=== PATIENT | female | born 1955 | race Caucasian/White ===

== ENCOUNTER 2016-06-19 09:53 | Inpatient (IN) | payer MEDICAID ==
[~2016-06-19] VITALS: Ht 154.9 cm; Wt 90.7 kg
[~2016-06-19 09:53] MED LIST: AMBIEN10 MG ORAL; AMBIEN10 MG PO; AMBIEN5 MG ORAL; ATARAX25 MG PO; AZACTAM1 GM IVPB; BUSPAR10 MG ORAL; CIPRO500 MG PO; CLONIDINE 0.2M0.2 MG PO; COZAAR50 MG PO; CYCLOBENZAPRINE10 MG ORAL; DOCUSATE SODIU100 MG ORAL; KEFLEX500 MG ORAL; KLONOPIN0.5 MG PO; LEVAQUIN500 MG ORAL; MAGNESIUM200 MG PO; MORPHINE SULFAT30 M5 PO; MUPIROCIN22 GM TOPIC; NEXIUM40 MG PO; NORCO 10-325 T1 EACH ORAL; OMEPRAZOLE20 M2 ORAL; POTASSIUM CHLO10 ME3 ORAL; POTASSIUM CHLO20 ME2 ORAL; POTASSIUM99 M3 PO; PRILOSEC OTC20 MG ORAL; RANITIDINE HCL150 MG ORAL; TENORMIN50 MG PO; ZOFRAN ODT8 MG ORAL
[2016-06-19 11:20] VITALS: BP 125/75
[2016-06-19 12:05] LABS: APPEARANCE,URINE CLOUDY; KETONES,URINE 1+ (NEGATIVE); LEUKOCYTE ESTERASE ,URINE 3+ (NEGATIVE); PH,URINE 6 (4.5-8.0); PROTEIN,URINE 4+ (NEGATIVE)
[2016-06-19 12:19] LABS: NITRITE,URINE NEGATIVE (NEGATIVE); UROBILINOGEN,URINE NORMAL MG/DL (0.0-1.0)
[2016-06-19 12:21] LABS: WBC,URINE TNTC /HPF (0 - 2)
[2016-06-19 12:22] LABS: BACTERIA,URINE FEW /HPF; SQUAMOUS EPITHELIAL CELL,UR FEW /LPF (NONE/OCC)
[2016-06-19] MEDS ORDERED: Morphine Sulfate 4mg/ml Inj IVP ONE (12:30)
[2016-06-19] MEDS ORDERED: Aztreonam Inj 1 GM in NS 55 ML IVPB ONE (12:45)
--- NOTE | 2016-06-19 12:45 | Emergency Room Report ---
History of Present Illness General Chief Complaint: Pain Source: Patient, Family Member Present Illness HPI 61 YOF with recurrent right flank pain radiating to right groin. Denies fever/ chills, nausea/vomiting, diarrhea. Pain acutely worse today. Has had constant for last week, mild improvement with OTC pain meds. Has been here numerous times for similar. Admitted 03/03- for similar. Found to have complicated recurrent Proteus UTI and pyelo. Was tx with Azactam here and at home with improvement per son via VNS and PICC. Allergies: Coded Allergies: ASPIRIN (Verified Allergy, Severe, SHORTNESS OF BREATH, 01/02/12) CIPROFLOXACIN (Verified Allergy, Intermediate, FEET SWELLING, 01/02/12) CIPROFLOXACIN HCL (Verified Allergy, Intermediate, FEET SWELLING, 01/02/12 ) HYDROMORPHONE HCL (Verified Allergy, Intermediate, HALLUCINATION, 01/02/12 ) TETRACYCLINE (Verified Allergy, Intermediate, Rash, 01/02/12) DIPHENHYDRAMINE (Verified Allergy, Unknown, 06/19/16) KETOROLAC (Verified Allergy, Unknown, tachycardia, 12/05/15) LEVOFLOXACIN (Verified Allergy, Unknown, FEET SWELLING, 11/08/13) PENICILLINS (Unverified Allergy, Unknown, 10/06/15) METOCLOPRAMIDE (Verified Adverse Reaction, Severe, 03/10/13) tachycardia SULFAMETHOXAZOLE (Verified Adverse Reaction, Intermediate, 10/28/15) TRIMETHOPRIM (Verified Adverse Reaction, Intermediate, 10/28/15) Uncoded Allergies: PENICILLIN (Allergy, Unknown, 10/06/15) Patient History Past Medical History: see triage record, old chart reviewed Past Surgical History: other - Right stent placeemnt Pertinent Family History: none Social History: Denies: alcohol use, drug use, smoking Now: No Immunizations: UTD Reviewed Nursing Documentation: PMH: Agreed, PSxH: Agreed Nursing Documentation-PMH Hx Cardiac Problems: Yes - defibrillator, kidney stones, kidney surgery 2015 Hx Hypertension: Yes Hx Pacemaker: Yes - defibrillator Hx Cancer: Yes - cervical 2002 Hx Gastrointestinal Problems: Yes Hx Neurological Problems: No Hx Cerebrovascular Accident: No Hx Transient Ischemic Attacks: No Hx Dementia: No Hx Alzheimer's Disease: No Hx Parkinson's Disease: No Hx Meningitis: No Hx Encephalitis: No Hx Seizures: No Hx Epilepsy: No Hx Multiple Sclerosis: No Hx Cerebral Palsy: No Hx Amyotrophic Lat Sclerosis: No Hx Guillian-Manning Syndrome: No Hx Paralysis: No Hx Peripheral Neuropathy: No Hx Spinal Cord Injury: No Hx Head Trauma: No Hx Traumatic Brain Injury: No Hx Memory Loss: No Hx Concentration Difficulty: No Hx Speech Problem: No Hx Tremors: No Hx Vertigo: No Hx Dizziness: No Hx Syncope: No Hx Headaches: No Hx Aphasia: No Hx Dysphasia: No Hx Numbness: No Hx Weakness: No Hx Fatigue: No Hx Neurologic Surgery: No Hx Brain Shunt: No Review of Systems All Other Systems: negative except mentioned in HPI Physical Exam Vital Signs Date Time Temp Pulse Resp B/P Pulse Ox O2 Delivery O2 Flow Rate FiO2 06/19/16 10:17 98.8 93 20 126/77 98 Room Air Sp02 EP Interpretation: reviewed, normal General Appearance: normal inspection, well appearing, alert, GCS 15, non-toxic , mild distress Head: normocephalic, atraumatic Eyes: bilateral eye EOMI, bilateral eye PERRL ENT: normal ENT inspection, hearing grossly normal, normal voice Neck: normal inspection, full range of motion, supple, no bony tend Respiratory: normal inspection, lungs clear, normal breath sounds, no respiratory distress, no retraction, no wheezing Cardiovascular #1: regular rate, rhythm, no edema Gastrointestinal: normal inspection, normal bowel sounds, non tender, soft, no guarding, no hernia Genitourinary: CVA tenderness (R) Musculoskeletal: normal inspection, back normal, normal range of motion, Yo' s Sign negative Neurologic: normal inspection, alert, responsive, speech normal Psychiatric: normal inspection, judgement/insight normal, mood/affect normal Skin: normal inspection, normal color, no rash Lymphatic: normal inspection Medical Decision Making Diagnostic Impression: Primary Impression: Right flank pain, chronic Additional Impressions: UTI (urinary tract infection) Qualified Codes: N30.01 - Acute cystitis with hematuria ELIZABETH (acute kidney injury) ER Course Recurrent right flank pain. VSS. Afebrile. Not septic. Looks well aside from c/o pain UA grossly infected. Additional Urine Cx sent Labs: No leuks. H&H stable. Mild ELIZABETH Empiric Abx started based on previous success with Aztreonam Analgesia provided Patient feels better Endorsed to Dr Arnold at 2pm for med/surg admission Likely needs Urology, Renal consult Last Vital Signs Date Time Temp Pulse Resp B/P Pulse Ox O2 Delivery O2 Flow Rate FiO2 06/19/16 10:17 98.8 93 20 126/77 98 Room Air Status: improved Disposition: ADMITTED INPATIENT Condition: Serious WHITNEY GONZALEZ M.D. Jun 19, 2016 12:45
[2016-06-19 13:40] LABS: BASOPHILS % (AUTO) 0.8 % (0.0-2.0); EOSINOPHILS % (AUTO) 2.2 % (0.0-3.0); LYMPHOCYTES % (AUTO) 16.5 % (20.0-45.0); MEAN CORPUSCULAR HEMOGLOBIN 27.3 PG (27.0-31.0); MEAN CORPUSCULAR HGB CONC 30.7 G/DL (32.0-36.0); MEAN CORPUSCULAR VOLUME 89 FL (80-99); MEAN PLATELET VOLUME 6.2 FL (6.5-10.1); MONOCYTES % (AUTO) 7.3 % (1.0-10.0); NEUTROPHILS % (AUTO) 73.2 % (45.0-75.0); PLATELET COUNT 300 K/UL (150-450); RED CELL DISTRIBUTION WIDTH 14.6 % (11.6-14.8); WHITE BLOOD COUNT 8.4 K/UL (4.8-10.8)
[2016-06-19 14:09] LABS: CALCIUM 9.8 mg/dL (8.6-10.2); POTASSIUM 3.9 mEQ/L (3.4-4.9); TOTAL PROTEIN 8.6 g/dL (6.6-8.7)
[2016-06-19] MEDS ORDERED: HydrOXYzine 25mg tab ORAL PRN (14:15)
[2016-06-19] MEDS ORDERED: DuoNeb 0.5-3(2.5)mg/3ml neb HHN PRN (14:15)
[2016-06-19] MEDS ORDERED: Miralax 17gm pkt ORAL PRN (14:15)
[2016-06-19] MEDS ORDERED: Nitroglycerin Subl 0.4mg tab (Bottle Of 25) SL PRN (14:15)
[2016-06-19 14:30] VITALS: BP 135/71
[2016-06-19] MEDS ORDERED: clonazePAM 0.5mg tab ORAL PRN (15:00)
--- NOTE | 2016-06-19 15:31 | History and Physical ---
History of Present Illness General Date patient seen: Jun 19, 2016 Time patient seen: 15:00 Reason for Hospitalization: Pain Present Illness HPI 61 y/old female with recurrent right flank pain radiating to right groin. Denied fever/chills, nausea/vomiting, diarrhea. Constant pain R flank x 1 week, getting progressively worse. Mild improvement with OTC pain meds. Multiple episodes in the past, hx of bilateral nephrolithiasis with stent placement in the past, R kidney surgery in June last year Urologist dr Roberts, patient had been told she has bilateral hydronephrosis Admitted 03/03- for complicated recurrent UTI and pyelo/Proteus. Was tx with Azactam in the hospital and at home by HH , PICC was palmed prior to dc Patient also has defibrillator had batteries changed 06/10 in [facility], need to remove stitches has appointment with cardio dr Schumacher next week Allergies: Coded Allergies: ASPIRIN (Verified Allergy, Severe, SHORTNESS OF BREATH, 01/02/12) CIPROFLOXACIN (Verified Allergy, Intermediate, FEET SWELLING, 01/02/12) CIPROFLOXACIN HCL (Verified Allergy, Intermediate, FEET SWELLING, 01/02/12 ) HYDROMORPHONE HCL (Verified Allergy, Intermediate, HALLUCINATION, 01/02/12 ) TETRACYCLINE (Verified Allergy, Intermediate, Rash, 01/02/12) DIPHENHYDRAMINE (Verified Allergy, Unknown, 06/19/16) KETOROLAC (Verified Allergy, Unknown, tachycardia, 12/05/15) LEVOFLOXACIN (Verified Allergy, Unknown, FEET SWELLING, 11/08/13) PENICILLINS (Unverified Allergy, Unknown, 10/06/15) METOCLOPRAMIDE (Verified Adverse Reaction, Severe, 03/10/13) tachycardia SULFAMETHOXAZOLE (Verified Adverse Reaction, Intermediate, 10/28/15) TRIMETHOPRIM (Verified Adverse Reaction, Intermediate, 10/28/15) Uncoded Allergies: PENICILLIN (Allergy, Unknown, 10/06/15) Medication History Scheduled Atenolol* (Tenormin*), 50 MG PO BID, (Reported) Aztreonam (Azactam), 0.5 GM IVPB EVERY 8 HOURS, (Reported) Buspirone Hcl* (Buspar*), 10 MG ORAL BID, (Reported) Clonazepam* (Klonopin*), 0.5 MG PO HS, (Reported) Clonidine HCl (Clonidine HCl), 0.2 MG PO BID, (Reported) Docusate Sodium* (Docusate Sodium*), 100 MG ORAL TWICE A DAY, (Reported) Esomeprazole Magnesium (Nexium), 40 MG PO DAILY, (Reported) Hydroxyzine HCl (Hydroxyzine HCl), 25 MG PO PRN, (Reported) Losartan Potassium* (Cozaar*), 50 MG PO BID, (Reported) Omeprazole Magnesium (Prilosec Otc), 20 MG ORAL DAILY, (Reported) Potassium Chloride (Potassium Chloride), 20 MEQ ORAL DAILY, (Reported) Ranitidine Hcl* (Zantac*), 150 MG ORAL DAILY, (Reported) Scheduled PRN Hydrocodone Bit/Acetaminophen 10-325* ([place] 10-325*), 1 TAB ORAL Q6H PRN for For Pain, (Reported) Ondansetron Odt* (Zofran Odt*), 8 MG ORAL Q6H PRN for Nausea & Vomiting, ( Reported) Zolpidem Tartrate* (Ambien*), 5 MG ORAL BEDTIME PRN for Insomnia, (Reported) Patient History History Provided By: Patient Healthcare decision maker Resuscitation status Advanced Directive on File Past Medical/Surgical History Past Medical/Surgical History: (1) Kidney stone (2) Pyelonephritis (3) Acute UTI (4) Renal failure (ARF), acute on chronic (5) Peripheral vascular disease (6) Arthritis (7) Right flank pain, chronic (8) Hx of cervical cancer Review of Systems Constitutional: Reports: weakness Eye: Reports: no symptoms ENT: Reports: no symptoms Respiratory: Reports: no symptoms Cardiovascular: Reports: other - HTN, defibrillator Gastrointestinal: Reports: constipation Genitourinary: Reports: other - hx xof cervical Ca, s/p SUMAN with BSO , see HPI Musculoskeletal: Reports: no symptoms Skin: Reports: no symptoms Psychiatric: Reports: no symptoms Neurological: Reports: no symptoms Endocrine: Reports: no symptoms Hematologic/Lymphatic: Reports: no symptoms Physical Exam General Appearance: no apparent distress, alert - A.A.O x 3 Chinese speaking female in NAD , obese Lines, tubes and drains: peripheral HEENT: normocephalic, atraumatic, anicteric, mucous membranes moist, PERRL Neck: supple, normal inspection Respiratory/Chest: lungs clear, normal breath sounds, no respiratory distress, no accessory muscle use, other - left chest AICD with dressing Cardiovascular/Chest: normal rate, regular rhythm, no JVD Abdomen: normal bowel sounds, soft - obese, RLQ tenderness, no rebound, no guarding Genitourinary/Rectal: other - + R CVAT Extremities: normal range of motion, non-tender, no calf tenderness, normal capillary refill Skin Exam: warm/dry 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, no motor/sensory deficits, alert, oriented x 3, responsive Musculoskeletal: normal muscle bulk Last 24 Hour Vital Signs Date Time Temp Pulse Resp B/P Pulse Ox O2 Delivery O2 Flow Rate FiO2 06/19/16 10:17 98.8 93 20 126/77 98 Room Air Laboratory Tests Test 06/19/16 11:48 06/19/16 13:10 Urine Color Brown Urine Appearance Cloudy Urine pH 6 (4.5-8.0) Urine Specific [place] 1.020 (1.005-1.035) Urine Protein 4+ (NEGATIVE) H Urine Glucose (UA) Negative (NEGATIVE) Urine Ketones 1+ (NEGATIVE) H Urine Occult Blood 5+ (NEGATIVE) H Urine Nitrite Negative (NEGATIVE) Urine Bilirubin Negative (NEGATIVE) Urine Urobilinogen Normal MG/DL (0.0-1.0) Urine Leukocyte Esterase 3+ (NEGATIVE) H Urine RBC 5-10 /HPF (0 - 2) H Urine WBC Tntc /HPF (0 - 2) H Urine Squamous Epithelial Cells Few /LPF (NONE/OCC) Urine Bacteria Few /HPF (NONE) White Blood Count 8.4 K/UL (4.8-10.8) Red Blood Count 4.80 M/UL (4.20-5.40) Hemoglobin 13.1 G/DL (12.0-16.0) Hematocrit 42.6 % (37.0-47.0) Mean Corpuscular Volume 89 FL (80-99) Mean Corpuscular Hemoglobin 27.3 PG (27.0-31.0) Mean Corpuscular Hemoglobin Concent 30.7 G/DL (32.0-36.0) L Red Cell Distribution Width 14.6 % (11.6-14.8) Platelet Count 300 K/UL (150-450) Mean Platelet Volume 6.2 FL (6.5-10.1) L Neutrophils (%) (Auto) 73.2 % (45.0-75.0) Lymphocytes (%) (Auto) 16.5 % (20.0-45.0) L Monocytes (%) (Auto) 7.3 % (1.0-10.0) Eosinophils (%) (Auto) 2.2 % (0.0-3.0) Basophils (%) (Auto) 0.8 % (0.0-2.0) Sodium Level 139 mEQ/L (135-145) Potassium Level 3.9 mEQ/L (3.4-4.9) Chloride Level 96 mEQ/L (98-107) L Carbon Dioxide Level 25 mEQ/L (20-30) Anion Gap 18 (5-15) H Blood Urea Nitrogen 14 mg/dL (7-23) Creatinine 1.0 mg/dL (0.5-0.9) H Estimat Glomerular Filtration Rate 56.0 mL/min (>60) Glucose Level 114 mg/dL (74-106) H Calcium Level 9.8 mg/dL (8.6-10.2) Total Bilirubin 0.5 mg/dL (0.0-1.2) Aspartate Amino Transf (AST/SGOT) 38 U/L (5-40) Alanine Aminotransferase (ALT/SGPT) 49 U/L (3-33) H Alkaline Phosphatase 117 U/L (35-104) H Total Protein 8.6 g/dL (6.6-8.7) Albumin 4.5 g/dL (3.5-5.2) Globulin 4.1 g/dL Albumin/Globulin Ratio 1.0 (1.0-2.7) Lipase 28 U/L (< 60) Height (Feet): 5 Height (Inches): 1.00 Weight (Pounds): 200 Medications Current Medications Medications (Trade) Dose Ordered Sig/Bev Route PRN Reason Start Time Stop Time Status Last Admin Dose Admin Acetaminophen (Tylenol) 650 mg Q4H PRN ORAL fever 06/19/16 14:15 07/19/16 14:14 Acetaminophen/ Hydrocodone Bitart ([place] 10/325) 1 ea Q6H PRN ORAL Moderate Pain (Pain Scale 4-6) 06/19/16 14:15 06/26/16 14:14 Albuterol/ Ipratropium (DuoNeb 0.5-3(2.5)mg/3ml) 3 ml Q4H PRN HHN Shortness of Breath 06/19/16 14:15 06/24/16 14:14 Atenolol (Tenormin) 50 mg BID ORAL 06/19/16 18:00 07/19/16 17:59 UNV Aztreonam/Sodium Chloride (Azactam/Sodium Chloride) 55 ml @ 110 mls/hr EVERY 8 HOURS IVPB 06/19/16 22:00 06/26/16 21:59 Buspirone HCl (Buspar) 10 mg BID ORAL 06/19/16 18:00 07/19/16 17:59 UNV Clonazepam (KlonoPIN) 0.5 mg Q12H PRN ORAL ANXIETY 06/19/16 15:00 06/26/16 14:59 Heparin Sodium (Porcine) (Heparin 5000 units/ml) 5,000 units EVERY 12 HOURS SUBQ 06/19/16 21:00 07/19/16 20:59 Hydroxyzine HCl (Atarax) 25 mg Q6H PRN ORAL ITCHING 06/19/16 14:15 07/19/16 14:14 Morphine Sulfate (Morphine Sulfate) 2 mg Q4H PRN IVP Severe Pain (Pain Scale 7-10) 06/19/16 14:15 06/26/16 14:14 Nitroglycerin 0.4 mg 0.4 mg Q5M PRN SL Prn Chest Pain 06/19/16 14:15 07/19/16 14:14 Ondansetron HCl (Zofran) 4 mg Q6H PRN IVP Nausea & Vomiting 06/19/16 14:15 07/19/16 14:14 Polyethylene Glycol (Miralax) 17 gm DAILYPRN PRN ORAL Constipation 06/19/16 14:15 07/19/16 14:14 Temazepam (Restoril) 15 mg HSPRN PRN ORAL Insomnia 06/19/16 14:15 06/26/16 14:14 Vancomycin HCl 1 ea 1 ea DAILY PRN MISC . 06/19/16 15:00 07/19/16 14:59 Vancomycin HCl/ Dextrose (Vancomycin/D5W) 325 ml @ 162.5 mls/ hr ONCE ONCE IVPB 06/19/16 17:00 06/19/16 18:59 Assessment/Plan Assessment/Plan ASSESSMENT complicated recurrent UTI pyelo chronic R flank pain nephrolithiasis hx of multiple ureteral stent placement defibrillator, s/p recent battery change HTN hx of cervical Ca, s/p SUMAN with BSO PLAN OF CARE ' [facility] floor empiric abx ID consult renal US to eval if ? hydronephrosis, stones urine cx pain management BP management with current regimen and optimize as needed dr Schumacher eval DVT prophylaxis Bowel regimen case discussed and evaluated by supervising physician Chris ([facility]),Ashly CERVANTES Jun 19, 2016 15:31
[2016-06-19 17:00] VITALS: BP 123/81
[2016-06-19] MEDS ORDERED: Vancomycin 1.5 GM in D5W 325 ML IVPB ONE (17:00)
[2016-06-19 18:00] VITALS: BP 146/82
[2016-06-19] MEDS: BusPIRone 10mg Tab ORAL SCH ×2 (18:00→18:24)
[2016-06-19] MEDS: Morphine Sulfate 2mg/ml Inj IVP PRN ×2 (18:26→23:56)
[2016-06-19] MEDS ORDERED: AMBIEN10 M1 ORAL (18:46)
[2016-06-19] MEDS ORDERED: POTASSIUM CHLO10 ME2 PO (18:46)
[2016-06-19 20:00] VITALS: BP 117/78
[2016-06-19] MEDS ORDERED: Cefepime HCl 2 GM in D5W 110 ML IV SCH (21:00)
[2016-06-19] MEDS: Aztreonam Inj 1 GM in NS 55 ML IVPB SCH (21:24)
[2016-06-19] MEDS: Norco 10mg/325mg tab ORAL PRN (21:25)
[2016-06-19] MEDS: Zolpidem 5mg tab ORAL PRN (21:25)
[2016-06-19] MEDS: Heparin 5000 units/ml inj SUBQ SCH (21:35)
[2016-06-20] MEDS ORDERED: Vancomycin 1 GM in D5W 275 ML IV SCH (00:30)
[2016-06-20 01:00] VITALS: BP 80/53
[2016-06-20] MEDS ORDERED: Vancomycin 1250mg/D5W 275ml IVPB SCH ×2 (05:00)
[2016-06-20 06:59] LABS: BASOPHILS % (AUTO) 0.9 % (0.0-2.0); EOSINOPHILS % (AUTO) 4.8 % (0.0-3.0); LYMPHOCYTES % (AUTO) 18.4 % (20.0-45.0); MEAN CORPUSCULAR HEMOGLOBIN 27.9 PG (27.0-31.0); MEAN CORPUSCULAR HGB CONC 31.8 G/DL (32.0-36.0); MEAN CORPUSCULAR VOLUME 88 FL (80-99); MEAN PLATELET VOLUME 6.1 FL (6.5-10.1); MONOCYTES % (AUTO) 7.9 % (1.0-10.0); PLATELET COUNT 292 K/UL (150-450); RED BLOOD COUNT 4.14 M/UL (4.20-5.40); RED CELL DISTRIBUTION WIDTH 14.7 % (11.6-14.8); WHITE BLOOD COUNT 8.3 K/UL (4.8-10.8)
[2016-06-20 07:06] LABS: ALANINE AMINOTRANSFERASE 85 U/L (3-33); ALBUMIN/GLOBULIN RATIO 0.9 (1.0-2.7); ANION GAP 16 (5-15); ASPARTATE AMINO TRANSFERASE 65 U/L (5-40); CALCIUM 9.3 mg/dL (8.6-10.2); CARBON DIOXIDE 24 mEQ/L (20-30); CHLORIDE 101 mEQ/L (98-107); CREATININE 0.8 mg/dL (0.5-0.9); GLOMERULAR FILTRATION RATE > 60 mL/min (>60); HEMOLYSIS 0; POTASSIUM 3.8 mEQ/L (3.4-4.9); SODIUM 141 mEQ/L (135-145); TOTAL PROTEIN 7.3 g/dL (6.6-8.7)
[2016-06-20 08:00] VITALS: BP 121/75
[2016-06-20] MEDS: Heparin 5000 units/ml inj SUBQ SCH ×2 (08:25→20:39)
[2016-06-20] MEDS: Morphine Sulfate 2mg/ml Inj IVP PRN ×5 (08:25→21:48)
[2016-06-20] MEDS ORDERED: Tubing IV Secondary IV ONE (10:40)
[2016-06-20] MEDS ORDERED: NS 550ML IV ONE (10:40)
[2016-06-20] MEDS: Aztreonam Inj 1 GM in NS 55 ML IVPB SCH ×3 (11:21→21:44)
--- NOTE | 2016-06-20 11:45 | Consultation ---
Consult Note Assessment/Plan ID DIc # [id number] ASSESSMENT: 61 y/o female with: // Recurrent complicated UTI / pyelonephrosis UCx: GNR - refused cystoscopy in the past - CT: Severe right hydronephrosis with transition involving the distal ureter near the iliac vessels. This is unchanged. However there is considerable perinephric stranding now present which appears worse compared to the last study 03/19/15. - bilateral nephrolithiasis SP stent // febrile. low grade // transaminitis Hx of cervical cancer SP total abdominal hysterectomy Multiple ABX allergies / intolerances - tolerating aztreonam Full Code PLAN: - cont IV Azactam d# 2 , DC IV Vanco - f/u final cultures ( Bl, Ur ) - monitor CBC, temperatures - monitor BMP - Liver US - Hepatitis Panel LEO OLIVEROS M.D. Jun 20, 2016 11:45
[2016-06-20 11:52] VITALS: BP 104/59
--- NOTE | 2016-06-20 12:49 | Cardiac Electrophysiology PN ---
Subjective Subjective [id number]. S/P SJ ICD generator change by me at [facility] on 06/10/16 Objective Last 24 Hour Vital Signs Date Time Temp Pulse Resp B/P Pulse Ox O2 Delivery O2 Flow Rate FiO2 06/20/16 11:52 97.3 64 18 104/59 95 Room Air 06/20/16 10:20 98.2 06/20/16 10:00 98.2 06/20/16 09:50 76 16 06/20/16 09:23 100.8 06/20/16 08:24 78 121/75 06/20/16 08:00 100.8 78 20 121/75 93 Room Air 06/20/16 01:00 99.0 80 18 80/53 93 Room Air 06/19/16 20:00 99.5 85 17 117/78 95 Room Air 06/19/16 18:24 103 146/82 06/19/16 18:00 99.3 82 20 146/82 92 Room Air 06/19/16 17:35 98.7 85 18 123/81 99 Room Air 06/19/16 17:00 98.7 85 18 123/81 99 Room Air 06/19/16 14:30 79 17 135/71 99 Room Air 06/19/16 13:50 99.5 Intake and Output 06/19/16 06/20/16 19:00 07:00 Intake Total 55 ml 540 ml Balance 55 ml 540 ml Intake Oral 0 ml 540 ml IV Total 55 ml # Voids 6 # Bowel Movements 2 Laboratory Tests Test 06/19/16 13:10 06/20/16 05:10 White Blood Count 8.4 K/UL (4.8-10.8) 8.3 K/UL (4.8-10.8) Red Blood Count 4.80 M/UL (4.20-5.40) 4.14 M/UL (4.20-5.40) L Hemoglobin 13.1 G/DL (12.0-16.0) 11.5 G/DL (12.0-16.0) L Hematocrit 42.6 % (37.0-47.0) 36.3 % (37.0-47.0) L Mean Corpuscular Volume 89 FL (80-99) 88 FL (80-99) Mean Corpuscular Hemoglobin 27.3 PG (27.0-31.0) 27.9 PG (27.0-31.0) Mean Corpuscular Hemoglobin Concent 30.7 G/DL (32.0-36.0) L 31.8 G/DL (32.0-36.0) L Red Cell Distribution Width 14.6 % (11.6-14.8) 14.7 % (11.6-14.8) Platelet Count 300 K/UL (150-450) 292 K/UL (150-450) Mean Platelet Volume 6.2 FL (6.5-10.1) L 6.1 FL (6.5-10.1) L Neutrophils (%) (Auto) 73.2 % (45.0-75.0) 68.0 % (45.0-75.0) Lymphocytes (%) (Auto) 16.5 % (20.0-45.0) L 18.4 % (20.0-45.0) L Monocytes (%) (Auto) 7.3 % (1.0-10.0) 7.9 % (1.0-10.0) Eosinophils (%) (Auto) 2.2 % (0.0-3.0) 4.8 % (0.0-3.0) H Basophils (%) (Auto) 0.8 % (0.0-2.0) 0.9 % (0.0-2.0) Sodium Level 139 mEQ/L (135-145) 141 mEQ/L (135-145) Potassium Level 3.9 mEQ/L (3.4-4.9) 3.8 mEQ/L (3.4-4.9) Chloride Level 96 mEQ/L (98-107) L 101 mEQ/L (98-107) Carbon Dioxide Level 25 mEQ/L (20-30) 24 mEQ/L (20-30) Anion Gap 18 (5-15) H 16 (5-15) H Blood Urea Nitrogen 14 mg/dL (7-23) 11 mg/dL (7-23) Creatinine 1.0 mg/dL (0.5-0.9) H 0.8 mg/dL (0.5-0.9) Estimat Glomerular Filtration Rate 56.0 mL/min (>60) > 60 mL/min (>60) Glucose Level 114 mg/dL (74-106) H 110 mg/dL (74-106) H Calcium Level 9.8 mg/dL (8.6-10.2) 9.3 mg/dL (8.6-10.2) Total Bilirubin 0.5 mg/dL (0.0-1.2) 0.5 mg/dL (0.0-1.2) Aspartate Amino Transf (AST/SGOT) 38 U/L (5-40) 65 U/L (5-40) H Alanine Aminotransferase (ALT/SGPT) 49 U/L (3-33) H 85 U/L (3-33) H Alkaline Phosphatase 117 U/L (35-104) H 118 U/L (35-104) H Total Protein 8.6 g/dL (6.6-8.7) 7.3 g/dL (6.6-8.7) Albumin 4.5 g/dL (3.5-5.2) 3.6 g/dL (3.5-5.2) Globulin 4.1 g/dL 3.7 g/dL Albumin/Globulin Ratio 1.0 (1.0-2.7) 0.9 (1.0-2.7) L Lipase 28 U/L (< 60) Microbiology Date/Time Source Procedure Growth Status 06/19/16 11:48 Urine,Clean Catch Urine Culture - Preliminary Gram Negative Bacillus 1 Resulted [facility] Jun 20, 2016 12:49
--- NOTE | 2016-06-20 14:21 | Pulmonology Progress Note ---
Assessment/Plan Problems: (1) Sepsis (2) ATN (acute tubular necrosis) (3) Pyelonephritis Assessment/Plan IV antibiotics IV hydration check cultures check electrolytes. Subjective ROS Limited/Unobtainable: No Interval Events: slightly better Allergies: Coded Allergies: ASPIRIN (Verified Allergy, Severe, SHORTNESS OF BREATH, 01/02/12) CIPROFLOXACIN (Verified Allergy, Intermediate, FEET SWELLING, 01/02/12) CIPROFLOXACIN HCL (Verified Allergy, Intermediate, FEET SWELLING, 01/02/12 ) HYDROMORPHONE HCL (Verified Allergy, Intermediate, HALLUCINATION, 01/02/12 ) TETRACYCLINE (Verified Allergy, Intermediate, Rash, 01/02/12) DIPHENHYDRAMINE (Verified Allergy, Unknown, 06/19/16) KETOROLAC (Verified Allergy, Unknown, tachycardia, 12/05/15) LEVOFLOXACIN (Verified Allergy, Unknown, FEET SWELLING, 11/08/13) PENICILLINS (Unverified Allergy, Unknown, 10/06/15) METOCLOPRAMIDE (Verified Adverse Reaction, Severe, 03/10/13) tachycardia SULFAMETHOXAZOLE (Verified Adverse Reaction, Intermediate, 10/28/15) TRIMETHOPRIM (Verified Adverse Reaction, Intermediate, 10/28/15) Uncoded Allergies: PENICILLIN (Allergy, Unknown, 10/06/15) Objective Last 24 Hour Vital Signs Date Time Temp Pulse Resp B/P Pulse Ox O2 Delivery O2 Flow Rate FiO2 06/20/16 11:52 97.3 64 18 104/59 95 Room Air 06/20/16 10:20 98.2 06/20/16 10:00 98.2 06/20/16 09:50 76 16 06/20/16 09:23 100.8 06/20/16 08:24 78 121/75 06/20/16 08:00 100.8 78 20 121/75 93 Room Air 06/20/16 01:00 99.0 80 18 80/53 93 Room Air 06/19/16 20:00 99.5 85 17 117/78 95 Room Air 06/19/16 18:24 103 146/82 06/19/16 18:00 99.3 82 20 146/82 92 Room Air 06/19/16 17:35 98.7 85 18 123/81 99 Room Air 06/19/16 17:00 98.7 85 18 123/81 99 Room Air 06/19/16 14:30 79 17 135/71 99 Room Air Intake and Output 06/19/16 06/20/16 19:00 07:00 Intake Total 55 ml 540 ml Balance 55 ml 540 ml Intake Oral 0 ml 540 ml IV Total 55 ml # Voids 6 # Bowel Movements 2 General Appearance: WD/WN HEENT: normocephalic, atraumatic Respiratory/Chest: chest wall non-tender, lungs clear Cardiovascular: normal peripheral pulses, normal rate Abdomen: normal bowel sounds, soft, non tender Genitourinary: normal external genitalia Extremities: no cyanosis 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, no motor/sensory deficits Lymphatic: no neck adenopathy Microbiology Date/Time Source Procedure Growth Status 06/19/16 11:48 Urine,Clean Catch Urine Culture - Preliminary Gram Negative Bacillus 1 Resulted Laboratory Tests 06/20/16 05:10: White Blood Count 8.3, Red Blood Count 4.14L, Hemoglobin 11.5L, Hematocrit 36.3L , Mean Corpuscular Volume 88, Mean Corpuscular Hemoglobin 27.9, Mean Corpuscular Hemoglobin Concent 31.8L, Red Cell Distribution Width 14.7, Platelet Count 292, Mean Platelet Volume 6.1L, Neutrophils (%) (Auto) 68.0, Lymphocytes (%) (Auto) 18.4L, Monocytes (%) (Auto) 7.9, Eosinophils (%) (Auto) 4.8H, Basophils (%) (Auto) 0.9, Sodium Level 141, Potassium Level 3.8, Chloride Level 101, Carbon Dioxide Level 24, Anion Gap 16H, Blood Urea Nitrogen 11, Creatinine 0.8, Estimat Glomerular Filtration Rate > 60, Glucose Level 110H, Calcium Level 9.3, Total Bilirubin 0.5, Aspartate Amino Transf (AST/SGOT) 65H, Alanine Aminotransferase (ALT/SGPT) 85H, Alkaline Phosphatase 118H, Total Protein 7.3, Albumin 3.6, Globulin 3.7, Albumin/Globulin Ratio 0.9L Current Medications Medications (Trade) Dose Ordered Sig/Bev Route PRN Reason Start Time Stop Time Status Last Admin Dose Admin Acetaminophen (Tylenol) 650 mg Q4H PRN ORAL fever 06/19/16 14:15 07/19/16 14:14 06/20/16 08:24 Acetaminophen/ Hydrocodone Bitart ([place] 10/325) 1 ea Q6H PRN ORAL Moderate Pain (Pain Scale 4-6) 06/19/16 14:15 06/26/16 14:14 06/19/16 21:25 Albuterol/ Ipratropium (DuoNeb 0.5-3(2.5)mg/3ml) 3 ml Q4H PRN HHN Shortness of Breath 06/19/16 14:15 06/24/16 14:14 Atenolol (Tenormin) 50 mg BID ORAL 06/19/16 18:00 07/19/16 17:59 06/20/16 08:24 Aztreonam/Sodium Chloride (Azactam/Sodium Chloride) 55 ml @ 110 mls/hr EVERY 8 HOURS IVPB 06/19/16 22:00 06/26/16 21:59 06/20/16 13:20 Clonazepam (KlonoPIN) 0.5 mg Q12H PRN ORAL ANXIETY 06/19/16 15:00 06/26/16 14:59 Heparin Sodium (Porcine) (Heparin 5000 units/ml) 5,000 units EVERY 12 HOURS SUBQ 06/19/16 21:00 07/19/16 20:59 Hydroxyzine HCl (Atarax) 25 mg Q6H PRN ORAL ITCHING 06/19/16 14:15 07/19/16 14:14 Morphine Sulfate (Morphine Sulfate) 2 mg Q4H PRN IVP Severe Pain (Pain Scale 7-10) 06/19/16 14:15 06/26/16 14:14 06/20/16 13:23 Nitroglycerin 0.4 mg 0.4 mg Q5M PRN SL Prn Chest Pain 06/19/16 14:15 07/19/16 14:14 Ondansetron HCl (Zofran) 4 mg Q4H PRN IVP Nausea & Vomiting 06/20/16 08:15 07/20/16 08:14 06/20/16 13:23 Polyethylene Glycol (Miralax) 17 gm DAILYPRN PRN ORAL Constipation 06/19/16 14:15 07/19/16 14:14 Zolpidem Tartrate (Ambien) 10 mg HSPRN PRN ORAL Insomnia 06/19/16 19:15 07/19/16 19:14 06/19/16 21:25 LESLY LOTT Jun 20, 2016 14:21
[2016-06-20 16:00] VITALS: BP 113/71
[2016-06-20 20:00] VITALS: BP 128/76
[2016-06-20] MEDS: Norco 10mg/325mg tab ORAL PRN (20:42)
--- NOTE | 2016-06-20 20:58 | Consultation ---
DATE OF CONSULTATION: 06/20/2016 INFECTIOUS DISEASE CONSULTATION CONSULTING PHYSICIAN: Joel Eubanks M.D. REFERRING PHYSICIAN: Zhao Arnold M.D. REASON FOR CONSULTATION: Evaluation of the patient's possible urinary tract infection. HISTORY OF PRESENT ILLNESS: The patient is a 61-year-old female with multiple medical problems including cervical cancer, recurrent urinary tract infection, and pyelonephritis. The patient in the past has refused cystoscopy, now comes to the hospital with a chief complaint of right flank and right lower abdominal pain and dysuria. The patient has history of cervical cancer in the past and history of total hysterectomy. Infectious Disease consultation has requested for further evaluation of the patient. PAST MEDICAL HISTORY: As mentioned above, also 1. History of recurrent urinary tract infection. 2. History of sepsis. 3. History of cervical cancer. MEDICATIONS: The patient is on IV vancomycin and aztreonam. ALLERGIES: Aspirin, Cipro, diphenhydramine, metoclopramide, penicillin, and sulfa. FAMILY HISTORY: Noncontributory. REVIEW OF SYSTEMS: A 10-point review was done and except what is mentioned has been negative. PHYSICAL EXAMINATION: VITAL SIGNS: Temperature 98 degrees, pulse 86, respiratory rate 18, and T-max 100.8 degrees. HEENT: Mild pale conjunctivae. No icterus. NECK: No lymphadenopathy. CHEST: Coarse breathing sounds. HEART: S1 and S2. ABDOMEN: Soft. BACK: The patient has right flank tenderness. EXTREMITIES: No cyanosis. . NEUROLOGIC: Awake and alert. LABORATORY AND DIAGNOSTIC DATA: WBC 8, hemoglobin 11.5, and platelets 292,000. Urinalysis too numerous to count white blood cells. BUN 11 and creatinine 0.8. AST 65, ALT is 85, and alkaline phosphatase 118. Urine culture is growing gram-negative rods. ASSESSMENT: The patient is a 61-year-old female with multiple medical problems, who has recurrent urinary tract infection due to right hydronephrosis. The patient has refused intervention in the past. The patient also has multiple allergies. PLAN: 1. Continue the patient on aspirin. 2. Discontinue vancomycin. 3. Monitor CBC. 4. Monitor BMP. 5. Ultrasound of the liver and acute hepatitis panel for evaluation of elevated liver function tests. 6. Multiple cultures of the blood and urine. Based on the patient's clinical course and laboratories, we will do further recommendation. Thank you, Dr. Arnold, for allowing me to participate in the care of this patient. I will with this patient during this hospitalization. Joel Eubanks M.D. DR: SADAF JOB#: [id number] CC:
--- NOTE | 2016-06-20 21:48 | Consultation ---
DATE OF CONSULTATION: 06/20/2016 CARDIOLOGY CONSULTATION CONSULTING PHYSICIAN: Brooks Ahuja M.D. REFERRING PHYSICIAN: Zhao Arnold M.D. REASON FOR CONSULTATION: Evaluation of the patient's defibrillator. HISTORY OF PRESENT ILLNESS: The patient is a 61-year-old [place] lady with history of cardiomyopathy, who underwent a [employer] defibrillator implantation in 2003 and then in 03/2008 as well as subsequent defibrillator changed by me on 06/10/2016 at [facility]. The patient also has a history of hypertension, morbid obesity and history of kidney stones status post kidney stent placement at [facility]. The patient presented to the emergency room with flank pain and was found to have recurrent complicated urinary tract infection with hydronephrosis with a gram-negative finn. The patient has refused cystoscopy in the past. A CT scan showed severe right hydronephrosis with transition involving the distal ureter near the iliac vessel. A Cardiology consultation was obtained for further evaluation and management. The patient has as already been seen by Dr. Eubanks and was started on broad-spectrum intravenous antibiotic. PAST MEDICAL HISTORY: 1. Hypertension. 2. History of cardiomyopathy. 3. History of [employer] defibrillator implantation originally in 2003 and subsequently changed in 03/2008 as well as on 06/10/2016 at [facility]. 4. Obesity. 5. History of urinary tract infection. 6. History of cervical cancer status post total abdominal hysterectomy. FAMILY HISTORY: Noncontributory. REVIEW OF SYSTEMS: Review of systems was performed and was negative other than what was mentioned in the history of present illness. PHYSICAL EXAMINATION: VITAL SIGNS: Blood pressure is 104/59, pulse is 64, and . HEENT: Showed no JVD. LUNGS: Clear. CARDIOVASCULAR: Shows regular S1 and S2 with no gallop. The defibrillator in the left subclavian site is healed. ABDOMEN: Soft. EXTREMITIES: No pitting edema. LABORATORY DATA: White count of 8.3, hemoglobin of 11.5, hematocrit 36.3, and platelet count of 292,000. Sodium 141, potassium 3.8, BUN 11, creatinine 0.8, and glucose of 110. ASSESSMENT AND PLAN: 1. Status post [employer] defibrillator implantation. The incision looks healing with no evidence of hematoma or oozing. We will re-interrogate defibrillator while the patient is in-house. 2. Hypertension. Continue atenolol 50 mg twice a day. 3. History of cardiomyopathy . 4. Complicated urinary tract infection on intravenous antibiotic per Infectious Diseases. Thank you very much, Dr. Arnold, for allowing me to participate in the care of this patient. Please do not hesitate to contact me for any questions regarding my evaluation. Brooks Ahuja M.D. DR: GARY JOB#: [id number] CC:
[2016-06-20] MEDS: Zolpidem 5mg tab ORAL PRN (22:53)
[2016-06-21 01:00] VITALS: BP 108/61
[2016-06-21 04:00] VITALS: BP 116/64
[2016-06-21] MEDS: Aztreonam Inj 1 GM in NS 55 ML IVPB SCH (07:02)
[2016-06-21 07:33] LABS: BASOPHILS % (AUTO) 1.1 % (0.0-2.0); EOSINOPHILS % (AUTO) 6.8 % (0.0-3.0); LYMPHOCYTES % (AUTO) 33.3 % (20.0-45.0); MEAN CORPUSCULAR HEMOGLOBIN 27.7 PG (27.0-31.0); MEAN CORPUSCULAR HGB CONC 31.1 G/DL (32.0-36.0); MEAN CORPUSCULAR VOLUME 89 FL (80-99); MEAN PLATELET VOLUME 6.1 FL (6.5-10.1); MONOCYTES % (AUTO) 5.7 % (1.0-10.0); NEUTROPHILS % (AUTO) 53.1 % (45.0-75.0); PLATELET COUNT 298 K/UL (150-450); RED BLOOD COUNT 4.22 M/UL (4.20-5.40); RED CELL DISTRIBUTION WIDTH 14.9 % (11.6-14.8); WHITE BLOOD COUNT 6.3 K/UL (4.8-10.8)
[2016-06-21 07:40] LABS: ALANINE AMINOTRANSFERASE 78 U/L (3-33); ANION GAP 13 (5-15); ASPARTATE AMINO TRANSFERASE 62 U/L (5-40); CALCIUM 9.5 mg/dL (8.6-10.2); CARBON DIOXIDE 27 mEQ/L (20-30); CHLORIDE 100 mEQ/L (98-107); CREATININE 0.9 mg/dL (0.5-0.9); GLOMERULAR FILTRATION RATE > 60 mL/min (>60); HEMOLYSIS 4; SODIUM 140 mEQ/L (135-145); TOTAL PROTEIN 7.6 g/dL (6.6-8.7)
[2016-06-21] MEDS: Norco 10mg/325mg tab ORAL PRN (08:04)
--- NOTE | 2016-06-21 08:07 | Diagnostic Imaging Report ---
Indication: DYSPNEA Technique: One view of the chest Comparison: 12/05/2015 Findings: Lungs and pleural spaces are clear. There is a left chest AICD Impression: No acute process
[2016-06-21 08:19] VITALS: BP 132/80
[2016-06-21] MEDS: Heparin 5000 units/ml inj SUBQ SCH ×2 (08:37→20:26)
--- NOTE | 2016-06-21 10:38 | Infectious Diseases Prog Note ---
Assessment/Plan Assessment/Plan ASSESSMENT: 61 y/o female with: // Recurrent complicated UTI / pyelonephrosis UCx: ESBL Ecoli - refused cystoscopy in the past - CT: Severe right hydronephrosis with transition involving the distal ureter near the iliac vessels. This is unchanged. However there is considerable perinephric stranding now present which appears worse compared to the last study 03/19/15. - bilateral nephrolithiasis SP stent // febrile. low grade , SP // transaminitis Hx of cervical cancer SP total abdominal hysterectomy Multiple ABX allergies / intolerances - tolerating aztreonam ( no Hx of Anaphylaxis to PCN ) Full Code PLAN: - cont IV Azactam d# 3 , change to Merrem d# 1 - f/u final cultures ( Bl ) - monitor CBC, temperatures - monitor BMP - Liver US : P - Hepatitis Panel Subjective Constitutional: Denies: anorexia, chills, drenching sweats, fatigue, fever, no symptoms, other Allergies: Coded Allergies: ASPIRIN (Verified Allergy, Severe, SHORTNESS OF BREATH, 01/02/12) CIPROFLOXACIN (Verified Allergy, Intermediate, FEET SWELLING, 01/02/12) CIPROFLOXACIN HCL (Verified Allergy, Intermediate, FEET SWELLING, 01/02/12 ) HYDROMORPHONE HCL (Verified Allergy, Intermediate, HALLUCINATION, 01/02/12 ) TETRACYCLINE (Verified Allergy, Intermediate, Rash, 01/02/12) DIPHENHYDRAMINE (Verified Allergy, Unknown, 06/19/16) KETOROLAC (Verified Allergy, Unknown, tachycardia, 12/05/15) LEVOFLOXACIN (Verified Allergy, Unknown, FEET SWELLING, 11/08/13) PENICILLINS (Unverified Allergy, Unknown, 10/06/15) METOCLOPRAMIDE (Verified Adverse Reaction, Severe, 03/10/13) tachycardia SULFAMETHOXAZOLE (Verified Adverse Reaction, Intermediate, 10/28/15) TRIMETHOPRIM (Verified Adverse Reaction, Intermediate, 10/28/15) Uncoded Allergies: PENICILLIN (Allergy, Unknown, 10/06/15) Objective Vital Signs Last 24 Hour Vital Signs Date Time Temp Pulse Resp B/P Pulse Ox O2 Delivery O2 Flow Rate FiO2 06/21/16 09:03 98.0 06/21/16 08:45 72 16 Room Air 06/21/16 08:37 66 130/80 06/21/16 08:19 98.0 66 18 132/80 91 Room Air 06/21/16 04:00 97.7 66 18 116/64 100 Room Air 06/21/16 01:00 98.1 63 18 108/61 100 Room Air 06/20/16 20:00 96.4 66 18 128/76 98 Room Air 06/20/16 19:06 69 18 06/20/16 17:17 62 113/71 06/20/16 16:00 98.1 62 18 113/71 95 Room Air 06/20/16 14:00 97.3 06/20/16 11:52 97.3 64 18 104/59 95 Room Air Height (Feet): 5 Height (Inches): 1.00 Weight (Pounds): 200 HEENT: anicteric Breasts: no masses Abdomen: normal bowel sounds, non distended Microbiology Date/Time Source Procedure Growth Status 06/19/16 11:48 Urine,Clean Catch Urine Culture - Final Escherichia Coli - Esbl Complete Laboratory Tests Test 06/21/16 05:30 White Blood Count 6.3 K/UL (4.8-10.8) Red Blood Count 4.22 M/UL (4.20-5.40) Hemoglobin 11.7 G/DL (12.0-16.0) L Hematocrit 37.5 % (37.0-47.0) Mean Corpuscular Volume 89 FL (80-99) Mean Corpuscular Hemoglobin 27.7 PG (27.0-31.0) Mean Corpuscular Hemoglobin Concent 31.1 G/DL (32.0-36.0) L Red Cell Distribution Width 14.9 % (11.6-14.8) H Platelet Count 298 K/UL (150-450) Mean Platelet Volume 6.1 FL (6.5-10.1) L Neutrophils (%) (Auto) 53.1 % (45.0-75.0) Lymphocytes (%) (Auto) 33.3 % (20.0-45.0) Monocytes (%) (Auto) 5.7 % (1.0-10.0) Eosinophils (%) (Auto) 6.8 % (0.0-3.0) H Basophils (%) (Auto) 1.1 % (0.0-2.0) Sodium Level 140 mEQ/L (135-145) Potassium Level 4.0 mEQ/L (3.4-4.9) Chloride Level 100 mEQ/L (98-107) Carbon Dioxide Level 27 mEQ/L (20-30) Anion Gap 13 (5-15) Blood Urea Nitrogen 14 mg/dL (7-23) Creatinine 0.9 mg/dL (0.5-0.9) Estimat Glomerular Filtration Rate > 60 mL/min (>60) Glucose Level 103 mg/dL (74-106) Calcium Level 9.5 mg/dL (8.6-10.2) Total Bilirubin 0.3 mg/dL (0.0-1.2) Aspartate Amino Transf (AST/SGOT) 62 U/L (5-40) H Alanine Aminotransferase (ALT/SGPT) 78 U/L (3-33) H Alkaline Phosphatase 125 U/L (35-104) H Pro-B-Type Natriuretic Peptide 218 pg/mL (0-125) H Total Protein 7.6 g/dL (6.6-8.7) Albumin 3.8 g/dL (3.5-5.2) Globulin 3.8 g/dL Albumin/Globulin Ratio 1.0 (1.0-2.7) Hepatitis A IgM Antibody Pending Hepatitis B Surface Antigen Pending Hepatitis B Core IgM Antibody Pending Hepatitis C Antibody Pending Current Medications Medications (Trade) Dose Ordered Sig/Bev Route PRN Reason Start Time Stop Time Status Last Admin Dose Admin Acetaminophen (Tylenol) 650 mg Q4H PRN ORAL fever 06/19/16 14:15 07/19/16 14:14 06/20/16 08:24 Acetaminophen/ Hydrocodone Bitart ([place] 10/325) 1 ea Q6H PRN ORAL Moderate Pain (Pain Scale 4-6) 06/19/16 14:15 06/26/16 14:14 06/21/16 08:04 Albuterol/ Ipratropium (DuoNeb 0.5-3(2.5)mg/3ml) 3 ml Q4H PRN HHN Shortness of Breath 06/19/16 14:15 06/24/16 14:14 Atenolol (Tenormin) 50 mg BID ORAL 06/19/16 18:00 07/19/16 17:59 06/21/16 08:37 Aztreonam/Sodium Chloride (Azactam/Sodium Chloride) 55 ml @ 110 mls/hr EVERY 8 HOURS IVPB 06/19/16 22:00 06/26/16 21:59 06/21/16 07:02 Clonazepam (KlonoPIN) 0.5 mg Q12H PRN ORAL ANXIETY 06/19/16 15:00 06/26/16 14:59 Heparin Sodium (Porcine) (Heparin 5000 units/ml) 5,000 units EVERY 12 HOURS SUBQ 06/19/16 21:00 07/19/16 20:59 Hydroxyzine HCl (Atarax) 25 mg Q6H PRN ORAL ITCHING 06/19/16 14:15 07/19/16 14:14 Morphine Sulfate (Morphine Sulfate) 2 mg Q4H PRN IVP Severe Pain (Pain Scale 7-10) 06/19/16 14:15 06/26/16 14:14 06/20/16 21:48 Nitroglycerin 0.4 mg 0.4 mg Q5M PRN SL Prn Chest Pain 06/19/16 14:15 07/19/16 14:14 Ondansetron HCl (Zofran) 4 mg Q4H PRN IVP Nausea & Vomiting 06/20/16 08:15 07/20/16 08:14 06/20/16 13:23 Polyethylene Glycol (Miralax) 17 gm DAILYPRN PRN ORAL Constipation 06/19/16 14:15 07/19/16 14:14 06/20/16 17:31 Zolpidem Tartrate (Ambien) 10 mg HSPRN PRN ORAL Insomnia 06/19/16 19:15 07/19/16 19:14 06/20/16 22:53 LEO OLIVEROS M.D. Jun 21, 2016 10:37
--- NOTE | 2016-06-21 10:45 | Diagnostic Imaging Report ---
Indication: Epigastric pain, bilateral flank pain Technique: Parmar-scale and duplex images of the upper abdomen were obtained Comparison: Renal ultrasound dated the 01/07/16, CT abdomen pelvis 03/03/2016 Findings: . Gallbladder is surgically absent. Common bile duct measures 9 mm in diameter. No intrahepatic biliary ductal dilatation. Liver demonstrates normal echogenicity, no focal abnormality. It is somewhat enlarged.. Portal vein and hepatic veins are patent.. Pancreas is unremarkable. Spleen is unremarkable. Left kidney measures 11.2 cm in length. Right kidney measures 11.5 cm length. Both kidneys demonstrate normal echogenicity. Right kidney demonstrates moderate to severe hydronephrosis, appearing similar to the previous ultrasound. Left kidney demonstrates mild hydronephrosis, likewise similar in extent to the prior ultrasound. There may be slight thinning of the right renal parenchyma, which is unchanged from the earlier study. No focal abnormality. Bladder is obscured, nondistended Abdominal aorta is obscured by bowel gas. Impression: Moderate to severe right hydronephrosis, also previously reported on multiple earlier exams. Mild left hydronephrosis, also reported on multiple earlier exams. Empty nonvisualized urinary bladder Surgically absent gallbladder. Mildly dilated common bile duct. Likely related to age and postcholecystectomy state, downstream obstruction not completely excludable. Correlate with liver function tests, consider MRCP if clinically indicated. Note that similar ectasia of the common bile ducts as visible on prior CT scan. Nonvisualization of the abdominal aorta Hepatomegaly
--- NOTE | 2016-06-21 12:17 | Diagnostic Imaging Report ---
Indication: DYSPNEA Technique: One view of the chest Comparison: 06/20/2016 Findings: Left chest AICD is again demonstrated. Lungs and pleural space remain clear. Lung volumes remain low. Heart size is borderline enlarged. There is no significant change Impression: No acute process. No significant acid changer one day
[2016-06-21] MEDS: Morphine Sulfate 2mg/ml Inj IVP PRN ×3 (12:34→21:42)
[2016-06-21] MEDS: Meropenem 1 GM in NS 110 ML IVPB SCH (12:54)
--- NOTE | 2016-06-21 15:09 | Cardiac Electrophysiology PN ---
Assessment/Plan Assessment/Plan 1. Status post [employer] defibrillator implantation. The incision is healing with no evidence of hematoma or oozing. We will re-interrogate defibrillator 2. Hypertension. Continue atenolol 50 mg twice a day. 3. History of cardiomyopathy. 4. Complicated urinary tract infection on intravenous antibiotic per Infectious Diseases. NEENA RN Subjective Subjective Felling better. On iv antibiotics.S/P SJ ICD generator change by me at [facility] on 06/10/16.No chest pain. Off tele. Objective Last 24 Hour Vital Signs Date Time Temp Pulse Resp B/P Pulse Ox O2 Delivery O2 Flow Rate FiO2 06/21/16 13:04 98.0 06/21/16 09:03 98.0 06/21/16 08:45 72 16 Room Air 06/21/16 08:37 66 130/80 06/21/16 08:19 98.0 66 18 132/80 91 Room Air 06/21/16 04:00 97.7 66 18 116/64 100 Room Air 06/21/16 01:00 98.1 63 18 108/61 100 Room Air 06/20/16 20:00 96.4 66 18 128/76 98 Room Air 06/20/16 19:06 69 18 06/20/16 17:17 62 113/71 06/20/16 16:00 98.1 62 18 113/71 95 Room Air Intake and Output 06/20/16 06/21/16 19:00 07:00 Intake Total 360 ml 695 ml Balance 360 ml 695 ml Intake Oral 360 ml 640 ml IV Total 55 ml # Voids 5 5 Laboratory Tests Test 06/21/16 05:30 White Blood Count 6.3 K/UL (4.8-10.8) Red Blood Count 4.22 M/UL (4.20-5.40) Hemoglobin 11.7 G/DL (12.0-16.0) L Hematocrit 37.5 % (37.0-47.0) Mean Corpuscular Volume 89 FL (80-99) Mean Corpuscular Hemoglobin 27.7 PG (27.0-31.0) Mean Corpuscular Hemoglobin Concent 31.1 G/DL (32.0-36.0) L Red Cell Distribution Width 14.9 % (11.6-14.8) H Platelet Count 298 K/UL (150-450) Mean Platelet Volume 6.1 FL (6.5-10.1) L Neutrophils (%) (Auto) 53.1 % (45.0-75.0) Lymphocytes (%) (Auto) 33.3 % (20.0-45.0) Monocytes (%) (Auto) 5.7 % (1.0-10.0) Eosinophils (%) (Auto) 6.8 % (0.0-3.0) H Basophils (%) (Auto) 1.1 % (0.0-2.0) Sodium Level 140 mEQ/L (135-145) Potassium Level 4.0 mEQ/L (3.4-4.9) Chloride Level 100 mEQ/L (98-107) Carbon Dioxide Level 27 mEQ/L (20-30) Anion Gap 13 (5-15) Blood Urea Nitrogen 14 mg/dL (7-23) Creatinine 0.9 mg/dL (0.5-0.9) Estimat Glomerular Filtration Rate > 60 mL/min (>60) Glucose Level 103 mg/dL (74-106) Calcium Level 9.5 mg/dL (8.6-10.2) Total Bilirubin 0.3 mg/dL (0.0-1.2) Aspartate Amino Transf (AST/SGOT) 62 U/L (5-40) H Alanine Aminotransferase (ALT/SGPT) 78 U/L (3-33) H Alkaline Phosphatase 125 U/L (35-104) H Pro-B-Type Natriuretic Peptide 218 pg/mL (0-125) H Total Protein 7.6 g/dL (6.6-8.7) Albumin 3.8 g/dL (3.5-5.2) Globulin 3.8 g/dL Albumin/Globulin Ratio 1.0 (1.0-2.7) Hepatitis A IgM Antibody Pending Hepatitis B Surface Antigen Pending Hepatitis B Core IgM Antibody Pending Hepatitis C Antibody Pending Microbiology Date/Time Source Procedure Growth Status 06/19/16 11:48 Urine,Clean Catch Urine Culture - Final Escherichia Coli - Esbl Complete Objective HEENT: No JVD. LUNGS: Clear. CARDIOVASCULAR: Regular S1 and S2 with no gallop. The defibrillator in the left subclavian site is healed. ABDOMEN: Soft. EXTREMITIES: No pitting edema. CHEMA LAND Jun 21, 2016 15:09
--- NOTE | 2016-06-21 15:48 | Pulmonology Progress Note ---
Assessment/Plan Problems: (1) Sepsis (2) ATN (acute tubular necrosis) (3) Pyelonephritis Assessment/Plan IV antibiotics, on Meropenem now incision site for defibrillator healing IV hydration check cultures check electrolytes. Subjective ROS Limited/Unobtainable: No Constitutional: Reports: no symptoms HEENT: Repors: no symptoms Respiratory: Reports: no symptoms Allergies: Coded Allergies: ASPIRIN (Verified Allergy, Severe, SHORTNESS OF BREATH, 01/02/12) CIPROFLOXACIN (Verified Allergy, Intermediate, FEET SWELLING, 01/02/12) CIPROFLOXACIN HCL (Verified Allergy, Intermediate, FEET SWELLING, 01/02/12 ) HYDROMORPHONE HCL (Verified Allergy, Intermediate, HALLUCINATION, 01/02/12 ) TETRACYCLINE (Verified Allergy, Intermediate, Rash, 01/02/12) DIPHENHYDRAMINE (Verified Allergy, Unknown, 06/19/16) KETOROLAC (Verified Allergy, Unknown, tachycardia, 12/05/15) LEVOFLOXACIN (Verified Allergy, Unknown, FEET SWELLING, 11/08/13) PENICILLINS (Unverified Allergy, Unknown, 10/06/15) METOCLOPRAMIDE (Verified Adverse Reaction, Severe, 03/10/13) tachycardia SULFAMETHOXAZOLE (Verified Adverse Reaction, Intermediate, 10/28/15) TRIMETHOPRIM (Verified Adverse Reaction, Intermediate, 10/28/15) Uncoded Allergies: PENICILLIN (Allergy, Unknown, 10/06/15) Objective Last 24 Hour Vital Signs Date Time Temp Pulse Resp B/P Pulse Ox O2 Delivery O2 Flow Rate FiO2 06/21/16 13:04 98.0 06/21/16 09:03 98.0 06/21/16 08:45 72 16 Room Air 06/21/16 08:37 66 130/80 06/21/16 08:19 98.0 66 18 132/80 91 Room Air 06/21/16 04:00 97.7 66 18 116/64 100 Room Air 06/21/16 01:00 98.1 63 18 108/61 100 Room Air 06/20/16 20:00 96.4 66 18 128/76 98 Room Air 06/20/16 19:06 69 18 06/20/16 17:17 62 113/71 06/20/16 16:00 98.1 62 18 113/71 95 Room Air Intake and Output 06/20/16 06/21/16 19:00 07:00 Intake Total 360 ml 695 ml Balance 360 ml 695 ml Intake Oral 360 ml 640 ml IV Total 55 ml # Voids 5 5 General Appearance: WD/WN HEENT: normocephalic, anicteric Respiratory/Chest: chest wall non-tender, lungs clear Cardiovascular: normal peripheral pulses, normal rate Abdomen: normal bowel sounds, no organomegaly Extremities: no cyanosis, no clubbing Skin: no lesions Microbiology Date/Time Source Procedure Growth Status 06/19/16 11:48 Urine,Clean Catch Urine Culture - Final Escherichia Coli - Esbl Complete Laboratory Tests 06/21/16 05:30: White Blood Count 6.3, Red Blood Count 4.22, Hemoglobin 11.7L, Hematocrit 37.5, Mean Corpuscular Volume 89, Mean Corpuscular Hemoglobin 27.7, Mean Corpuscular Hemoglobin Concent 31.1L, Red Cell Distribution Width 14.9H, Platelet Count 298 , Mean Platelet Volume 6.1L, Neutrophils (%) (Auto) 53.1, Lymphocytes (%) (Auto ) 33.3, Monocytes (%) (Auto) 5.7, Eosinophils (%) (Auto) 6.8H, Basophils (%) ( Auto) 1.1, Sodium Level 140, Potassium Level 4.0, Chloride Level 100, Carbon Dioxide Level 27, Anion Gap 13, Blood Urea Nitrogen 14, Creatinine 0.9, Estimat Glomerular Filtration Rate > 60, Glucose Level 103, Calcium Level 9.5, Total Bilirubin 0.3, Aspartate Amino Transf (AST/SGOT) 62H, Alanine Aminotransferase ( ALT/SGPT) 78H, Alkaline Phosphatase 125H, Pro-B-Type Natriuretic Peptide 218H, Total Protein 7.6, Albumin 3.8, Globulin 3.8, Albumin/Globulin Ratio 1.0, Hepatitis A IgM Antibody [Pending], Hepatitis B Surface Antigen [Pending], Hepatitis B Core IgM Antibody [Pending], Hepatitis C Antibody [Pending] Current Medications Medications (Trade) Dose Ordered Sig/Bev Route PRN Reason Start Time Stop Time Status Last Admin Dose Admin Acetaminophen (Tylenol) 650 mg Q4H PRN ORAL fever 06/19/16 14:15 07/19/16 14:14 06/20/16 08:24 Acetaminophen/ Hydrocodone Bitart ([place] 10/325) 1 ea Q6H PRN ORAL Moderate Pain (Pain Scale 4-6) 06/19/16 14:15 06/26/16 14:14 06/21/16 08:04 Albuterol/ Ipratropium (DuoNeb 0.5-3(2.5)mg/3ml) 3 ml Q4H PRN HHN Shortness of Breath 06/19/16 14:15 06/24/16 14:14 Atenolol (Tenormin) 50 mg BID ORAL 06/19/16 18:00 07/19/16 17:59 06/21/16 08:37 Clonazepam (KlonoPIN) 0.5 mg Q12H PRN ORAL ANXIETY 06/19/16 15:00 06/26/16 14:59 Heparin Sodium (Porcine) (Heparin 5000 units/ml) 5,000 units EVERY 12 HOURS SUBQ 06/19/16 21:00 07/19/16 20:59 Hydroxyzine HCl (Atarax) 25 mg Q6H PRN ORAL ITCHING 06/19/16 14:15 07/19/16 14:14 Meropenem/Sodium Chloride (Merrem/Sodium Chloride) 110 ml @ 220 mls/hr Q12HR@0100,1300 IVPB 06/21/16 13:00 06/26/16 12:59 06/21/16 12:54 Morphine Sulfate (Morphine Sulfate) 2 mg Q4H PRN IVP Severe Pain (Pain Scale 7-10) 06/19/16 14:15 06/26/16 14:14 06/21/16 12:34 Nitroglycerin (Ntg) 0.4 mg Q5M PRN SL Prn Chest Pain 06/19/16 14:15 07/19/16 14:14 Ondansetron HCl 4 mg 4 mg Q4H PRN IVP Nausea & Vomiting 06/20/16 08:15 07/20/16 08:14 06/20/16 13:23 Polyethylene Glycol (Miralax) 17 gm DAILYPRN PRN ORAL Constipation 06/19/16 14:15 07/19/16 14:14 06/20/16 17:31 Zolpidem Tartrate (Ambien) 10 mg HSPRN PRN ORAL Insomnia 06/19/16 19:15 07/19/16 19:14 06/20/16 22:53 LESLY LOTT Jun 21, 2016 15:48
[2016-06-21 16:00] VITALS: BP 120/79
[2016-06-21 20:00] VITALS: BP 146/75
[2016-06-22] VITALS: BP 148/89
[2016-06-22] MEDS: Zolpidem 5mg tab ORAL PRN (01:21)
[2016-06-22] MEDS: Meropenem 1 GM in NS 110 ML IVPB SCH ×2 (01:21→12:50)
[2016-06-22] MEDS: Morphine Sulfate 2mg/ml Inj IVP PRN ×4 (02:03→18:24)
[2016-06-22 04:00] VITALS: BP 138/84
[2016-06-22 06:59] LABS: ALANINE AMINOTRANSFERASE 51 U/L (3-33); ALBUMIN/GLOBULIN RATIO 0.9 (1.0-2.7); ANION GAP 17 (5-15); ASPARTATE AMINO TRANSFERASE 25 U/L (5-40); CALCIUM 9.3 mg/dL (8.6-10.2); CARBON DIOXIDE 26 mEQ/L (20-30); CHLORIDE 97 mEQ/L (98-107); CREATININE 0.8 mg/dL (0.5-0.9); GLOMERULAR FILTRATION RATE > 60 mL/min (>60); HEMOLYSIS 2; MAGNESIUM 1.9 mg/dL (1.7-2.5); PHOSPHORUS 3.7 mg/dL (2.5-4.8); SODIUM 140 mEQ/L (135-145); TOTAL PROTEIN 7.2 g/dL (6.6-8.7)
[2016-06-22 07:12] LABS: BASOPHILS % (AUTO) 1.2 % (0.0-2.0); EOSINOPHILS % (AUTO) 5.6 % (0.0-3.0); LYMPHOCYTES % (AUTO) 31.1 % (20.0-45.0); MEAN CORPUSCULAR HEMOGLOBIN 27.5 PG (27.0-31.0); MEAN CORPUSCULAR HGB CONC 30.8 G/DL (32.0-36.0); MEAN CORPUSCULAR VOLUME 89 FL (80-99); MEAN PLATELET VOLUME 6.1 FL (6.5-10.1); MONOCYTES % (AUTO) 6.8 % (1.0-10.0); NEUTROPHILS % (AUTO) 55.4 % (45.0-75.0); PLATELET COUNT 298 K/UL (150-450); RED BLOOD COUNT 3.96 M/UL (4.20-5.40); RED CELL DISTRIBUTION WIDTH 14.4 % (11.6-14.8); WHITE BLOOD COUNT 7.3 K/UL (4.8-10.8)
[2016-06-22 08:15] VITALS: BP 140/82
[2016-06-22] MEDS: Heparin 5000 units/ml inj SUBQ SCH ×2 (08:33→21:00)
[2016-06-22] MEDS ORDERED: Tubing IV Secondary IV ONE (13:44)
--- NOTE | 2016-06-22 14:32 | Pulmonology Progress Note ---
Assessment/Plan Problems: (1) Sepsis (2) ATN (acute tubular necrosis) (3) Pyelonephritis Assessment/Plan IV antibiotics, on Meropenem now incision site for defibrillator healing IV hydration check cultures check electrolytes. ok to go home with Iv antibioitcs d/w / Cha and case management Subjective ROS Limited/Unobtainable: No Constitutional: Reports: no symptoms HEENT: Repors: no symptoms Respiratory: Reports: no symptoms Allergies: Coded Allergies: ASPIRIN (Verified Allergy, Severe, SHORTNESS OF BREATH, 01/02/12) CIPROFLOXACIN (Verified Allergy, Intermediate, FEET SWELLING, 01/02/12) CIPROFLOXACIN HCL (Verified Allergy, Intermediate, FEET SWELLING, 01/02/12 ) HYDROMORPHONE HCL (Verified Allergy, Intermediate, HALLUCINATION, 01/02/12 ) TETRACYCLINE (Verified Allergy, Intermediate, Rash, 01/02/12) DIPHENHYDRAMINE (Verified Allergy, Unknown, 06/19/16) KETOROLAC (Verified Allergy, Unknown, tachycardia, 12/05/15) LEVOFLOXACIN (Verified Allergy, Unknown, FEET SWELLING, 11/08/13) PENICILLINS (Unverified Allergy, Unknown, 10/06/15) METOCLOPRAMIDE (Verified Adverse Reaction, Severe, 03/10/13) tachycardia SULFAMETHOXAZOLE (Verified Adverse Reaction, Intermediate, 10/28/15) TRIMETHOPRIM (Verified Adverse Reaction, Intermediate, 10/28/15) Uncoded Allergies: PENICILLIN (Allergy, Unknown, 10/06/15) Objective Last 24 Hour Vital Signs Date Time Temp Pulse Resp B/P Pulse Ox O2 Delivery O2 Flow Rate FiO2 06/22/16 13:16 97.9 06/22/16 10:42 75 16 Room Air 06/22/16 08:33 85 140/82 06/22/16 08:15 97.9 85 18 140/82 100 Room Air 06/22/16 04:00 97.5 75 18 138/84 95 Room Air 06/22/16 00:00 98.6 69 18 148/89 96 Room Air 06/21/16 21:26 77 16 Room Air 06/21/16 20:00 98.2 65 18 146/75 95 Room Air 06/21/16 17:38 68 120/79 06/21/16 16:00 98.1 68 19 120/79 94 Room Air Intake and Output 06/21/16 06/22/16 19:00 07:00 Intake Total 810 ml 600 ml Output Total 1 ml Balance 809 ml 600 ml Intake Oral 700 ml 600 ml IV Total 110 ml Output Stool Total 1 ml # Voids 1 4 # Bowel Movements 1 General Appearance: WD/WN, no acute distress HEENT: atraumatic Respiratory/Chest: lungs clear, normal breath sounds Cardiovascular: normal peripheral pulses, regular rhythm Abdomen: normal bowel sounds, no organomegaly Extremities: no cyanosis, no clubbing Skin: no lesions Laboratory Tests 06/22/16 06:10: White Blood Count 7.3, Red Blood Count 3.96L, Hemoglobin 10.9L, Hematocrit 35.3L , Mean Corpuscular Volume 89, Mean Corpuscular Hemoglobin 27.5, Mean Corpuscular Hemoglobin Concent 30.8L, Red Cell Distribution Width 14.4, Platelet Count 298, Mean Platelet Volume 6.1L, Neutrophils (%) (Auto) 55.4, Lymphocytes (%) (Auto) 31.1, Monocytes (%) (Auto) 6.8, Eosinophils (%) (Auto) 5.6H, Basophils (%) (Auto) 1.2, Sodium Level 140, Potassium Level 4.0, Chloride Level 97L, Carbon Dioxide Level 26, Anion Gap 17H, Blood Urea Nitrogen 14, Creatinine 0.8, Estimat Glomerular Filtration Rate > 60, Glucose Level 107H, Calcium Level 9.3, Phosphorus Level 3.7, Magnesium Level 1.9, Total Bilirubin 0.2, Aspartate Amino Transf (AST/SGOT) 25, Alanine Aminotransferase (ALT/SGPT) 51H, Alkaline Phosphatase 102, Total Protein 7.2, Albumin 3.5, Globulin 3.7, Albumin/Globulin Ratio 0.9L Current Medications Medications (Trade) Dose Ordered Sig/Bev Route PRN Reason Start Time Stop Time Status Last Admin Dose Admin Acetaminophen (Tylenol) 650 mg Q4H PRN ORAL fever 06/19/16 14:15 07/19/16 14:14 06/20/16 08:24 Acetaminophen/ Hydrocodone Bitart ([place] 10/325) 1 ea Q6H PRN ORAL Moderate Pain (Pain Scale 4-6) 06/19/16 14:15 06/26/16 14:14 06/21/16 08:04 Albuterol/ Ipratropium (DuoNeb 0.5-3(2.5)mg/3ml) 3 ml Q4H PRN HHN Shortness of Breath 06/19/16 14:15 06/24/16 14:14 Atenolol (Tenormin) 50 mg BID ORAL 06/19/16 18:00 07/19/16 17:59 06/22/16 08:33 Clonazepam (KlonoPIN) 0.5 mg Q12H PRN ORAL ANXIETY 06/19/16 15:00 06/26/16 14:59 Heparin Sodium (Porcine) (Heparin 5000 units/ml) 5,000 units EVERY 12 HOURS SUBQ 06/19/16 21:00 07/19/16 20:59 Hydroxyzine HCl (Atarax) 25 mg Q6H PRN ORAL ITCHING 06/19/16 14:15 07/19/16 14:14 Meropenem/Sodium Chloride (Merrem/Sodium Chloride) 110 ml @ 220 mls/hr Q12HR@0100,1300 IVPB 06/21/16 13:00 06/26/16 12:59 06/22/16 12:50 Morphine Sulfate (Morphine Sulfate) 2 mg Q4H PRN IVP Severe Pain (Pain Scale 7-10) 06/19/16 14:15 06/26/16 14:14 06/22/16 12:46 Nitroglycerin (Ntg) 0.4 mg Q5M PRN SL Prn Chest Pain 06/19/16 14:15 07/19/16 14:14 Ondansetron HCl 4 mg 4 mg Q4H PRN IVP Nausea & Vomiting 06/20/16 08:15 07/20/16 08:14 06/22/16 12:46 Polyethylene Glycol (Miralax) 17 gm DAILYPRN PRN ORAL Constipation 06/19/16 14:15 07/19/16 14:14 06/20/16 17:31 Ranitidine HCl (Zantac) 150 mg BEDTIME ORAL 06/22/16 01:10 07/22/16 01:09 06/22/16 01:21 Zolpidem Tartrate (Ambien) 10 mg HSPRN PRN ORAL Insomnia 06/19/16 19:15 07/19/16 19:14 06/22/16 01:21 LESLY LOTT Jun 22, 2016 14:32
--- NOTE | 2016-06-22 15:11 | Cardiac Electrophysiology PN ---
Assessment/Plan Assessment/Plan 1. Status post [facility] Fer[facility] defibrillator implantation. The incision is healing with no evidence of hematoma or oozing. Interrogation showed normal function. 2. Hypertension. Continue atenolol 50 mg twice a day. 3. History of cardiomyopathy.Euvolemic. 4. Complicated urinary tract infection on intravenous antibiotic per Infectious Diseases. NEENA RN Subjective Subjective Comfortable in NAD. On iv antibiotics.No chest pain. Off tele. Objective Last 24 Hour Vital Signs Date Time Temp Pulse Resp B/P Pulse Ox O2 Delivery O2 Flow Rate FiO2 06/22/16 13:16 97.9 06/22/16 10:42 75 16 Room Air 06/22/16 08:33 85 140/82 06/22/16 08:15 97.9 85 18 140/82 100 Room Air 06/22/16 04:00 97.5 75 18 138/84 95 Room Air 06/22/16 00:00 98.6 69 18 148/89 96 Room Air 06/21/16 21:26 77 16 Room Air 06/21/16 20:00 98.2 65 18 146/75 95 Room Air 06/21/16 17:38 68 120/79 06/21/16 16:00 98.1 68 19 120/79 94 Room Air Intake and Output 06/21/16 06/22/16 19:00 07:00 Intake Total 810 ml 600 ml Output Total 1 ml Balance 809 ml 600 ml Intake Oral 700 ml 600 ml IV Total 110 ml Output Stool Total 1 ml # Voids 1 4 # Bowel Movements 1 Laboratory Tests Test 06/22/16 06:10 White Blood Count 7.3 K/UL (4.8-10.8) Red Blood Count 3.96 M/UL (4.20-5.40) L Hemoglobin 10.9 G/DL (12.0-16.0) L Hematocrit 35.3 % (37.0-47.0) L Mean Corpuscular Volume 89 FL (80-99) Mean Corpuscular Hemoglobin 27.5 PG (27.0-31.0) Mean Corpuscular Hemoglobin Concent 30.8 G/DL (32.0-36.0) L Red Cell Distribution Width 14.4 % (11.6-14.8) Platelet Count 298 K/UL (150-450) Mean Platelet Volume 6.1 FL (6.5-10.1) L Neutrophils (%) (Auto) 55.4 % (45.0-75.0) Lymphocytes (%) (Auto) 31.1 % (20.0-45.0) Monocytes (%) (Auto) 6.8 % (1.0-10.0) Eosinophils (%) (Auto) 5.6 % (0.0-3.0) H Basophils (%) (Auto) 1.2 % (0.0-2.0) Sodium Level 140 mEQ/L (135-145) Potassium Level 4.0 mEQ/L (3.4-4.9) Chloride Level 97 mEQ/L (98-107) L Carbon Dioxide Level 26 mEQ/L (20-30) Anion Gap 17 (5-15) H Blood Urea Nitrogen 14 mg/dL (7-23) Creatinine 0.8 mg/dL (0.5-0.9) Estimat Glomerular Filtration Rate > 60 mL/min (>60) Glucose Level 107 mg/dL (74-106) H Calcium Level 9.3 mg/dL (8.6-10.2) Phosphorus Level 3.7 mg/dL (2.5-4.8) Magnesium Level 1.9 mg/dL (1.7-2.5) Total Bilirubin 0.2 mg/dL (0.0-1.2) Aspartate Amino Transf (AST/SGOT) 25 U/L (5-40) Alanine Aminotransferase (ALT/SGPT) 51 U/L (3-33) H Alkaline Phosphatase 102 U/L (35-104) Total Protein 7.2 g/dL (6.6-8.7) Albumin 3.5 g/dL (3.5-5.2) Globulin 3.7 g/dL Albumin/Globulin Ratio 0.9 (1.0-2.7) L Objective HEENT: No JVD. LUNGS: Clear. CARDIOVASCULAR: Regular S1 and S2 with no gallop. ICD in the left subclavian site is healed with no sign of local infection. ABDOMEN: Soft. EXTREMITIES: No pitting edema. CHEMA LAND Jun 22, 2016 15:10
[2016-06-22 16:00] VITALS: BP 132/98
--- NOTE | 2016-06-22 19:27 | Infectious Diseases Prog Note ---
Assessment/Plan Assessment/Plan ASSESSMENT: 61 y/o female with: // Recurrent complicated UTI / pyelonephrosis UCx: ESBL Ecoli - refused cystoscopy in the past - CT: Severe right hydronephrosis with transition involving the distal ureter near the iliac vessels. This is unchanged. However there is considerable perinephric stranding now present which appears worse compared to the last study 03/19/15. - bilateral nephrolithiasis SP stent // Febrile. low grade , SP // transaminitis - Liver US :Moderate to severe right hydronephrosis, also previously reported on multiple earlier exams. Hx of cervical cancer SP total abdominal hysterectomy Multiple ABX allergies / intolerances - tolerating aztreonam ( no Hx of Anaphylaxis to PCN ) Full Code PLAN: - cont IV Merrem d# 2 / 14 , upon DC will change to Invanz to complete the course ( 06/21 SP Azactam d# 3 ) - f/u final cultures ( Bl ) - monitor CBC, temperatures - monitor BMP Hepatitis Panel Subjective Constitutional: Denies: anorexia, chills, drenching sweats, fatigue, fever, no symptoms, other Allergies: Coded Allergies: ASPIRIN (Verified Allergy, Severe, SHORTNESS OF BREATH, 01/02/12) CIPROFLOXACIN (Verified Allergy, Intermediate, FEET SWELLING, 01/02/12) CIPROFLOXACIN HCL (Verified Allergy, Intermediate, FEET SWELLING, 01/02/12 ) HYDROMORPHONE HCL (Verified Allergy, Intermediate, HALLUCINATION, 01/02/12 ) TETRACYCLINE (Verified Allergy, Intermediate, Rash, 01/02/12) DIPHENHYDRAMINE (Verified Allergy, Unknown, 06/19/16) KETOROLAC (Verified Allergy, Unknown, tachycardia, 12/05/15) LEVOFLOXACIN (Verified Allergy, Unknown, FEET SWELLING, 11/08/13) PENICILLINS (Unverified Allergy, Unknown, 10/06/15) METOCLOPRAMIDE (Verified Adverse Reaction, Severe, 03/10/13) tachycardia SULFAMETHOXAZOLE (Verified Adverse Reaction, Intermediate, 10/28/15) TRIMETHOPRIM (Verified Adverse Reaction, Intermediate, 10/28/15) Uncoded Allergies: PENICILLIN (Allergy, Unknown, 10/06/15) Objective Vital Signs Last 24 Hour Vital Signs Date Time Temp Pulse Resp B/P Pulse Ox O2 Delivery O2 Flow Rate FiO2 06/22/16 18:23 68 132/98 06/22/16 16:00 97.9 68 17 132/98 94 Room Air 06/22/16 13:16 97.9 06/22/16 10:42 75 16 Room Air 06/22/16 08:33 85 140/82 06/22/16 08:15 97.9 85 18 140/82 100 Room Air 06/22/16 04:00 97.5 75 18 138/84 95 Room Air 06/22/16 00:00 98.6 69 18 148/89 96 Room Air 06/21/16 21:26 77 16 Room Air 06/21/16 20:00 98.2 65 18 146/75 95 Room Air Height (Feet): 5 Height (Inches): 1.00 Weight (Pounds): 200 Respiratory/Chest: chest wall non-tender Cardiovascular: normal rate Abdomen: no organomegaly Laboratory Tests Test 06/22/16 06:10 White Blood Count 7.3 K/UL (4.8-10.8) Red Blood Count 3.96 M/UL (4.20-5.40) L Hemoglobin 10.9 G/DL (12.0-16.0) L Hematocrit 35.3 % (37.0-47.0) L Mean Corpuscular Volume 89 FL (80-99) Mean Corpuscular Hemoglobin 27.5 PG (27.0-31.0) Mean Corpuscular Hemoglobin Concent 30.8 G/DL (32.0-36.0) L Red Cell Distribution Width 14.4 % (11.6-14.8) Platelet Count 298 K/UL (150-450) Mean Platelet Volume 6.1 FL (6.5-10.1) L Neutrophils (%) (Auto) 55.4 % (45.0-75.0) Lymphocytes (%) (Auto) 31.1 % (20.0-45.0) Monocytes (%) (Auto) 6.8 % (1.0-10.0) Eosinophils (%) (Auto) 5.6 % (0.0-3.0) H Basophils (%) (Auto) 1.2 % (0.0-2.0) Sodium Level 140 mEQ/L (135-145) Potassium Level 4.0 mEQ/L (3.4-4.9) Chloride Level 97 mEQ/L (98-107) L Carbon Dioxide Level 26 mEQ/L (20-30) Anion Gap 17 (5-15) H Blood Urea Nitrogen 14 mg/dL (7-23) Creatinine 0.8 mg/dL (0.5-0.9) Estimat Glomerular Filtration Rate > 60 mL/min (>60) Glucose Level 107 mg/dL (74-106) H Calcium Level 9.3 mg/dL (8.6-10.2) Phosphorus Level 3.7 mg/dL (2.5-4.8) Magnesium Level 1.9 mg/dL (1.7-2.5) Total Bilirubin 0.2 mg/dL (0.0-1.2) Aspartate Amino Transf (AST/SGOT) 25 U/L (5-40) Alanine Aminotransferase (ALT/SGPT) 51 U/L (3-33) H Alkaline Phosphatase 102 U/L (35-104) Total Protein 7.2 g/dL (6.6-8.7) Albumin 3.5 g/dL (3.5-5.2) Globulin 3.7 g/dL Albumin/Globulin Ratio 0.9 (1.0-2.7) L Current Medications Medications (Trade) Dose Ordered Sig/Bev Route PRN Reason Start Time Stop Time Status Last Admin Dose Admin Acetaminophen (Tylenol) 650 mg Q4H PRN ORAL fever 06/19/16 14:15 07/19/16 14:14 06/20/16 08:24 Acetaminophen/ Hydrocodone Bitart ([place] 10/325) 1 ea Q6H PRN ORAL Moderate Pain (Pain Scale 4-6) 06/19/16 14:15 06/26/16 14:14 06/21/16 08:04 Albuterol/ Ipratropium (DuoNeb 0.5-3(2.5)mg/3ml) 3 ml Q4H PRN HHN Shortness of Breath 06/19/16 14:15 06/24/16 14:14 Atenolol (Tenormin) 50 mg BID ORAL 06/19/16 18:00 07/19/16 17:59 06/22/16 18:23 Clonazepam (KlonoPIN) 0.5 mg Q12H PRN ORAL ANXIETY 06/19/16 15:00 06/26/16 14:59 Heparin Sodium (Porcine) (Heparin 5000 units/ml) 5,000 units EVERY 12 HOURS SUBQ 06/19/16 21:00 07/19/16 20:59 Hydroxyzine HCl (Atarax) 25 mg Q6H PRN ORAL ITCHING 06/19/16 14:15 07/19/16 14:14 Meropenem/Sodium Chloride (Merrem/Sodium Chloride) 110 ml @ 220 mls/hr Q12HR@0100,1300 IVPB 06/21/16 13:00 06/26/16 12:59 06/22/16 12:50 Morphine Sulfate (Morphine Sulfate) 2 mg Q4H PRN IVP Severe Pain (Pain Scale 7-10) 06/19/16 14:15 06/26/16 14:14 06/22/16 18:24 Nitroglycerin (Ntg) 0.4 mg Q5M PRN SL Prn Chest Pain 06/19/16 14:15 07/19/16 14:14 Ondansetron HCl 4 mg 4 mg Q4H PRN IVP Nausea & Vomiting 06/20/16 08:15 07/20/16 08:14 06/22/16 12:46 Polyethylene Glycol (Miralax) 17 gm DAILYPRN PRN ORAL Constipation 06/19/16 14:15 07/19/16 14:14 06/20/16 17:31 Ranitidine HCl (Zantac) 150 mg BEDTIME ORAL 06/22/16 01:10 07/22/16 01:09 06/22/16 01:21 Zolpidem Tartrate (Ambien) 10 mg HSPRN PRN ORAL Insomnia 06/19/16 19:15 07/19/16 19:14 06/22/16 01:21 LEO OLIVEROS M.D. Jun 22, 2016 19:27
[2016-06-22 20:00] VITALS: BP 143/22
[2016-06-23] MEDS: Zolpidem 5mg tab ORAL PRN (00:29)
[2016-06-23] MEDS: Meropenem 1 GM in NS 110 ML IVPB SCH ×2 (00:29→12:10)
[2016-06-23 01:00] VITALS: BP 136/86
[2016-06-23 04:00] VITALS: BP 140/84
[2016-06-23] MEDS: Heparin 5000 units/ml inj SUBQ SCH (08:28)
[2016-06-23 09:00] VITALS: BP 132/84
--- NOTE | 2016-06-23 09:57 | Infectious Diseases Prog Note ---
Assessment/Plan Assessment/Plan ASSESSMENT: 61 y/o female with: // Recurrent complicated UTI / pyelonephrosis UCx: ESBL Ecoli - refused cystoscopy in the past - CT: Severe right hydronephrosis with transition involving the distal ureter near the iliac vessels. This is unchanged. However there is considerable perinephric stranding now present which appears worse compared to the last study 03/19/15. - bilateral nephrolithiasis SP stent // Febrile. low grade , SP // transaminitis - Liver US :Moderate to severe right hydronephrosis, also previously reported on multiple earlier exams. Status post [facility] defibrillator implantation. Hx of cervical cancer SP total abdominal hysterectomy Multiple ABX allergies / intolerances - tolerating aztreonam ( no Hx of Anaphylaxis to PCN ) Full Code PLAN: - cont IV Merrem d# 3 / , upon DC will change to Invanz to complete the course ( 06/21 SP Azactam d# 3 ) - f/u final cultures ( Bl ) - monitor CBC, temperatures - monitor BMP Hepatitis Panel Subjective Constitutional: Denies: anorexia, chills, drenching sweats, fatigue, fever, no symptoms, other Allergies: Coded Allergies: ASPIRIN (Verified Allergy, Severe, SHORTNESS OF BREATH, 01/02/12) CIPROFLOXACIN (Verified Allergy, Intermediate, FEET SWELLING, 01/02/12) CIPROFLOXACIN HCL (Verified Allergy, Intermediate, FEET SWELLING, 01/02/12 ) HYDROMORPHONE HCL (Verified Allergy, Intermediate, HALLUCINATION, 01/02/12 ) TETRACYCLINE (Verified Allergy, Intermediate, Rash, 01/02/12) DIPHENHYDRAMINE (Verified Allergy, Unknown, 06/19/16) KETOROLAC (Verified Allergy, Unknown, tachycardia, 12/05/15) LEVOFLOXACIN (Verified Allergy, Unknown, FEET SWELLING, 11/08/13) PENICILLINS (Unverified Allergy, Unknown, 10/06/15) METOCLOPRAMIDE (Verified Adverse Reaction, Severe, 03/10/13) tachycardia SULFAMETHOXAZOLE (Verified Adverse Reaction, Intermediate, 10/28/15) TRIMETHOPRIM (Verified Adverse Reaction, Intermediate, 10/28/15) Uncoded Allergies: PENICILLIN (Allergy, Unknown, 10/06/15) Objective Vital Signs Last 24 Hour Vital Signs Date Time Temp Pulse Resp B/P Pulse Ox O2 Delivery O2 Flow Rate FiO2 06/23/16 09:00 97.9 64 20 132/84 98 Room Air 06/23/16 08:28 64 132/84 06/23/16 04:00 97.9 64 20 140/84 100 Room Air 06/23/16 01:00 97.3 60 20 136/86 96 Room Air 06/22/16 20:00 98.1 67 20 143/22 94 Room Air 06/22/16 19:54 68 16 Room Air 06/22/16 18:54 97.9 06/22/16 18:23 68 132/98 06/22/16 16:00 97.9 68 17 132/98 94 Room Air 06/22/16 10:42 75 16 Room Air Height (Feet): 5 Height (Inches): 1.00 Weight (Pounds): 200 HEENT: anicteric Respiratory/Chest: normal breath sounds Cardiovascular: regular rhythm Abdomen: no organomegaly Microbiology Date/Time Source Procedure Growth Status 06/21/16 05:40 Blood Blood Culture - Preliminary NO GROWTH AFTER 48 HOURS Resulted 06/21/16 05:30 Blood Blood Culture - Preliminary NO GROWTH AFTER 48 HOURS Resulted Current Medications Medications (Trade) Dose Ordered Sig/Bev Route PRN Reason Start Time Stop Time Status Last Admin Dose Admin Acetaminophen (Tylenol) 650 mg Q4H PRN ORAL fever 06/19/16 14:15 07/19/16 14:14 06/20/16 08:24 Acetaminophen/ Hydrocodone Bitart ([place] 10/325) 1 ea Q6H PRN ORAL Moderate Pain (Pain Scale 4-6) 06/19/16 14:15 06/26/16 14:14 06/21/16 08:04 Albuterol/ Ipratropium (DuoNeb 0.5-3(2.5)mg/3ml) 3 ml Q4H PRN HHN Shortness of Breath 06/19/16 14:15 06/24/16 14:14 Atenolol (Tenormin) 50 mg BID ORAL 06/19/16 18:00 07/19/16 17:59 06/23/16 08:28 Clonazepam (KlonoPIN) 0.5 mg Q12H PRN ORAL ANXIETY 06/19/16 15:00 06/26/16 14:59 Heparin Sodium (Porcine) (Heparin 5000 units/ml) 5,000 units EVERY 12 HOURS SUBQ 06/19/16 21:00 07/19/16 20:59 Hydroxyzine HCl (Atarax) 25 mg Q6H PRN ORAL ITCHING 06/19/16 14:15 07/19/16 14:14 Meropenem/Sodium Chloride (Merrem/Sodium Chloride) 110 ml @ 220 mls/hr Q12HR@0100,1300 IVPB 06/21/16 13:00 06/26/16 12:59 06/23/16 00:29 Morphine Sulfate (Morphine Sulfate) 2 mg Q4H PRN IVP Severe Pain (Pain Scale 7-10) 06/19/16 14:15 06/26/16 14:14 06/22/16 18:24 Nitroglycerin (Ntg) 0.4 mg Q5M PRN SL Prn Chest Pain 06/19/16 14:15 07/19/16 14:14 Ondansetron HCl 4 mg 4 mg Q4H PRN IVP Nausea & Vomiting 06/20/16 08:15 07/20/16 08:14 06/22/16 12:46 Polyethylene Glycol (Miralax) 17 gm DAILYPRN PRN ORAL Constipation 06/19/16 14:15 07/19/16 14:14 06/20/16 17:31 Ranitidine HCl (Zantac) 150 mg BEDTIME ORAL 06/22/16 01:10 07/22/16 01:09 06/22/16 21:44 Zolpidem Tartrate (Ambien) 10 mg HSPRN PRN ORAL Insomnia 06/19/16 19:15 07/19/16 19:14 06/23/16 00:29 LEO OLIVEROS M.D. Jun 23, 2016 09:57
--- NOTE | 2016-06-23 11:00 | Cardiology Report ---
APPROVED REPORT EXAM: Two-dimensional and M-mode echocardiogram with Doppler and color Doppler. INDICATION Congestive Heart Failure M-Mode DIMENSIONS IVSd0.8 (0.7-1.1cm)Aortic Root3.0 (2.0-3.7cm) LVDd1.1 (3.5-5.6cm)Aortic Cusp Exc.1.7 (1.5-2.0cm) IVSs2.2 cm LVDs0.8 (2.5-4.0cm) PWs1.1 cm Technically difficult study due to poor acoustic windows. Normal left ventricular chamber size, systolic function and wall motion. Left ventricular ejection fraction estimated to be 60-65 %. No evidence of left ventricular hypertrophy. Anterior Echo-free space, may be due to pericardial fat or effusion. Mild right atrial enlargement by 2D. Left cardiac chamber sizes are within normal limits. Focal aortic valve sclerosis with adequate cusp excursion Thickened mitral valve leaflets with normal excursion. Mitral annulus and aortic root calcification. Pulmonic valve not well visualized. Normal tricuspid valve structure. IVC is not obtainable. Probable pacemaker wire present in the right side chambers. A color flow and spectral Doppler study was performed and revealed: No aortic regurgitation. No mitral regurgitation. Left ventricular diastolic dysfunction grade 1. No tricuspid regurgitation.
[2016-06-23] MEDS: Norco 10mg/325mg tab ORAL PRN (12:10)
--- NOTE | 2016-06-23 15:48 | Cardiac Electrophysiology PN ---
Assessment/Plan Assessment/Plan 1. Status post [facility] defibrillator implantation with no evidence of hematoma or oozing. Interrogation showed normal function. 2. Hypertension. Continue atenolol 50 mg twice a day. 3. History of cardiomyopathy.Euvolemic. 4. Complicated urinary tract infection on intravenous antibiotic per Infectious Diseases. NEENA RN OK to DC from cardiac stand point. Subjective Subjective Comfortable in NAD. On iv antibiotics.No chest pain. Off tele.Expecting DC home today. Objective Last 24 Hour Vital Signs Date Time Temp Pulse Resp B/P Pulse Ox O2 Delivery O2 Flow Rate FiO2 06/23/16 09:00 97.9 64 20 132/84 98 Room Air 06/23/16 08:28 64 132/84 06/23/16 07:04 64 16 Room Air 06/23/16 04:00 97.9 64 20 140/84 100 Room Air 06/23/16 01:00 97.3 60 20 136/86 96 Room Air 06/22/16 20:00 98.1 67 20 143/22 94 Room Air 06/22/16 19:54 68 16 Room Air 06/22/16 18:54 97.9 06/22/16 18:23 68 132/98 06/22/16 16:00 97.9 68 17 132/98 94 Room Air Intake and Output 06/22/16 06/23/16 19:00 07:00 Intake Total 910 ml 600 ml Balance 910 ml 600 ml Intake Oral 800 ml 600 ml IV Total 110 ml # Voids 1 # Bowel Movements 1 3 Microbiology Date/Time Source Procedure Growth Status 06/21/16 05:40 Blood Blood Culture - Preliminary NO GROWTH AFTER 48 HOURS Resulted 06/21/16 05:30 Blood Blood Culture - Preliminary NO GROWTH AFTER 48 HOURS Resulted Objective HEENT: No JVD. LUNGS: Clear. CARDIOVASCULAR: Regular S1 and S2 with no gallop. ICD in the left subclavian site is healed with no sign of local infection. ABDOMEN: Soft. EXTREMITIES: No pitting edema. CHEMA LAND Jun 23, 2016 15:48
[2016-06-23 16:00] VITALS: BP 151/87
[2016-06-23 17:03] VITALS: BP 151/87
[2016-06-23] MEDS ORDERED: 1/2 NS 1000ml IV ONE (17:52)
--- NOTE | 2016-06-23 23:26 | Pulmonology Progress Note ---
Assessment/Plan Problems: (1) Sepsis (2) ATN (acute tubular necrosis) (3) Pyelonephritis Assessment/Plan IV antibiotics, on Meropenem now incision site for defibrillator healing IV hydration check cultures check electrolytes. ok to go home with Iv antibioitcs d/w / Cha and case management Subjective ROS Limited/Unobtainable: Yes Constitutional: Reports: anorexia, chills, fatigue Respiratory: Reports: productive cough, shortness of breath, sputum Genitourinary: Reports: dysuria, frequency, hematuria, nocturia, urgency Neurologic: Reports: confusion, weakness Allergies: Coded Allergies: ASPIRIN (Verified Allergy, Severe, SHORTNESS OF BREATH, 01/02/12) CIPROFLOXACIN (Verified Allergy, Intermediate, FEET SWELLING, 01/02/12) CIPROFLOXACIN HCL (Verified Allergy, Intermediate, FEET SWELLING, 01/02/12 ) HYDROMORPHONE HCL (Verified Allergy, Intermediate, HALLUCINATION, 01/02/12 ) TETRACYCLINE (Verified Allergy, Intermediate, Rash, 01/02/12) DIPHENHYDRAMINE (Verified Allergy, Unknown, 06/19/16) KETOROLAC (Verified Allergy, Unknown, tachycardia, 12/05/15) LEVOFLOXACIN (Verified Allergy, Unknown, FEET SWELLING, 11/08/13) PENICILLINS (Unverified Allergy, Unknown, 10/06/15) METOCLOPRAMIDE (Verified Adverse Reaction, Severe, 03/10/13) tachycardia SULFAMETHOXAZOLE (Verified Adverse Reaction, Intermediate, 10/28/15) TRIMETHOPRIM (Verified Adverse Reaction, Intermediate, 10/28/15) Uncoded Allergies: PENICILLIN (Allergy, Unknown, 10/06/15) Objective Last 24 Hour Vital Signs Date Time Temp Pulse Resp B/P Pulse Ox O2 Delivery O2 Flow Rate FiO2 06/23/16 17:03 62 151/87 06/23/16 16:00 97.9 62 20 151/87 97 Room Air 06/23/16 09:00 97.9 64 20 132/84 98 Room Air 06/23/16 08:28 64 132/84 06/23/16 07:04 64 16 Room Air 06/23/16 04:00 97.9 64 20 140/84 100 Room Air 06/23/16 01:00 97.3 60 20 136/86 96 Room Air Intake and Output 06/22/16 06/23/16 19:00 07:00 Intake Total 910 ml 600 ml Balance 910 ml 600 ml Intake Oral 800 ml 600 ml IV Total 110 ml # Voids 1 # Bowel Movements 1 3 General Appearance: no acute distress HEENT: normocephalic, atraumatic, PERRL Respiratory/Chest: chest wall non-tender, decreased breath sounds, accessory muscle use Breasts: no masses Cardiovascular: normal peripheral pulses, normal rate, regular rhythm, no JVD Abdomen: normal bowel sounds, soft, non tender, no organomegaly, non distended Genitourinary: normal external genitalia Extremities: no cyanosis Skin: no ulcers 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
--- NOTE | 2016-06-24 15:06 | Discharge Summary ---
Discharge Summary Hospital Course Date of Admission Jun 19, 2016 at 16:55 Date of Discharge Jun 23, 2016 at 17:53 Admitting Diagnosis recurrent UTI HPI Lissa Kauffman is a 61 year old female who was admitted on Jun 19, 2016 at 16:55 for Pain On Right Side Of Body Hospital Course [id number] Discharge Discharge Disposition Patient was discharged to Home with Home Health(06) Discharge Diagnoses: Ruchi Slaes [place] Jun 24, 2016 15:06
--- NOTE | 2016-07-01 16:08 | Discharge Summary 2 SIG ---
DATE OF ADMISSION: 06/19/2016 DATE OF DISCHARGE: 06/23/2016 CONSULTANTS: 1. Brooks Ahuja M.D. 2. Joel Eubanks M.D. BRIEF HOSPITAL COURSE: The patient is a 61-year-old female with recurrent right flank pain, radiating to the right groin, presented to ED complaining of one week duration of right flank pain that has gotten progressively worse with mild improvement with [id number] pain medications. She has had multiple episodes in the past, of which she had multiple episodes of bilateral nephrolithiasis with stent placement in the past year and right kidney surgery in June 2015. She was admitted on February 2016 for complicated recurrent urinary tract infection and pyelonephritis with Proteus. She has a defibrillator with recent change of batteries at [facility]. The patient was admitted to medical floor and was given IV hydration. Dr. Eubanks consulted for antibiotic management. Urine culture showed growth of ESBL E. coli. CT showed severe right hydronephrosis with sensation involving the distal ureter near the iliac vessels with perinephric stranding. The patient had bilateral nephrolithiasis, status post stenting and has refused cystoscopy even in the past. Dr. Ahuja was also consulted. The patient had a [employer] defibrillator implantation in 2003 and a recent defibrillator change. Incision showed good healing with no evidence of hematoma or oozing and was continued on atenolol b.i.d. Pacemaker interrogation showed normal function. She had echocardiogram done, which showed ejection fraction of 60% to 65% with normal size function and wall motion. She had elevated liver function tests. Abdominal ultrasound showed bilateral hydronephrosis and a surgically absent gallbladder with hepatomegaly. Hepatitis panel was negative. She was eventually discharged home with home health. FINAL DIAGNOSES: 1. Recurrent complicated urinary tract infection with pyelonephritis. 2. Sepsis. 3. Acute tubular necrosis. 4. Status post [employer] defibrillator implantation. 5. Hypertension. 6. Cardiomyopathy. 7. Elevated liver transaminases. 8. Cervical cancer, status post total abdominal hysterectomy. Zhao Arnold M.D. I have been assigned to dictate discharge summary on this account and I was not involved in the patient's management. Ruchi Sales N.P. DR: MIKE JOB#: [id number] CC: COLLEEN
== END 2016-06-23 17:53 | disposition home health service (06) | DRG 720 ==
LOC: EMR 12:42 → EDBEDREQ 16:44 → 3E 16:55
DX: A41.9 Sepsis, unspecified organism (principal); N17.0 Acute kidney failure with tubular necrosis; I10 Essential (primary) hypertension; N20.0 Calculus of kidney; N39.0 Urinary tract infection, site not specified; B96.20 Unspecified Escherichia coli [E. coli] as the cause of diseases classified elsewhere; N13.39 Other hydronephrosis; N12 Tubulo-interstitial nephritis, not specified as acute or chronic; Z85.41 Personal history of malignant neoplasm of cervix uteri; Z88.6 Allergy status to analgesic agent; Z88.1 Allergy status to other antibiotic agents; Z88.0 Allergy status to penicillin; Z88.2 Allergy status to sulfonamides; Z88.8 Allergy status to other drugs, medicaments and biological substances; Z95.810 Presence of automatic (implantable) cardiac defibrillator; Z16.12 Extended spectrum beta lactamase (ESBL) resistance; I42.9 Cardiomyopathy, unspecified
CPT/HCPCS: 36415; 71010; 76700; 80053; 81003; 83690; 83735; 83880; 84100; 85025; 86705; 86709; 86803; 87040; 87086; 87181; 87340; 93306; 94664; J2405

== ENCOUNTER 2016-06-27 07:47 | Inpatient (IN) | payer MEDICAID ==
[~2016-06-27] VITALS: Ht 154.9 cm; Wt 90.7 kg
[~2016-06-27 07:47] MED LIST changes: +AMBIEN10 M1 ORAL; +POTASSIUM CHLO10 ME2 PO
[2016-06-27 08:24] VITALS: BP 164/82
[2016-06-27] MEDS ORDERED: Morphine Sulfate 4mg/ml Inj IVP ONE ×3 (08:30→12:30)
--- NOTE | 2016-06-27 08:36 | Emergency Room Report ---
History of Present Illness General Chief Complaint: Abdominal Pain Source: Patient Present Illness HPI Patient presents with vomiting and right flank pain. The vomiting has been persistent since midnight last night. She's been vomiting bile. She been treated him home with IV and hands. She has been discharged last from the hospital with a diagnosis of pyelonephritis. An ultrasound was done at that time - no significant hydronephrosis or stone. The patient has a history of multiple renal stones and renal surgery. She denies any fevers or chills at this time. She's not moved her bowels for several days. She tried to take her blood pressure medicine and [place] but was unable to keep it down. No chest pain, dysuria or hematuria. She had her pacemaker battery replaced a week ago. She denies any chest pain productive cough, shortness of breath. She does complain of a headache. The pain is 10/10, pressure, burning and radiating down to her lower abdomen. The patient the pain is constant. There is no pain when she was discharged from the hospital. Allergies: Coded Allergies: ASPIRIN (Verified Allergy, Severe, SHORTNESS OF BREATH, 01/02/12) CIPROFLOXACIN (Verified Allergy, Intermediate, FEET SWELLING, 01/02/12) CIPROFLOXACIN HCL (Verified Allergy, Intermediate, FEET SWELLING, 01/02/12 ) HYDROMORPHONE HCL (Verified Allergy, Intermediate, HALLUCINATION, 01/02/12 ) TETRACYCLINE (Verified Allergy, Intermediate, Rash, 01/02/12) DIPHENHYDRAMINE (Verified Allergy, Unknown, 06/19/16) LEVOFLOXACIN (Verified Allergy, Unknown, FEET SWELLING, 11/08/13) PENICILLINS (Unverified Allergy, Unknown, 10/06/15) METOCLOPRAMIDE (Verified Adverse Reaction, Severe, tachycardia, 06/27/16) SULFAMETHOXAZOLE (Verified Adverse Reaction, Intermediate, 10/28/15) TRIMETHOPRIM (Verified Adverse Reaction, Intermediate, 10/28/15) KETOROLAC (Verified Adverse Reaction, Unknown, tachycardia, 06/27/16) Uncoded Allergies: PENICILLIN (Allergy, Unknown, 10/06/15) Patient History Past Medical History: see triage record Past Surgical History: other - renal surgery Social History Narrative with son Last Menstrual Period: na Reviewed Nursing Documentation: PMH: Agreed, PSxH: Agreed Nursing Documentation-PM Past Medical History: No History, Except For Hx Cardiac Problems: Yes Hx Hypertension: Yes Hx Pacemaker: Yes - aicd Hx Cancer: Yes - cervical Hx Gastrointestinal Problems: Yes Hx Neurological Problems: No Hx Cerebrovascular Accident: No Hx Transient Ischemic Attacks: No Hx Dementia: No Hx Alzheimer's Disease: No Hx Parkinson's Disease: No Hx Meningitis: No Hx Encephalitis: No Hx Seizures: No Hx Epilepsy: No Hx Multiple Sclerosis: No Hx Cerebral Palsy: No Hx Amyotrophic Lat Sclerosis: No Hx Guillian-Newfane Syndrome: No Hx Paralysis: No Hx Peripheral Neuropathy: No Hx Spinal Cord Injury: No Hx Head Trauma: No Hx Traumatic Brain Injury: No Hx Memory Loss: No Hx Concentration Difficulty: No Hx Speech Problem: No Hx Tremors: No Hx Vertigo: No Hx Dizziness: No Hx Syncope: No Hx Headaches: No Hx Aphasia: No Hx Dysphasia: No Hx Numbness: No Hx Weakness: No Hx Fatigue: No Hx Neurologic Surgery: No Hx Brain Shunt: No Review of Systems All Other Systems: negative except mentioned in HPI Physical Exam Vital Signs Date Time Temp Pulse Resp B/P Pulse Ox O2 Delivery O2 Flow Rate FiO2 06/27/16 08:00 98.8 73 18 172/92 98 Room Air Sp02 EP Interpretation: reviewed, normal General Appearance: well appearing, no apparent distress - though complains of severe pain, GCS 15 Head: normocephalic Eyes: bilateral eye PERRL, bilateral eye normal inspection ENT: moist mucus membranes Neck: supple Respiratory: lungs clear, normal breath sounds Cardiovascular #1: regular rate, rhythm Cardiovascular #2: 2+ radial (R) Gastrointestinal: normal inspection, normal bowel sounds, no mass, non- distended, no guarding, no rebound, tenderness Genitourinary: CVA tenderness (R) Musculoskeletal: back normal, gait/station normal, normal range of motion Neurologic: alert, oriented x3, grossly normal Psychiatric: mood/affect normal Skin: normal inspection, warm/dry Medical Decision Making Diagnostic Impression: Primary Impression: Ureteral obstruction Additional Impression: Pyelonephritis ER Course The patient presents with severe right flank pain. She's been treated for pyelonephritis. She is unable to keep down any liquids at this time. Differential includes renal stone, exacerbation of pyelonephritis, diverticulitis amongst others. The fact that the pain is not controlled and she can keep down medication is significant. In addition to that it appears as if the antibiotics she getting IV controlling infection as she is not febrile and has no more rigors. The patient will be evaluated with labs, urinalysis, ultrasound. She'll be given IV hydration and also focus on analgesia. Invance was given and due to be repeated at 17:30. Not toxic or appear bacteremic, no other antibiotics indicated at this time. The patient still has significant pain and morphine is being repeated. Ultrasound with hydro. Discussed with urologist who requests CT with contrast. CT with ureteral obstruction without stone - also stranding. Radiologist suggests possible percutaneous ureterostomy but will discuss with urologist. Patient admitted med Dr. Arnold. Radiologist ordered repeat CTs. Pain improved with several doses of morphine. Laboratory Tests Test 06/27/16 08:05 06/27/16 09:30 06/27/16 16:28 Urine Color Pale yellow Pale yellow Urine Appearance Clear Clear Urine pH 5 (4.5-8.0) 5 (4.5-8.0) Urine Specific [place] 1.015 (1.005-1.035) 1.010 (1.005-1.035) Urine Protein 2+ (NEGATIVE) H 2+ (NEGATIVE) H Urine Glucose (UA) Negative (NEGATIVE) Negative (NEGATIVE) Urine Ketones Negative (NEGATIVE) Negative (NEGATIVE) Urine Occult Blood 2+ (NEGATIVE) H 4+ (NEGATIVE) H Urine Nitrite Negative (NEGATIVE) Negative (NEGATIVE) Urine Bilirubin Negative (NEGATIVE) Negative (NEGATIVE) Urine Urobilinogen Normal MG/DL (0.0-1.0) Normal MG/DL (0.0-1.0) Urine Leukocyte Esterase 1+ (NEGATIVE) H 1+ (NEGATIVE) H Urine RBC 2-4 /HPF (0 - 2) H 5-10 /HPF (0 - 2) H Urine WBC 5-10 /HPF (0 - 2) H 15-20 /HPF (0 - 2) H Urine Squamous Epithelial Cells Few /LPF (NONE/OCC) Few /LPF (NONE/OCC) Urine Uric Acid Crystals Few /LPF (NONE) H Urine Bacteria Few /HPF (NONE) Occasional /HPF (NONE) White Blood Count 10.7 K/UL (4.8-10.8) Red Blood Count 4.45 M/UL (4.20-5.40) Hemoglobin 12.3 G/DL (12.0-16.0) Hematocrit 38.3 % (37.0-47.0) Mean Corpuscular Volume 86 FL (80-99) Mean Corpuscular Hemoglobin 27.7 PG (27.0-31.0) Mean Corpuscular Hemoglobin Concent 32.1 G/DL (32.0-36.0) Red Cell Distribution Width 14.0 % (11.6-14.8) Platelet Count 424 K/UL (150-450) Mean Platelet Volume 5.7 FL (6.5-10.1) L Neutrophils (%) (Auto) 84.2 % (45.0-75.0) H Lymphocytes (%) (Auto) 11.9 % (20.0-45.0) L Monocytes (%) (Auto) 3.0 % (1.0-10.0) Eosinophils (%) (Auto) 0.2 % (0.0-3.0) Basophils (%) (Auto) 0.6 % (0.0-2.0) Prothrombin Time 10.7 SEC (9.30-11.50) Prothrombin Time INR 1.1 (0.9-1.1) PTT 26 SEC (23-33) Sodium Level 142 mEQ/L (135-145) Potassium Level 3.9 mEQ/L (3.4-4.9) Chloride Level 100 mEQ/L (98-107) Carbon Dioxide Level 21 mEQ/L (20-30) Anion Gap 21 (5-15) H Blood Urea Nitrogen 23 mg/dL (7-23) Creatinine 1.1 mg/dL (0.5-0.9) H Estimate Glomerular Filtration Rate 50.2 mL/min (>60) Glucose Level 144 mg/dL (74-106) H Calcium Level 9.8 mg/dL (8.6-10.2) Total Bilirubin < 0.2 mg/dL (0.0-1.2) Aspartate Amino Transferase (AST) 17 U/L (5-40) Alanine Aminotransferase (ALT) 17 U/L (3-33) Alkaline Phosphatase 86 U/L (35-104) Total Protein 8.0 g/dL (6.6-8.7) Albumin 4.1 g/dL (3.5-5.2) Globulin 3.9 g/dL Albumin/Globulin Ratio 1.0 (1.0-2.7) Lipase 32 U/L (< 60) CT/MRI/US Diagnostic Results CT/MRI/US Diagnostic Results #1: Imaging Test Ordered: renal u/s Impression hydronephrosis R - much worsened from [address]/MRI/US Diagnostic Results #2: Imaging Test Ordered: CT abd pelvis Impression R renal stranding and hydro. Ureteral stricture, no stone or mass Last Vital Signs Date Time Temp Pulse Resp B/P Pulse Ox O2 Delivery O2 Flow Rate FiO2 06/28/16 00:00 97.7 65 20 117/70 98 Room Air Status: improved Disposition: ADMITTED INPATIENT Condition: Serious Quentin Soliz M.D. Jun 27, 2016 08:36
[2016-06-27 09:00] LABS: APPEARANCE,URINE CLEAR; KETONES,URINE NEGATIVE (NEGATIVE); LEUKOCYTE ESTERASE ,URINE 1+ (NEGATIVE); NITRITE,URINE NEGATIVE (NEGATIVE); PH,URINE 5 (4.5-8.0); PROTEIN,URINE 2+ (NEGATIVE); UROBILINOGEN,URINE NORMAL MG/DL (0.0-1.0)
[2016-06-27 09:08] LABS: BACTERIA,URINE FEW /HPF; SQUAMOUS EPITHELIAL CELL,UR FEW /LPF (NONE/OCC); URIC ACID CRYSTALS,URINE FEW /LPF
[2016-06-27 09:57] LABS: BASOPHILS % (AUTO) 0.6 % (0.0-2.0); EOSINOPHILS % (AUTO) 0.2 % (0.0-3.0); LYMPHOCYTES % (AUTO) 11.9 % (20.0-45.0); MEAN CORPUSCULAR HEMOGLOBIN 27.7 PG (27.0-31.0); MEAN CORPUSCULAR HGB CONC 32.1 G/DL (32.0-36.0); MEAN CORPUSCULAR VOLUME 86 FL (80-99); MEAN PLATELET VOLUME 5.7 FL (6.5-10.1); NEUTROPHILS % (AUTO) 84.2 % (45.0-75.0); PLATELET COUNT 424 K/UL (150-450); RED BLOOD COUNT 4.45 M/UL (4.20-5.40); WHITE BLOOD COUNT 10.7 K/UL (4.8-10.8)
[2016-06-27 10:11] LABS: INR 1.1 (0.9-1.1); PROTHROMBIN TIME 10.7 SEC (9.30-11.50)
[2016-06-27 10:23] LABS: ALANINE AMINOTRANSFERASE 17 U/L (3-33); ANION GAP 21 (5-15); ASPARTATE AMINO TRANSFERASE 17 U/L (5-40); CALCIUM 9.8 mg/dL (8.6-10.2); CARBON DIOXIDE 21 mEQ/L (20-30); CHLORIDE 100 mEQ/L (98-107); CREATININE 1.1 mg/dL (0.5-0.9); GLOMERULAR FILTRATION RATE 50.2 mL/min (>60); HEMOLYSIS 5; LIPASE 32 U/L (< 60); POTASSIUM 3.9 mEQ/L (3.4-4.9); SODIUM 142 mEQ/L (135-145)
[2016-06-27 10:39] VITALS: BP 164/81
[2016-06-27] MEDS ORDERED: INVANZ1 GM IVPB (10:57)
--- NOTE | 2016-06-27 12:02 | Consultation ---
Consult Note Consult Note ID Dic # [id number] Assessment/Plan ASSESSMENT: 61 y/o female with: // Recurrent complicated UTI / pyelonephrosis UCx: ESBL Ecoli - refused cystoscopy in the past - CT: Severe right hydronephrosis with transition involving the distal ureter near the iliac vessels. This is unchanged. However there is considerable perinephric stranding now present which appears worse compared to the last study 03/19/15. - bilateral nephrolithiasis SP stent // Febrile. low grade , SP // transaminitis - Liver US :Moderate to severe right hydronephrosis, also previously reported on multiple earlier exams. Status post [facility] [employer] defibrillator implantation. Hx of cervical cancer SP total abdominal hysterectomy Multiple ABX allergies / intolerances - tolerating aztreonam ( no Hx of Anaphylaxis to PCN ) Full Code PLAN: - cont IV Merrem d# 6 / 14 , upon DC will change to Invanz to complete the course ( 06/21 SP Azactam d# 3 ) - f/u final cultures ( Bl ) - monitor CBC, temperatures - monitor BMP Hepatitis Panel - CT :P - Uro LEO Delgado M.D. Jun 27, 2016 12:02
[2016-06-27 12:20] VITALS: BP 152/78
--- NOTE | 2016-06-27 12:29 | Diagnostic Imaging Report ---
Indications: One day history of sharp right-sided abdominal pain radiating to back, vomiting Technique: Continuous helical CT imaging of the abdomen and pelvis was performed with automatic exposure control following administration of nonionic IV contrast only, on a Siemens sensation [address] scanner. Axial, coronal, sagittal images were reconstructed at 5 mm slice thickness. No oral contrast was administered per requesting physician's order, presumably due to vomiting. CTDI volume(s): 20 mGy Total DLP: 1043 mGy-cm Findings: Comparison: Abdominal ultrasound 06/20/2016; multiple abdominopelvic CT scans 04/23/2014 to 03/03/16 Marked elevation of the right renal collecting system and ureter to the level of pelvic inlet again noted, at which point there is abrupt transition to nondilated ureter. Several surgical clips are again noted in this region. No regional stone or mass identified. Associated significant right perinephric stranding is again noted. Mild left hydronephrosis unchanged. Abrupt transition at the ureteropelvic junction to normal caliber ureter. Again, no significant surrounding stranding, associated stone or mass. Circumscribed low-attenuation foci in both renal cortices. Urinary bladder mildly distended with possible intramural calcification unchanged. Lack of oral contrast limits evaluation of gastrointestinal tract, nondilated throughout. Appendix not identified. No obvious mural thickening, adjacent stranding, extraluminal gas or fluid collections identified. Decreased attenuation of liver parenchyma compatible with steatosis, absence of gallbladder, presence of surgical clips in gallbladder fossa, or ureteric clips and anterior abdominal wall, umbilical and left lower quadrant ventral fat-containing hernia is, scattered arterial mural calcifications, duplicated infrarenal inferior vena cava, pancreatic atrophy, absence of the uterus, nonvisualization of ovaries all again noted and unchanged. Remainder of visualized abdominopelvic anatomy unremarkable. Small irregular pleural-based linear densities in both lung bases. Mild disc space narrowing with marginal osteophyte formation lumbar, lower thoracic spine. Old fractures right superior and inferior ischiopubic rami again noted. IMPRESSION: Persistent marked right hydronephrosis and hydroureter with abrupt transition at level of pelvic inlet, may be secondary to scarring from adjacent surgery. Associated significant right perinephric stranding suggests the possibility of pyelonephritis. Consider emergent percutaneous nephrostomy tube placement, as clinically indicated. No other evidence of acute abdominopelvic disease, with limitation as described. Subtle but potentially significant abnormalities the gastrointestinal tract may be missed. Repeat CT scan with full oral and IV contrast preparation recommended for more complete evaluation, as clinically indicated Multiple stable chronic changes as described Findings and recommendations discussed with Dr. Soliz, ER physician, by telephone at time of this dictation
[2016-06-27 13:22] VITALS: BP 146/81
[2016-06-27] MEDS ORDERED: Nitroglycerin Subl 0.4mg tab (Bottle Of 25) SL PRN (13:45)
[2016-06-27] MEDS ORDERED: Morphine Sulfate 2mg/ml Inj IVP PRN (13:45)
[2016-06-27] MEDS ORDERED: Miralax 17gm pkt ORAL PRN (13:45)
[2016-06-27] MEDS ORDERED: cefTRIAXone 1 GM in D5W 55 ML IVPB SCH (13:45)
[2016-06-27] MEDS ORDERED: Mylanta II UD 30ml ORAL PRN (13:45)
[2016-06-27] MEDS: D5 1/2NS 1,000 ML IV SCH (15:37)
[2016-06-27 15:46] VITALS: BP 131/88
--- NOTE | 2016-06-27 15:54 | History and Physical ---
History of Present Illness General Date patient seen: Jun 27, 2016 Reason for Hospitalization: Abdominal Pain Present Illness HPI 61 year old female with recent hx of Pyelonephritis and nephrolithiasis, been treated him home with IV and hands. She has been discharged last from the hospital with a diagnosis of pyelonephritis. An Ultrasound in ER showed that she has hydronephrosis and obstruction. ER physician contacted the urologist already Allergies: Coded Allergies: ASPIRIN (Verified Allergy, Severe, SHORTNESS OF BREATH, 01/02/12) CIPROFLOXACIN (Verified Allergy, Intermediate, FEET SWELLING, 01/02/12) CIPROFLOXACIN HCL (Verified Allergy, Intermediate, FEET SWELLING, 01/02/12 ) HYDROMORPHONE HCL (Verified Allergy, Intermediate, HALLUCINATION, 01/02/12 ) TETRACYCLINE (Verified Allergy, Intermediate, Rash, 01/02/12) DIPHENHYDRAMINE (Verified Allergy, Unknown, 06/19/16) LEVOFLOXACIN (Verified Allergy, Unknown, FEET SWELLING, 11/08/13) PENICILLINS (Unverified Allergy, Unknown, 10/06/15) METOCLOPRAMIDE (Verified Adverse Reaction, Severe, tachycardia, 06/27/16) SULFAMETHOXAZOLE (Verified Adverse Reaction, Intermediate, 10/28/15) TRIMETHOPRIM (Verified Adverse Reaction, Intermediate, 10/28/15) KETOROLAC (Verified Adverse Reaction, Unknown, tachycardia, 06/27/16) Uncoded Allergies: PENICILLIN (Allergy, Unknown, 10/06/15) Medication History Scheduled Atenolol* (Tenormin*), 50 MG PO BID, (Reported) Clonazepam* (Klonopin*), 0.5 MG PO HS, (Reported) Clonidine HCl (Clonidine HCl), 0.2 MG PO BID, (Reported) Docusate Sodium* (Docusate Sodium*), 100 MG ORAL TWICE A DAY, (Reported) Ertapenem Sodium* (INVanz*), 1 GM IVPB Q24H, (Reported) Omeprazole Magnesium (Prilosec Otc), 20 MG ORAL DAILY, (Reported) Potassium Chloride (Potassium Chloride), 10 MEQ PO DAILY, (Reported) Ranitidine Hcl* (Zantac*), 150 MG ORAL DAILY, (Reported) Scheduled PRN Hydrocodone Bit/Acetaminophen 10-325* (Remlap 10-325*), 1 TAB ORAL Q6H PRN for For Pain, (Reported) Ondansetron Odt* (Zofran Odt*), 8 MG ORAL Q6H PRN for Nausea & Vomiting, ( Reported) Zolpidem Tartrate* (Ambien*), 10 MG ORAL HS PRN for Insomnia, (Reported) Patient History Healthcare decision maker Resuscitation status Full Code Advanced Directive on File Past Medical/Surgical History Past Medical/Surgical History: (1) S/P ureteral reimplantation (2) Sepsis (3) Hx of cervical cancer (4) Hydronephrosis with obstructing calculus (5) HTN (hypertension) Review of Systems All Other Systems: negative except mentioned in HPI Physical Exam General Appearance: WD/WN, no apparent distress Lines, tubes and drains: peripheral, central line HEENT: normocephalic, atraumatic Neck: non-tender, normal alignment Respiratory/Chest: chest wall non-tender, lungs clear Cardiovascular/Chest: normal peripheral pulses, normal rate Abdomen: normal bowel sounds, soft Genitourinary/Rectal: normal genital exam, normal rectal exam Last 24 Hour Vital Signs Date Time Temp Pulse Resp B/P Pulse Ox O2 Delivery O2 Flow Rate FiO2 06/27/16 15:46 98.3 83 21 131/88 97 Room Air 83 06/27/16 13:53 79 14 134/75 94 Room Air 06/27/16 13:22 99.3 77 20 146/81 94 Room Air 06/27/16 13:05 99.3 06/27/16 12:20 99.2 73 16 152/78 99 Room Air 06/27/16 10:39 97.7 75 18 164/81 95 Room Air 06/27/16 09:29 97.2 06/27/16 09:29 97.2 06/27/16 08:24 97.2 76 16 164/82 98 Room Air 06/27/16 08:00 98.8 73 18 172/92 98 Room Air Laboratory Tests Test 06/27/16 08:05 06/27/16 09:30 Urine Color Pale yellow Urine Appearance Clear Urine pH 5 (4.5-8.0) Urine Specific [place] 1.015 (1.005-1.035) Urine Protein 2+ (NEGATIVE) H Urine Glucose (UA) Negative (NEGATIVE) Urine Ketones Negative (NEGATIVE) Urine Occult Blood 2+ (NEGATIVE) H Urine Nitrite Negative (NEGATIVE) Urine Bilirubin Negative (NEGATIVE) Urine Urobilinogen Normal MG/DL (0.0-1.0) Urine Leukocyte Esterase 1+ (NEGATIVE) H Urine RBC 2-4 /HPF (0 - 2) H Urine WBC 5-10 /HPF (0 - 2) H Urine Squamous Epithelial Cells Few /LPF (NONE/OCC) Urine Uric Acid Crystals Few /LPF (NONE) H Urine Bacteria Few /HPF (NONE) White Blood Count 10.7 K/UL (4.8-10.8) Red Blood Count 4.45 M/UL (4.20-5.40) Hemoglobin 12.3 G/DL (12.0-16.0) Hematocrit 38.3 % (37.0-47.0) Mean Corpuscular Volume 86 FL (80-99) Mean Corpuscular Hemoglobin 27.7 PG (27.0-31.0) Mean Corpuscular Hemoglobin Concent 32.1 G/DL (32.0-36.0) Red Cell Distribution Width 14.0 % (11.6-14.8) Platelet Count 424 K/UL (150-450) Mean Platelet Volume 5.7 FL (6.5-10.1) L Neutrophils (%) (Auto) 84.2 % (45.0-75.0) H Lymphocytes (%) (Auto) 11.9 % (20.0-45.0) L Monocytes (%) (Auto) 3.0 % (1.0-10.0) Eosinophils (%) (Auto) 0.2 % (0.0-3.0) Basophils (%) (Auto) 0.6 % (0.0-2.0) Prothrombin Time 10.7 SEC (9.30-11.50) Prothromb Time International Ratio 1.1 (0.9-1.1) Activated Partial Thromboplast Time 26 SEC (23-33) Sodium Level 142 mEQ/L (135-145) Potassium Level 3.9 mEQ/L (3.4-4.9) Chloride Level 100 mEQ/L (98-107) Carbon Dioxide Level 21 mEQ/L (20-30) Anion Gap 21 (5-15) H Blood Urea Nitrogen 23 mg/dL (7-23) Creatinine 1.1 mg/dL (0.5-0.9) H Estimat Glomerular Filtration Rate 50.2 mL/min (>60) Glucose Level 144 mg/dL (74-106) H Calcium Level 9.8 mg/dL (8.6-10.2) Total Bilirubin < 0.2 mg/dL (0.0-1.2) Aspartate Amino Transf (AST/SGOT) 17 U/L (5-40) Alanine Aminotransferase (ALT/SGPT) 17 U/L (3-33) Alkaline Phosphatase 86 U/L (35-104) Total Protein 8.0 g/dL (6.6-8.7) Albumin 4.1 g/dL (3.5-5.2) Globulin 3.9 g/dL Albumin/Globulin Ratio 1.0 (1.0-2.7) Lipase 32 U/L (< 60) Height (Feet): 5 Height (Inches): 1.00 Weight (Pounds): 200 Medications Current Medications Medications (Trade) Dose Ordered Sig/Bev Route PRN Reason Start Time Stop Time Status Last Admin Dose Admin Acetaminophen (Tylenol) 650 mg Q4H PRN ORAL fever 06/27/16 14:30 07/27/16 14:29 Al Hydroxide/Mg Hydroxide (Mylanta II) 30 ml Q6H PRN ORAL dyspepsia 06/27/16 13:45 07/27/16 13:44 Atenolol (Tenormin) 50 mg Q12HR ORAL 06/27/16 21:00 07/27/16 20:59 Clonazepam (KlonoPIN) 0.5 mg DAILY ORAL 06/28/16 09:00 07/05/16 08:59 Clonidine HCl 0.2 mg 0.2 mg Q12HR ORAL 06/27/16 21:00 07/27/16 20:59 Dextrose (Dextrose 50%) STAT PRN IV Hypoglycemia 06/27/16 13:45 07/27/16 13:44 Dextrose/Sodium Chloride (D5 0.45% NS) 1,000 ml @ 75 mls/hr [id number] IV 06/27/16 15:00 07/27/16 14:59 06/27/16 15:37 Heparin Sodium (Porcine) (Heparin 5000 units/ml) 5,000 units EVERY 12 HOURS SUBQ 06/27/16 21:00 07/27/16 20:59 Hydroxyzine HCl (Vistaril) 10 mg Q6H PRN ORAL Itching/Pruritis 06/27/16 13:45 07/27/16 13:44 Meropenem/Sodium Chloride (Merrem/Sodium Chloride) 110 ml @ 220 mls/hr Q8HR IVPB 06/27/16 16:00 07/02/16 15:59 Morphine Sulfate (Morphine Sulfate) 2 mg Q4H PRN IVP Moderate Pain (Pain Scale 4-6) 06/27/16 13:45 07/04/16 13:44 Morphine Sulfate 4 mg 4 mg EVERY 2 HOURS PRN IV For Pain (7-10) 06/27/16 13:45 07/04/16 13:44 Nitroglycerin (Ntg) 0.4 mg Q5M X 3 DOSES PRN SL Prn Chest Pain 06/27/16 13:45 07/27/16 13:44 Ondansetron HCl (Zofran) 4 mg Q6H PRN IVP Nausea & Vomiting 06/27/16 14:30 07/27/16 14:29 Polyethylene Glycol (Miralax) 17 gm HSPRN PRN ORAL Constipation 06/27/16 13:45 07/27/16 13:44 Sodium Chloride (Sodium Chloride 1000ml bag) 1,000 ml @ 100 mls/hr Q10H IV 06/27/16 14:00 07/27/16 13:59 06/27/16 13:53 Temazepam (Restoril) 15 mg HSPRN PRN ORAL Insomnia 06/27/16 13:45 07/04/16 13:44 Assessment/Plan Problem List: (1) Hydronephrosis with obstructing calculus ICD Codes: N13.2 - Hydronephrosis with renal and ureteral calculousobstruction SNOMED: 355793001 (2) Sepsis ICD Codes: A41.9 - Sepsis, unspecified organism SNOMED: 33410896 (3) ATN (acute tubular necrosis) ICD Codes: N17.0 - Acute kidney failure with tubular necrosis SNOMED: 92916459 (4) S/P ureteral reimplantation ICD Codes: Z98.89 - Other specified postprocedural states SNOMED: 110793929 (5) Hx of cervical cancer ICD Codes: Z85.41 - Personal history of malignant neoplasm of cervix uteri SNOMED: 548865466 Assessment/Plan IV hydration IV antibiotics check cultures f/u Urology recommendations LESLY LOTT Jun 27, 2016 15:54
--- NOTE | 2016-06-27 16:05 | Diagnostic Imaging Report ---
Indications: Abdominal and right flank pain, history of hydronephrosis and pyelonephritis Technique: Transabdominal real-time grayscale and duplex Doppler imaging of the upper abdomen and retroperitoneum was performed. Findings: Comparison: 06/20/2016. Liver 19 cm. Normal surface contour, diffusely parenchymal echogenicity. No focal lesions. Gallbladder not identified. Bile ducts nondilated within liver. Common bile duct 12 mm. Pancreas visualized portions unremarkable. Spleen unremarkable. Right kidney again demonstrates diffuse cortical atrophy with marked collecting system dilation, significantly more severe than on previous exam. No stones or other focal lesions demonstrated. Left kidney demonstrates normal cortical thickness and mild collecting system dilation, not significantly changed. No stones or other focal lesions demonstrated.. Proximal and mid abdominal aorta, intrahepatic portion of inferior vena cava patent, normal caliber. Distal abdominal aorta obscured by bowel gas. Duplex Doppler imaging demonstrates antegrade flow in splenic, portal, hepatic veins. No ascites. IMPRESSION: Interval significant increase in degree of right hydronephrosis compatible with obstruction. Underlying pyelonephritis not excludable. Right renal cortical atrophy, nonspecific, may be secondary to chronic obstruction Stable mild left hydronephrosis Stable mild hepatomegaly and steatosis Nonvisualization of gallbladder compatible with previous resection Mild dilation of common bile duct, stable, likely secondary to above. Correlate clinically. Distal abdominal aorta obscured.
[2016-06-27] MEDS: Meropenem 1 GM in NS 110 ML IVPB SCH ×2 (16:17→21:39)
[2016-06-27 16:59] LABS: APPEARANCE,URINE CLEAR; KETONES,URINE NEGATIVE (NEGATIVE); LEUKOCYTE ESTERASE ,URINE 1+ (NEGATIVE); NITRITE,URINE NEGATIVE (NEGATIVE); PH,URINE 5 (4.5-8.0); PROTEIN,URINE 2+ (NEGATIVE); UROBILINOGEN,URINE NORMAL MG/DL (0.0-1.0)
[2016-06-27 17:06] LABS: BACTERIA,URINE OCCASIONAL /HPF; SQUAMOUS EPITHELIAL CELL,UR FEW /LPF (NONE/OCC); WBC,URINE 15-20 /HPF (0 - 2)
[2016-06-27] MEDS: Morphine Sulfate 4mg/ml Inj IV PRN (18:36)
[2016-06-27 20:00] VITALS: BP 108/64
[2016-06-27] MEDS: cloNIDine 0.2mg Tab ORAL SCH (21:00)
[2016-06-27] MEDS: Heparin 5000 units/ml inj SUBQ SCH (21:00)
[2016-06-27] MEDS: Zolpidem 5mg tab ORAL PRN (23:31)
[2016-06-28] VITALS: BP 117/70
[2016-06-28 04:00] VITALS: BP 121/69
[2016-06-28] MEDS: D5 1/2NS 1,000 ML IV SCH ×2 (05:06→17:40)
[2016-06-28] MEDS: Meropenem 1 GM in NS 110 ML IVPB SCH ×3 (05:30→22:01)
[2016-06-28 08:12] VITALS: BP 135/85
--- NOTE | 2016-06-28 08:19 | Anethesia Preoperative Eval ---
Anesthesia Pre-op PMH/ROS General Date of Evaluation: Jun 28, 2016 Anesthesiologist: Bill ASA Score: ASA 3 Mallampati Score Class I : Soft palate, uvula, fauces, pillars visible Class II: Soft palate, uvula, fauces visible Class III: Soft palate, base of uvula visible Class IV: Only hard plate visible Mallampati Classification: Class III Surgeon: Armando Diagnosis: Ureteral obstruction Surgical Procedure: Laparoscopic nephroureterectomy Anesthesia History: none Family History: no anesthesia problems Allergies: Coded Allergies: ASPIRIN (Verified Allergy, Severe, SHORTNESS OF BREATH, 01/02/12) CIPROFLOXACIN (Verified Allergy, Intermediate, FEET SWELLING, 01/02/12) CIPROFLOXACIN HCL (Verified Allergy, Intermediate, FEET SWELLING, 01/02/12 ) HYDROMORPHONE HCL (Verified Allergy, Intermediate, HALLUCINATION, 01/02/12 ) TETRACYCLINE (Verified Allergy, Intermediate, Rash, 01/02/12) DIPHENHYDRAMINE (Verified Allergy, Unknown, 06/19/16) LEVOFLOXACIN (Verified Allergy, Unknown, FEET SWELLING, 11/08/13) PENICILLINS (Unverified Allergy, Unknown, 10/06/15) METOCLOPRAMIDE (Verified Adverse Reaction, Severe, tachycardia, 06/27/16) SULFAMETHOXAZOLE (Verified Adverse Reaction, Intermediate, 10/28/15) TRIMETHOPRIM (Verified Adverse Reaction, Intermediate, 10/28/15) KETOROLAC (Verified Adverse Reaction, Unknown, tachycardia, 06/27/16) Uncoded Allergies: PENICILLIN (Allergy, Unknown, 10/06/15) Medications: see eMAR Past Medical History Cardiovascular: Reports: HTN, arrhythmia - AICD in place-battery replaced one week ago, other - HLD, Denies: CAD, NM, valve dz Pulmonary: Denies: COPD, KAMALA, asthma, other Gastrointestinal/Genitourinary: Reports: GERD, other - h/o cervical cancer, hiatal hernia, Denies: CRI, ESRD Neurologic/Psychiatric: Reports: depression/anxiety, Denies: CVA, TIA, dementia, other Endocrine: Denies: DM, hypothyroidism, other, steroids HEENT: Denies: [place] (L), [place] (R), cataract (L), cataract (R), glaucoma, other Hematology/Immune: Denies: DVT, anemia, bleeding disorder, other Musculoskeletal/Integumentary: Reports: OA, Denies: DDD, DJD, RA, edema, other Other: obesity Anesthesia Pre-op Phys. Exam Physician Exam Last Vital Signs Date Time Temp Pulse Resp B/P Pulse Ox O2 Delivery O2 Flow Rate FiO2 06/28/16 08:12 97.7 76 20 135/85 95 Room Air Constitutional: NAD Cardiovascular: RRR Respiratory: CTA Airway Exam Mallampati Score: Class III MO: limited ROM: full Anesthesia Pre-op A/P Labs Hematology Test 06/27/16 09:30 White Blood Count 10.7 K/UL (4.8-10.8) Red Blood Count 4.45 M/UL (4.20-5.40) Hemoglobin 12.3 G/DL (12.0-16.0) Hematocrit 38.3 % (37.0-47.0) Mean Corpuscular Volume 86 FL (80-99) Mean Corpuscular Hemoglobin 27.7 PG (27.0-31.0) Mean Corpuscular Hemoglobin Concent 32.1 G/DL (32.0-36.0) Red Cell Distribution Width 14.0 % (11.6-14.8) Platelet Count 424 K/UL (150-450) Mean Platelet Volume 5.7 FL (6.5-10.1) L Neutrophils (%) (Auto) 84.2 % (45.0-75.0) H Lymphocytes (%) (Auto) 11.9 % (20.0-45.0) L Monocytes (%) (Auto) 3.0 % (1.0-10.0) Eosinophils (%) (Auto) 0.2 % (0.0-3.0) Basophils (%) (Auto) 0.6 % (0.0-2.0) Coagulation Test 06/27/16 09:30 Prothrombin Time 10.7 SEC (9.30-11.50) Prothromb Time International Ratio 1.1 (0.9-1.1) Activated Partial Thromboplast Time 26 SEC (23-33) Chemistry Test 06/27/16 09:30 Sodium Level 142 mEQ/L (135-145) Potassium Level 3.9 mEQ/L (3.4-4.9) Chloride Level 100 mEQ/L (98-107) Carbon Dioxide Level 21 mEQ/L (20-30) Anion Gap 21 (5-15) H Blood Urea Nitrogen 23 mg/dL (7-23) Creatinine 1.1 mg/dL (0.5-0.9) H Estimat Glomerular Filtration Rate 50.2 mL/min (>60) Glucose Level 144 mg/dL (74-106) H Calcium Level 9.8 mg/dL (8.6-10.2) Total Bilirubin < 0.2 mg/dL (0.0-1.2) Aspartate Amino Transf (AST/SGOT) 17 U/L (5-40) Alanine Aminotransferase (ALT/SGPT) 17 U/L (3-33) Alkaline Phosphatase 86 U/L (35-104) Total Protein 8.0 g/dL (6.6-8.7) Albumin 4.1 g/dL (3.5-5.2) Globulin 3.9 g/dL Albumin/Globulin Ratio 1.0 (1.0-2.7) Lipase 32 U/L (< 60) Studies Pre-op Studies: EKG - sr Risk Assessment & Plan Assessment: ASA III Plan: MAC Status Change Before Surgery: No Pre-Antibiotics Drug: N/A PAWEL MTZ M.D. Jun 28, 2016 08:19
--- NOTE | 2016-06-28 08:29 | Anethesia Preoperative Eval ---
Anesthesia Pre-op PMH/ROS General Date of Evaluation: Jun 28, 2016 Anesthesiologist: Bill ASA Score: ASA 3 Mallampati Score Class I : Soft palate, uvula, fauces, pillars visible Class II: Soft palate, uvula, fauces visible Class III: Soft palate, base of uvula visible Class IV: Only hard plate visible Mallampati Classification: Class III Surgeon: Armando Surgical Procedure: Laparoscopic nephroureterectomy Anesthesia History: none Family History: no anesthesia problems Allergies: Coded Allergies: ASPIRIN (Verified Allergy, Severe, SHORTNESS OF BREATH, 01/02/12) CIPROFLOXACIN (Verified Allergy, Intermediate, FEET SWELLING, 01/02/12) CIPROFLOXACIN HCL (Verified Allergy, Intermediate, FEET SWELLING, 01/02/12 ) HYDROMORPHONE HCL (Verified Allergy, Intermediate, HALLUCINATION, 01/02/12 ) TETRACYCLINE (Verified Allergy, Intermediate, Rash, 01/02/12) DIPHENHYDRAMINE (Verified Allergy, Unknown, 06/19/16) LEVOFLOXACIN (Verified Allergy, Unknown, FEET SWELLING, 11/08/13) PENICILLINS (Unverified Allergy, Unknown, 10/06/15) METOCLOPRAMIDE (Verified Adverse Reaction, Severe, tachycardia, 06/27/16) SULFAMETHOXAZOLE (Verified Adverse Reaction, Intermediate, 10/28/15) TRIMETHOPRIM (Verified Adverse Reaction, Intermediate, 10/28/15) KETOROLAC (Verified Adverse Reaction, Unknown, tachycardia, 06/27/16) Uncoded Allergies: PENICILLIN (Allergy, Unknown, 10/06/15) Medications: see eMAR Anesthesia Pre-op Phys. Exam Physician Exam Last Vital Signs Date Time Temp Pulse Resp B/P Pulse Ox O2 Delivery O2 Flow Rate FiO2 06/28/16 08:12 97.7 76 20 135/85 95 Room Air Anesthesia Pre-op A/P Labs Hematology Test 06/27/16 09:30 White Blood Count 10.7 K/UL (4.8-10.8) Red Blood Count 4.45 M/UL (4.20-5.40) Hemoglobin 12.3 G/DL (12.0-16.0) Hematocrit 38.3 % (37.0-47.0) Mean Corpuscular Volume 86 FL (80-99) Mean Corpuscular Hemoglobin 27.7 PG (27.0-31.0) Mean Corpuscular Hemoglobin Concent 32.1 G/DL (32.0-36.0) Red Cell Distribution Width 14.0 % (11.6-14.8) Platelet Count 424 K/UL (150-450) Mean Platelet Volume 5.7 FL (6.5-10.1) L Neutrophils (%) (Auto) 84.2 % (45.0-75.0) H Lymphocytes (%) (Auto) 11.9 % (20.0-45.0) L Monocytes (%) (Auto) 3.0 % (1.0-10.0) Eosinophils (%) (Auto) 0.2 % (0.0-3.0) Basophils (%) (Auto) 0.6 % (0.0-2.0) Coagulation Test 06/27/16 09:30 Prothrombin Time 10.7 SEC (9.30-11.50) Prothromb Time International Ratio 1.1 (0.9-1.1) Activated Partial Thromboplast Time 26 SEC (23-33) Chemistry Test 06/27/16 09:30 Sodium Level 142 mEQ/L (135-145) Potassium Level 3.9 mEQ/L (3.4-4.9) Chloride Level 100 mEQ/L (98-107) Carbon Dioxide Level 21 mEQ/L (20-30) Anion Gap 21 (5-15) H Blood Urea Nitrogen 23 mg/dL (7-23) Creatinine 1.1 mg/dL (0.5-0.9) H Estimat Glomerular Filtration Rate 50.2 mL/min (>60) Glucose Level 144 mg/dL (74-106) H Calcium Level 9.8 mg/dL (8.6-10.2) Total Bilirubin < 0.2 mg/dL (0.0-1.2) Aspartate Amino Transf (AST/SGOT) 17 U/L (5-40) Alanine Aminotransferase (ALT/SGPT) 17 U/L (3-33) Alkaline Phosphatase 86 U/L (35-104) Total Protein 8.0 g/dL (6.6-8.7) Albumin 4.1 g/dL (3.5-5.2) Globulin 3.9 g/dL Albumin/Globulin Ratio 1.0 (1.0-2.7) Lipase 32 U/L (< 60) PAWEL MTZ M.D. Jun 28, 2016 08:29
--- NOTE | 2016-06-28 08:48 | Infectious Diseases Prog Note ---
Assessment/Plan Assessment/Plan ASSESSMENT: 61 y/o female with: // Recurrent complicated UTI / pyelonephrosis UCx: ESBL Ecoli - refused cystoscopy in the past - CT: Persistent marked right hydronephrosis and hydroureter wtranding suggests the possibility pyelonephritis - bilateral nephrolithiasis SP stent // Febrile. low grade , SP // transaminitis , SP Hep B/C: Neg - Liver US :Moderate to severe right hydronephrosis, also previously reported on multiple earlier exams. Status post [facility] [employer] defibrillator implantation. Hx of cervical cancer SP total abdominal hysterectomy Multiple ABX allergies / intolerances - tolerating aztreonam ( no Hx of Anaphylaxis to PCN ) Full Code PLAN: - cont IV Merrem d# / , upon DC will change to Invanz to complete the course ( 06/21 SP Azactam d# 3 ) - f/u final cultures ( Ur ) - monitor CBC, temperatures - monitor BMP - Uro eval Subjective Allergies: Coded Allergies: ASPIRIN (Verified Allergy, Severe, SHORTNESS OF BREATH, 01/02/12) CIPROFLOXACIN (Verified Allergy, Intermediate, FEET SWELLING, 01/02/12) CIPROFLOXACIN HCL (Verified Allergy, Intermediate, FEET SWELLING, 01/02/12 ) HYDROMORPHONE HCL (Verified Allergy, Intermediate, HALLUCINATION, 01/02/12 ) TETRACYCLINE (Verified Allergy, Intermediate, Rash, 01/02/12) DIPHENHYDRAMINE (Verified Allergy, Unknown, 06/19/16) LEVOFLOXACIN (Verified Allergy, Unknown, FEET SWELLING, 11/08/13) PENICILLINS (Unverified Allergy, Unknown, 10/06/15) METOCLOPRAMIDE (Verified Adverse Reaction, Severe, tachycardia, 06/27/16) SULFAMETHOXAZOLE (Verified Adverse Reaction, Intermediate, 10/28/15) TRIMETHOPRIM (Verified Adverse Reaction, Intermediate, 10/28/15) KETOROLAC (Verified Adverse Reaction, Unknown, tachycardia, 06/27/16) Uncoded Allergies: PENICILLIN (Allergy, Unknown, 10/06/15) Subjective no new complain Objective Vital Signs Last 24 Hour Vital Signs Date Time Temp Pulse Resp B/P Pulse Ox O2 Delivery O2 Flow Rate FiO2 06/28/16 08:12 97.7 76 20 135/85 95 Room Air 06/28/16 04:00 97.9 68 20 121/69 96 Room Air 06/28/16 00:00 97.7 65 20 117/70 98 Room Air 06/27/16 21:00 120/82 06/27/16 21:00 73 120/83 06/27/16 20:00 97.9 69 18 108/64 94 Room Air 06/27/16 20:00 97.9 69 18 108/64 93 Room Air 06/27/16 15:46 98.3 83 21 131/88 97 Room Air 83 06/27/16 13:53 79 14 134/75 94 Room Air 06/27/16 13:22 99.3 77 20 146/81 94 Room Air 06/27/16 13:05 99.3 06/27/16 12:20 99.2 73 16 152/78 99 Room Air 06/27/16 10:39 97.7 75 18 164/81 95 Room Air 06/27/16 09:29 97.2 06/27/16 09:29 97.2 Height (Feet): 5 Height (Inches): 1.00 Weight (Pounds): 200 HEENT: normocephalic Respiratory/Chest: lungs clear Cardiovascular: normal rate Abdomen: no organomegaly Microbiology Date/Time Source Procedure Growth Status 06/27/16 16:28 Straight Cath Urine Culture - Preliminary NO GROWTH Resulted Laboratory Tests Test 06/27/16 09:30 06/27/16 16:28 White Blood Count 10.7 K/UL (4.8-10.8) Red Blood Count 4.45 M/UL (4.20-5.40) Hemoglobin 12.3 G/DL (12.0-16.0) Hematocrit 38.3 % (37.0-47.0) Mean Corpuscular Volume 86 FL (80-99) Mean Corpuscular Hemoglobin 27.7 PG (27.0-31.0) Mean Corpuscular Hemoglobin Concent 32.1 G/DL (32.0-36.0) Red Cell Distribution Width 14.0 % (11.6-14.8) Platelet Count 424 K/UL (150-450) Mean Platelet Volume 5.7 FL (6.5-10.1) L Neutrophils (%) (Auto) 84.2 % (45.0-75.0) H Lymphocytes (%) (Auto) 11.9 % (20.0-45.0) L Monocytes (%) (Auto) 3.0 % (1.0-10.0) Eosinophils (%) (Auto) 0.2 % (0.0-3.0) Basophils (%) (Auto) 0.6 % (0.0-2.0) Prothrombin Time 10.7 SEC (9.30-11.50) Prothromb Time International Ratio 1.1 (0.9-1.1) Activated Partial Thromboplast Time 26 SEC (23-33) Sodium Level 142 mEQ/L (135-145) Potassium Level 3.9 mEQ/L (3.4-4.9) Chloride Level 100 mEQ/L (98-107) Carbon Dioxide Level 21 mEQ/L (20-30) Anion Gap 21 (5-15) H Blood Urea Nitrogen 23 mg/dL (7-23) Creatinine 1.1 mg/dL (0.5-0.9) H Estimat Glomerular Filtration Rate 50.2 mL/min (>60) Glucose Level 144 mg/dL (74-106) H Calcium Level 9.8 mg/dL (8.6-10.2) Total Bilirubin < 0.2 mg/dL (0.0-1.2) Aspartate Amino Transf (AST/SGOT) 17 U/L (5-40) Alanine Aminotransferase (ALT/SGPT) 17 U/L (3-33) Alkaline Phosphatase 86 U/L (35-104) Total Protein 8.0 g/dL (6.6-8.7) Albumin 4.1 g/dL (3.5-5.2) Globulin 3.9 g/dL Albumin/Globulin Ratio 1.0 (1.0-2.7) Lipase 32 U/L (< 60) Urine Color Pale yellow Urine Appearance Clear Urine pH 5 (4.5-8.0) Urine Specific [place] 1.010 (1.005-1.035) Urine Protein 2+ (NEGATIVE) H Urine Glucose (UA) Negative (NEGATIVE) Urine Ketones Negative (NEGATIVE) Urine Occult Blood 4+ (NEGATIVE) H Urine Nitrite Negative (NEGATIVE) Urine Bilirubin Negative (NEGATIVE) Urine Urobilinogen Normal MG/DL (0.0-1.0) Urine Leukocyte Esterase 1+ (NEGATIVE) H Urine RBC 5-10 /HPF (0 - 2) H Urine WBC 15-20 /HPF (0 - 2) H Urine Squamous Epithelial Cells Few /LPF (NONE/OCC) Urine Bacteria Occasional /HPF (NONE) Current Medications Medications (Trade) Dose Ordered Sig/Bev Route PRN Reason Start Time Stop Time Status Last Admin Dose Admin Acetaminophen (Tylenol) 650 mg Q4H PRN ORAL fever 06/27/16 14:30 07/27/16 14:29 06/28/16 03:17 Al Hydroxide/Mg Hydroxide (Mylanta II) 30 ml Q6H PRN ORAL dyspepsia 06/27/16 13:45 07/27/16 13:44 Atenolol (Tenormin) 50 mg Q12HR ORAL 06/27/16 21:00 07/27/16 20:59 Clonazepam (KlonoPIN) 0.5 mg DAILY ORAL 06/28/16 09:00 07/05/16 08:59 Clonidine HCl 0.2 mg 0.2 mg Q12HR ORAL 06/27/16 21:00 07/27/16 20:59 Dextrose (Dextrose 50%) STAT PRN IV Hypoglycemia 06/27/16 13:45 07/27/16 13:44 Dextrose/Sodium Chloride (D5 0.45% NS) 1,000 ml @ 75 mls/hr [id number] IV 06/27/16 15:00 07/27/16 14:59 06/28/16 05:06 Heparin Sodium (Porcine) (Heparin 5000 units/ml) 5,000 units EVERY 12 HOURS SUBQ 06/27/16 21:00 07/27/16 20:59 Hydroxyzine HCl (Vistaril) 10 mg Q6H PRN ORAL Itching/Pruritis 06/27/16 13:45 07/27/16 13:44 Meropenem/Sodium Chloride (Merrem/Sodium Chloride) 110 ml @ 220 mls/hr Q8HR IVPB 06/27/16 16:00 07/02/16 15:59 06/28/16 05:30 Morphine Sulfate (Morphine Sulfate) 2 mg Q4H PRN IVP Moderate Pain (Pain Scale 4-6) 06/27/16 13:45 07/04/16 13:44 Morphine Sulfate (Morphine Sulfate) 4 mg EVERY 2 HOURS PRN IV For Pain (7-10) 06/27/16 13:45 07/04/16 13:44 06/27/16 18:36 Nitroglycerin (Ntg) 0.4 mg Q5M X 3 DOSES PRN SL Prn Chest Pain 06/27/16 13:45 07/27/16 13:44 Ondansetron HCl (Zofran) 4 mg Q6H PRN IVP Nausea & Vomiting 06/27/16 14:30 07/27/16 14:29 06/27/16 19:38 Polyethylene Glycol (Miralax) 17 gm HSPRN PRN ORAL Constipation 06/27/16 13:45 07/27/16 13:44 Zolpidem Tartrate (Ambien) 5 mg HSPRN PRN ORAL Insomnia 06/27/16 22:15 07/27/16 22:14 06/27/16 23:31 LEO OLIVEROS M.D. Jun 28, 2016 08:48
[2016-06-28] MEDS: clonazePAM 0.5mg tab ORAL SCH (08:55)
[2016-06-28] MEDS: cloNIDine 0.2mg Tab ORAL SCH ×2 (08:55→20:46)
[2016-06-28] MEDS: Heparin 5000 units/ml inj SUBQ SCH ×2 (08:56→20:47)
[2016-06-28] MEDS ORDERED: cefOXitin Sod 2 GM in D5W 110 ML IVPB ONE (09:45)
[2016-06-28] MEDS: Magnesium Citrate Liq Btl ORAL SCH ×2 (10:12→14:25)
[2016-06-28 10:21] LABS: BASOPHILS % (AUTO) 1.1 % (0.0-2.0); EOSINOPHILS % (AUTO) 4.7 % (0.0-3.0); LYMPHOCYTES % (AUTO) 33.3 % (20.0-45.0); MEAN CORPUSCULAR HEMOGLOBIN 27.3 PG (27.0-31.0); MEAN CORPUSCULAR HGB CONC 30.8 G/DL (32.0-36.0); MEAN CORPUSCULAR VOLUME 88 FL (80-99); MEAN PLATELET VOLUME 5.5 FL (6.5-10.1); MONOCYTES % (AUTO) 6.5 % (1.0-10.0); NEUTROPHILS % (AUTO) 54.3 % (45.0-75.0); PLATELET COUNT 384 K/UL (150-450); RED BLOOD COUNT 4.21 M/UL (4.20-5.40); RED CELL DISTRIBUTION WIDTH 14.2 % (11.6-14.8); WHITE BLOOD COUNT 4.6 K/UL (4.8-10.8)
[2016-06-28 11:16] LABS: ALANINE AMINOTRANSFERASE 180 U/L (3-33); ALBUMIN/GLOBULIN RATIO 1.1 (1.0-2.7); AMYLASE 35 U/L (10-110); ANION GAP 16 (5-15); ASPARTATE AMINO TRANSFERASE 149 U/L (5-40); CALCIUM 9.1 mg/dL (8.6-10.2); CARBON DIOXIDE 25 mEQ/L (20-30); CHLORIDE 100 mEQ/L (98-107); CREATININE 0.8 mg/dL (0.5-0.9); GLOMERULAR FILTRATION RATE > 60 mL/min (>60); HEMOLYSIS 2; LIPASE 26 U/L (< 60); POTASSIUM 3.5 mEQ/L (3.4-4.9); SODIUM 141 mEQ/L (135-145); TOTAL PROTEIN 7.1 g/dL (6.6-8.7)
[2016-06-28 11:30] VITALS: BP 98/58
[2016-06-28] MEDS: Morphine Sulfate 4mg/ml Inj IV PRN ×2 (13:15→22:01)
[2016-06-28 16:08] VITALS: BP 124/82
[2016-06-28] MEDS ORDERED: D5 1/2NS 1000ml IV ONE (16:13)
[2016-06-28] MEDS ORDERED: Tubing IV Secondary IV ONE (16:13)
[2016-06-28 20:00] VITALS: BP 126/79
--- NOTE | 2016-06-28 20:17 | Consultation ---
DATE OF CONSULTATION: 06/27/2016 INFECTIOUS DISEASE CONSULTATION CONSULTING PHYSICIAN: Joel Eubanks M.D ATTENDING PHYSICIAN: Zhao Arnold M.D. REFERRING PHYSICIAN: Zhao Arnold M.D. REASON FOR CONSULTATION: Evaluation of the patient for urinary tract infection. HISTORY OF PRESENT ILLNESS: The patient is a 61-year-old female with multiple medical problem who has been recently admitted to this [facility] due to right pyelonephritis and urinary tract infection due to ESBL E. coli. The patient was started on IV antibiotics and was discharged on IV Invanz. However, the patient came to the hospital because of increased right-sided abdominal pain and flank tenderness. In the past, the patient has refused surgical intervention for right hydronephrosis and hydroureter. PAST MEDICAL HISTORY: Significant for, 1. Right hydronephrosis and hydroureter. 2. History of cervical cancer in the past. 3. History of transaminitis. 4. Hepatitis B and C serology negative. ALLERGIES: Aspirin, Cipro, diphenhydramine, metoclopramide, and penicillin. SOCIAL HISTORY: The patient resides at home. FAMILY HISTORY: Noncontributory. REVIEW OF SYMPTOMS: A 10-point review was done and except what is mentioned has been negative. PHYSICAL EXAMINATION: VITAL SIGNS: Temperature is 97, blood pressure 135/55, pulse 56, and respiratory rate 18. HEENT: Mild pale conjunctivae. No icterus. NECK: No lymphadenopathy. CHEST: Coarse breathing sounds. HEART: S1 and S2. ABDOMEN: Soft. The patient has right flank tenderness. NEUROLOGIC: Awake and alert. SKIN: No rash. EXTREMITIES: No cellulitis. LABORATORY DATA: BUN 23 and creatinine 1.1. White blood cell count 10.7, hemoglobin 12.3, and platelets 424,000. UA 15 to 20 white blood cells, 5 to 10 red blood cells. ALT, AST, and alkaline phosphatase normal. unremarkable. CT scan of the abdomen shows right hydronephrosis and possibly right pyelonephritis. ASSESSMENT: The patient is a 61-year-old female with history of extended-spectrum beta-lactamase urinary tract infection and pyelonephritis, who has persistent pain that needs surgical intervention. At this time, we will continue the patient on current antibiotics. PLAN: 1. We will continue this patient on meropenem day 6 out of 14. 2. Monitor CBC. 3. Monitor BMP. 4. Monitor repeat urine culture. 5. Urology evaluation. 6. Based on the patient's clinical course and labs, we will do further recommendations. Thank you, Dr. Arnold, for allowing me to participate in the care of this patient. I will follow the patient with you during this hospitalization. Joel Eubanks M.D. DR: DRU JOB#: [id number] CC:
--- NOTE | 2016-06-28 22:25 | Pulmonology Progress Note ---
Assessment/Plan Problems: (1) Hydronephrosis with obstructing calculus (2) Sepsis (3) ATN (acute tubular necrosis) (4) S/P ureteral reimplantation (5) Hx of cervical cancer Assessment/Plan f/u by urology continue antibiotics check electrolytes Subjective ROS Limited/Unobtainable: No Interval Events: pain controlled Allergies: Coded Allergies: ASPIRIN (Verified Allergy, Severe, SHORTNESS OF BREATH, 01/02/12) CIPROFLOXACIN (Verified Allergy, Intermediate, FEET SWELLING, 01/02/12) CIPROFLOXACIN HCL (Verified Allergy, Intermediate, FEET SWELLING, 01/02/12 ) HYDROMORPHONE HCL (Verified Allergy, Intermediate, HALLUCINATION, 01/02/12 ) TETRACYCLINE (Verified Allergy, Intermediate, Rash, 01/02/12) DIPHENHYDRAMINE (Verified Allergy, Unknown, 06/19/16) LEVOFLOXACIN (Verified Allergy, Unknown, FEET SWELLING, 11/08/13) PENICILLINS (Unverified Allergy, Unknown, 10/06/15) METOCLOPRAMIDE (Verified Adverse Reaction, Severe, tachycardia, 06/27/16) SULFAMETHOXAZOLE (Verified Adverse Reaction, Intermediate, 10/28/15) TRIMETHOPRIM (Verified Adverse Reaction, Intermediate, 10/28/15) KETOROLAC (Verified Adverse Reaction, Unknown, tachycardia, 06/27/16) Uncoded Allergies: PENICILLIN (Allergy, Unknown, 10/06/15) Objective Last 24 Hour Vital Signs Date Time Temp Pulse Resp B/P Pulse Ox O2 Delivery O2 Flow Rate FiO2 06/28/16 20:46 60 126/79 06/28/16 20:00 97.7 60 20 126/79 94 Room Air 06/28/16 16:08 97.6 60 19 124/82 95 Room Air 06/28/16 11:30 97.9 54 19 98/58 95 Room Air 06/28/16 08:55 135/85 06/28/16 08:55 76 135/85 06/28/16 08:12 97.7 76 20 135/85 95 Room Air 06/28/16 04:00 97.9 68 20 121/69 96 Room Air 06/28/16 00:00 97.7 65 20 117/70 98 Room Air Intake and Output 06/27/16 06/28/16 19:00 07:00 Intake Total 1110 ml 970 ml Balance 1110 ml 970 ml IV Total 1110 ml 970 ml # Voids 1 2 General Appearance: WD/WN HEENT: normocephalic, atraumatic Cardiovascular: normal peripheral pulses, normal rate Abdomen: normal bowel sounds, soft, non tender Extremities: no cyanosis Skin: no rash Microbiology Date/Time Source Procedure Growth Status 06/27/16 16:28 Straight Cath Urine Culture - Preliminary NO GROWTH Resulted Laboratory Tests 06/28/16 09:55: White Blood Count 4.6#L, Red Blood Count 4.21, Hemoglobin 11.5L, Hematocrit 37.2 , Mean Corpuscular Volume 88, Mean Corpuscular Hemoglobin 27.3, Mean Corpuscular Hemoglobin Concent 30.8L, Red Cell Distribution Width 14.2, Platelet Count 384, Mean Platelet Volume 5.5L, Neutrophils (%) (Auto) 54.3, Lymphocytes (%) (Auto) 33.3, Monocytes (%) (Auto) 6.5, Eosinophils (%) (Auto) 4.7H, Basophils (%) (Auto) 1.1, Activated Partial Thromboplast Time 26, Sodium Level 141, Potassium Level 3.5, Chloride Level 100, Carbon Dioxide Level 25, Anion Gap 16H, Blood Urea Nitrogen 12, Creatinine 0.8, Estimat Glomerular Filtration Rate > 60, Glucose Level 116H, Calcium Level 9.1, Total Bilirubin 0.2 , Aspartate Amino Transf (AST/SGOT) 149H, Alanine Aminotransferase (ALT/SGPT) 180H, Alkaline Phosphatase 117H, Total Protein 7.1, Albumin 3.8, Globulin 3.3, Albumin/Globulin Ratio 1.1, Amylase Level 35, Lipase 26 Current Medications Medications (Trade) Dose Ordered Sig/Bev Route PRN Reason Start Time Stop Time Status Last Admin Dose Admin Acetaminophen (Tylenol) 650 mg Q4H PRN ORAL fever 06/27/16 14:30 07/27/16 14:29 06/28/16 03:17 Al Hydroxide/Mg Hydroxide (Mylanta II) 30 ml Q6H PRN ORAL dyspepsia 06/27/16 13:45 07/27/16 13:44 Atenolol (Tenormin) 50 mg Q12HR ORAL 06/27/16 21:00 07/27/16 20:59 06/28/16 20:46 Clonazepam (KlonoPIN) 0.5 mg DAILY ORAL 06/28/16 09:00 07/05/16 08:59 06/28/16 08:55 Clonidine HCl 0.2 mg 0.2 mg Q12HR ORAL 06/27/16 21:00 07/27/16 20:59 06/28/16 08:55 Dextrose (Dextrose 50%) STAT PRN IV Hypoglycemia 06/27/16 13:45 07/27/16 13:44 Dextrose/Sodium Chloride (D5 0.45% NS) 1,000 ml @ 75 mls/hr [id number] IV 06/27/16 15:00 07/27/16 14:59 06/28/16 05:06 Heparin Sodium (Porcine) (Heparin 5000 units/ml) 5,000 units EVERY 12 HOURS SUBQ 06/27/16 21:00 07/27/16 20:59 Hydroxyzine HCl (Vistaril) 10 mg Q6H PRN ORAL Itching/Pruritis 06/27/16 13:45 07/27/16 13:44 Meropenem/Sodium Chloride (Merrem/Sodium Chloride) 110 ml @ 220 mls/hr Q8HR IVPB 06/27/16 16:00 07/02/16 15:59 06/28/16 22:01 Morphine Sulfate (Morphine Sulfate) 2 mg Q4H PRN IVP Moderate Pain (Pain Scale 4-6) 06/27/16 13:45 07/04/16 13:44 Morphine Sulfate (Morphine Sulfate) 4 mg EVERY 2 HOURS PRN IV For Pain (7-10) 06/27/16 13:45 07/04/16 13:44 06/28/16 22:01 Nitroglycerin (Ntg) 0.4 mg Q5M X 3 DOSES PRN SL Prn Chest Pain 06/27/16 13:45 07/27/16 13:44 Ondansetron HCl (Zofran) 4 mg Q6H PRN IVP Nausea & Vomiting 06/27/16 14:30 07/27/16 14:29 06/27/16 19:38 Polyethylene Glycol (Miralax) 17 gm HSPRN PRN ORAL Constipation 06/27/16 13:45 07/27/16 13:44 Sodium Phosphate (Fleet's Sodium Phosl Enema) 133 ml ONCE ONCE RECTAL 06/28/16 23:00 06/28/16 23:01 Zolpidem Tartrate (Ambien) 5 mg HSPRN PRN ORAL Insomnia 06/27/16 22:15 07/27/16 22:14 06/27/16 23:31 LESLY LOTT Jun 28, 2016 22:25
[2016-06-28] MEDS ORDERED: Fleet's Enema 133ml RECTAL ONE (23:00)
[2016-06-29] VITALS (15 sets, daily range): BP systolic 100–141; BP diastolic 54–83
[2016-06-29] MEDS: Zolpidem 5mg tab ORAL PRN (01:06)
[2016-06-29] MEDS: Meropenem 1 GM in NS 110 ML IVPB SCH ×3 (06:02→21:20)
[2016-06-29] MEDS: D5 1/2NS 1,000 ML IV SCH (06:03)
[2016-06-29] MEDS ORDERED: Neostigmine 1mg/ml 10ml Inj ONE (07:00)
[2016-06-29] MEDS ORDERED: Morphine Sulfate 10mg/ml Inj ONE (07:00)
[2016-06-29] MEDS ORDERED: Ketorolac 30mg Inj ONE (07:00)
[2016-06-29] MEDS ORDERED: Zemuron 50mg/5ml Inj IV ONE (07:00)
[2016-06-29] MEDS ORDERED: Propofol 10mg/ml 20ml IV ONE (07:00)
[2016-06-29] MEDS ORDERED: fentaNYL 250mcg/5ml ONE (07:00)
[2016-06-29] MEDS ORDERED: Lidocaine 1% MPF 10mg/ml 5ml ONE (07:00)
[2016-06-29] MEDS ORDERED: LR 1000ml ONE (07:00)
[2016-06-29] MEDS ORDERED: NS Irrig 1000ml ONE (07:00)
[2016-06-29] MEDS ORDERED: Glycopyrrolate 0.2mg/ml 1ml Vial ONE (07:00)
[2016-06-29] MEDS ORDERED: Sterile Water Irrig 1000ml IRRIG ONE (07:00)
[2016-06-29] MEDS ORDERED: Pantoprazole Inj ONE (07:01)
--- NOTE | 2016-06-29 07:01 | Pre-Procedure Note/Attestation ---
Pre-Procedure Note/Attestation Complete Prior to Procedure Planned Procedure: right Procedure Narrative: ureteral madelin cystostomy possible bowel resection with ileal ureter stent placement right Indications for Procedure Pre-Operative Diagnosis: ureteral obstruction Attestation I attest that I discussed the nature of the procedure; its benefits; risks and complications; and alternatives (and the risks and benefits of such alternatives ), prior to the procedure, with the patient (or the patient's legal field marketing representative). I attest that, if there was a reasonable possibility of needing a blood transfusion, the patient (or the patient's legal field marketing representative) was given the [facility] standardized written summary, pursuant to the Didier [place] Blood Safety Act ([place] Health and Safety Code # 1645, as amended). I attest that I re-evaluated the patient just prior to the surgery and that there has been no change in the patient's H&P, except as documented below: Jose Alfredo Roberts MD Jun 29, 2016 07:01
--- NOTE | 2016-06-29 07:02 | Brief Operative Note ---
Immediate Post Operative Note Operative Note Pre-op Diagnosis: ureteral obstruction Procedure: Right ileal ureter stent placement Post-op Diagnosis: same Surgeon: Lenny Roberts Iron Installer: Eduardo Peoples Anesthesia: general Specimen: yes Complications: none Condition: stable Estimated Blood Loss: minimal Implant(s) used?: No Jose Alfredo Roberts MD Jun 29, 2016 07:02
[2016-06-29] MEDS ORDERED: HYDROmorphone 1mg/ml Carpuject IVP PRN (07:15)
[2016-06-29] MEDS ORDERED: Ketorolac 30mg Inj IV PRN (07:15)
[2016-06-29] MEDS ORDERED: NS Irrig 1000ml IRRIG ONE (07:31)
--- NOTE | 2016-06-29 07:41 | Immediate Post-Op Evaluation ---
Immediate Post-Op Evalulation Immediate Post-Op Evalulation Procedure: Ex-lap, right ureteral re-implantation Date of Evaluation: Jun 29, 2016 Time of Evaluation: 10:15 IV Fluids: 2.1L Blood Products: 0 Estimated Blood Loss: 125 Blood Pressure Systolic: 141 Blood Pressure Diastolic: 75 Pulse Rate: 57 Respiratory Rate: 16 O2 Sat by Pulse Oximetry: 99 Temperature (Fahrenheit): 97.2 Pain Score (1-10): 0 Nausea: No Vomiting: No Complications 0 Patient Status: awake, reacts, patent, none Hydration Status: adequate Drug: Cefoxitin 2g Given Within 1 Hr of Incision: Yes Time Given: 07:00 PAWEL MTZ M.D. Jun 29, 2016 07:41
[2016-06-29] MEDS ORDERED: fentaNYL 100 mcg/2 mL IV PRN (07:45)
[2016-06-29] MEDS ORDERED: Midazolam 2mg/2ml Inj IVP PRN (07:45)
[2016-06-29] MEDS ORDERED: Labetalol 5mg/ml 20ml vial IV PRN (07:45)
[2016-06-29] MEDS ORDERED: LORazepam Inj 2mg/ml 1ml IV PRN (07:45)
[2016-06-29] MEDS ORDERED: Morphine Sulfate 2mg/ml Inj IVP PRN (07:45)
[2016-06-29] MEDS: clonazePAM 0.5mg tab ORAL SCH (09:00)
[2016-06-29] MEDS: cloNIDine 0.2mg Tab ORAL SCH ×2 (09:00→20:28)
[2016-06-29] MEDS: Heparin 5000 units/ml inj SUBQ SCH ×2 (09:00→20:28)
[2016-06-29] MEDS ORDERED: Bacitracin 50000 Units Vial ONE (09:02)
[2016-06-29 12:18] LABS: MEAN CORPUSCULAR HEMOGLOBIN 27.6 PG (27.0-31.0); MEAN CORPUSCULAR HGB CONC 31.1 G/DL (32.0-36.0); MEAN CORPUSCULAR VOLUME 89 FL (80-99); MEAN PLATELET VOLUME 5.8 FL (6.5-10.1); PLATELET COUNT 386 K/UL (150-450); RED BLOOD COUNT 4.66 M/UL (4.20-5.40); RED CELL DISTRIBUTION WIDTH 14.4 % (11.6-14.8); WHITE BLOOD COUNT 10.4 K/UL (4.8-10.8)
[2016-06-29 12:34] LABS: ANION GAP 14 (5-15); CALCIUM 8.8 mg/dL (8.6-10.2); CARBON DIOXIDE 27 mEQ/L (20-30); CHLORIDE 102 mEQ/L (98-107); CREATININE 0.8 mg/dL (0.5-0.9); GLOMERULAR FILTRATION RATE > 60 mL/min (>60); HEMOLYSIS 3; POTASSIUM 3.6 mEQ/L (3.4-4.9); SODIUM 143 mEQ/L (135-145)
[2016-06-29 12:56] LABS: BAND NEUTROPHILS % (MANUAL) 1 % (0-8); EOSINOPHILS % (MANUAL) 1 % (0-3); LYMPHOCYTES % (MANUAL) 10 % (20-45); NEUTROPHILS % (MANUAL) 86 % (45-75); TOTAL CELLS COUNTED 100
[2016-06-29 12:57] LABS: BASOPHILS % (MANUAL) 0 % (0-2); PLATELET ESTIMATE ADEQUATE; PLATELET MORPHOLOGY NORMAL
[2016-06-29] MEDS: cefOXitin Sod 2 GM in NS 110 ML IV SCH ×3 (13:06→23:45)
[2016-06-29] MEDS: D5 1/2NS w/KCl 20mEq 1,000 ML IV SCH ×3 (13:06→23:45)
--- NOTE | 2016-06-29 15:12 | Pulmonology Progress Note ---
Assessment/Plan Problems: (1) Hydronephrosis with obstructing calculus (2) Sepsis (3) ATN (acute tubular necrosis) (4) S/P ureteral reimplantation (5) Hx of cervical cancer Assessment/Plan f/u by urology continue antibiotics check electrolytes Subjective ROS Limited/Unobtainable: No Interval Events: still inpain, tolerated surgery Allergies: Coded Allergies: ASPIRIN (Verified Allergy, Severe, SHORTNESS OF BREATH, 01/02/12) CIPROFLOXACIN (Verified Allergy, Intermediate, FEET SWELLING, 01/02/12) CIPROFLOXACIN HCL (Verified Allergy, Intermediate, FEET SWELLING, 01/02/12 ) HYDROMORPHONE HCL (Verified Allergy, Intermediate, HALLUCINATION, 01/02/12 ) TETRACYCLINE (Verified Allergy, Intermediate, Rash, 01/02/12) DIPHENHYDRAMINE (Verified Allergy, Unknown, 06/19/16) LEVOFLOXACIN (Verified Allergy, Unknown, FEET SWELLING, 11/08/13) PENICILLINS (Unverified Allergy, Unknown, 10/06/15) METOCLOPRAMIDE (Verified Adverse Reaction, Severe, tachycardia, 06/27/16) SULFAMETHOXAZOLE (Verified Adverse Reaction, Intermediate, 10/28/15) TRIMETHOPRIM (Verified Adverse Reaction, Intermediate, 10/28/15) KETOROLAC (Verified Adverse Reaction, Unknown, tachycardia, 06/27/16) Uncoded Allergies: PENICILLIN (Allergy, Unknown, 10/06/15) Objective Last 24 Hour Vital Signs Date Time Temp Pulse Resp B/P Pulse Ox O2 Delivery O2 Flow Rate FiO2 06/29/16 14:45 97.5 74 20 131/83 95 Room Air 3.0 06/29/16 13:41 98.1 06/29/16 12:45 98.1 65 20 132/77 96 Nasal Cannula 3.0 06/29/16 12:00 98.1 63 20 129/77 95 Nasal Cannula 3.0 06/29/16 11:25 98.0 57 14 111/70 97 Nasal Cannula 3.0 06/29/16 11:10 58 11 121/70 96 Nasal Cannula 3.0 06/29/16 10:55 59 12 116/72 97 Nasal Cannula 3.0 06/29/16 10:40 60 15 120/67 99 Nasal Cannula 3.0 06/29/16 10:25 58 15 128/73 100 Simple Mask 6.0 06/29/16 10:20 57 15 124/72 100 Simple Mask 6.0 06/29/16 10:15 62 19 127/54 100 Simple Mask 6.0 06/29/16 10:14 57 16 99 06/29/16 10:10 97.2 63 18 141/75 97 Simple Mask 6.0 06/29/16 04:00 97.9 54 20 121/75 92 Room Air 06/29/16 00:00 97.1 52 20 100/54 95 Room Air 06/28/16 22:31 97.7 06/28/16 20:46 60 126/79 06/28/16 20:00 97.7 60 20 126/79 94 Room Air 06/28/16 16:08 97.6 60 19 124/82 95 Room Air Intake and Output 06/28/16 06/29/16 19:00 07:00 Intake Total 1010 ml 405 ml Balance 1010 ml 405 ml Intake Oral 0 ml IV Total 1010 ml 405 ml # Voids 3 3 Objective Lines, tubes and drains: peripheral, HEENT: normocephalic, atraumatic Neck: non-tender Respiratory/Chest: chest wall non-tender Cardiovascular/Chest: normal peripheral pulses Abdomen: normal bowel sounds, feeding tube, other Genitourinary/Rectal: normal genital exam Extremities: normal range of motion, non-tender General Appearance: WD/WN HEENT: normocephalic, atraumatic Microbiology Date/Time Source Procedure Growth Status 06/27/16 09:45 Nasal Nares MRSA Culture - Final NO METHICILLIN RESISTANT STAPH AUREUS... Complete 06/27/16 16:28 Straight Cath Urine Culture - Preliminary NO GROWTH AFTER 24 HOURS Resulted 06/27/16 09:45 Rectum VRE Culture - Final NO VANCOMYCIN RESISTANT ENTEROCOCCUS ... Complete Laboratory Tests 06/29/16 11:30: White Blood Count 10.4#, Red Blood Count 4.66, Hemoglobin 12.9, Hematocrit 41.4 , Mean Corpuscular Volume 89, Mean Corpuscular Hemoglobin 27.6, Mean Corpuscular Hemoglobin Concent 31.1L, Red Cell Distribution Width 14.4, Platelet Count 386, Mean Platelet Volume 5.8L, Neutrophils (%) (Auto) , Lymphocytes (%) (Auto) , Monocytes (%) (Auto) , Eosinophils (%) (Auto) , Basophils (%) (Auto) , Differential Total Cells Counted 100, Neutrophils % ( Manual) 86H, Lymphocytes % (Manual) 10L, Monocytes % (Manual) 2, Eosinophils % ( Manual) 1, Basophils % (Manual) 0, Band Neutrophils 1, Platelet Estimate Adequate, Platelet Morphology Normal, Red Blood Cell Morphology Normal, Sodium Level 143, Potassium Level 3.6, Chloride Level 102, Carbon Dioxide Level 27, Anion Gap 14, Blood Urea Nitrogen 13, Creatinine 0.8, Estimat Glomerular Filtration Rate > 60, Glucose Level 128H, Calcium Level 8.8 Current Medications Medications (Trade) Dose Ordered Sig/Bev Route PRN Reason Start Time Stop Time Status Last Admin Dose Admin Acetaminophen (Tylenol) 650 mg Q4H PRN ORAL fever 06/27/16 14:30 07/27/16 14:29 06/28/16 03:17 Acetaminophen 650 mg 650 mg Q4H PRN ORAL FEVER 06/29/16 07:15 07/29/16 07:14 Acetaminophen 650 mg 650 mg Q6H PRN ORAL Mild Pain (Pain Scale 1-3) 06/29/16 07:15 07/29/16 07:14 Al Hydroxide/Mg Hydroxide (Mylanta II) 30 ml Q6H PRN ORAL dyspepsia 06/27/16 13:45 07/27/16 13:44 Atenolol (Tenormin) 50 mg Q12HR ORAL 06/27/16 21:00 07/27/16 20:59 06/28/16 20:46 Cefoxitin Sodium/ Sodium Chloride (Mefoxin/Sodium Chloride) 110 ml @ 220 mls/hr EVERY 6 HOURS IV 06/29/16 12:00 06/30/16 00:29 06/29/16 13:06 Clonazepam (KlonoPIN) 0.5 mg DAILY ORAL 06/28/16 09:00 07/05/16 08:59 06/28/16 08:55 Clonidine HCl 0.2 mg 0.2 mg Q12HR ORAL 06/27/16 21:00 07/27/16 20:59 06/28/16 08:55 Dextrose (Dextrose 50%) STAT PRN IV Hypoglycemia 06/27/16 13:45 07/27/16 13:44 Dextrose/ Electrolytes (D5 0.45%NS W/ KCl 20mEq) 1,000 ml @ 125 mls/hr Q8H IV 06/29/16 08:00 07/29/16 07:59 06/29/16 13:06 Dextrose/Sodium Chloride (D5 0.45% NS) 1,000 ml @ 75 mls/hr [id number] IV 06/27/16 15:00 07/27/16 14:59 06/29/16 06:03 Heparin Sodium (Porcine) (Heparin 5000 units/ml) 5,000 units EVERY 12 HOURS SUBQ 06/27/16 21:00 07/27/16 20:59 Hydroxyzine HCl (Vistaril) 10 mg Q6H PRN ORAL Itching/Pruritis 06/27/16 13:45 07/27/16 13:44 Ketorolac Tromethamine (Toradol 30mg) 15 mg Q6H PRN IV For Pain 06/29/16 07:15 07/04/16 07:14 Meropenem/Sodium Chloride (Merrem/Sodium Chloride) 110 ml @ 220 mls/hr Q8HR IVPB 06/27/16 16:00 07/02/16 15:59 06/29/16 06:02 Miscellaneous Medication (SCIENCE ANALYST Rate Change) 1 ea DAILY PRN MISC For Pain 06/29/16 15:15 07/01/16 15:14 UNV Miscellaneous Medication (SCIENCE ANALYST shift volume) 1 ea Q12HR@0700,1900 MISC 06/29/16 19:00 07/01/16 18:59 UNV Morphine Sulfate (Morphine Sulfate) 2 mg Q4H PRN IVP Moderate Pain (Pain Scale 4-6) 06/27/16 13:45 07/04/16 13:44 06/29/16 13:11 Morphine Sulfate (Morphine Sulfate) 4 mg EVERY 2 HOURS PRN IV For Pain (7-10) 06/27/16 13:45 07/04/16 13:44 06/28/16 22:01 Morphine Sulfate (SCIENCE ANALYST Morphine) 30 ml @ 0 mls/hr SCIENCE ANALYST Protocol PRN IV For Pain 06/29/16 15:15 07/01/16 15:14 UNV Nitroglycerin (Ntg) 0.4 mg Q5M X 3 DOSES PRN SL Prn Chest Pain 06/27/16 13:45 07/27/16 13:44 Ondansetron HCl (Zofran) 4 mg Q6H PRN IVP Nausea & Vomiting 06/27/16 14:30 07/27/16 14:29 06/27/16 19:38 Ondansetron HCl (Zofran) 4 mg Q6H PRN IVP Nausea & Vomiting 06/29/16 07:15 07/29/16 07:14 Polyethylene Glycol (Miralax) 17 gm HSPRN PRN ORAL Constipation 06/27/16 13:45 07/27/16 13:44 Temazepam (Restoril) 7.5 mg DAILYPRN PRN ORAL Insomnia 06/29/16 07:15 07/06/16 07:14 Zolpidem Tartrate 5 mg 5 mg HSPRN PRN ORAL Insomnia 06/27/16 22:15 07/27/16 22:14 06/29/16 01:06 LESLY LOTT Jun 29, 2016 15:12
[2016-06-29] MEDS ORDERED: Rate Change PCA 1 Each MISC PRN (15:15)
[2016-06-29] MEDS ORDERED: Morphine Sulfate 4mg/ml Inj SUBQ PRN (15:15)
[2016-06-29] MEDS: PCA Morphine 1mg/ml 30 ML IV PRN (17:57)
[2016-06-29] MEDS: PCA shift volume MISC SCH (19:00)
--- NOTE | 2016-06-29 20:15 | Infectious Diseases Prog Note ---
Assessment/Plan Assessment/Plan ASSESSMENT: 61 y/o female with: // Recurrent complicated UTI / pyelonephrosis UCx: ESBL Ecoli - refused cystoscopy in the past - CT: Persistent marked right hydronephrosis and hydroureter wtranding suggests the possibility pyelonephritis - bilateral nephrolithiasis SP stent // Febrile. low grade , SP // transaminitis , SP Hep B/C: Neg - Liver US :Moderate to severe right hydronephrosis, also previously reported on multiple earlier exams. Ex-lap, right ureteral re-implantation Status post [facility] defibrillator implantation. Hx of cervical cancer SP total abdominal hysterectomy Multiple ABX allergies / intolerances - tolerating aztreonam ( no Hx of Anaphylaxis to PCN ) Full Code PLAN: - cont IV Merrem d# , upon DC will change to Invanz to complete the course ( 06/21 SP Azactam d# 3 ) - f/u final cultures ( Ur ) - monitor CBC, temperatures - monitor BMP Subjective Constitutional: Denies: anorexia, chills, drenching sweats, fatigue, fever, no symptoms, other Allergies: Coded Allergies: ASPIRIN (Verified Allergy, Severe, SHORTNESS OF BREATH, 01/02/12) CIPROFLOXACIN (Verified Allergy, Intermediate, FEET SWELLING, 01/02/12) CIPROFLOXACIN HCL (Verified Allergy, Intermediate, FEET SWELLING, 01/02/12 ) HYDROMORPHONE HCL (Verified Allergy, Intermediate, HALLUCINATION, 01/02/12 ) TETRACYCLINE (Verified Allergy, Intermediate, Rash, 01/02/12) DIPHENHYDRAMINE (Verified Allergy, Unknown, 06/19/16) LEVOFLOXACIN (Verified Allergy, Unknown, FEET SWELLING, 11/08/13) PENICILLINS (Unverified Allergy, Unknown, 10/06/15) METOCLOPRAMIDE (Verified Adverse Reaction, Severe, tachycardia, 06/27/16) SULFAMETHOXAZOLE (Verified Adverse Reaction, Intermediate, 10/28/15) TRIMETHOPRIM (Verified Adverse Reaction, Intermediate, 10/28/15) KETOROLAC (Verified Adverse Reaction, Unknown, tachycardia, 06/27/16) Uncoded Allergies: PENICILLIN (Allergy, Unknown, 10/06/15) Subjective no new complain Objective Vital Signs Last 24 Hour Vital Signs Date Time Temp Pulse Resp B/P Pulse Ox O2 Delivery O2 Flow Rate FiO2 06/29/16 19:52 16 06/29/16 19:22 16 06/29/16 18:52 16 06/29/16 18:37 16 06/29/16 18:27 98.1 06/29/16 18:22 16 06/29/16 18:07 16 06/29/16 16:14 98.1 06/29/16 16:00 98.1 71 20 127/78 90 Nasal Cannula 3.0 06/29/16 14:45 97.5 74 20 131/83 95 Room Air 3.0 06/29/16 13:41 98.1 06/29/16 12:45 98.1 65 20 132/77 96 Nasal Cannula 3.0 06/29/16 12:00 98.1 63 20 129/77 95 Nasal Cannula 3.0 06/29/16 11:25 98.0 57 14 111/70 97 Nasal Cannula 3.0 06/29/16 11:10 58 11 121/70 96 Nasal Cannula 3.0 06/29/16 10:55 59 12 116/72 97 Nasal Cannula 3.0 06/29/16 10:40 60 15 120/67 99 Nasal Cannula 3.0 06/29/16 10:25 58 15 128/73 100 Simple Mask 6.0 06/29/16 10:20 57 15 124/72 100 Simple Mask 6.0 06/29/16 10:15 62 19 127/54 100 Simple Mask 6.0 06/29/16 10:14 57 16 99 06/29/16 10:10 97.2 63 18 141/75 97 Simple Mask 6.0 06/29/16 04:00 97.9 54 20 121/75 92 Room Air 06/29/16 00:00 97.1 52 20 100/54 95 Room Air 06/28/16 22:31 97.7 06/28/16 20:46 60 126/79 Height (Feet): 5 Height (Inches): 1.00 Weight (Pounds): 200 HEENT: anicteric Respiratory/Chest: lungs clear Cardiovascular: regular rhythm Abdomen: no organomegaly Microbiology Date/Time Source Procedure Growth Status 06/27/16 09:45 Nasal Nares MRSA Culture - Final NO METHICILLIN RESISTANT STAPH AUREUS... Complete 06/27/16 16:28 Straight Cath Urine Culture - Preliminary NO GROWTH AFTER 24 HOURS Resulted 06/27/16 09:45 Rectum VRE Culture - Final NO VANCOMYCIN RESISTANT ENTEROCOCCUS ... Complete Laboratory Tests Test 06/29/16 11:30 White Blood Count 10.4 K/UL (4.8-10.8) # Red Blood Count 4.66 M/UL (4.20-5.40) Hemoglobin 12.9 G/DL (12.0-16.0) Hematocrit 41.4 % (37.0-47.0) Mean Corpuscular Volume 89 FL (80-99) Mean Corpuscular Hemoglobin 27.6 PG (27.0-31.0) Mean Corpuscular Hemoglobin Concent 31.1 G/DL (32.0-36.0) L Red Cell Distribution Width 14.4 % (11.6-14.8) Platelet Count 386 K/UL (150-450) Mean Platelet Volume 5.8 FL (6.5-10.1) L Neutrophils (%) (Auto) % (45.0-75.0) Lymphocytes (%) (Auto) % (20.0-45.0) Monocytes (%) (Auto) % (1.0-10.0) Eosinophils (%) (Auto) % (0.0-3.0) Basophils (%) (Auto) % (0.0-2.0) Differential Total Cells Counted 100 Neutrophils % (Manual) 86 % (45-75) H Lymphocytes % (Manual) 10 % (20-45) L Monocytes % (Manual) 2 % (1-10) Eosinophils % (Manual) 1 % (0-3) Basophils % (Manual) 0 % (0-2) Band Neutrophils 1 % (0-8) Platelet Estimate Adequate Platelet Morphology Normal Red Blood Cell Morphology Normal Sodium Level 143 mEQ/L (135-145) Potassium Level 3.6 mEQ/L (3.4-4.9) Chloride Level 102 mEQ/L (98-107) Carbon Dioxide Level 27 mEQ/L (20-30) Anion Gap 14 (5-15) Blood Urea Nitrogen 13 mg/dL (7-23) Creatinine 0.8 mg/dL (0.5-0.9) Estimat Glomerular Filtration Rate > 60 mL/min (>60) Glucose Level 128 mg/dL (74-106) H Calcium Level 8.8 mg/dL (8.6-10.2) Current Medications Medications (Trade) Dose Ordered Sig/Bev Route PRN Reason Start Time Stop Time Status Last Admin Dose Admin Acetaminophen 650 mg 650 mg Q4H PRN ORAL FEVER 06/29/16 07:15 07/29/16 07:14 Acetaminophen 650 mg 650 mg Q6H PRN ORAL Mild Pain (Pain Scale 1-3) 06/29/16 07:15 07/29/16 07:14 Al Hydroxide/Mg Hydroxide (Mylanta II) 30 ml Q6H PRN ORAL dyspepsia 06/27/16 13:45 07/27/16 13:44 Atenolol (Tenormin) 50 mg Q12HR ORAL 06/27/16 21:00 07/27/16 20:59 06/28/16 20:46 Cefoxitin Sodium/ Sodium Chloride (Mefoxin/Sodium Chloride) 110 ml @ 220 mls/hr EVERY 6 HOURS IV 06/29/16 12:00 06/30/16 00:29 06/29/16 18:44 Clonazepam (KlonoPIN) 0.5 mg DAILY ORAL 06/28/16 09:00 07/05/16 08:59 06/28/16 08:55 Clonidine HCl (Catapres) 0.2 mg Q12HR ORAL 06/27/16 21:00 07/27/16 20:59 06/28/16 08:55 Dextrose STAT PRN IV Hypoglycemia 06/27/16 13:45 07/27/16 13:44 Dextrose/ Electrolytes (D5 0.45%NS W/ KCl 20mEq) 1,000 ml @ 125 mls/hr Q8H IV 06/29/16 08:00 07/29/16 07:59 06/29/16 13:06 Heparin Sodium (Porcine) (Heparin 5000 units/ml) 5,000 units EVERY 12 HOURS SUBQ 06/27/16 21:00 07/27/16 20:59 Hydroxyzine HCl (Vistaril) 10 mg Q6H PRN ORAL Itching/Pruritis 06/27/16 13:45 07/27/16 13:44 Meropenem/Sodium Chloride (Merrem/Sodium Chloride) 110 ml @ 220 mls/hr Q8HR IVPB 06/27/16 16:00 07/02/16 15:59 06/29/16 15:45 Miscellaneous Medication (DIALYSIS PATIENT CARE TECHNICIAN Rate Change) 1 ea DAILY PRN MISC For Pain 06/29/16 15:15 07/01/16 15:14 Miscellaneous Medication (DIALYSIS PATIENT CARE TECHNICIAN shift volume) 1 ea Q12HR@0700,1900 MISC 06/29/16 19:00 07/01/16 18:59 06/29/16 19:00 Morphine Sulfate (Morphine Sulfate) 2 mg Q2H PRN IVP Moderate Pain (Pain Scale 4-6) 06/29/16 15:15 07/01/16 13:44 Morphine Sulfate (Morphine Sulfate) 4 mg Q3H PRN SUBQ Severe Pain (Pain Scale 7-10) 06/29/16 15:15 07/01/16 13:44 06/29/16 15:44 Morphine Sulfate (DIALYSIS PATIENT CARE TECHNICIAN Morphine) 30 ml @ 0 mls/hr DIALYSIS PATIENT CARE TECHNICIAN Protocol PRN IV For Pain 06/29/16 15:15 07/01/16 15:14 06/29/16 17:57 Naloxone HCl (Narcan) 0.1 mg PRN IV . 06/29/16 18:30 07/01/16 13:44 Nitroglycerin (Ntg) 0.4 mg Q5M X 3 DOSES PRN SL Prn Chest Pain 06/27/16 13:45 07/27/16 13:44 Ondansetron HCl (Zofran) 4 mg Q6H PRN IVP Nausea & Vomiting 06/29/16 07:15 07/29/16 07:14 06/29/16 16:05 Polyethylene Glycol (Miralax) 17 gm HSPRN PRN ORAL Constipation 06/27/16 13:45 07/27/16 13:44 Temazepam (Restoril) 7.5 mg DAILYPRN PRN ORAL Insomnia 06/29/16 07:15 07/06/16 07:14 LEO OLIVEROS M.D. Jun 29, 2016 20:15
[2016-06-29] MEDS: Morphine Sulfate 2mg/ml Inj IVP PRN (21:28)
[2016-06-30] VITALS: BP 105/59
[2016-06-30] MEDS: PCA Morphine 1mg/ml 30 ML IV PRN ×2 (01:20→18:29)
[2016-06-30 04:00] VITALS: BP 114/64
[2016-06-30] MEDS ORDERED: Acetaminophen 650 MG SUPP RECTAL PRN (05:45)
[2016-06-30] MEDS: Meropenem 1 GM in NS 110 ML IVPB SCH ×3 (05:50→22:15)
[2016-06-30] MEDS: Morphine Sulfate 2mg/ml Inj IVP PRN (05:56)
[2016-06-30] MEDS: PCA shift volume MISC SCH ×2 (07:00→19:17)
[2016-06-30 07:13] LABS: ANION GAP 9 (5-15); CALCIUM 8.4 mg/dL (8.6-10.2); CARBON DIOXIDE 28 mEQ/L (20-30); CHLORIDE 105 mEQ/L (98-107); CREATININE 0.8 mg/dL (0.5-0.9); GLOMERULAR FILTRATION RATE > 60 mL/min (>60); HEMOLYSIS 29; POTASSIUM 4.3 mEQ/L (3.4-4.9); SODIUM 142 mEQ/L (135-145)
[2016-06-30 07:16] LABS: BASOPHILS % (AUTO) 0.7 % (0.0-2.0); EOSINOPHILS % (AUTO) 0.1 % (0.0-3.0); LYMPHOCYTES % (AUTO) 19.9 % (20.0-45.0); MEAN CORPUSCULAR HEMOGLOBIN 27.8 PG (27.0-31.0); MEAN CORPUSCULAR HGB CONC 31.4 G/DL (32.0-36.0); MEAN CORPUSCULAR VOLUME 88 FL (80-99); MEAN PLATELET VOLUME 5.9 FL (6.5-10.1); MONOCYTES % (AUTO) 6.5 % (1.0-10.0); NEUTROPHILS % (AUTO) 72.7 % (45.0-75.0); PLATELET COUNT 397 K/UL (150-450); RED BLOOD COUNT 3.65 M/UL (4.20-5.40); RED CELL DISTRIBUTION WIDTH 14.2 % (11.6-14.8); WHITE BLOOD COUNT 10.3 K/UL (4.8-10.8)
[2016-06-30 07:17] VITALS: BP 94/58
[2016-06-30] MEDS: D5 1/2NS w/KCl 20mEq 1,000 ML IV SCH ×3 (08:39→23:46)
[2016-06-30] MEDS: clonazePAM 0.5mg tab ORAL SCH (09:00)
[2016-06-30] MEDS: cloNIDine 0.2mg Tab ORAL SCH ×2 (09:00→21:00)
[2016-06-30] MEDS: Heparin 5000 units/ml inj SUBQ SCH ×2 (09:00→21:00)
[2016-06-30 11:13] VITALS: BP 119/66
--- NOTE | 2016-06-30 13:01 | Infectious Diseases Prog Note ---
Assessment/Plan Assessment/Plan ASSESSMENT: 61 y/o female with: // Recurrent complicated UTI / pyelonephrosis UCx: ESBL Ecoli - refused cystoscopy in the past - CT: Persistent marked right hydronephrosis and hydroureter wtranding suggests the possibility pyelonephritis - bilateral nephrolithiasis SP stent // Febrile. low grade , SP // transaminitis , SP Hep B/C: Neg - Liver US :Moderate to severe right hydronephrosis, also previously reported on multiple earlier exams. Ex-lap, right ureteral re-implantation Status post [facility] defibrillator implantation. Hx of cervical cancer SP total abdominal hysterectomy Multiple ABX allergies / intolerances - tolerating aztreonam ( no Hx of Anaphylaxis to PCN ) Full Code PLAN: - cont IV Merrem d# 9 / 14 , upon DC will change to Invanz to complete the course ( 06/21 SP Azactam d# 3 ) - f/u final cultures ( Ur ) - monitor CBC, temperatures - monitor BMP Subjective Constitutional: Denies: anorexia, chills, drenching sweats, fatigue, fever, no symptoms, other Allergies: Coded Allergies: ASPIRIN (Verified Allergy, Severe, SHORTNESS OF BREATH, 01/02/12) CIPROFLOXACIN (Verified Allergy, Intermediate, FEET SWELLING, 01/02/12) CIPROFLOXACIN HCL (Verified Allergy, Intermediate, FEET SWELLING, 01/02/12 ) HYDROMORPHONE HCL (Verified Allergy, Intermediate, HALLUCINATION, 01/02/12 ) TETRACYCLINE (Verified Allergy, Intermediate, Rash, 01/02/12) DIPHENHYDRAMINE (Verified Allergy, Unknown, 06/19/16) LEVOFLOXACIN (Verified Allergy, Unknown, FEET SWELLING, 11/08/13) PENICILLINS (Unverified Allergy, Unknown, 10/06/15) METOCLOPRAMIDE (Verified Adverse Reaction, Severe, tachycardia, 06/27/16) SULFAMETHOXAZOLE (Verified Adverse Reaction, Intermediate, 10/28/15) TRIMETHOPRIM (Verified Adverse Reaction, Intermediate, 10/28/15) KETOROLAC (Verified Adverse Reaction, Unknown, tachycardia, 06/27/16) Uncoded Allergies: PENICILLIN (Allergy, Unknown, 10/06/15) Subjective no new complain Objective Vital Signs Last 24 Hour Vital Signs Date Time Temp Pulse Resp B/P Pulse Ox O2 Delivery O2 Flow Rate FiO2 06/30/16 11:13 98.6 66 15 119/66 94 Room Air 06/30/16 08:00 18 06/30/16 07:17 98.6 62 14 94/58 100 Room Air 06/30/16 06:26 97.7 06/30/16 04:00 97.7 65 17 114/64 96 Room Air 06/30/16 03:52 17 06/30/16 01:50 97.9 06/30/16 00:00 97.9 65 17 105/59 93 Room Air 06/29/16 23:52 16 06/29/16 20:00 98.1 65 16 129/77 93 Room Air 06/29/16 19:52 16 06/29/16 19:22 16 06/29/16 18:52 16 06/29/16 18:37 16 06/29/16 18:22 16 06/29/16 18:07 16 06/29/16 16:14 98.1 06/29/16 16:00 98.1 71 20 127/78 90 Nasal Cannula 3.0 06/29/16 14:45 97.5 74 20 131/83 95 Room Air 3.0 06/29/16 13:41 98.1 Height (Feet): 5 Height (Inches): 1.00 Weight (Pounds): 200 HEENT: anicteric Respiratory/Chest: normal breath sounds Cardiovascular: regular rhythm Abdomen: soft, non tender Microbiology Date/Time Source Procedure Growth Status 06/27/16 16:28 Straight Cath Urine Culture - Final NO GROWTH AFTER 48 HOURS Complete Laboratory Tests Test 06/30/16 04:40 06/30/16 04:45 Sodium Level 142 mEQ/L (135-145) Potassium Level 4.3 mEQ/L (3.4-4.9) Chloride Level 105 mEQ/L (98-107) Carbon Dioxide Level 28 mEQ/L (20-30) Anion Gap 9 (5-15) Blood Urea Nitrogen 13 mg/dL (7-23) Creatinine 0.8 mg/dL (0.5-0.9) Estimat Glomerular Filtration Rate > 60 mL/min (>60) Glucose Level 120 mg/dL (74-106) H Calcium Level 8.4 mg/dL (8.6-10.2) L White Blood Count 10.3 K/UL (4.8-10.8) Red Blood Count 3.65 M/UL (4.20-5.40) L Hemoglobin 10.1 G/DL (12.0-16.0) L Hematocrit 32.3 % (37.0-47.0) L Mean Corpuscular Volume 88 FL (80-99) Mean Corpuscular Hemoglobin 27.8 PG (27.0-31.0) Mean Corpuscular Hemoglobin Concent 31.4 G/DL (32.0-36.0) L Red Cell Distribution Width 14.2 % (11.6-14.8) Platelet Count 397 K/UL (150-450) Mean Platelet Volume 5.9 FL (6.5-10.1) L Neutrophils (%) (Auto) 72.7 % (45.0-75.0) Lymphocytes (%) (Auto) 19.9 % (20.0-45.0) L Monocytes (%) (Auto) 6.5 % (1.0-10.0) Eosinophils (%) (Auto) 0.1 % (0.0-3.0) Basophils (%) (Auto) 0.7 % (0.0-2.0) Current Medications Medications (Trade) Dose Ordered Sig/Bev Route PRN Reason Start Time Stop Time Status Last Admin Dose Admin Acetaminophen (Tylenol) 650 mg Q4H PRN RECTAL Fever/Headache/Mild Pain 06/30/16 05:45 07/30/16 05:44 Acetaminophen (Tylenol) 650 mg Q6H PRN ORAL Mild Pain (Pain Scale 1-3) 06/29/16 07:15 07/29/16 07:14 Acetaminophen 650 mg 650 mg Q4H PRN ORAL FEVER 06/29/16 07:15 07/29/16 07:14 Al Hydroxide/Mg Hydroxide (Mylanta II) 30 ml Q6H PRN ORAL dyspepsia 06/27/16 13:45 07/27/16 13:44 Atenolol (Tenormin) 50 mg Q12HR ORAL 06/27/16 21:00 07/27/16 20:59 06/28/16 20:46 Clonazepam (KlonoPIN) 0.5 mg DAILY ORAL 06/28/16 09:00 07/05/16 08:59 06/28/16 08:55 Clonidine HCl (Catapres) 0.2 mg Q12HR ORAL 06/27/16 21:00 07/27/16 20:59 06/28/16 08:55 Dextrose STAT PRN IV Hypoglycemia 06/27/16 13:45 07/27/16 13:44 Dextrose/ Electrolytes (D5 0.45%NS W/ KCl 20mEq) 1,000 ml @ 125 mls/hr Q8H IV 06/29/16 08:00 07/29/16 07:59 06/30/16 08:39 Heparin Sodium (Porcine) (Heparin 5000 units/ml) 5,000 units EVERY 12 HOURS SUBQ 06/27/16 21:00 07/27/16 20:59 Hydroxyzine HCl (Vistaril) 10 mg Q6H PRN ORAL Itching/Pruritis 06/27/16 13:45 07/27/16 13:44 Meropenem/Sodium Chloride (Merrem/Sodium Chloride) 110 ml @ 220 mls/hr Q8HR IVPB 06/27/16 16:00 07/02/16 15:59 06/30/16 05:50 Miscellaneous Medication (SMOKING PIPE DRILLER AND THREADER Rate Change) 1 ea DAILY PRN MISC For Pain 06/29/16 15:15 07/01/16 15:14 Miscellaneous Medication (SMOKING PIPE DRILLER AND THREADER shift volume) 1 ea Q12HR@0700,1900 MISC 06/29/16 19:00 07/01/16 18:59 06/30/16 07:00 Morphine Sulfate (Morphine Sulfate) 2 mg Q2H PRN IVP Moderate Pain (Pain Scale 4-6) 06/29/16 15:15 07/01/16 13:44 06/30/16 05:56 Morphine Sulfate (Morphine Sulfate) 4 mg Q3H PRN SUBQ Severe Pain (Pain Scale 7-10) 06/29/16 15:15 07/01/16 13:44 06/29/16 15:44 Morphine Sulfate (SMOKING PIPE DRILLER AND THREADER Morphine) 30 ml @ 0 mls/hr SMOKING PIPE DRILLER AND THREADER Protocol PRN IV For Pain 06/29/16 15:15 07/01/16 15:14 06/30/16 01:20 Naloxone HCl (Narcan) 0.1 mg PRN IV . 06/29/16 18:30 07/01/16 13:44 Nitroglycerin (Ntg) 0.4 mg Q5M X 3 DOSES PRN SL Prn Chest Pain 06/27/16 13:45 07/27/16 13:44 Ondansetron HCl (Zofran) 4 mg Q6H PRN IVP Nausea & Vomiting 06/29/16 07:15 07/29/16 07:14 06/30/16 08:39 Polyethylene Glycol (Miralax) 17 gm HSPRN PRN ORAL Constipation 06/27/16 13:45 07/27/16 13:44 Temazepam (Restoril) 7.5 mg DAILYPRN PRN ORAL Insomnia 06/29/16 07:15 07/06/16 07:14 LEO OLIVEROS M.D. Jun 30, 2016 13:01
--- NOTE | 2016-06-30 13:40 | 48 Hour Post Anesthesia Eval ---
Post Anesthesia Evaluation Procedure: Ex-lap, right ureteral re-implantation Date of Evaluation: Jun 30, 2016 Time of Evaluation: 13:39 Blood Pressure Systolic: 116 0: 58 Pulse Rate: 72 Respiratory Rate: 20 Temperature (Fahrenheit): 97.4 O2 Sat by Pulse Oximetry: 99 Airway: patent Nausea: No Vomiting: No Pain Intensity: 3 Hydration Status: adequate Cardiopulmonary Status: stable Mental Status/LOC: patient returned to baseline Follow-up Care/Observations: n/a Post-Anesthesia Complications: none Follow-up care needed: N/A FABIO ROLBERO M.D. Jun 30, 2016 13:40
--- NOTE | 2016-06-30 14:41 | Pulmonology Progress Note ---
Assessment/Plan Problems: (1) Hydronephrosis with obstructing calculus (2) Sepsis (3) ATN (acute tubular necrosis) (4) S/P ureteral reimplantation (5) Hx of cervical cancer Assessment/Plan Ex-lap, right ureteral re-implantation pain management continue antibiotics check electrolytes Subjective ROS Limited/Unobtainable: No Interval Events: comfortable Allergies: Coded Allergies: ASPIRIN (Verified Allergy, Severe, SHORTNESS OF BREATH, 01/02/12) CIPROFLOXACIN (Verified Allergy, Intermediate, FEET SWELLING, 01/02/12) CIPROFLOXACIN HCL (Verified Allergy, Intermediate, FEET SWELLING, 01/02/12 ) HYDROMORPHONE HCL (Verified Allergy, Intermediate, HALLUCINATION, 01/02/12 ) TETRACYCLINE (Verified Allergy, Intermediate, Rash, 01/02/12) DIPHENHYDRAMINE (Verified Allergy, Unknown, 06/19/16) LEVOFLOXACIN (Verified Allergy, Unknown, FEET SWELLING, 11/08/13) PENICILLINS (Unverified Allergy, Unknown, 10/06/15) METOCLOPRAMIDE (Verified Adverse Reaction, Severe, tachycardia, 06/27/16) SULFAMETHOXAZOLE (Verified Adverse Reaction, Intermediate, 10/28/15) TRIMETHOPRIM (Verified Adverse Reaction, Intermediate, 10/28/15) KETOROLAC (Verified Adverse Reaction, Unknown, tachycardia, 06/27/16) Uncoded Allergies: PENICILLIN (Allergy, Unknown, 10/06/15) Objective Last 24 Hour Vital Signs Date Time Temp Pulse Resp B/P Pulse Ox O2 Delivery O2 Flow Rate FiO2 06/30/16 13:40 72 20 99 06/30/16 11:13 98.6 66 15 119/66 94 Room Air 06/30/16 08:00 18 06/30/16 07:17 98.6 62 14 94/58 100 Room Air 06/30/16 06:26 97.7 06/30/16 04:00 97.7 65 17 114/64 96 Room Air 06/30/16 03:52 17 06/30/16 01:50 97.9 06/30/16 00:00 97.9 65 17 105/59 93 Room Air 06/29/16 23:52 16 06/29/16 20:00 98.1 65 16 129/77 93 Room Air 06/29/16 19:52 16 06/29/16 19:22 16 06/29/16 18:52 16 06/29/16 18:37 16 06/29/16 18:22 16 06/29/16 18:07 16 06/29/16 16:14 98.1 06/29/16 16:00 98.1 71 20 127/78 90 Nasal Cannula 3.0 06/29/16 14:45 97.5 74 20 131/83 95 Room Air 3.0 Intake and Output 06/29/16 06/30/16 19:00 07:00 Intake Total 3370 ml 1460 ml Output Total 647 ml 330 ml Balance 2723 ml 1130 ml IV Total 3370 ml 1460 ml Output Urine Total 450 ml 300 ml Drainage Total 72 ml 30 ml Estimated Blood Loss 125 ml Objective Lines, tubes and drains: peripheral, HEENT: normocephalic, atraumatic Neck: non-tender Respiratory/Chest: chest wall non-tender Cardiovascular/Chest: normal peripheral pulses Abdomen: normal bowel sounds, feeding tube, other Genitourinary/Rectal: normal genital exam Extremities: normal range of motion, non-tender Microbiology Date/Time Source Procedure Growth Status 06/27/16 16:28 Straight Cath Urine Culture - Final NO GROWTH AFTER 48 HOURS Complete Laboratory Tests 06/30/16 04:40: Sodium Level 142, Potassium Level 4.3, Chloride Level 105, Carbon Dioxide Level 28, Anion Gap 9, Blood Urea Nitrogen 13, Creatinine 0.8, Estimat Glomerular Filtration Rate > 60, Glucose Level 120H, Calcium Level 8.4L 06/30/16 04:45: White Blood Count 10.3, Red Blood Count 3.65L, Hemoglobin 10.1L, Hematocrit 32.3L, Mean Corpuscular Volume 88, Mean Corpuscular Hemoglobin 27.8, Mean Corpuscular Hemoglobin Concent 31.4L, Red Cell Distribution Width 14.2, Platelet Count 397, Mean Platelet Volume 5.9L, Neutrophils (%) (Auto) 72.7, Lymphocytes (%) (Auto) 19.9L, Monocytes (%) (Auto) 6.5, Eosinophils (%) (Auto) 0.1, Basophils (%) (Auto) 0.7 Current Medications Medications (Trade) Dose Ordered Sig/Bev Route PRN Reason Start Time Stop Time Status Last Admin Dose Admin Acetaminophen (Tylenol) 650 mg Q4H PRN RECTAL Fever/Headache/Mild Pain 06/30/16 05:45 07/30/16 05:44 Acetaminophen (Tylenol) 650 mg Q6H PRN ORAL Mild Pain (Pain Scale 1-3) 06/29/16 07:15 07/29/16 07:14 Acetaminophen 650 mg 650 mg Q4H PRN ORAL FEVER 06/29/16 07:15 07/29/16 07:14 Al Hydroxide/Mg Hydroxide (Mylanta II) 30 ml Q6H PRN ORAL dyspepsia 06/27/16 13:45 07/27/16 13:44 Atenolol (Tenormin) 50 mg Q12HR ORAL 06/27/16 21:00 07/27/16 20:59 06/28/16 20:46 Clonazepam (KlonoPIN) 0.5 mg DAILY ORAL 06/28/16 09:00 07/05/16 08:59 06/28/16 08:55 Clonidine HCl (Catapres) 0.2 mg Q12HR ORAL 06/27/16 21:00 07/27/16 20:59 06/28/16 08:55 Dextrose STAT PRN IV Hypoglycemia 06/27/16 13:45 07/27/16 13:44 Dextrose/ Electrolytes (D5 0.45%NS W/ KCl 20mEq) 1,000 ml @ 125 mls/hr Q8H IV 06/29/16 08:00 07/29/16 07:59 06/30/16 08:39 Heparin Sodium (Porcine) (Heparin 5000 units/ml) 5,000 units EVERY 12 HOURS SUBQ 06/27/16 21:00 07/27/16 20:59 Hydroxyzine HCl (Vistaril) 10 mg Q6H PRN ORAL Itching/Pruritis 06/27/16 13:45 07/27/16 13:44 Meropenem/Sodium Chloride (Merrem/Sodium Chloride) 110 ml @ 220 mls/hr Q8HR IVPB 06/27/16 16:00 07/02/16 15:59 06/30/16 14:00 Miscellaneous Medication (SUPERVISOR ELEMENTARY EDUCATION Rate Change) 1 ea DAILY PRN MISC For Pain 06/29/16 15:15 07/01/16 15:14 Miscellaneous Medication (SUPERVISOR ELEMENT[employer] EDUCATION shift volume) 1 ea Q12HR@0700,1900 MISC 06/29/16 19:00 07/01/16 18:59 06/30/16 07:00 Morphine Sulfate (Morphine Sulfate) 2 mg Q2H PRN IVP Moderate Pain (Pain Scale 4-6) 06/29/16 15:15 07/01/16 13:44 06/30/16 05:56 Morphine Sulfate (Morphine Sulfate) 4 mg Q3H PRN SUBQ Severe Pain (Pain Scale 7-10) 06/29/16 15:15 07/01/16 13:44 06/29/16 15:44 Morphine Sulfate (SUPERVIS[employer]MENT[employer] EDUCATION Morphine) 30 ml @ 0 mls/hr SUPERVISOR ELEMENT[employer] EDUCATION Protocol PRN IV For Pain 06/29/16 15:15 07/01/16 15:14 06/30/16 01:20 Naloxone HCl (Narcan) 0.1 mg PRN IV . 06/29/16 18:30 07/01/16 13:44 Nitroglycerin (Ntg) 0.4 mg Q5M X 3 DOSES PRN SL Prn Chest Pain 06/27/16 13:45 07/27/16 13:44 Ondansetron HCl (Zofran) 4 mg Q6H PRN IVP Nausea & Vomiting 06/29/16 07:15 07/29/16 07:14 06/30/16 08:39 Polyethylene Glycol (Miralax) 17 gm HSPRN PRN ORAL Constipation 06/27/16 13:45 07/27/16 13:44 Temazepam (Restoril) 7.5 mg DAILYPRN PRN ORAL Insomnia 06/29/16 07:15 07/06/16 07:14 LESLY LOTT Jun 30, 2016 14:41
[2016-06-30 15:44] VITALS: BP 105/64
[2016-06-30 20:00] VITALS: BP 109/68
--- NOTE | 2016-06-30 23:48 | Consultation ---
DATE OF CONSULTATION: 06/28/2016 NOTE: "POOR AUDIO QUALITY" CONSULTING PHYSICIAN: Jose Alfredo Roberts M.D. HISTORY OF PRESENT ILLNESS: The patient was admitted with obstructed right kidney. The patient was referred to me for consultation. She is well known to me from previous admissions and surgeries. She has a history of multiple ureteral and kidney stones and had multiple retrograde intrarenal surgeries and percutaneous lithotripsies in the past. She also had a gynecological procedure and developed a stricture in the right distal ureter. The stricture was treated with a ureteral reimplantation. The patient did well for almost a year and now is admitted again with right flank pain. admission showed obstruction at the level of the distal right ureter with significant hydronephrosis. MEDICATIONS: The patient is taking some blood pressure medicine as well as intermittent antibiotics for recurrent urinary tract infections. ALLERGIES: She has multiple allergies to aspirin, Toradol, and some antibiotics that are noted in the chart. FAMILY HISTORY: She has a supportive son, who lives with her. REVIEW OF SYSTEMS: Essentially significant for right costovertebral tenderness and overall malaise. PHYSICAL EXAMINATION: GENERAL: She is afebrile. VITAL SIGNS: Vital signs are sable. NEUROLOGICAL: Neurologically intact. LUNGS: Clear to auscultation. CARDIOVASCULAR: Regular rate and rhythm. ABDOMEN: Soft. Positive tenderness in the right costovertebral area. Vaginal exam is deferred. LABORATORY AND DIAGNOSTIC DATA: Laboratory data as well as CT was reviewed. 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 I discussed with her treatment plan and possible nephrectomy versus possible ureteral reimplant . Jose Alfredo Roberts M.D. DR: Vipin JOB#: [id number] CC:
--- NOTE | 2016-07-01 00:17 | Operative Note - Dictated ---
NOTE: "POOR AUDIO QUALITY" DATE OF OPERATION: 06/29/2016 PREOPERATIVE DIAGNOSES: 1. Acute right distal ureteral obstruction. 2. Right hydronephrosis. POSTOPERATIVE DIAGNOSES: 1. Acute right distal ureteral obstruction. 2. Right hydronephrosis. OPERATION: 1. Abdominal exploration. 2. Right ureterolysis. 3. Right medial ureter to the bladder. 4. Double-J stent placement. SURGEON: Jose Alfredo Roberts M.D. PREPARATION SUPERVISOR CANNING: Eduardo Peoples M.D. FINDINGS: Dilated ureter and kidney. Indication For Surgery: The patient was acutely admitted to the hospital with the right flank pain and was diagnosed with right ureteral obstruction and hydronephrosis. Treatment options were explained in great length including all potential complications due to her previous surgery. The only option that was notable is to some sort of interposition graft of the right ureter back into the bladder. We have discussed the issues of understands the nature of the procedure including bowel resection and also understands possible . She signed a consent. She was brought to the operating room, placed in supine position, prepped and draped in standard fashion. Under general anesthesia, midline laparotomy incision was made. Dr. Peoples excised adhesions from previous ventral hernia. Sacrum was mobilized and further dissection dilated right ureter, which was basically 01:46 occluded the distal pylorus. The ureter was transected and was significant displaced between the ureter and the bladder and accomplished with some form of interposition. Decision was made to proceed with resection of the ileal segment and interposition of the right ureter. Dr. Peoples performed a bowel resection and reconstructive bowel and ureter was sewn into the ileum using end-to-end anastomosis and then ileum was reimplanted into the bladder. Double-J stent, 10/14 was placed in the indwelling. NIAN drain and a Chang catheter was also placed. Estimated blood loss was approximately 100 mL. Wound was closely inspected and closed by Dr. Peoples repairing ventral hernia. The patient was transferred to recovery room in stable condition. Sponge count and instrument count was correct. Jose Alfredo Roberts M.D. DR: Shala JOB#: [id number] CC:
[2016-07-01 00:23] VITALS: BP 110/65
[2016-07-01 04:17] VITALS: BP 121/68
[2016-07-01] MEDS: Meropenem 1 GM in NS 110 ML IVPB SCH ×3 (05:21→21:51)
[2016-07-01] MEDS: PCA shift volume MISC SCH (07:09)
[2016-07-01 07:40] VITALS: BP 139/73
[2016-07-01] MEDS: D5 1/2NS w/KCl 20mEq 1,000 ML IV SCH ×3 (07:49→23:25)
--- NOTE | 2016-07-01 08:24 | Pulmonology Progress Note ---
Assessment/Plan Assessment/Plan ASSESSMENT possible sepsis hydronephrosis with obstructive calculus ureteral obstruction s/p 06/29 R ileal ureter stent placement hx of recurrent complicated pyelo/UTI AICD HTN transaminitis hx of cervical Ca, s/p [facility] PLAN OF CARE MS floor IVF abx, ID follows urine cx prior E coli ESBL, current urine cx negative CT A/P - Persistent marked right hydronephrosis and hydroureter with abrupt transition at level of pelvic inlet, may be secondary to scarring from adjacent surgery. Associated significant right perinephric stranding suggests the possibility of pyelonephritis. Consider emergent percutaneous nephrostomy tube placement, as clinically indicated. s/p surgery 06/29 urology follows NPO until BS return pain management with SOFTWARE LEAD IS at the bedside closely monitor fluid volume, patient with hx of cardiomyopathy last ECHO in June 2016 with EF 60-65% s/p recent defibrillator, interrogation on previous admission revealed normal functioning BP management with BB and Clonidine, optimize as needed DVT prophylaxis monitor LFT hepatitis panel negative abdominal US with moderate to severe hydronephrosis PT eval and Rx Subjective Allergies: Coded Allergies: ASPIRIN (Verified Allergy, Severe, SHORTNESS OF BREATH, 01/02/12) CIPROFLOXACIN (Verified Allergy, Intermediate, FEET SWELLING, 01/02/12) CIPROFLOXACIN HCL (Verified Allergy, Intermediate, FEET SWELLING, 01/02/12 ) HYDROMORPHONE HCL (Verified Allergy, Intermediate, HALLUCINATION, 01/02/12 ) TETRACYCLINE (Verified Allergy, Intermediate, Rash, 01/02/12) DIPHENHYDRAMINE (Verified Allergy, Unknown, 06/19/16) LEVOFLOXACIN (Verified Allergy, Unknown, FEET SWELLING, 11/08/13) PENICILLINS (Unverified Allergy, Unknown, 10/06/15) METOCLOPRAMIDE (Verified Adverse Reaction, Severe, tachycardia, 06/27/16) SULFAMETHOXAZOLE (Verified Adverse Reaction, Intermediate, 10/28/15) TRIMETHOPRIM (Verified Adverse Reaction, Intermediate, 10/28/15) KETOROLAC (Verified Adverse Reaction, Unknown, tachycardia, 06/27/16) Uncoded Allergies: PENICILLIN (Allergy, Unknown, 10/06/15) Subjective afebrile, no leukocytosis not passing gas yet pain intermittently controlled with SOFTWARE LEAD sitting in the chair Objective Last 24 Hour Vital Signs Date Time Temp Pulse Resp B/P Pulse Ox O2 Delivery O2 Flow Rate FiO2 07/01/16 07:40 99.5 78 15 139/73 94 Room Air 07/01/16 04:17 97.7 74 20 121/68 93 Room Air 07/01/16 03:52 16 07/01/16 00:23 98.1 72 20 110/65 93 Room Air 06/30/16 23:51 16 06/30/16 20:00 97.9 70 20 109/68 94 Room Air 06/30/16 19:52 16 06/30/16 18:59 97.5 06/30/16 18:32 16 06/30/16 18:31 18 06/30/16 15:54 16 06/30/16 15:44 97.5 64 15 105/64 95 Room Air 06/30/16 13:40 72 20 99 06/30/16 11:52 18 06/30/16 11:13 98.6 66 15 119/66 94 Room Air Intake and Output 06/30/16 07/01/16 19:00 07:00 Intake Total 1250 ml 1560 ml Output Total 720 ml 1515 ml Balance 530 ml 45 ml IV Total 1250 ml 1560 ml Output Urine Total 700 ml 1500 ml Drainage Total 20 ml 15 ml General Appearance: no acute distress, other - A/A/O x3 Austrian speaking female HEENT: normocephalic, atraumatic, anicteric, PERRL Respiratory/Chest: lungs clear, no respiratory distress, no accessory muscle use, other - R upper chest defibrillator Cardiovascular: normal peripheral pulses, normal rate, no JVD Abdomen: absent bowel sounds, other - vertical abdominal incision with shellie , VILMA, C/D/I, drain dc , site with dressing Neurologic/Psychiatric: no motor/sensory deficits, alert, oriented x 3, responsive Musculoskeletal: normal muscle bulk Current Medications Medications (Trade) Dose Ordered Sig/Bev Route PRN Reason Start Time Stop Time Status Last Admin Dose Admin Acetaminophen (Tylenol) 650 mg Q4H PRN RECTAL Fever/Headache/Mild Pain 06/30/16 05:45 07/30/16 05:44 Acetaminophen (Tylenol) 650 mg Q6H PRN ORAL Mild Pain (Pain Scale 1-3) 06/29/16 07:15 07/29/16 07:14 Acetaminophen 650 mg 650 mg Q4H PRN ORAL FEVER 06/29/16 07:15 07/29/16 07:14 Al Hydroxide/Mg Hydroxide (Mylanta II) 30 ml Q6H PRN ORAL dyspepsia 06/27/16 13:45 07/27/16 13:44 Atenolol (Tenormin) 50 mg Q12HR ORAL 06/27/16 21:00 07/27/16 20:59 06/28/16 20:46 Clonazepam (KlonoPIN) 0.5 mg DAILY ORAL 06/28/16 09:00 07/05/16 08:59 06/28/16 08:55 Clonidine HCl (Catapres) 0.2 mg Q12HR ORAL 06/27/16 21:00 07/27/16 20:59 06/28/16 08:55 Dextrose STAT PRN IV Hypoglycemia 06/27/16 13:45 07/27/16 13:44 Dextrose/ Electrolytes (D5 0.45%NS W/ KCl 20mEq) 1,000 ml @ 125 mls/hr Q8H IV 06/29/16 08:00 07/29/16 07:59 07/01/16 07:49 Heparin Sodium (Porcine) (Heparin 5000 units/ml) 5,000 units EVERY 12 HOURS SUBQ 06/27/16 21:00 07/27/16 20:59 Hydroxyzine HCl (Vistaril) 10 mg Q6H PRN ORAL Itching/Pruritis 06/27/16 13:45 07/27/16 13:44 Meropenem/Sodium Chloride (Merrem/Sodium Chloride) 110 ml @ 220 mls/hr Q8HR IVPB 06/27/16 16:00 07/02/16 15:59 07/01/16 05:21 Miscellaneous Medication (SOFTWARE LEAD Rate Change) 1 ea DAILY PRN MISC For Pain 06/29/16 15:15 07/01/16 15:14 Miscellaneous Medication (SOFTWARE LEAD shift volume) 1 ea Q12HR@0700,1900 MISC 06/29/16 19:00 07/01/16 18:59 07/01/16 07:09 Morphine Sulfate (Morphine Sulfate) 2 mg Q2H PRN IVP Moderate Pain (Pain Scale 4-6) 06/29/16 15:15 07/01/16 13:44 06/30/16 05:56 Morphine Sulfate (Morphine Sulfate) 4 mg Q3H PRN SUBQ Severe Pain (Pain Scale 7-10) 06/29/16 15:15 07/01/16 13:44 06/29/16 15:44 Morphine Sulfate (SOFTWARE LEAD Morphine) 30 ml @ 0 mls/hr SOFTWARE LEAD Protocol PRN IV For Pain 06/29/16 15:15 07/01/16 15:14 06/30/16 18:29 Naloxone HCl (Narcan) 0.1 mg PRN IV . 06/29/16 18:30 07/01/16 13:44 Nitroglycerin (Ntg) 0.4 mg Q5M X 3 DOSES PRN SL Prn Chest Pain 06/27/16 13:45 07/27/16 13:44 Ondansetron HCl (Zofran) 4 mg Q6H PRN IVP Nausea & Vomiting 06/29/16 07:15 07/29/16 07:14 07/01/16 07:49 Polyethylene Glycol (Miralax) 17 gm HSPRN PRN ORAL Constipation 06/27/16 13:45 07/27/16 13:44 Temazepam (Restoril) 7.5 mg DAILYPRN PRN ORAL Insomnia 06/29/16 07:15 07/06/16 07:14 Chris PulidoCohen [facility]'S Medical CenterAshly Weir NP Jul 01, 2016 08:24
[2016-07-01] MEDS: clonazePAM 0.5mg tab ORAL SCH (09:00)
[2016-07-01] MEDS: Heparin 5000 units/ml inj SUBQ SCH ×2 (09:00→21:00)
[2016-07-01] MEDS: cloNIDine 0.2mg Tab ORAL SCH ×2 (09:00→21:00)
[2016-07-01] MEDS ORDERED: D5 1/2NS 1000ml IV ONE (09:59)
[2016-07-01] MEDS ORDERED: Tubing IV Secondary IV ONE (09:59)
[2016-07-01] MEDS: Pantoprazole Inj IVP SCH (10:33)
[2016-07-01 12:07] VITALS: BP 126/73
[2016-07-01] MEDS ORDERED: Morphine Sulfate 2mg/ml Inj IVP PRN ×3 (13:00→15:15)
[2016-07-01 15:50] VITALS: BP 119/76
[2016-07-01] MEDS: Morphine Sulfate 2mg/ml Inj IVP PRN ×3 (16:37→23:24)
--- NOTE | 2016-07-01 19:15 | Infectious Diseases Prog Note ---
Assessment/Plan Assessment/Plan ASSESSMENT: 61 y/o female with: // Recurrent complicated UTI / pyelonephrosis UCx: ESBL Ecoli - refused cystoscopy in the past - CT: Persistent marked right hydronephrosis and hydroureter wtranding suggests the possibility pyelonephritis - bilateral nephrolithiasis SP stent // Febrile. low grade , SP // transaminitis , SP Hep B/C: Neg - Liver US :Moderate to severe right hydronephrosis, also previously reported on multiple earlier exams. Ex-lap, right ureteral re-implantation Status post [employer] defibrillator implantation. Hx of cervical cancer SP total abdominal hysterectomy Multiple ABX allergies / intolerances - tolerating aztreonam ( no Hx of Anaphylaxis to PCN ) Full Code PLAN: - cont IV Merrem d# , upon DC will change to Invanz to complete the course ( 06/21 SP Azactam d# 3 ) - monitor CBC, temperatures - monitor BMP Subjective Constitutional: Denies: anorexia, chills, drenching sweats, fatigue, fever, no symptoms, other Allergies: Coded Allergies: ASPIRIN (Verified Allergy, Severe, SHORTNESS OF BREATH, 01/02/12) CIPROFLOXACIN (Verified Allergy, Intermediate, FEET SWELLING, 01/02/12) CIPROFLOXACIN HCL (Verified Allergy, Intermediate, FEET SWELLING, 01/02/12 ) HYDROMORPHONE HCL (Verified Allergy, Intermediate, HALLUCINATION, 01/02/12 ) TETRACYCLINE (Verified Allergy, Intermediate, Rash, 01/02/12) DIPHENHYDRAMINE (Verified Allergy, Unknown, 06/19/16) LEVOFLOXACIN (Verified Allergy, Unknown, FEET SWELLING, 11/08/13) PENICILLINS (Unverified Allergy, Unknown, 10/06/15) METOCLOPRAMIDE (Verified Adverse Reaction, Severe, tachycardia, 06/27/16) SULFAMETHOXAZOLE (Verified Adverse Reaction, Intermediate, 10/28/15) TRIMETHOPRIM (Verified Adverse Reaction, Intermediate, 10/28/15) KETOROLAC (Verified Adverse Reaction, Unknown, tachycardia, 06/27/16) Uncoded Allergies: PENICILLIN (Allergy, Unknown, 10/06/15) Subjective no new complain Objective Vital Signs Last 24 Hour Vital Signs Date Time Temp Pulse Resp B/P Pulse Ox O2 Delivery O2 Flow Rate FiO2 07/01/16 17:07 99.1 07/01/16 15:50 99.1 92 15 119/76 94 Room Air 07/01/16 13:39 98.2 07/01/16 12:07 98.2 81 14 126/73 93 Room Air 07/01/16 11:42 15 07/01/16 07:52 15 07/01/16 07:40 99.5 78 15 139/73 94 Room Air 07/01/16 04:17 97.7 74 20 121/68 93 Room Air 07/01/16 03:52 16 07/01/16 00:23 98.1 72 20 110/65 93 Room Air 06/30/16 23:51 16 06/30/16 20:00 97.9 70 20 109/68 94 Room Air 06/30/16 19:52 16 Height (Feet): 5 Height (Inches): 1.00 Weight (Pounds): 200 HEENT: anicteric Respiratory/Chest: normal breath sounds Cardiovascular: regular rhythm Abdomen: soft, non tender Current Medications Medications (Trade) Dose Ordered Sig/Bev Route PRN Reason Start Time Stop Time Status Last Admin Dose Admin Acetaminophen (Tylenol) 650 mg Q4H PRN ORAL FEVER 06/29/16 07:15 07/29/16 07:14 Acetaminophen (Tylenol) 650 mg Q4H PRN RECTAL Fever/Headache/Mild Pain 06/30/16 05:45 07/30/16 05:44 Acetaminophen (Tylenol) 650 mg Q6H PRN ORAL Mild Pain (Pain Scale 1-3) 06/29/16 07:15 07/29/16 07:14 Al Hydroxide/Mg Hydroxide (Mylanta II) 30 ml Q6H PRN ORAL dyspepsia 06/27/16 13:45 07/27/16 13:44 Atenolol (Tenormin) 50 mg Q12HR ORAL 06/27/16 21:00 07/27/16 20:59 06/28/16 20:46 Clonazepam (KlonoPIN) 0.5 mg DAILY ORAL 06/28/16 09:00 07/05/16 08:59 06/28/16 08:55 Clonidine HCl (Catapres) 0.2 mg Q12HR ORAL 06/27/16 21:00 07/27/16 20:59 06/28/16 08:55 Dextrose STAT PRN IV Hypoglycemia 06/27/16 13:45 5/10/17 13:44 Dextrose/ Electrolytes (D5 0.45%NS W/ KCl 20mEq) 1,000 ml @ 125 mls/hr Q8H IV 06/29/16 08:00 07/29/16 07:59 07/01/16 16:37 Heparin Sodium (Porcine) (Heparin 5000 units/ml) 5,000 units EVERY 12 HOURS SUBQ 06/27/16 21:00 07/27/16 20:59 Hydroxyzine HCl (Vistaril) 10 mg Q6H PRN ORAL Itching/Pruritis 06/27/16 13:45 07/27/16 13:44 Meropenem/Sodium Chloride (Merrem/Sodium Chloride) 110 ml @ 220 mls/hr Q8HR IVPB 06/27/16 16:00 07/05/16 23:59 07/01/16 13:11 Morphine Sulfate (Morphine Sulfate) 1 mg Q3H PRN IVP Moderate Pain (Pain Scale 4-6) 07/01/16 13:00 07/08/16 12:59 07/01/16 13:09 Morphine Sulfate (Morphine Sulfate) 2 mg Q3H PRN IVP Severe Pain (Pain Scale 7-10) 07/01/16 13:00 07/08/16 12:59 07/01/16 16:37 Nitroglycerin (Ntg) 0.4 mg Q5M X 3 DOSES PRN SL Prn Chest Pain 06/27/16 13:45 07/27/16 13:44 Ondansetron HCl (Zofran) 4 mg Q6H PRN IVP Nausea & Vomiting 06/29/16 07:15 07/29/16 07:14 07/01/16 13:44 Pantoprazole (Protonix) 40 mg DAILY IVP 07/01/16 10:30 07/31/16 10:29 07/01/16 10:33 Polyethylene Glycol (Miralax) 17 gm HSPRN PRN ORAL Constipation 06/27/16 13:45 07/27/16 13:44 Temazepam (Restoril) 7.5 mg DAILYPRN PRN ORAL Insomnia 06/29/16 07:15 07/06/16 07:14 ELO OLIVEROS M.D. Jul 01, 2016 19:15
[2016-07-01 20:00] VITALS: BP 139/77
[2016-07-02] VITALS: BP 142/83
[2016-07-02 04:00] VITALS: BP 137/84
[2016-07-02] MEDS: Morphine Sulfate 2mg/ml Inj IVP PRN ×3 (04:01→10:08)
[2016-07-02] MEDS: Meropenem 1 GM in NS 110 ML IVPB SCH ×3 (06:10→21:18)
[2016-07-02] MEDS: D5 1/2NS w/KCl 20mEq 1,000 ML IV SCH ×2 (06:10→15:31)
[2016-07-02 07:58] LABS: BASOPHILS % (AUTO) 0.6 % (0.0-2.0); EOSINOPHILS % (AUTO) 3.9 % (0.0-3.0); LYMPHOCYTES % (AUTO) 18.3 % (20.0-45.0); MEAN CORPUSCULAR HEMOGLOBIN 27.9 PG (27.0-31.0); MEAN CORPUSCULAR HGB CONC 31.6 G/DL (32.0-36.0); MEAN CORPUSCULAR VOLUME 88 FL (80-99); MEAN PLATELET VOLUME 6.2 FL (6.5-10.1); MONOCYTES % (AUTO) 5.4 % (1.0-10.0); NEUTROPHILS % (AUTO) 71.8 % (45.0-75.0); PLATELET COUNT 374 K/UL (150-450); RED CELL DISTRIBUTION WIDTH 14.1 % (11.6-14.8); WHITE BLOOD COUNT 11.3 K/UL (4.8-10.8)
[2016-07-02 08:10] VITALS: BP 127/95
[2016-07-02 08:25] LABS: ALANINE AMINOTRANSFERASE 32 U/L (3-33); ALBUMIN/GLOBULIN RATIO 0.8 (1.0-2.7); ANION GAP 12 (5-15); ASPARTATE AMINO TRANSFERASE 9 U/L (5-40); CALCIUM 9.2 mg/dL (8.6-10.2); CARBON DIOXIDE 30 mEQ/L (20-30); CHLORIDE 95 mEQ/L (98-107); CREATININE 0.8 mg/dL (0.5-0.9); GLOMERULAR FILTRATION RATE > 60 mL/min (>60); HEMOLYSIS 0; POTASSIUM 3.8 mEQ/L (3.4-4.9); SODIUM 137 mEQ/L (135-145); TOTAL PROTEIN 7.2 g/dL (6.6-8.7)
[2016-07-02] MEDS: clonazePAM 0.5mg tab ORAL SCH (09:00)
[2016-07-02] MEDS: cloNIDine 0.2mg Tab ORAL SCH ×2 (09:00→21:00)
[2016-07-02] MEDS: Pantoprazole Inj IVP SCH (09:02)
[2016-07-02] MEDS: Heparin 5000 units/ml inj SUBQ SCH ×2 (09:08→21:00)
[2016-07-02] MEDS ORDERED: Tubing IV Secondary IV ONE ×2 (09:15→10:06)
[2016-07-02] MEDS ORDERED: Morphine Sulfate 2mg/ml Inj IVP ONE (10:30)
[2016-07-02 12:15] VITALS: BP 102/72
[2016-07-02] MEDS: Morphine Sulfate 4mg/ml Inj IVP PRN ×3 (13:49→21:17)
--- NOTE | 2016-07-02 14:41 | Pulmonology Progress Note ---
Assessment/Plan Assessment/Plan ASSESSMENT possible sepsis hydronephrosis with obstructive calculus ureteral obstruction s/p 06/29 R ileal ureter stent placement hx of recurrent complicated pyelo/UTI AICD HTN transaminitis hx of cervical Ca, s/p [facility] floor IVF abx, ID follows urine cx prior E coli ESBL, current urine cx negative CT A/P - Persistent marked right hydronephrosis and hydroureter with abrupt transition at level of pelvic inlet, may be secondary to scarring from adjacent surgery. Associated significant right perinephric stranding suggests the possibility of pyelonephritis. Consider emergent percutaneous nephrostomy tube placement, as clinically indicated. s/p surgery 06/29 urology follows NPO until BS return pain management, give additional dose now and increase prn dose of analgesic IS at the bedside closely monitor fluid volume, patient with hx of cardiomyopathy last ECHO in June 2016 with EF 60-65% s/p recent defibrillator, interrogation on previous admission revealed normal functioning BP management with BB and Clonidine, optimize as needed DVT prophylaxis monitor LFT hepatitis panel negative abdominal US with moderate to severe hydronephrosis PT eval and Rx encourage ambulation case discussed and evaluated by supervising physician Subjective Allergies: Coded Allergies: ASPIRIN (Verified Allergy, Severe, SHORTNESS OF BREATH, 01/02/12) CIPROFLOXACIN (Verified Allergy, Intermediate, FEET SWELLING, 01/02/12) CIPROFLOXACIN HCL (Verified Allergy, Intermediate, FEET SWELLING, 01/02/12 ) HYDROMORPHONE HCL (Verified Allergy, Intermediate, HALLUCINATION, 01/02/12 ) TETRACYCLINE (Verified Allergy, Intermediate, Rash, 01/02/12) DIPHENHYDRAMINE (Verified Allergy, Unknown, 06/19/16) LEVOFLOXACIN (Verified Allergy, Unknown, FEET SWELLING, 11/08/13) PENICILLINS (Unverified Allergy, Unknown, 10/06/15) METOCLOPRAMIDE (Verified Adverse Reaction, Severe, tachycardia, 06/27/16) SULFAMETHOXAZOLE (Verified Adverse Reaction, Intermediate, 10/28/15) TRIMETHOPRIM (Verified Adverse Reaction, Intermediate, 10/28/15) KETOROLAC (Verified Adverse Reaction, Unknown, tachycardia, 06/27/16) Uncoded Allergies: PENICILLIN (Allergy, Unknown, 10/06/15) Subjective afebrile, mild leukocytosis today c/o pain, off [employer] current dose not holding her, unable to ambulate due to pain, BP elevated due to pain not passing gas yet sitting in the chair Objective Last 24 Hour Vital Signs Date Time Temp Pulse Resp B/P Pulse Ox O2 Delivery O2 Flow Rate FiO2 07/02/16 14:17 97.9 07/02/16 12:15 97.9 94 21 102/72 94 Room Air 07/02/16 10:35 98.6 07/02/16 10:35 98.6 07/02/16 08:10 98.6 88 20 127/95 97 Room Air 07/02/16 04:00 97.9 81 17 137/84 95 Room Air 07/02/16 00:00 97.9 86 18 142/83 94 Room Air 07/01/16 21:00 139/77 07/01/16 21:00 89 139/77 07/01/16 20:00 98.2 89 16 139/77 94 Room Air 07/01/16 15:50 99.1 92 15 119/76 94 Room Air Intake and Output 07/01/16 07/02/16 19:00 07:00 Intake Total 750 ml 1545 ml Output Total 2000 ml 2850 ml Balance -1250 ml -1305 ml IV Total 750 ml 1545 ml Output Urine Total 2000 ml 2850 ml Objective General Appearance: no acute distress, other - A/A/O x3 Armenian speaking female HEENT: normocephalic, atraumatic, anicteric, PERRL Respiratory/Chest: lungs clear, no respiratory distress, no accessory muscle use, other - R upper chest defibrillator Cardiovascular: normal peripheral pulses, normal rate, no JVD Abdomen: absent bowel sounds, vertical abdominal incision with shellie, [employer], C/ D/I, drain dc , site with dressing Neurologic/Psychiatric: no motor/sensory deficits, alert, oriented x 3, responsive Musculoskeletal: normal muscle bulk Laboratory Tests 07/02/16 06:08: White Blood Count 11.3H, Red Blood Count 4.20, Hemoglobin 11.7L, Hematocrit 37.0 , Mean Corpuscular Volume 88, Mean Corpuscular Hemoglobin 27.9, Mean Corpuscular Hemoglobin Concent 31.6L, Red Cell Distribution Width 14.1, Platelet Count 374, Mean Platelet Volume 6.2L, Neutrophils (%) (Auto) 71.8, Lymphocytes (%) (Auto) 18.3L, Monocytes (%) (Auto) 5.4, Eosinophils (%) (Auto) 3.9H, Basophils (%) (Auto) 0.6, Sodium Level 137, Potassium Level 3.8, Chloride Level 95L, Carbon Dioxide Level 30, Anion Gap 12, Blood Urea Nitrogen 6L, Creatinine 0.8, Estimat Glomerular Filtration Rate > 60, Glucose Level 132H, Calcium Level 9.2, Total Bilirubin 0.5, Aspartate Amino Transf (AST/SGOT) 9, Alanine Aminotransferase (ALT/SGPT) 32, Alkaline Phosphatase 82, Total Protein 7.2, Albumin 3.4L, Globulin 3.8, Albumin/Globulin Ratio 0.8L Current Medications Medications (Trade) Dose Ordered Sig/Bev Route PRN Reason Start Time Stop Time Status Last Admin Dose Admin Acetaminophen (Tylenol) 650 mg Q4H PRN ORAL FEVER 06/29/16 07:15 07/29/16 07:14 Acetaminophen (Tylenol) 650 mg Q4H PRN RECTAL Fever/Headache/Mild Pain 06/30/16 05:45 07/30/16 05:44 Acetaminophen (Tylenol) 650 mg Q6H PRN ORAL Mild Pain (Pain Scale 1-3) 06/29/16 07:15 07/29/16 07:14 Al Hydroxide/Mg Hydroxide (Mylanta II) 30 ml Q6H PRN ORAL dyspepsia 06/27/16 13:45 07/27/16 13:44 Atenolol (Tenormin) 50 mg Q12HR ORAL 06/27/16 21:00 07/27/16 20:59 06/28/16 20:46 Clonazepam (KlonoPIN) 0.5 mg DAILY ORAL 06/28/16 09:00 07/05/16 08:59 06/28/16 08:55 Clonidine HCl (Catapres) 0.2 mg Q12HR ORAL 06/27/16 21:00 07/27/16 20:59 06/28/16 08:55 Dextrose STAT PRN IV Hypoglycemia 06/27/16 13:45 07/27/16 13:44 Dextrose/ Electrolytes (D5 0.45%NS W/ KCl 20mEq) 1,000 ml @ 125 mls/hr Q8H IV 06/29/16 08:00 07/29/16 07:59 07/02/16 06:10 Heparin Sodium (Porcine) (Heparin 5000 units/ml) 5,000 units EVERY 12 HOURS SUBQ 06/27/16 21:00 07/27/16 20:59 07/02/16 09:08 Hydroxyzine HCl (Vistaril) 10 mg Q6H PRN ORAL Itching/Pruritis 06/27/16 13:45 07/27/16 13:44 Meropenem/Sodium Chloride (Merrem/Sodium Chloride) 110 ml @ 220 mls/hr Q8HR IVPB 06/27/16 16:00 07/05/16 23:59 07/02/16 13:49 Morphine Sulfate (Morphine Sulfate) 1 mg Q3H PRN IVP Moderate Pain (Pain Scale 4-6) 07/01/16 13:00 07/08/16 12:59 07/01/16 13:09 Morphine Sulfate (Morphine Sulfate) 3 mg Q3H PRN IVP Severe Pain (Pain Scale 7-10) 07/02/16 13:00 07/09/16 12:59 07/02/16 13:49 Nitroglycerin (Ntg) 0.4 mg Q5M X 3 DOSES PRN SL Prn Chest Pain 06/27/16 13:45 07/27/16 13:44 Ondansetron HCl (Zofran) 4 mg Q6H PRN IVP Nausea & Vomiting 06/29/16 07:15 07/29/16 07:14 07/02/16 12:08 Pantoprazole (Protonix) 40 mg DAILY IVP 07/01/16 10:30 07/31/16 10:29 07/02/16 09:02 Polyethylene Glycol (Miralax) 17 gm HSPRN PRN ORAL Constipation 06/27/16 13:45 07/27/16 13:44 Temazepam (Restoril) 7.5 mg DAILYPRN PRN ORAL Insomnia 06/29/16 07:15 07/06/16 07:14 [facility] NP Jul 02, 2016 14:41
[2016-07-02 15:44] VITALS: BP 126/77
[2016-07-02 20:00] VITALS: BP 108/58
[2016-07-03] VITALS: BP 144/80
[2016-07-03] MEDS: Morphine Sulfate 4mg/ml Inj IVP PRN ×6 (00:15→21:04)
[2016-07-03] MEDS: D5 1/2NS w/KCl 20mEq 1,000 ML IV SCH ×3 (00:50→16:00)
[2016-07-03 04:00] VITALS: BP 119/78
[2016-07-03] MEDS: Meropenem 1 GM in NS 110 ML IVPB SCH ×3 (05:21→21:06)
[2016-07-03 07:55] VITALS: BP 134/87
[2016-07-03] MEDS: Pantoprazole Inj IVP SCH (08:37)
[2016-07-03] MEDS: Heparin 5000 units/ml inj SUBQ SCH ×2 (08:41→21:00)
[2016-07-03] MEDS: cloNIDine 0.2mg Tab ORAL SCH ×2 (08:42→21:00)
[2016-07-03] MEDS: clonazePAM 0.5mg tab ORAL SCH (08:43)
--- NOTE | 2016-07-03 10:29 | Pulmonology Progress Note ---
Assessment/Plan Assessment/Plan ASSESSMENT possible sepsis hydronephrosis with obstructive calculus ureteral obstruction s/p 06/29 R ileal ureter stent placement hx of recurrent complicated pyelo/UTI AICD HTN transaminitis hx of cervical Ca, s/p [facility] floor IVF abx, ID follows urine cx prior E coli ESBL, current urine cx negative CT A/P - Persistent marked right hydronephrosis and hydroureter with abrupt transition at level of pelvic inlet, may be secondary to scarring from adjacent surgery. Associated significant right perinephric stranding suggests the possibility of pyelonephritis. Consider emergent percutaneous nephrostomy tube placement, as clinically indicated. s/p surgery 06/29 urology follows start CL diet today advance in am as tolerated pain management, add Simethicone IS at the bedside encourage ambulation closely monitor fluid volume, patient with hx of cardiomyopathy last ECHO in June 2016 with EF 60-65% s/p recent defibrillator, interrogation on previous admission revealed normal functioning BP management with BB and Clonidine, optimize as needed DVT prophylaxis monitor LFT hepatitis panel negative abdominal US with moderate to severe hydronephrosis PT eval and Rx case discussed and evaluated by supervising physician Subjective Allergies: Coded Allergies: ASPIRIN (Verified Allergy, Severe, SHORTNESS OF BREATH, 01/02/12) CIPROFLOXACIN (Verified Allergy, Intermediate, FEET SWELLING, 01/02/12) CIPROFLOXACIN HCL (Verified Allergy, Intermediate, FEET SWELLING, 01/02/12 ) HYDROMORPHONE HCL (Verified Allergy, Intermediate, HALLUCINATION, 01/02/12 ) TETRACYCLINE (Verified Allergy, Intermediate, Rash, 01/02/12) DIPHENHYDRAMINE (Verified Allergy, Unknown, 06/19/16) LEVOFLOXACIN (Verified Allergy, Unknown, FEET SWELLING, 11/08/13) PENICILLINS (Unverified Allergy, Unknown, 10/06/15) METOCLOPRAMIDE (Verified Adverse Reaction, Severe, tachycardia, 06/27/16) SULFAMETHOXAZOLE (Verified Adverse Reaction, Intermediate, 10/28/15) TRIMETHOPRIM (Verified Adverse Reaction, Intermediate, 10/28/15) KETOROLAC (Verified Adverse Reaction, Unknown, tachycardia, 06/27/16) Uncoded Allergies: PENICILLIN (Allergy, Unknown, 10/06/15) Subjective afebrile, passing gas, + gas pain Objective Last 24 Hour Vital Signs Date Time Temp Pulse Resp B/P Pulse Ox O2 Delivery O2 Flow Rate FiO2 07/03/16 09:08 98.1 07/03/16 08:43 80 134/87 07/03/16 07:55 98.1 80 15 134/87 94 Room Air 07/03/16 04:00 97.7 81 18 119/78 95 Room Air 07/03/16 00:00 98.2 91 18 144/80 94 Room Air 07/02/16 21:00 108/58 07/02/16 21:00 93 108/58 07/02/16 20:00 98.2 98 18 108/58 93 Room Air 07/02/16 15:44 98.2 91 19 126/77 99 Room Air 07/02/16 12:15 97.9 94 21 102/72 94 Room Air 07/02/16 10:35 98.6 07/02/16 10:35 98.6 Intake and Output 07/02/16 07/03/16 19:00 07:00 Intake Total 1250 ml 1250 ml Output Total 1200 ml 1100 ml Balance 50 ml 150 ml Intake Oral 0 ml IV Total 1250 ml 1250 ml Output Urine Total 1200 ml 1100 ml Objective General Appearance: no acute distress, other - A/A/O x3 [place] speaking female HEENT: normocephalic, atraumatic, anicteric, PERRL Respiratory/Chest: lungs clear, no respiratory distress, no accessory muscle use, R upper chest defibrillator Cardiovascular: normal peripheral pulses, normal rate, no JVD Abdomen: present bowel sounds x 4 quadrants , vertical abdominal incision with shellie, VILMA, C/D/I, draindc , site with dressing Neurologic/Psychiatric: no motor/sensory deficits, alert, oriented x 3, responsive Musculoskeletal: normal muscle bulk Current Medications Medications (Trade) Dose Ordered Sig/Bev Route PRN Reason Start Time Stop Time Status Last Admin Dose Admin Acetaminophen (Tylenol) 650 mg Q4H PRN ORAL FEVER 06/29/16 07:15 07/29/16 07:14 Acetaminophen (Tylenol) 650 mg Q4H PRN RECTAL Fever/Headache/Mild Pain 06/30/16 05:45 07/30/16 05:44 Acetaminophen (Tylenol) 650 mg Q6H PRN ORAL Mild Pain (Pain Scale 1-3) 06/29/16 07:15 07/29/16 07:14 Al Hydroxide/Mg Hydroxide (Mylanta II) 30 ml Q6H PRN ORAL dyspepsia 06/27/16 13:45 07/27/16 13:44 Atenolol (Tenormin) 50 mg Q12HR ORAL 06/27/16 21:00 07/27/16 20:59 06/28/16 20:46 Clonazepam (KlonoPIN) 0.5 mg DAILY ORAL 06/28/16 09:00 07/05/16 08:59 06/28/16 08:55 Clonidine HCl (Catapres) 0.2 mg Q12HR ORAL 06/27/16 21:00 07/27/16 20:59 06/28/16 08:55 Dextrose STAT PRN IV Hypoglycemia 06/27/16 13:45 07/27/16 13:44 Dextrose/ Electrolytes (D5 0.45%NS W/ KCl 20mEq) 1,000 ml @ 125 mls/hr Q8H IV 06/29/16 08:00 07/29/16 07:59 07/03/16 08:37 Heparin Sodium (Porcine) (Heparin 5000 units/ml) 5,000 units EVERY 12 HOURS SUBQ 06/27/16 21:00 07/27/16 20:59 07/03/16 08:41 Hydroxyzine HCl (Vistaril) 10 mg Q6H PRN ORAL Itching/Pruritis 06/27/16 13:45 07/27/16 13:44 Meropenem/Sodium Chloride (Merrem/Sodium Chloride) 110 ml @ 220 mls/hr Q8HR IVPB 06/27/16 16:00 07/05/16 23:59 07/03/16 05:21 Morphine Sulfate (Morphine Sulfate) 1 mg Q3H PRN IVP Moderate Pain (Pain Scale 4-6) 07/01/16 13:00 07/08/16 12:59 07/01/16 13:09 Morphine Sulfate (Morphine Sulfate) 3 mg Q3H PRN IVP Severe Pain (Pain Scale 7-10) 07/02/16 13:00 07/09/16 12:59 07/03/16 08:38 Nitroglycerin (Ntg) 0.4 mg Q5M X 3 DOSES PRN SL Prn Chest Pain 06/27/16 13:45 07/27/16 13:44 Ondansetron HCl (Zofran) 4 mg Q6H PRN IVP Nausea & Vomiting 06/29/16 07:15 07/29/16 07:14 07/03/16 05:28 Pantoprazole (Protonix) 40 mg DAILY IVP 07/01/16 10:30 07/31/16 10:29 07/03/16 08:37 Polyethylene Glycol (Miralax) 17 gm HSPRN PRN ORAL Constipation 06/27/16 13:45 07/27/16 13:44 Temazepam (Restoril) 7.5 mg DAILYPRN PRN ORAL Insomnia 06/29/16 07:15 07/06/16 07:14 Chris ([facility])Ashly NP Jul 03, 2016 10:29
[2016-07-03] MEDS ORDERED: Simethicone 80mg tab ORAL PRN (10:30)
[2016-07-03 12:34] VITALS: BP 133/72
[2016-07-03] MEDS: Simethicone 80mg tab ORAL PRN (13:14)
--- NOTE | 2016-07-03 13:14 | Infectious Diseases Prog Note ---
Assessment/Plan Assessment/Plan A; UTI/Pyelonephritis Hydronephrosis Distal ureteral obstruction Nephrolithiasis Obesity P: continue Meropenem Subjective ROS Limited/Unobtainable: No Constitutional: Reports: other - dosen't feel well Gastrointestinal/Abdominal: Reports: other - pain in R side Genitourinary: Reports: no symptoms Allergies: Coded Allergies: ASPIRIN (Verified Allergy, Severe, SHORTNESS OF BREATH, 01/02/12) CIPROFLOXACIN (Verified Allergy, Intermediate, FEET SWELLING, 01/02/12) CIPROFLOXACIN HCL (Verified Allergy, Intermediate, FEET SWELLING, 01/02/12 ) HYDROMORPHONE HCL (Verified Allergy, Intermediate, HALLUCINATION, 01/02/12 ) TETRACYCLINE (Verified Allergy, Intermediate, Rash, 01/02/12) DIPHENHYDRAMINE (Verified Allergy, Unknown, 06/19/16) LEVOFLOXACIN (Verified Allergy, Unknown, FEET SWELLING, 11/08/13) PENICILLINS (Unverified Allergy, Unknown, 10/06/15) METOCLOPRAMIDE (Verified Adverse Reaction, Severe, tachycardia, 06/27/16) SULFAMETHOXAZOLE (Verified Adverse Reaction, Intermediate, 10/28/15) TRIMETHOPRIM (Verified Adverse Reaction, Intermediate, 10/28/15) KETOROLAC (Verified Adverse Reaction, Unknown, tachycardia, 06/27/16) Uncoded Allergies: PENICILLIN (Allergy, Unknown, 10/06/15) Objective Vital Signs Last 24 Hour Vital Signs Date Time Temp Pulse Resp B/P Pulse Ox O2 Delivery O2 Flow Rate FiO2 07/03/16 12:34 97.9 84 14 133/72 96 Room Air 07/03/16 09:08 98.1 07/03/16 08:43 80 134/87 07/03/16 07:55 98.1 80 15 134/87 94 Room Air 07/03/16 04:00 97.7 81 18 119/78 95 Room Air 07/03/16 00:00 98.2 91 18 144/80 94 Room Air 07/02/16 21:00 108/58 07/02/16 21:00 93 108/58 07/02/16 20:00 98.2 98 18 108/58 93 Room Air 07/02/16 15:44 98.2 91 19 126/77 99 Room Air Height (Feet): 5 Height (Inches): 1.00 Weight (Pounds): 200 General Appearance: no acute distress HEENT: mucous membranes moist Respiratory/Chest: lungs clear Cardiovascular: normal rate, pacemaker/AICD Abdomen: soft, non tender, other - midlinesurgical shellie clean Extremities: no edema Neurologic/Psychiatric: alert, oriented x 3, responsive Current Medications Medications (Trade) Dose Ordered Sig/Bev Route PRN Reason Start Time Stop Time Status Last Admin Dose Admin Acetaminophen (Tylenol) 650 mg Q4H PRN ORAL FEVER 06/29/16 07:15 07/29/16 07:14 Acetaminophen (Tylenol) 650 mg Q4H PRN RECTAL Fever/Headache/Mild Pain 06/30/16 05:45 07/30/16 05:44 Acetaminophen (Tylenol) 650 mg Q6H PRN ORAL Mild Pain (Pain Scale 1-3) 06/29/16 07:15 07/29/16 07:14 Al Hydroxide/Mg Hydroxide (Mylanta II) 30 ml Q6H PRN ORAL dyspepsia 06/27/16 13:45 07/27/16 13:44 Atenolol (Tenormin) 50 mg Q12HR ORAL 06/27/16 21:00 07/27/16 20:59 06/28/16 20:46 Clonazepam (KlonoPIN) 0.5 mg DAILY ORAL 06/28/16 09:00 07/05/16 08:59 06/28/16 08:55 Clonidine HCl (Catapres) 0.2 mg Q12HR ORAL 06/27/16 21:00 07/27/16 20:59 06/28/16 08:55 Dextrose STAT PRN IV Hypoglycemia 06/27/16 13:45 07/27/16 13:44 Dextrose/ Electrolytes (D5 0.45%NS W/ KCl 20mEq) 1,000 ml @ 125 mls/hr Q8H IV 06/29/16 08:00 07/29/16 07:59 07/03/16 08:37 Heparin Sodium (Porcine) (Heparin 5000 units/ml) 5,000 units EVERY 12 HOURS SUBQ 06/27/16 21:00 07/27/16 20:59 07/03/16 08:41 Hydroxyzine HCl (Vistaril) 10 mg Q6H PRN ORAL Itching/Pruritis 06/27/16 13:45 07/27/16 13:44 Meropenem/Sodium Chloride (Merrem/Sodium Chloride) 110 ml @ 220 mls/hr Q8HR IVPB 06/27/16 16:00 07/05/16 23:59 07/03/16 05:21 Morphine Sulfate (Morphine Sulfate) 1 mg Q3H PRN IVP Moderate Pain (Pain Scale 4-6) 07/01/16 13:00 07/08/16 12:59 07/01/16 13:09 Morphine Sulfate (Morphine Sulfate) 3 mg Q3H PRN IVP Severe Pain (Pain Scale 7-10) 07/02/16 13:00 07/09/16 12:59 07/03/16 12:59 Nitroglycerin (Ntg) 0.4 mg Q5M X 3 DOSES PRN SL Prn Chest Pain 06/27/16 13:45 07/27/16 13:44 Ondansetron HCl (Zofran) 4 mg Q6H PRN IVP Nausea & Vomiting 06/29/16 07:15 07/29/16 07:14 07/03/16 12:59 Pantoprazole (Protonix) 40 mg DAILY IVP 07/01/16 10:30 07/31/16 10:29 07/03/16 08:37 Polyethylene Glycol (Miralax) 17 gm HSPRN PRN ORAL Constipation 06/27/16 13:45 07/27/16 13:44 Simethicone (Mylicon) 80 mg QIDPRN PRN ORAL gas pain 07/03/16 10:45 08/02/16 10:29 Temazepam (Restoril) 7.5 mg DAILYPRN PRN ORAL Insomnia 06/29/16 07:15 07/06/16 07:14 BRANDAN OLIVAS Jul 03, 2016 13:14
[2016-07-03 16:26] VITALS: BP 149/77
[2016-07-03 20:00] VITALS: BP 113/79
[2016-07-04 00:11] VITALS: BP 112/69
[2016-07-04] MEDS: Morphine Sulfate 4mg/ml Inj IVP PRN ×3 (00:19→11:36)
[2016-07-04] MEDS: D5 1/2NS w/KCl 20mEq 1,000 ML IV SCH ×3 (00:22→13:26)
[2016-07-04 04:00] VITALS: BP 122/74
[2016-07-04] MEDS: Simethicone 80mg tab ORAL PRN (05:57)
[2016-07-04] MEDS: Meropenem 1 GM in NS 110 ML IVPB SCH ×2 (05:57→13:26)
[2016-07-04 07:04] LABS: ANION GAP 14 (5-15); CARBON DIOXIDE 25 mEQ/L (20-30); CHLORIDE 95 mEQ/L (98-107); CREATININE 0.9 mg/dL (0.5-0.9); GLOMERULAR FILTRATION RATE > 60 mL/min (>60); HEMOLYSIS 1; POTASSIUM 4.1 mEQ/L (3.4-4.9); SODIUM 134 mEQ/L (135-145)
[2016-07-04 07:10] LABS: EOSINOPHILS % (AUTO) 5.7 % (0.0-3.0); LYMPHOCYTES % (AUTO) 22.7 % (20.0-45.0); MEAN CORPUSCULAR HEMOGLOBIN 27.8 PG (27.0-31.0); MEAN CORPUSCULAR HGB CONC 31.5 G/DL (32.0-36.0); MEAN CORPUSCULAR VOLUME 88 FL (80-99); MEAN PLATELET VOLUME 6.5 FL (6.5-10.1); NEUTROPHILS % (AUTO) 61.6 % (45.0-75.0); PLATELET COUNT 444 K/UL (150-450); RED BLOOD COUNT 3.94 M/UL (4.20-5.40); RED CELL DISTRIBUTION WIDTH 13.8 % (11.6-14.8); WHITE BLOOD COUNT 10.5 K/UL (4.8-10.8)
[2016-07-04 08:00] VITALS: BP 101/54
[2016-07-04] MEDS: cloNIDine 0.2mg Tab ORAL SCH (08:40)
[2016-07-04] MEDS: clonazePAM 0.5mg tab ORAL SCH (08:41)
[2016-07-04] MEDS: Pantoprazole Inj IVP SCH (08:42)
[2016-07-04] MEDS: Heparin 5000 units/ml inj SUBQ SCH (08:43)
--- NOTE | 2016-07-04 09:56 | Infectious Diseases Prog Note ---
Assessment/Plan Assessment/Plan ASSESSMENT: 61 y/o female with: // Recurrent complicated UTI / pyelonephrosis UCx: ESBL Ecoli - CT: Persistent marked right hydronephrosis and hydroureter wtranding suggests the possibility pyelonephritis - bilateral nephrolithiasis SP stent // Fever SP // transaminitis , SP Hep B/C: Neg - Liver US :Moderate to severe right hydronephrosis, also previously reported on multiple earlier exams. Ex-lap, right ureteral re-implantation Status post [facility] [employer] defibrillator implantation. Hx of cervical cancer SP total abdominal hysterectomy Multiple ABX allergies / intolerances - tolerating aztreonam ( no Hx of Anaphylaxis to PCN ) Full Code PLAN: - cont IV Merrem d# 13 / 14 ( 06/21 SP Azactam d# 3 ) - monitor CBC, temperatures - monitor BMP Subjective Constitutional: Denies: anorexia, chills, drenching sweats, fatigue, fever, no symptoms, other Allergies: Coded Allergies: ASPIRIN (Verified Allergy, Severe, SHORTNESS OF BREATH, 01/02/12) CIPROFLOXACIN (Verified Allergy, Intermediate, FEET SWELLING, 01/02/12) CIPROFLOXACIN HCL (Verified Allergy, Intermediate, FEET SWELLING, 01/02/12 ) HYDROMORPHONE HCL (Verified Allergy, Intermediate, HALLUCINATION, 01/02/12 ) TETRACYCLINE (Verified Allergy, Intermediate, Rash, 01/02/12) DIPHENHYDRAMINE (Verified Allergy, Unknown, 06/19/16) LEVOFLOXACIN (Verified Allergy, Unknown, FEET SWELLING, 11/08/13) PENICILLINS (Unverified Allergy, Unknown, 10/06/15) METOCLOPRAMIDE (Verified Adverse Reaction, Severe, tachycardia, 06/27/16) SULFAMETHOXAZOLE (Verified Adverse Reaction, Intermediate, 10/28/15) TRIMETHOPRIM (Verified Adverse Reaction, Intermediate, 10/28/15) KETOROLAC (Verified Adverse Reaction, Unknown, tachycardia, 06/27/16) Uncoded Allergies: PENICILLIN (Allergy, Unknown, 10/06/15) Subjective no new complain Objective Vital Signs Last 24 Hour Vital Signs Date Time Temp Pulse Resp B/P Pulse Ox O2 Delivery O2 Flow Rate FiO2 07/04/16 08:40 101/54 07/04/16 08:40 65 101/54 07/04/16 08:00 97.5 65 20 101/54 94 Room Air 07/04/16 05:57 97.7 07/04/16 04:00 98.2 84 20 122/74 97 Room Air 07/04/16 00:11 97.7 68 20 112/69 96 Room Air 07/03/16 21:05 105 113/79 07/03/16 21:00 113/79 07/03/16 20:00 98.6 105 20 113/79 94 Room Air 07/03/16 16:26 98.2 90 16 149/77 77 Room Air 07/03/16 12:34 97.9 84 14 133/72 96 Room Air Height (Feet): 5 Height (Inches): 1.00 Weight (Pounds): 200 HEENT: atraumatic Respiratory/Chest: lungs clear Cardiovascular: regular rhythm Abdomen: no organomegaly Laboratory Tests Test 07/04/16 06:10 White Blood Count 10.5 K/UL (4.8-10.8) Red Blood Count 3.94 M/UL (4.20-5.40) L Hemoglobin 10.9 G/DL (12.0-16.0) L Hematocrit 34.7 % (37.0-47.0) L Mean Corpuscular Volume 88 FL (80-99) Mean Corpuscular Hemoglobin 27.8 PG (27.0-31.0) Mean Corpuscular Hemoglobin Concent 31.5 G/DL (32.0-36.0) L Red Cell Distribution Width 13.8 % (11.6-14.8) Platelet Count 444 K/UL (150-450) Mean Platelet Volume 6.5 FL (6.5-10.1) Neutrophils (%) (Auto) 61.6 % (45.0-75.0) Lymphocytes (%) (Auto) 22.7 % (20.0-45.0) Monocytes (%) (Auto) 9.0 % (1.0-10.0) Eosinophils (%) (Auto) 5.7 % (0.0-3.0) H Basophils (%) (Auto) 1.0 % (0.0-2.0) Sodium Level 134 mEQ/L (135-145) L Potassium Level 4.1 mEQ/L (3.4-4.9) Chloride Level 95 mEQ/L (98-107) L Carbon Dioxide Level 25 mEQ/L (20-30) Anion Gap 14 (5-15) Blood Urea Nitrogen 14 mg/dL (7-23) Creatinine 0.9 mg/dL (0.5-0.9) Estimat Glomerular Filtration Rate > 60 mL/min (>60) Glucose Level 130 mg/dL (74-106) H Calcium Level 9.0 mg/dL (8.6-10.2) Current Medications Medications (Trade) Dose Ordered Sig/Bev Route PRN Reason Start Time Stop Time Status Last Admin Dose Admin Acetaminophen (Tylenol) 650 mg Q4H PRN ORAL FEVER 06/29/16 07:15 07/29/16 07:14 Acetaminophen (Tylenol) 650 mg Q4H PRN RECTAL Fever/Headache/Mild Pain 06/30/16 05:45 07/30/16 05:44 Acetaminophen (Tylenol) 650 mg Q6H PRN ORAL Mild Pain (Pain Scale 1-3) 06/29/16 07:15 07/29/16 07:14 Al Hydroxide/Mg Hydroxide (Mylanta II) 30 ml Q6H PRN ORAL dyspepsia 06/27/16 13:45 07/27/16 13:44 Atenolol (Tenormin) 50 mg Q12HR ORAL 06/27/16 21:00 07/27/16 20:59 07/03/16 21:05 Clonazepam (KlonoPIN) 0.5 mg DAILY ORAL 06/28/16 09:00 07/05/16 08:59 07/04/16 08:41 Clonidine HCl (Catapres) 0.2 mg Q12HR ORAL 06/27/16 21:00 07/27/16 20:59 06/28/16 08:55 Dextrose STAT PRN IV Hypoglycemia 06/27/16 13:45 07/27/16 13:44 Dextrose/ Electrolytes (D5 0.45%NS W/ KCl 20mEq) 1,000 ml @ 125 mls/hr Q8H IV 06/29/16 08:00 07/29/16 07:59 07/04/16 00:22 Heparin Sodium (Porcine) (Heparin 5000 units/ml) 5,000 units EVERY 12 HOURS SUBQ 06/27/16 21:00 07/27/16 20:59 07/04/16 08:43 Hydroxyzine HCl (Vistaril) 10 mg Q6H PRN ORAL Itching/Pruritis 06/27/16 13:45 07/27/16 13:44 Meropenem/Sodium Chloride (Merrem/Sodium Chloride) 110 ml @ 220 mls/hr Q8HR IVPB 06/27/16 16:00 07/05/16 23:59 07/04/16 05:57 Morphine Sulfate (Morphine Sulfate) 1 mg Q3H PRN IVP Moderate Pain (Pain Scale 4-6) 07/01/16 13:00 07/08/16 12:59 07/01/16 13:09 Morphine Sulfate (Morphine Sulfate) 3 mg Q3H PRN IVP Severe Pain (Pain Scale 7-10) 07/02/16 13:00 07/09/16 12:59 07/04/16 04:37 Nitroglycerin (Ntg) 0.4 mg Q5M X 3 DOSES PRN SL Prn Chest Pain 06/27/16 13:45 07/27/16 13:44 Ondansetron HCl (Zofran) 4 mg Q6H PRN IVP Nausea & Vomiting 06/29/16 07:15 07/29/16 07:14 07/03/16 21:19 Pantoprazole (Protonix) 40 mg DAILY IVP 07/01/16 10:30 07/31/16 10:29 07/04/16 08:42 Polyethylene Glycol (Miralax) 17 gm HSPRN PRN ORAL Constipation 06/27/16 13:45 07/27/16 13:44 Simethicone (Mylicon) 80 mg QIDPRN PRN ORAL gas pain 07/03/16 10:45 08/02/16 10:29 07/04/16 05:57 Temazepam (Restoril) 7.5 mg DAILYPRN PRN ORAL Insomnia 06/29/16 07:15 07/06/16 07:14 LEO OLIVEROS M.D. Jul 04, 2016 09:56
[2016-07-04 12:00] VITALS: BP 20/95
[2016-07-04 16:00] VITALS: BP 100/63
--- NOTE | 2016-07-04 23:02 | Pulmonology Progress Note ---
Assessment/Plan Problems: (1) Hydronephrosis with obstructing calculus (2) Sepsis (3) ATN (acute tubular necrosis) (4) S/P ureteral reimplantation (5) Hx of cervical cancer Assessment/Plan imroving dc home toay pain management check electrolytes Subjective ROS Limited/Unobtainable: No Allergies: Coded Allergies: ASPIRIN (Verified Allergy, Severe, SHORTNESS OF BREATH, 01/02/12) CIPROFLOXACIN (Verified Allergy, Intermediate, FEET SWELLING, 01/02/12) CIPROFLOXACIN HCL (Verified Allergy, Intermediate, FEET SWELLING, 01/02/12 ) HYDROMORPHONE HCL (Verified Allergy, Intermediate, HALLUCINATION, 01/02/12 ) TETRACYCLINE (Verified Allergy, Intermediate, Rash, 01/02/12) DIPHENHYDRAMINE (Verified Allergy, Unknown, 06/19/16) LEVOFLOXACIN (Verified Allergy, Unknown, FEET SWELLING, 11/08/13) PENICILLINS (Unverified Allergy, Unknown, 10/06/15) METOCLOPRAMIDE (Verified Adverse Reaction, Severe, tachycardia, 06/27/16) SULFAMETHOXAZOLE (Verified Adverse Reaction, Intermediate, 10/28/15) TRIMETHOPRIM (Verified Adverse Reaction, Intermediate, 10/28/15) KETOROLAC (Verified Adverse Reaction, Unknown, tachycardia, 06/27/16) Uncoded Allergies: PENICILLIN (Allergy, Unknown, 10/06/15) Objective Last 24 Hour Vital Signs Date Time Temp Pulse Resp B/P Pulse Ox O2 Delivery O2 Flow Rate FiO2 07/04/16 16:00 97.2 68 20 100/63 97 Room Air 07/04/16 12:06 97.3 07/04/16 12:00 97.3 60 20 20/95 95 Room Air 07/04/16 08:40 101/54 07/04/16 08:40 65 101/54 07/04/16 08:00 97.5 65 20 101/54 94 Room Air 07/04/16 04:00 98.2 84 20 122/74 97 Room Air 07/04/16 00:11 97.7 68 20 112/69 96 Room Air Intake and Output 07/03/16 07/04/16 19:00 07:00 Intake Total 1247 ml 1335 ml Output Total 800 ml 700 ml Balance 447 ml 635 ml Intake Oral 200 ml 240 ml IV Total 1047 ml 1095 ml Output Urine Total 800 ml 700 ml # Bowel Movements 1 Objective Lines, tubes and drains: peripheral, HEENT: normocephalic, atraumatic Neck: non-tender Respiratory/Chest: chest wall non-tender Cardiovascular/Chest: normal peripheral pulses Abdomen: normal bowel sounds, feeding tube, other Genitourinary/Rectal: normal genital exam Extremities: normal range of motion, non-tender Laboratory Tests 07/04/16 06:10: White Blood Count 10.5, Red Blood Count 3.94L, Hemoglobin 10.9L, Hematocrit 34.7L, Mean Corpuscular Volume 88, Mean Corpuscular Hemoglobin 27.8, Mean Corpuscular Hemoglobin Concent 31.5L, Red Cell Distribution Width 13.8, Platelet Count 444, Mean Platelet Volume 6.5, Neutrophils (%) (Auto) 61.6, Lymphocytes (%) (Auto) 22.7, Monocytes (%) (Auto) 9.0, Eosinophils (%) (Auto) 5.7H, Basophils (%) (Auto) 1.0, Sodium Level 134L, Potassium Level 4.1, Chloride Level 95L, Carbon Dioxide Level 25, Anion Gap 14, Blood Urea Nitrogen 14, Creatinine 0.9, Estimat Glomerular Filtration Rate > 60, Glucose Level 130H , Calcium Level 9.0 LESLY LOTT Jul 04, 2016 23:02
--- NOTE | 2016-07-06 09:41 | Discharge Summary ---
Discharge Summary Hospital Course Date of Admission Jun 27, 2016 at 09:33 Date of Discharge Jul 04, 2016 at 19:55 Admitting Diagnosis Pyleonephritis HPI Lissa Kauffman is a 61 year old female who was admitted on Jun 27, 2016 at 09: 33 for Pyleonephritis Hospital Course dc summary #[id number] Discharge Medications Continued Medications: Atenolol* (Tenormin*) 50 Mg Tablet 50 MG PO BID, #10 TAB Take 1 tablet by mouth every day. Clonazepam* (Klonopin*) 0.5 Mg Tablet 0.5 MG PO HS, #15 TAB Take 1 tablet by mouth every 4 hours as needed for anxiety. Clonidine HCl (Clonidine HCl) 0.2 Mg Tab 0.2 MG PO BID Docusate Sodium* (Docusate Sodium*) 100 Mg Capsule 100 MG ORAL TWICE A DAY, CAP Hydrocodone Bit/Acetaminophen 10-325* ([place] 10-325*) 1 Each Tablet 1 TAB ORAL Q6H PRN for For Pain, #10 TAB 0 Refills PRN PAIN Omeprazole Magnesium (Prilosec Otc) 20 Mg Tablet.dr 20 MG ORAL DAILY, TAB Ondansetron Odt* (Zofran Odt*) 8 Mg Tab.rapdis 8 MG ORAL Q6H PRN for Nausea & Vomiting, #30 TAB Potassium Chloride (Potassium Chloride) 10 Meq Tab.er.prt 10 MEQ PO DAILY, TAB Ranitidine Hcl* (Zantac*) 150 Mg Tablet 150 MG ORAL DAILY, TAB Zolpidem Tartrate* (Ambien*) 10 Mg Tablet 10 MG ORAL HS PRN for Insomnia, TAB Discontinued Medications: Ertapenem Sodium* (INVanz*) 1 Gm Vial.port 1 GM IVPB Q24H, VIAL Discharge Condition Upon Discharge: stable Discharge Disposition Patient was discharged to Home with Home Health(06) Discharge Diagnoses: Chris (Ham)Ashly NP Jul 06, 2016 09:41
--- NOTE | 2016-07-06 10:49 | Discharge Summary 2 SIG ---
DATE OF ADMISSION: 06/27/2016 DATE OF DISCHARGE: 07/04/2016 REASON FOR ADMISSION: 61-year-old female presented with vomiting and right flank pain for one night. She was vomiting the bilious emesis. She had been treated at home with IV antibiotics. The patient has a history of recurrent pyelonephritis and multiple renal stones. She denied fever or chills. She was unable to keep her medication when she was trying to take blood pressure medication and pain medication. No chest pain. No dysuria. No hematuria. Recent replacement of pacemaker battery. Denied chest pain, productive cough, or shortness of breath. She reported lower abdominal pain. Pain was constant, pressure-like, burning, 10/10 on a scale 1 to 10. There was no pain when she was discharged from the hospital prior. The patient was afebrile, in ED started on the IV hydration. Pain management addressed. Abdominal ultrasound revealed significant increase in degree of right hydronephrosis compatible with obstruction. Underlying pyelonephritis not excluded though, stable mild left hydronephrosis. The findings were discussed with the urologist, who requested abdominal and pelvic CT, which subsequently was done and revealed persistent marked right hydronephrosis and hydroureter. Associated significant right perinephric stranding suggested the possibility of pyelonephritis. No other evidence of acute abdominopelvic disease. The patient required admission. The patient had no leukocytosis. Mild anemia. Renal parameters stable upon admission. ADMITTING DIAGNOSES: 1. Hydronephrosis with obstructing calculus. 2. Possible sepsis. 3. Ureteral obstruction. 4. History of recurrent complicated pyelonephritis/urinary tract infection. HISTORY OF STAY: The patient admitted to medical/surgical floor. Urology consult and ID consult were requested. The patient started on empiric antibiotics and IV fluids. Urologist seen the patient, and the patient subsequently undergone on 06/29/2016 right ileal ureter stent placement. Initially, NPO , until bowel sounds returned. On Monday , 07/03/16, bowel sounds returned, passed gas and started on clear liquid diet. Diet was advanced as tolerated, able to tolerate diet, Pain management initially provided with PROPERTY MANAGEMENT ASSISTANT, then PROPERTY MANAGEMENT ASSISTANT was discontinued. The patient was treated with IV morphine on prn basis. Incentive spirometer at bedside. Encouraged to use and encouraged to ambulate. Fluid volume was closely monitored. The patient has a history of cardiomyopathy; however, the last echocardiogram in June 2016 revealed normal ejection fraction of 60% to 65%. The patient status post recent defibrillator placement. Interrogation done on previous admission and revealed normal functioning. Blood pressure was managed with the beta-barbara and clonidine, and was stable. DVT prophylaxis provided. LFTs were closely monitored. Hepatitis panel was negative. The patient was working with physical and occupational therapists. The patient was on empiric antibiotics. Urine culture prior revealed E. coli ESBL on prior admission. The current urine culture was negative. The patient was status post treatment with antibiotics. Antibiotics were discontinued prior to discharge. The patient was stable for discharge home with home health to follow. DISCHARGE DIAGNOSES: 1. Possible sepsis. 2. Hydronephrosis with obstructive calculus. 3. Ureteral obstruction. 4. Status post right ileal ureter stent placement. 5. History of recurrent complicated pyelonephritis /urinary tract infection. 6. History of recent automated implantable cardioverter-defibrillator implantation. 7. Hypertension. 8. Transaminitis. 9. History of cervical carcinoma, status post total abdominal hysterectomy. DISCHARGE MEDICATIONS: See medication reconciliation list. DISCHARGE INSTRUCTIONS: The patient was discharged home with home health services to follow. Follow up with the primary medical doctor and urologist. Zhao Arnold M.D. Ashly PulidoBlythedale Children'S HospitalDestin N.PTala DR: LAUREEN JOB#: [id number] CC: COLLEEN
--- NOTE | 2016-07-07 09:48 | Operative Note - Dictated ---
DATE OF OPERATION: 06/29/2016 OPERATING SURGEON: Eduardo Peoples M.D. DETECTIVE: Jose Alfredo Roberts M.D. ANESTHESIA: General endotracheal. PREOPERATIVE DIAGNOSES: Acute obstruction of the right ureter, status post ventral hernia repair, status post reimplantation of the ureter to the urinary bladder. POSTOPERATIVE DIAGNOSES: Acute obstruction of the right ureter, status post ventral hernia repair, status post reimplantation of the ureter to the urinary bladder. PROCEDURE PERFORMED: Resection of the terminal ileum with anastomosis. BACKGROUND: The patient is a 61-year-old female with a history of reimplantation of the right ureter into the urinary bladder, developed acute obstruction at the level of the anastomosis of the urinary bladder with the right ureter and she was taken urgently to the operating room by Dr. Jose Alfredo Roberts to perform ileal transposition to relieve the acute obstruction. FINDINGS: The patient has a previous ventral hernia repair with mesh, moderate amount of adhesions in the abdomen. DESCRIPTION OF PROCEDURE: The patient was placed supine, general endotracheal was induced. Abdomen was prepped and draped in the usual sterile fashion. The abdomen was opened through the old midline incision through the old mesh which was found to be in a normal position without evidence of recurrence. The adhesions between the mesh and the omentum were sharply taken down. After that, the right ureter was mobilized by mobilizing the right colon and this part of the procedure is separately dictated by Dr. Roberts. In addition, the right ureter was divided as close to the urinary bladder as possible. After that, the loop of small bowel approximately 20 cm from the ileocecal valve was chosen for resection and was divided distally and proximally using linear stapler with blue load. The loop of small bowel approximately . After that the proximal and distal part of the small bowel were used to explore the continuity of the GI tract by performing [id number] anastomosis using SANDRA-75 mm blue load and with blue load to close the . After the anastomosis was complete, the mesentry was closed with running 2-0 Vicryl suture. After that, the ileal transposition was performed and this was dictated by Dr. Roberts. The abdomen was closed by running Prolene suture taking small bytes through the mesh and through the fascia and after this part was completed, the skin was approximated with 4-0 Monocryl sutures and a 19 [place] drain was placed. At the end of procedure,the patient was extubated and transported to the recovery room. The sponge counts were correct x2. Eduardo Peoples M.D. DR: Tai JOB#: [id number] CC: COLLEEN
== END 2016-07-04 19:55 | disposition home health service (06) | DRG 710 ==
LOC: EMR 08:22 → 4E 09:33 → EDBEDREQ 12:32
PROC: 0DBB0ZZ Excision of Ileum, Open Approach (ICD-10-PCS; 2016-06-29)
PROC: 0TN60ZZ Release Right Ureter, Open Approach (ICD-10-PCS; 2016-06-29)
PROC: 0T760DZ Dilation of Right Ureter with Intraluminal Device, Open Approach (ICD-10-PCS; 2016-06-29)
PROC: 0T160ZB Bypass Right Ureter to Bladder, Open Approach (ICD-10-PCS; principal; 2016-06-29 07:00)
DX: A41.9 Sepsis, unspecified organism (principal); N17.0 Acute kidney failure with tubular necrosis; N13.1 Hydronephrosis with ureteral stricture, not elsewhere classified; N13.2 Hydronephrosis with renal and ureteral calculous obstruction; K66.0 Peritoneal adhesions (postprocedural) (postinfection); Z85.41 Personal history of malignant neoplasm of cervix uteri; Z95.810 Presence of automatic (implantable) cardiac defibrillator; I10 Essential (primary) hypertension; Z88.6 Allergy status to analgesic agent; Z88.1 Allergy status to other antibiotic agents; Z88.0 Allergy status to penicillin; Z88.8 Allergy status to other drugs, medicaments and biological substances; N12 Tubulo-interstitial nephritis, not specified as acute or chronic; Z88.2 Allergy status to sulfonamides; E66.9 Obesity, unspecified
CPT/HCPCS: 36415; 74177; 76700; 80048; 80053; 81001; 81003; 82150; 83690; 85007; 85025; 85610; 85730; 87081; 87086; 94003; 94150; J2405; J2710

== ENCOUNTER 2016-11-15 18:32 | Emergency (ER) | payer MEDICAID ==
[~2016-11-15] VITALS: Ht 154.9 cm; Wt 90.7 kg
[~2016-11-15 18:32] MED LIST changes: +INVANZ1 GM IVPB
--- NOTE | 2016-11-15 19:04 | Emergency Room Report ---
History of Present Illness General Chief Complaint: Female Urogenital Problems Present Illness HPI 61 YO Female presents to the ED c/O urinary frequency and dysuria continued despite taking multiple PO abx for UTI. pt. has extensive hx of urinary problems with surgeries, and receives abx orally and IV regulary. pt. states that her PMD did UA 4 days ago and there was presence of infection for which she has been taking Bactrim for. pt. states she continues to have symptoms and believes the medication is not working. pt. denies abdominal tenderness, denies fevers or chills. pt. reports that her left kidney is only functioning at 20% and is very anxious that continued infection will put her into renal failure. pt. has hx of HTN. and has multiple allergies to medications. denies lower extremity swelling. Denies CP, Palpitations, LOC, AMS, dizziness, Changes in Vision, Sensation, paresthesias, or a sudden severe headache. Allergies: Coded Allergies: ASPIRIN (Verified Allergy, Severe, SHORTNESS OF BREATH, 01/02/12) CIPROFLOXACIN (Verified Allergy, Intermediate, FEET SWELLING, 01/02/12) CIPROFLOXACIN HCL (Verified Allergy, Intermediate, FEET SWELLING, 01/02/12 ) HYDROMORPHONE HCL (Verified Allergy, Intermediate, HALLUCINATION, 01/02/12 ) TETRACYCLINE (Verified Allergy, Intermediate, Rash, 01/02/12) DIPHENHYDRAMINE (Verified Allergy, Unknown, 06/19/16) LEVOFLOXACIN (Verified Allergy, Unknown, FEET SWELLING, 11/08/13) PENICILLINS (Unverified Allergy, Unknown, 10/06/15) METOCLOPRAMIDE (Verified Adverse Reaction, Severe, tachycardia, 06/27/16) SULFAMETHOXAZOLE (Verified Adverse Reaction, Intermediate, 10/28/15) TRIMETHOPRIM (Verified Adverse Reaction, Intermediate, 10/28/15) KETOROLAC (Verified Adverse Reaction, Unknown, tachycardia, 06/27/16) Uncoded Allergies: PENICILLIN (Allergy, Unknown, 10/06/15) Patient History Past Medical History: see triage record Past Surgical History: none Pertinent Family History: none Now: No Immunizations: UTD Reviewed Nursing Documentation: PMH: Agreed, PSxH: Agreed Nursing Documentation-PMH Hx Cardiac Problems: Yes - AICD; Tachycardia Hx Hypertension: Yes Hx Pacemaker: Yes - aicd Hx Cancer: Yes - Cervical Hx Gastrointestinal Problems: Yes - Gastritis Hx Neurological Problems: No Hx Cerebrovascular Accident: No Hx Transient Ischemic Attacks: No Hx Dementia: No Hx Alzheimer's Disease: No Hx Parkinson's Disease: No Hx Meningitis: No Hx Encephalitis: No Hx Seizures: No Hx Epilepsy: No Hx Multiple Sclerosis: No Hx Cerebral Palsy: No Hx Amyotrophic Lat Sclerosis: No Hx Guillian-[place] Syndrome: No Hx Paralysis: No Hx Peripheral Neuropathy: No Hx Spinal Cord Injury: No Hx Head Trauma: No Hx Traumatic Brain Injury: No Hx Memory Loss: No Hx Concentration Difficulty: No Hx Speech Problem: No Hx Tremors: No Hx Vertigo: No Hx Dizziness: No Hx Syncope: No Hx Headaches: No Hx Aphasia: No Hx Dysphasia: No Hx Numbness: No Hx Weakness: No Hx Fatigue: No Hx Neurologic Surgery: No Hx Brain Shunt: No Review of Systems All Other Systems: negative except mentioned in HPI Physical Exam Vital Signs Date Time Temp Pulse Resp B/P (MAP) Pulse Ox O2 Delivery O2 Flow Rate FiO2 11/15/16 18:49 98.4 70 18 142/93 97 Room Air Sp02 EP Interpretation: reviewed, normal General Appearance: well appearing, no apparent distress, alert, GCS 15, non- toxic, obese Head: normocephalic, atraumatic Eyes: bilateral eye normal inspection, bilateral eye PERRL ENT: hearing grossly normal, normal voice Neck: full range of motion, supple/symm/no masses Respiratory: lungs clear, normal breath sounds, speaking full sentences Cardiovascular #1: regular rate, rhythm, no edema Gastrointestinal: normal bowel sounds, non tender, soft, no guarding, no rebound Rectal: deferred Genitourinary: normal inspection, no CVA tenderness Musculoskeletal: back normal, gait/station normal, normal range of motion, non- tender Neurologic: alert, oriented x3, responsive, motor strength/tone normal, sensory intact, speech normal Psychiatric: judgement/insight normal, memory normal, mood/affect normal Skin: normal color, no rash, warm/dry, well hydrated Medical Decision Making PA Attestation Dr. Gutierrez is my supervising Physician whom patient management has been discussed with. Diagnostic Impression: Primary Impression: Dysuria ER Course 61 YO Female presents to the ED c/O urinary frequency and dysuria continued despite taking multiple PO abx for UTI. pt. has extensive hx of urinary problems with surgeries, and receives abx orally and IV regulary. pt. states that her PMD did UA 4 days ago and there was presence of infection for which she has been taking Bactrim for. pt. states she continues to have symptoms and believes the medication is not working. pt. denies abdominal tenderness, denies fevers or chills. pt. reports that her left kidney is only functioning at 20% and is very anxious that continued infection will put her into renal failure. pt. has hx of HTN. and has multiple allergies to medications. denies lower extremity swelling. Denies CP, Palpitations, LOC, AMS, dizziness, Changes in Vision, Sensation, paresthesias, or a sudden severe headache. Ddx considered but are not limited to UTi , Pyelo, STI, Stone, Cystitis. ARF, Urosepsis just to name a few. Vital signs: are WNL, pt. is afebrile , NAD, non-toxic in appearance. H&PE are most consistent with dysuria continued despite oral abx usage. ORDERS: - UA labs are attached : NO evidence of infection, -CBC : Unremarkable no evidence of infection. -CMP: unremarkable, mildly elevated Cr of 1.1 ED INTERVENTIONS: -Pyridium - Dr. Roberts ( Urologist) was paged as this is his pt. - we did not hear back from him. -D/w pt. and son the results of urinary testing and laboratory work. d/w them to follow up with Urologist and PCP. D/w them to return with worsening or new symptoms. DISCHARGE: At this time pt. is stable for d/c to home. Will provide printed patient care instructions, and any necessary prescriptions. Care plan and follow up instructions have been discussed with the patient prior to discharge. Labs Test 11/15/16 19:10 11/15/16 19:55 Urine Color Pale yellow Urine Appearance Clear Urine pH 6 (4.5-8.0) Urine Specific [place] 1.010 (1.005-1.035) Urine Protein Negative (NEGATIVE) Urine Glucose (UA) Negative (NEGATIVE) Urine Ketones Negative (NEGATIVE) Urine Occult Blood 2+ (NEGATIVE) Urine Nitrite Negative (NEGATIVE) Urine Bilirubin Negative (NEGATIVE) Urine Urobilinogen Normal MG/DL (0.0-1.0) Urine Leukocyte Esterase 2+ (NEGATIVE) Urine RBC 2-4 /HPF (0 - 2) Urine WBC 2-4 /HPF (0 - 2) Urine Squamous Epithelial Cells Few /LPF (NONE/OCC) Urine Bacteria Few /HPF (NONE) White Blood Count 6.0 K/UL (4.8-10.8) Red Blood Count 4.20 M/UL (4.20-5.40) Hemoglobin 11.2 G/DL (12.0-16.0) Hematocrit 35.2 % (37.0-47.0) Mean Corpuscular Volume 84 FL (80-99) Mean Corpuscular Hemoglobin 26.6 PG (27.0-31.0) Mean Corpuscular Hemoglobin Concent 31.7 G/DL (32.0-36.0) Red Cell Distribution Width 15.4 % (11.6-14.8) Platelet Count 289 K/UL (150-450) Mean Platelet Volume 5.9 FL (6.5-10.1) Neutrophils (%) (Auto) 54.6 % (45.0-75.0) Lymphocytes (%) (Auto) 34.6 % (20.0-45.0) Monocytes (%) (Auto) 5.4 % (1.0-10.0) Eosinophils (%) (Auto) 4.3 % (0.0-3.0) Basophils (%) (Auto) 1.2 % (0.0-2.0) Sodium Level 138 mEQ/L (135-145) Potassium Level 4.6 mEQ/L (3.4-4.9) Chloride Level 100 mEQ/L (98-107) Carbon Dioxide Level 22 mEQ/L (20-30) Anion Gap 16 (5-15) Blood Urea Nitrogen 20 mg/dL (7-23) Creatinine 1.1 mg/dL (0.5-0.9) Estimat Glomerular Filtration Rate 50.2 mL/min (>60) Glucose Level 115 mg/dL (74-106) Calcium Level 10.0 mg/dL (8.6-10.2) Total Bilirubin < 0.2 mg/dL (0.0-1.2) Aspartate Amino Transf (AST/SGOT) 24 U/L (5-40) Alanine Aminotransferase (ALT/SGPT) 15 U/L (3-33) Alkaline Phosphatase 108 U/L (35-104) Total Protein 7.8 g/dL (6.6-8.7) Albumin 3.8 g/dL (3.5-5.2) Globulin 4.0 g/dL Albumin/Globulin Ratio 0.9 (1.0-2.7) Last Vital Signs Date Time Temp Pulse Resp B/P (MAP) Pulse Ox O2 Delivery O2 Flow Rate FiO2 11/15/16 18:49 98.4 70 18 142/93 97 Room Air Disposition: HOME, SELF-CARE Condition: Stable Patient Instructions: Dysuria Additional Instructions: Take previously prescribed medications as directed. Follow up with your Urologist and Primary Care Provider in 3 days, even if your symptoms have resolved. --Please review list of primary care clinics, if you do not already have a primary care provider Return sooner to ED if new symptoms occur, or current symptoms become worse. - Please note that this Emergency Department Report was dictated using [employer] shaker technology software, occasionally this can lead to erroneous entry secondary to interpretation by the dictation equipment. Jane Cm Nov 15, 2016 19:04
[2016-11-15 19:30] VITALS: BP 142/93
[2016-11-15 19:51] LABS: APPEARANCE,URINE CLEAR; KETONES,URINE NEGATIVE (NEGATIVE); LEUKOCYTE ESTERASE ,URINE 2+ (NEGATIVE); NITRITE,URINE NEGATIVE (NEGATIVE); PH,URINE 6 (4.5-8.0); PROTEIN,URINE NEGATIVE (NEGATIVE); UROBILINOGEN,URINE NORMAL MG/DL (0.0-1.0)
[2016-11-15 19:59] LABS: BACTERIA,URINE FEW /HPF; SQUAMOUS EPITHELIAL CELL,UR FEW /LPF (NONE/OCC)
[2016-11-15 20:08] LABS: BASOPHILS % (AUTO) 1.2 % (0.0-2.0); EOSINOPHILS % (AUTO) 4.3 % (0.0-3.0); LYMPHOCYTES % (AUTO) 34.6 % (20.0-45.0); MEAN CORPUSCULAR HEMOGLOBIN 26.6 PG (27.0-31.0); MEAN CORPUSCULAR HGB CONC 31.7 G/DL (32.0-36.0); MEAN CORPUSCULAR VOLUME 84 FL (80-99); MEAN PLATELET VOLUME 5.9 FL (6.5-10.1); MONOCYTES % (AUTO) 5.4 % (1.0-10.0); NEUTROPHILS % (AUTO) 54.6 % (45.0-75.0); PLATELET COUNT 289 K/UL (150-450); RED CELL DISTRIBUTION WIDTH 15.4 % (11.6-14.8)
[2016-11-15 20:27] LABS: ALANINE AMINOTRANSFERASE 15 U/L (3-33); ALBUMIN/GLOBULIN RATIO 0.9 (1.0-2.7); ANION GAP 16 (5-15); ASPARTATE AMINO TRANSFERASE 24 U/L (5-40); CARBON DIOXIDE 22 mEQ/L (20-30); CHLORIDE 100 mEQ/L (98-107); CREATININE 1.1 mg/dL (0.5-0.9); GLOMERULAR FILTRATION RATE 50.2 mL/min (>60); HEMOLYSIS 68; POTASSIUM 4.6 mEQ/L (3.4-4.9); SODIUM 138 mEQ/L (135-145); TOTAL PROTEIN 7.8 g/dL (6.6-8.7)
[2016-11-15] MEDS ORDERED: Phenazopyridine 200mg tab ORAL ONE (20:30)
[2016-11-15 20:47] VITALS: BP 138/88
== END 2016-11-15 20:45 | disposition home or self-care (01) ==
LOC: EMR 19:30 → CANBEDREQ 20:24 → EMR 20:45
DX: R30.0 Dysuria (principal); I10 Essential (primary) hypertension; Z88.1 Allergy status to other antibiotic agents; Z88.6 Allergy status to analgesic agent; Z88.0 Allergy status to penicillin; Z88.2 Allergy status to sulfonamides; Z95.810 Presence of automatic (implantable) cardiac defibrillator; Z85.41 Personal history of malignant neoplasm of cervix uteri
CPT/HCPCS: 36415; 80053; 81003; 85025; 99283

== ENCOUNTER 2017-10-08 10:47 | Inpatient (IN) | payer MEDICAID ==
[~2017-10-08] VITALS: Ht 154.9 cm; Wt 103.0 kg
[2017-10-08 11:13] VITALS: BP 137/77
[2017-10-08 12:08] LABS: BASOPHILS % (AUTO) 1.2 % (0.0-2.0); EOSINOPHILS % (AUTO) 3.2 % (0.0-3.0); HEMATOCRIT 39.2 % (37.0-47.0); HEMOGLOBIN 12.2 G/DL (12.0-16.0); LYMPHOCYTES % (AUTO) 31.6 % (20.0-45.0); MEAN CORPUSCULAR VOLUME 88 FL (80-99); MONOCYTES % (AUTO) 5.7 % (1.0-10.0); NEUTROPHILS % (AUTO) 58.2 % (45.0-75.0); PLATELET COUNT 262 K/UL (150-450); RED BLOOD COUNT 4.43 M/UL (4.20-5.40); RED CELL DISTRIBUTION WIDTH 13.5 % (11.6-14.8); WHITE BLOOD COUNT 5.3 K/UL (4.8-10.8)
[2017-10-08 12:08] LABS: APPEARANCE,URINE SLIGHTLY CLOUDY; BILIRUBIN, URINE NEGATIVE (NEGATIVE); GLUCOSE, URINE (UA) NEGATIVE (NEGATIVE); KETONES,URINE NEGATIVE (NEGATIVE); LEUKOCYTE ESTERASE ,URINE 3+ (NEGATIVE); NITRITE,URINE POSITIVE (NEGATIVE); PH,URINE 5 (4.5-8.0); PROTEIN,URINE 2+ (NEGATIVE); UROBILINOGEN,URINE NORMAL MG/DL (0.0-1.0)
[2017-10-08 12:21] LABS: COLOR,URINE YELLOW
[2017-10-08 12:28] LABS: ANION GAP 13 mmol/L (5-15); BLOOD UREA NITROGEN 16 mg/dL (7-18); CARBON DIOXIDE 19 MMOL/L (21-32); CHLORIDE 106 MMOL/L (98-107); POTASSIUM 4.2 MMOL/L (3.5-5.1); SODIUM 138 MMOL/L (136-145)
[2017-10-08 12:32] LABS: ALANINE AMINOTRANSFERASE 22 U/L (12-78); ALBUMIN 3.3 G/DL (3.4-5.0); ALBUMIN/GLOBULIN RATIO 0.7 (1.0-2.7); ALKALINE PHOSPHATASE 96 U/L (46-116); ASPARTATE AMINO TRANSFERASE 22 U/L (15-37); BILIRUBIN,TOTAL 0.2 MG/DL (0.2-1.0)
[2017-10-08] MEDS ORDERED: Ertapenem 1 GM in NS 55 ML IVPB ONE (13:00)
[2017-10-08 13:45] VITALS: BP 113/64
--- NOTE | 2017-10-08 13:54 | Emergency Room Report ---
History of Present Illness General Chief Complaint: Female Urogenital Problems Source: Patient Present Illness HPI Patient is a 62-year-old female who presented after increased dysuria as well as a left-sided flank pain. Patient had prior history of recurrent urinary infections as well as renal stones. Patient had multidrug-resistant organism previously. The patient was noted to have a previous renal surgery involving her right kidney in which she had partial replacement of the ureter. The urology surgery was performed Dr. Lenny Roberts Allergies: Coded Allergies: ASPIRIN (Verified Allergy, Severe, SHORTNESS OF BREATH, 01/02/12) CIPROFLOXACIN (Verified Allergy, Intermediate, FEET SWELLING, 01/02/12) CIPROFLOXACIN HCL (Verified Allergy, Intermediate, FEET SWELLING, 01/02/12 ) HYDROMORPHONE HCL (Verified Allergy, Intermediate, HALLUCINATION, 01/02/12 ) TETRACYCLINE (Verified Allergy, Intermediate, Rash, 01/02/12) LEVOFLOXACIN (Verified Allergy, Unknown, FEET SWELLING, 11/08/13) PENICILLINS (Unverified Allergy, Unknown, 10/06/15) METOCLOPRAMIDE (Verified Adverse Reaction, Severe, tachycardia, 06/27/16) SULFAMETHOXAZOLE (Verified Adverse Reaction, Intermediate, 10/28/15) TRIMETHOPRIM (Verified Adverse Reaction, Intermediate, 10/28/15) KETOROLAC (Verified Adverse Reaction, Unknown, tachycardia, 06/27/16) Uncoded Allergies: PENICILLIN (Allergy, Unknown, 10/06/15) Patient History Past Medical History: see triage record Last Menstrual Period: na Reviewed Nursing Documentation: PMH: Agreed; PSxH: Agreed Nursing Documentation-PMH Past Medical History: No History, Except For Hx Cardiac Problems: Yes - AICD; Tachycardia Hx Hypertension: Yes Hx Pacemaker: Yes - aicd Hx Cancer: Yes - Cervical Hx Gastrointestinal Problems: Yes - Gastritis Hx Neurological Problems: No Hx Cerebrovascular Accident: No Hx Transient Ischemic Attacks: No Hx Dementia: No Hx Alzheimer's Disease: No Hx Parkinson's Disease: No Hx Meningitis: No Hx Encephalitis: No Hx Seizures: No Hx Epilepsy: No Hx Multiple Sclerosis: No Hx Cerebral Palsy: No Hx Amyotrophic Lat Sclerosis: No Hx Guillian-Hye Syndrome: No Hx Paralysis: No Hx Peripheral Neuropathy: No Hx Spinal Cord Injury: No Hx Head Trauma: No Hx Traumatic Brain Injury: No Hx Memory Loss: No Hx Concentration Difficulty: No Hx Speech Problem: No Hx Tremors: No Hx Vertigo: No Hx Dizziness: No Hx Syncope: No Hx Headaches: No Hx Aphasia: No Hx Dysphasia: No Hx Numbness: No Hx Weakness: No Hx Fatigue: No Hx Neurologic Surgery: No Hx Brain Shunt: No Review of Systems All Other Systems: negative except mentioned in HPI Physical Exam Vital Signs Date Time Temp Pulse Resp B/P (MAP) Pulse Ox O2 Delivery O2 Flow Rate FiO2 10/08/17 10:53 98.0 61 18 141/91 98 Room Air 98.1 Sp02 EP Interpretation: reviewed, normal General Appearance: normal inspection, well appearing, no apparent distress, alert, obese Head: atraumatic ENT: normal ENT inspection, hearing grossly normal, normal voice Neck: normal inspection, full range of motion, supple, no bony tend Respiratory: normal inspection, lungs clear, normal breath sounds, no respiratory distress, no retraction, no wheezing Cardiovascular #1: regular rate, rhythm, no edema Gastrointestinal: normal inspection, normal bowel sounds, non tender, soft, no guarding, no hernia Genitourinary: no CVA tenderness Musculoskeletal: normal inspection, back normal, normal range of motion Neurologic: normal inspection, alert, oriented x3, responsive, 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 Differential diagnosis included was not limited to appendicitis, urinary tract infection, pelvic inflammatory disease, urethritis, herpes among others.Because of complexity of patient's case laboratory testing and imaging studies were ordered. The laboratory testing showed a normal white blood count. Urinalysis was noted to have evidence of urinary tract infection. Patient was noted to have previous cultures which showed multidrug-resistant organism sensitive only to the very few antibiotics. Renal ultrasound showed no evidence of hydronephrosis or obstructing stone. Patient was given IV meropenem due to previous cultures Patient was given IV fluids. She was given IV morphine for pain. Dr. Jonh Jeronimo was contacted for inpatient management due to panel physician Labs Test 10/08/17 11:00 10/08/17 11:40 Urine Color Yellow Urine Appearance Slightly cloudy Urine pH 5 (4.5-8.0) Urine Specific [place] 1.015 (1.005-1.035) Urine Protein 2+ (NEGATIVE) Urine Glucose (UA) Negative (NEGATIVE) Urine Ketones Negative (NEGATIVE) Urine Occult Blood 4+ (NEGATIVE) Urine Nitrite Positive (NEGATIVE) Urine Bilirubin Negative (NEGATIVE) Urine Urobilinogen Normal MG/DL (0.0-1.0) Urine Leukocyte Esterase 3+ (NEGATIVE) Urine RBC 5-10 /HPF (0 - 2) Urine WBC 40-60 /HPF (0 - 2) Urine Squamous Epithelial Cells Few /LPF (NONE/OCC) Urine Bacteria Many /HPF (NONE) White Blood Count 5.3 K/UL (4.8-10.8) Red Blood Count 4.43 M/UL (4.20-5.40) Hemoglobin 12.2 G/DL (12.0-16.0) Hematocrit 39.2 % (37.0-47.0) Mean Corpuscular Volume 88 FL (80-99) Mean Corpuscular Hemoglobin 27.5 PG (27.0-31.0) Mean Corpuscular Hemoglobin Concent 31.0 G/DL (32.0-36.0) Red Cell Distribution Width 13.5 % (11.6-14.8) Platelet Count 262 K/UL (150-450) Mean Platelet Volume 5.8 FL (6.5-10.1) Neutrophils (%) (Auto) 58.2 % (45.0-75.0) Lymphocytes (%) (Auto) 31.6 % (20.0-45.0) Monocytes (%) (Auto) 5.7 % (1.0-10.0) Eosinophils (%) (Auto) 3.2 % (0.0-3.0) Basophils (%) (Auto) 1.2 % (0.0-2.0) Prothrombin Time 10.6 SEC (9.30-11.50) Prothromb Time International Ratio 1.0 (0.9-1.1) Activated Partial Thromboplast Time 24 SEC (23-33) Sodium Level 138 MMOL/L (136-145) Potassium Level 4.2 MMOL/L (3.5-5.1) Chloride Level 106 MMOL/L (98-107) Carbon Dioxide Level 19 MMOL/L (21-32) Anion Gap 13 mmol/L (5-15) Blood Urea Nitrogen 16 mg/dL (7-18) Creatinine 1.0 MG/DL (0.55-1.30) Estimat Glomerular Filtration Rate 55.8 mL/min (>60) Glucose Level 128 MG/DL (74-106) Lactic Acid Level 1.80 mmol/L (0.4-2.0) Calcium Level 9.0 MG/DL (8.5-10.1) Total Bilirubin 0.2 MG/DL (0.2-1.0) Aspartate Amino Transf (AST/SGOT) 22 U/L (15-37) Alanine Aminotransferase (ALT/SGPT) 22 U/L (12-78) Alkaline Phosphatase 96 U/L (46-116) Troponin I 0.000 ng/mL (0.000-0.056) Total Protein 7.8 G/DL (6.4-8.2) Albumin 3.3 G/DL (3.4-5.0) Globulin 4.5 g/dL Albumin/Globulin Ratio 0.7 (1.0-2.7) Lipase 139 U/L (73-393) EKG Diagnostic Results Rate: normal Rhythm: NSR ST Segments: no acute changes Last Vital Signs Date Time Temp Pulse Resp B/P (MAP) Pulse Ox O2 Delivery O2 Flow Rate FiO2 10/08/17 11:13 98.1 18 137/77 99 Room Air 98.1 10/08/17 10:53 61 Status: unchanged Disposition: ADMITTED INPATIENT Condition: Serious Referrals: [facility],REFERRING (PCP) Marquez Wu MD Oct 08, 2017 13:54
[2017-10-08] MEDS ORDERED: Morphine Sulfate 4mg/ml Inj IVP ONE (14:15)
[2017-10-08] MEDS ORDERED: LORazepam Inj 2mg/ml 1ml IV PRN ×2 (15:15→15:45)
[2017-10-08] MEDS ORDERED: Mylanta II UD 30ml ORAL PRN (15:15)
[2017-10-08] MEDS ORDERED: Miralax 17gm pkt ORAL PRN (15:15)
[2017-10-08 15:24] VITALS: BP 121/67
[2017-10-08 15:45] VITALS: BP 137/67
[2017-10-08 16:10] VITALS: BP 137/84
[2017-10-08] MEDS ORDERED: BENADRYL25 M3 PO (16:28)
[2017-10-08] MEDS ORDERED: HYDROXYZINE HCL25 M1 PO (16:28)
[2017-10-08] MEDS ORDERED: DiphenhydrAMINE 50mg/ml Inj IVP PRN (17:15)
[2017-10-08] MEDS ORDERED: FLUCONAZOLE100 MG ORAL (18:11)
[2017-10-08 20:00] VITALS: BP 135/85
[2017-10-08] MEDS: Meropenem 1 GM in NS 55 ML IVPB SCH (20:31)
[2017-10-08] MEDS: Morphine Sulfate 4mg/ml Inj IVP PRN (20:44)
[2017-10-08] MEDS: Zolpidem 5mg tab ORAL PRN (22:49)
[2017-10-08] MEDS: clonazePAM 0.5mg tab ORAL PRN (22:49)
[2017-10-09] VITALS: BP 110/68
[2017-10-09 04:00] VITALS: BP 111/67
[2017-10-09 08:00] VITALS: BP 154/82
[2017-10-09 08:06] LABS: BASOPHILS % (AUTO) 0.7 % (0.0-2.0); EOSINOPHILS % (AUTO) 4.7 % (0.0-3.0); HEMATOCRIT 36.9 % (37.0-47.0); HEMOGLOBIN 11.8 G/DL (12.0-16.0); LYMPHOCYTES % (AUTO) 31.9 % (20.0-45.0); MEAN CORPUSCULAR VOLUME 89 FL (80-99); NEUTROPHILS % (AUTO) 56.7 % (45.0-75.0); PLATELET COUNT 246 K/UL (150-450); RED BLOOD COUNT 4.13 M/UL (4.20-5.40); RED CELL DISTRIBUTION WIDTH 13.6 % (11.6-14.8); WHITE BLOOD COUNT 5.8 K/UL (4.8-10.8)
[2017-10-09] MEDS: Meropenem 1 GM in NS 55 ML IVPB SCH (08:19)
[2017-10-09 09:25] LABS: ALANINE AMINOTRANSFERASE 27 U/L (12-78); ALBUMIN 3.3 G/DL (3.4-5.0); ALBUMIN/GLOBULIN RATIO 0.8 (1.0-2.7); ALKALINE PHOSPHATASE 91 U/L (46-116); ANION GAP 10 mmol/L (5-15); ASPARTATE AMINO TRANSFERASE 22 U/L (15-37); BILIRUBIN,TOTAL 0.2 MG/DL (0.2-1.0); BLOOD UREA NITROGEN 15 mg/dL (7-18); CALCIUM 8.9 MG/DL (8.5-10.1); CARBON DIOXIDE 24 MMOL/L (21-32); CHLORIDE 106 MMOL/L (98-107); CHOLESTEROL 218 MG/DL (< 200); CREATININE 0.9 MG/DL (0.55-1.30); HDL CHOLESTEROL 55 MG/DL (40-60); POTASSIUM 3.9 MMOL/L (3.5-5.1); SODIUM 140 MMOL/L (136-145); TRIGLYCERIDES 245 MG/DL (30-150)
[2017-10-09] MEDS: Morphine Sulfate 4mg/ml Inj IVP PRN ×2 (10:12→17:50)
--- NOTE | 2017-10-09 10:25 | Diagnostic Imaging Report ---
Indication: Pain Technique: US Renal Comp Comparison: Abdominal CT and ultrasound 06/27/2016 Findings: Right kidney measures 13.2 cm in length. Left kidney measures 11.7 cm in length. Parenchymal echogenicity appears within normal limits. There is minimal if any fullness of the right-sided renal collecting system. No definite urinary tract stone identified. No left-sided hydronephrosis. Echogenic focus in the left renal hilum may represent sinus fat or vascular calcification. The bladder is decompressed, precluding its evaluation IMPRESSION: * Minimal fullness of the right renal collecting system. * No evidence of hydronephrosis on the left. * Renal parenchymal echogenicity within normal limits. * Echogenic foci in the renal kristel possibly related to prominent sinus fat versus vascular calcifications. Possibility of tiny nonobstructing stones thought less likely. * Bladder decompressed, precluding its evaluation.
[2017-10-09] MEDS ORDERED: NS 500ML ONE (11:05)
[2017-10-09] MEDS ORDERED: Tubing IV Secondary IV ONE (11:05)
[2017-10-09 12:00] VITALS: BP 141/90
--- NOTE | 2017-10-09 12:23 | Consultation ---
History of Present Illness General Date patient seen: Oct 09, 2017 Chief Complaint: Female Urogenital Problems Present Illness HPI 62-year-old female with multiple chronic urological problems presented after increased dysuria as well as a left-sided flank pain. Patient had prior history of recurrent urinary infections as well as renal stones. Patient had multidrug-resistant organism previously. She had a previous renal surgery involving her right kidney in which she had partial replacement of the ureter. she had multi-drug resistant organism in urine and admitted for further management. Allergies: Coded Allergies: ASPIRIN (Verified Allergy, Severe, SHORTNESS OF BREATH, 01/02/12) CIPROFLOXACIN (Verified Allergy, Intermediate, FEET SWELLING, 01/02/12) CIPROFLOXACIN HCL (Verified Allergy, Intermediate, FEET SWELLING, 01/02/12 ) HYDROMORPHONE HCL (Verified Allergy, Intermediate, HALLUCINATION, 01/02/12 ) TETRACYCLINE (Verified Allergy, Intermediate, Rash, 01/02/12) LEVOFLOXACIN (Verified Allergy, Unknown, FEET SWELLING, 11/08/13) PENICILLINS (Unverified Allergy, Unknown, 10/06/15) METOCLOPRAMIDE (Verified Adverse Reaction, Severe, tachycardia, 06/27/16) SULFAMETHOXAZOLE (Verified Adverse Reaction, Intermediate, 10/28/15) TRIMETHOPRIM (Verified Adverse Reaction, Intermediate, 10/28/15) KETOROLAC (Verified Adverse Reaction, Unknown, tachycardia, 06/27/16) Uncoded Allergies: PENICILLIN (Allergy, Unknown, 10/06/15) Medication History Scheduled Atenolol* (Tenormin*), 50 MG PO BID, (Reported) Clonazepam* (Klonopin*), 0.5 MG PO HS, (Reported) Clonidine HCl (Clonidine HCl), 0.2 MG PO BID, (Reported) Diphenhydramine HCl (Benadryl), 25 MG PO BEDTIME, (Reported) Docusate Sodium* (Docusate Sodium*), 100 MG ORAL TWICE A DAY, (Reported) Fluconazole (Fluconazole), 150 MG ORAL DAILY, (Reported) Hydroxyzine Hcl (Hydroxyzine Hcl), 25 MG PO BEDTIME, (Reported) Omeprazole Magnesium (Prilosec Otc), 20 MG ORAL DAILY, (Reported) Potassium Chloride (Potassium Chloride), 10 MEQ PO DAILY, (Reported) Ranitidine Hcl* (Zantac*), 150 MG ORAL DAILY, (Reported) Scheduled PRN Hydrocodone Bit/Acetaminophen 10-325* ([place] 10-325*), 1 TAB ORAL Q6H PRN for For Pain, (Reported) Ondansetron Odt* (Zofran Odt*), 8 MG ORAL Q6H PRN for Nausea & Vomiting, ( Reported) Zolpidem Tartrate* (Ambien*), 10 MG ORAL HS PRN for Insomnia, (Reported) Patient History Healthcare decision maker Resuscitation status Full Code Advanced Directive on File Past Medical/Surgical History Past Medical/Surgical History: (1) S/P ureteral reimplantation (2) Hx of cervical cancer (3) Kidney stone Review of Systems All Other Systems: negative except mentioned in HPI Physical Exam General Appearance: WD/WN Lines, tubes and drains: peripheral HEENT: normocephalic, atraumatic Neck: non-tender, normal alignment Respiratory/Chest: chest wall non-tender, lungs clear Cardiovascular/Chest: normal peripheral pulses, normal rate Abdomen: normal bowel sounds Genitourinary/Rectal: normal genital exam Extremities: normal range of motion Last 24 Hour Vital Signs Date Time Temp Pulse Resp B/P (MAP) Pulse Ox O2 Delivery O2 Flow Rate FiO2 10/09/17 09:00 Room Air 10/09/17 08:00 72 10/09/17 08:00 98.0 75 18 154/82 (106) 96 98.0 10/09/17 04:00 97.6 65 20 111/67 (82) 95 97.6 10/09/17 04:00 62 10/09/17 00:00 63 10/09/17 00:00 98.2 64 20 110/68 (82) 96 98.2 10/08/17 21:00 Room Air 10/08/17 20:00 67 10/08/17 20:00 98.1 66 20 135/85 (102) 94 98.1 10/08/17 17:10 Room Air 10/08/17 16:15 62 10/08/17 16:10 97.9 65 20 137/84 (101) 99 97.9 10/08/17 16:08 98.1 72 16 137/67 100 Room Air 98.1 10/08/17 15:45 98.1 72 16 137/67 100 Room Air 98.1 10/08/17 15:24 98.1 68 17 121/67 100 Room Air 98.1 10/08/17 14:46 98.1 10/08/17 14:16 98.1 10/08/17 13:45 98.1 65 18 113/64 100 Room Air 98.1 Intake and Output 10/08/17 10/09/17 19:00 07:00 Intake Total 295 ml Balance 295 ml Intake Oral 240 ml IV Total 55 ml # Voids 1 2 Laboratory Tests Test 10/09/17 06:45 White Blood Count 5.8 K/UL (4.8-10.8) Red Blood Count 4.13 M/UL (4.20-5.40) L Hemoglobin 11.8 G/DL (12.0-16.0) L Hematocrit 36.9 % (37.0-47.0) L Mean Corpuscular Volume 89 FL (80-99) Mean Corpuscular Hemoglobin 28.6 PG (27.0-31.0) Mean Corpuscular Hemoglobin Concent 32.0 G/DL (32.0-36.0) Red Cell Distribution Width 13.6 % (11.6-14.8) Platelet Count 246 K/UL (150-450) Mean Platelet Volume 5.8 FL (6.5-10.1) L Neutrophils (%) (Auto) 56.7 % (45.0-75.0) Lymphocytes (%) (Auto) 31.9 % (20.0-45.0) Monocytes (%) (Auto) 6.0 % (1.0-10.0) Eosinophils (%) (Auto) 4.7 % (0.0-3.0) H Basophils (%) (Auto) 0.7 % (0.0-2.0) Sodium Level 140 MMOL/L (136-145) Potassium Level 3.9 MMOL/L (3.5-5.1) Chloride Level 106 MMOL/L (98-107) Carbon Dioxide Level 24 MMOL/L (21-32) Anion Gap 10 mmol/L (5-15) Blood Urea Nitrogen 15 mg/dL (7-18) Creatinine 0.9 MG/DL (0.55-1.30) Estimat Glomerular Filtration Rate > 60 mL/min (>60) Glucose Level 100 MG/DL (74-106) Calcium Level 8.9 MG/DL (8.5-10.1) Total Bilirubin 0.2 MG/DL (0.2-1.0) Aspartate Amino Transf (AST/SGOT) 22 U/L (15-37) Alanine Aminotransferase (ALT/SGPT) 27 U/L (12-78) Alkaline Phosphatase 91 U/L (46-116) Total Protein 7.5 G/DL (6.4-8.2) Albumin 3.3 G/DL (3.4-5.0) L Globulin 4.2 g/dL Albumin/Globulin Ratio 0.8 (1.0-2.7) L Triglycerides Level 245 MG/DL (30-150) H Cholesterol Level 218 MG/DL (< 200) H LDL Cholesterol 129 mg/dL (<100) H HDL Cholesterol 55 MG/DL (40-60) Cholesterol/HDL Ratio 4.0 (3.3-4.4) Thyroid Stimulating Hormone (TSH) 3.872 uiU/mL (0.358-3.740) Height (Feet): 5 Height (Inches): 1.00 Weight (Pounds): 212 Medications Current Medications Medications (Trade) Dose Ordered Sig/Bev Route PRN Reason Start Time Stop Time Status Last Admin Dose Admin Acetaminophen (Tylenol) 650 mg Q4H PRN ORAL fever 10/08/17 15:15 11/07/17 15:14 Al Hydroxide/Mg Hydroxide (Mylanta II) 30 ml Q6H PRN ORAL dyspepsia 10/08/17 15:15 11/07/17 15:14 Clonazepam (KlonoPIN) 0.5 mg Q8H PRN ORAL anxiety 10/08/17 15:15 10/15/17 15:14 10/08/17 22:49 Dextrose (Dextrose 50%) 25 ml STAT PRN IV Hypoglycemia 10/08/17 15:15 11/07/17 15:14 Dextrose (Dextrose 50%) 50 ml STAT PRN IV Hypoglycemia 10/08/17 15:45 11/07/17 15:44 Diphenhydramine HCl (Benadryl) 25 mg Q6H PRN IVP Itching 10/08/17 17:15 11/07/17 17:14 Fluconazole 50 ml @ 50 mls/hr DAILY IV 10/09/17 12:00 10/16/17 11:59 Lorazepam (Ativan 2mg/ml 1ml) 0.5 mg Q4H PRN IV For Anxiety 10/08/17 15:45 10/15/17 15:14 Meropenem 1 gm/ Sodium Chloride 110 ml @ 220 mls/hr Q8HR IVPB 10/09/17 14:00 10/14/17 13:59 Morphine Sulfate (Morphine Sulfate) 4 mg Q4H PRN IVP Severe Pain (Pain Scale 7-10) 10/08/17 17:15 10/15/17 17:14 10/09/17 10:12 Ondansetron HCl (Zofran) 4 mg Q6H PRN IVP Nausea & Vomiting 10/08/17 15:15 11/07/17 15:14 10/08/17 16:50 Pantoprazole (Protonix) 40 mg DAILY ORAL 10/09/17 09:00 11/08/17 08:59 10/09/17 08:20 Polyethylene Glycol (Miralax) 17 gm HSPRN PRN ORAL Constipation 10/08/17 15:15 11/07/17 15:14 Zolpidem Tartrate (Ambien) 5 mg HSPRN PRN ORAL Insomnia 10/08/17 15:15 10/15/17 15:14 10/08/17 22:49 Assessment/Plan Problem List: (1) Pyelonephritis ICD Codes: N12 - Tubulo-interstitial nephritis, not specified as acute or chronic SNOMED: 94681128 (2) Multiple allergies ICD Codes: Z88.9 - Allergy status to unspecified drugs, medicaments and biological substances status SNOMED: 233594434 (3) Sepsis ICD Codes: A41.9 - Sepsis, unspecified organism SNOMED: 25242286 (4) ESBL (extended spectrum beta-lactamase) producing bacteria infection ICD Codes: A49.9 - Bacterial infection, unspecified; Z16.12 - Extended spectrum beta lactamase (ESBL) resistance SNOMED: 575569600 (5) Hx of cervical cancer ICD Codes: Z85.41 - Personal history of malignant neoplasm of cervix uteri SNOMED: 022433709 (6) HTN (hypertension) ICD Codes: I10 - Essential (primary) hypertension SNOMED: 88774249 Assessment/Plan mulligan culture symptomatic treatment IV abx as per ID monitor BP Zhao Arnold MD Oct 09, 2017 12:23
[2017-10-09] MEDS: Meropenem 1gm/NS 110ml IVPB SCH ×4 (15:28→21:30)
[2017-10-09 16:00] VITALS: BP 138/81
--- NOTE | 2017-10-09 18:06 | Consultation ---
History of Present Illness General Date patient seen: Oct 09, 2017 Chief Complaint: Female Urogenital Problems Present Illness HPI 62 y/o F with hx of recurrent UTI, nephro and uretero-lithiasis s/p multiple retrograde intrarenal surgeries and percut lithotripsies, R ureteral stricture after a gynecological procedure s/p ureteral re-implantation, MDROs, s/p R kidne surgery w/ partial preplacement of ureter presents to ED on 10/08 with increased dysuria, L side flank pain Patient admitted back in June 2016 w/ obstructed R kidney stone. At that time found to have ESBL E.coli pyelonephritis. She underwent s/p ventral hernia repair, reimplantation of ureter to bladder and resection of terminal ileum with anastomosis. 07/04/16 // Recurrent complicated UTI / pyelonephrosis UCx: ESBL Ecoli - CT: Persistent marked right hydronephrosis and hydroureter wtranding suggests the possibility pyelonephritis - bilateral nephrolithiasis SP stent // Fever SP // transaminitis , SP Hep B/C: Neg - Liver US :Moderate to severe right hydronephrosis, also previously reported on multiple earlier exams. Ex-lap, right ureteral re-implantation Status post [facility] [employer] defibrillator implantation. Hx of cervical cancer SP total abdominal hysterectomy Multiple ABX allergies / intolerances - tolerating aztreonam ( no Hx of Anaphylaxis to PCN ) Full Code PLAN: - cont IV Merrem d# 13 / 14 ( 06/21 SP Azactam d# 3 ) - monitor CBC, temperatures - monitor BMP Allergies: Coded Allergies: ASPIRIN (Verified Allergy, Severe, SHORTNESS OF BREATH, 01/02/12) CIPROFLOXACIN (Verified Allergy, Intermediate, FEET SWELLING, 01/02/12) CIPROFLOXACIN HCL (Verified Allergy, Intermediate, FEET SWELLING, 01/02/12 ) HYDROMORPHONE HCL (Verified Allergy, Intermediate, HALLUCINATION, 01/02/12 ) TETRACYCLINE (Verified Allergy, Intermediate, Rash, 01/02/12) LEVOFLOXACIN (Verified Allergy, Unknown, FEET SWELLING, 11/08/13) PENICILLINS (Unverified Allergy, Unknown, 10/06/15) METOCLOPRAMIDE (Verified Adverse Reaction, Severe, tachycardia, 06/27/16) SULFAMETHOXAZOLE (Verified Adverse Reaction, Intermediate, 10/28/15) TRIMETHOPRIM (Verified Adverse Reaction, Intermediate, 10/28/15) KETOROLAC (Verified Adverse Reaction, Unknown, tachycardia, 06/27/16) Uncoded Allergies: PENICILLIN (Allergy, Unknown, 10/06/15) Medication History Scheduled Atenolol* (Tenormin*), 50 MG PO BID, (Reported) Clonazepam* (Klonopin*), 0.5 MG PO HS, (Reported) Clonidine HCl (Clonidine HCl), 0.2 MG PO BID, (Reported) Diphenhydramine HCl (Benadryl), 25 MG PO BEDTIME, (Reported) Docusate Sodium* (Docusate Sodium*), 100 MG ORAL TWICE A DAY, (Reported) Fluconazole (Fluconazole), 150 MG ORAL DAILY, (Reported) Hydroxyzine Hcl (Hydroxyzine Hcl), 25 MG PO BEDTIME, (Reported) Omeprazole Magnesium (Prilosec Otc), 20 MG ORAL DAILY, (Reported) Potassium Chloride (Potassium Chloride), 10 MEQ PO DAILY, (Reported) Ranitidine Hcl* (Zantac*), 150 MG ORAL DAILY, (Reported) Scheduled PRN Hydrocodone Bit/Acetaminophen 10-325* ([place] 10-325*), 1 TAB ORAL Q6H PRN for For Pain, (Reported) Ondansetron Odt* (Zofran Odt*), 8 MG ORAL Q6H PRN for Nausea & Vomiting, ( Reported) Zolpidem Tartrate* (Ambien*), 10 MG ORAL HS PRN for Insomnia, (Reported) Medications Narrative Pmhx: as above Shx: reviewed Fhx: non contributory Patient History Healthcare decision maker Resuscitation status Full Code Advanced Directive on File Review of Systems All Other Systems: negative except mentioned in HPI Physical Exam Physical Exam Narrative General Appearance: WD/WN Lines, tubes and drains: peripheral HEENT: normocephalic, atraumatic Neck: non-tender, normal alignment Respiratory/Chest: chest wall non-tender, lungs clear Cardiovascular/Chest: normal peripheral pulses, normal rate Abdomen: normal bowel sounds Extremities: normal range of motion Last 24 Hour Vital Signs Date Time Temp Pulse Resp B/P (MAP) Pulse Ox O2 Delivery O2 Flow Rate FiO2 10/09/17 16:00 73 10/09/17 16:00 97.6 71 18 138/81 (100) 96 97.6 10/09/17 12:00 97.9 72 18 141/90 (107) 95 97.9 10/09/17 12:00 76 10/09/17 09:00 Room Air 10/09/17 08:00 72 10/09/17 08:00 98.0 75 18 154/82 (106) 96 98.0 10/09/17 04:00 97.6 65 20 111/67 (82) 95 97.6 10/09/17 04:00 62 10/09/17 00:00 63 10/09/17 00:00 98.2 64 20 110/68 (82) 96 98.2 10/08/17 21:00 Room Air 10/08/17 20:00 67 10/08/17 20:00 98.1 66 20 135/85 (102) 94 98.1 Intake and Output 10/08/17 10/09/17 19:00 07:00 Intake Total 295 ml Balance 295 ml Intake Oral 240 ml IV Total 55 ml # Voids 1 2 Laboratory Tests Test 10/09/17 06:45 White Blood Count 5.8 K/UL (4.8-10.8) Red Blood Count 4.13 M/UL (4.20-5.40) L Hemoglobin 11.8 G/DL (12.0-16.0) L Hematocrit 36.9 % (37.0-47.0) L Mean Corpuscular Volume 89 FL (80-99) Mean Corpuscular Hemoglobin 28.6 PG (27.0-31.0) Mean Corpuscular Hemoglobin Concent 32.0 G/DL (32.0-36.0) Red Cell Distribution Width 13.6 % (11.6-14.8) Platelet Count 246 K/UL (150-450) Mean Platelet Volume 5.8 FL (6.5-10.1) L Neutrophils (%) (Auto) 56.7 % (45.0-75.0) Lymphocytes (%) (Auto) 31.9 % (20.0-45.0) Monocytes (%) (Auto) 6.0 % (1.0-10.0) Eosinophils (%) (Auto) 4.7 % (0.0-3.0) H Basophils (%) (Auto) 0.7 % (0.0-2.0) Sodium Level 140 MMOL/L (136-145) Potassium Level 3.9 MMOL/L (3.5-5.1) Chloride Level 106 MMOL/L (98-107) Carbon Dioxide Level 24 MMOL/L (21-32) Anion Gap 10 mmol/L (5-15) Blood Urea Nitrogen 15 mg/dL (7-18) Creatinine 0.9 MG/DL (0.55-1.30) Estimat Glomerular Filtration Rate > 60 mL/min (>60) Glucose Level 100 MG/DL (74-106) Calcium Level 8.9 MG/DL (8.5-10.1) Total Bilirubin 0.2 MG/DL (0.2-1.0) Aspartate Amino Transf (AST/SGOT) 22 U/L (15-37) Alanine Aminotransferase (ALT/SGPT) 27 U/L (12-78) Alkaline Phosphatase 91 U/L (46-116) Total Protein 7.5 G/DL (6.4-8.2) Albumin 3.3 G/DL (3.4-5.0) L Globulin 4.2 g/dL Albumin/Globulin Ratio 0.8 (1.0-2.7) L Triglycerides Level 245 MG/DL (30-150) H Cholesterol Level 218 MG/DL (< 200) H LDL Cholesterol 129 mg/dL (<100) H HDL Cholesterol 55 MG/DL (40-60) Cholesterol/HDL Ratio 4.0 (3.3-4.4) Thyroid Stimulating Hormone (TSH) 3.872 uiU/mL (0.358-3.740) Height (Feet): 5 Height (Inches): 1.00 Weight (Pounds): 212 Medications Current Medications Medications (Trade) Dose Ordered Sig/Bev Route PRN Reason Start Time Stop Time Status Last Admin Dose Admin Acetaminophen (Tylenol) 650 mg Q4H PRN ORAL fever 10/08/17 15:15 11/07/17 15:14 Al Hydroxide/Mg Hydroxide (Mylanta II) 30 ml Q6H PRN ORAL dyspepsia 10/08/17 15:15 11/07/17 15:14 Clonazepam (KlonoPIN) 0.5 mg Q8H PRN ORAL anxiety 10/08/17 15:15 10/15/17 15:14 10/08/17 22:49 Dextrose (Dextrose 50%) 25 ml STAT PRN IV Hypoglycemia 7/22/18 15:15 11/07/17 15:14 Dextrose (Dextrose 50%) 50 ml STAT PRN IV Hypoglycemia 10/08/17 15:45 11/07/17 15:44 Diphenhydramine HCl (Benadryl) 25 mg Q6H PRN IVP Itching 10/08/17 17:15 11/07/17 17:14 Fluconazole 50 ml @ 50 mls/hr DAILY IV 10/09/17 12:00 10/16/17 11:59 10/09/17 13:05 Lorazepam (Ativan 2mg/ml 1ml) 0.5 mg Q4H PRN IV For Anxiety 10/08/17 15:45 10/15/17 15:14 Meropenem 1 gm/ Sodium Chloride 110 ml @ 220 mls/hr Q8HR IVPB 10/09/17 14:00 10/14/17 13:59 10/09/17 15:28 Morphine Sulfate (Morphine Sulfate) 4 mg Q4H PRN IVP Severe Pain (Pain Scale 7-10) 10/08/17 17:15 10/15/17 17:14 10/09/17 10:12 Ondansetron HCl (Zofran) 4 mg Q6H PRN IVP Nausea & Vomiting 10/08/17 15:15 11/07/17 15:14 10/08/17 16:50 Pantoprazole (Protonix) 40 mg DAILY ORAL 10/09/17 09:00 11/08/17 08:59 10/09/17 08:20 Polyethylene Glycol (Miralax) 17 gm HSPRN PRN ORAL Constipation 10/08/17 15:15 11/07/17 15:14 Zolpidem Tartrate (Ambien) 5 mg HSPRN PRN ORAL Insomnia 10/08/17 15:15 10/15/17 15:14 10/08/17 22:49 Assessment/Plan Assessment/Plan Abx: Fluconazole 10/09- Meropenem 10/08- Ertapenem x1 10/08 Assessment: UTI, possible L pyelo -multiple recent abx exposure (Bactrim, Amoxicillin,Keflex) -REnal US: Minimal fullness of the right renal collecting system. No evidence of hydronephrosis on the left. Renal parenchymal echogenicity within normal limits. Echogenic foci in the renal kristel possibly related to prominent sinus fat versus vascular calcifications. Possibility of tiny nonobstructing stones thought less likely. Bladder decompressed, precluding its evaluation. -u/a wbc 40-60, nit +,leuk +3; ucx >100k GNRs Hx of R Kidney obstruction - s/p ventral hernia repair, reimplantation of ureter to bladder and resection of terminal ileum with anastomosis 06/2016 recurrent UTI nephro and uretero-lithiasis s/p multiple retrograde intrarenal surgeries and percut lithotripsies R ureteral stricture after a gynecological procedure s/p ureteral re- implantation MDROs -ESBL E.coli pyelonephritis 06/[address] [employer] defibrillator implantation. Hx of cervical cancer SP total abdominal hysterectomy Multiple ABX allergies / intolerances - tolerating aztreonam ( no Hx of Anaphylaxis to PCN ) Full Code Plan: -Continue Meropenem #2 pending urine culture -07/05/16 SP IV Merrem d# 14 -06/21/16 SP Azactam d# 3 -f/u cx -Monitor CBC/CMP, temperatures -aspiration precautions Thank you for this consultation. Will continue to follow along with you. Discussed with Rebekah Dee M.D. Oct 09, 2017 18:06
[2017-10-09 20:00] VITALS: BP 164/95
[2017-10-09] MEDS: cloNIDine 0.2mg Tab ORAL SCH (21:29)
--- NOTE | 2017-10-09 22:16 | History and Physical Report ---
DATE OF ADMISSION: 10/08/2017 TIME: 2 p.m. CONSULTANTS: 1. Zhao Arnold M.D. 2. Joel Eubanks M.D. 3. Rubin Atkinson M.D. CHIEF COMPLAINT: Complicated UTI, kidney stone and flank pain. BRIEF HISTORY: This is a 62-year-old female, who lives at home, presents with flank pain for about three days, came to [place], diagnosed with complicated UTI, kidney stone and admitted to telemetry for further treatment. Currently, calm, in bed, slight flank discomfort. No complaint. REVIEW OF SYSTEMS: No chest pain. No shortness of breath. Slight nausea. No vomiting. No diarrhea. PAST MEDICAL HISTORY: Kidney stone and hypertension. PAST SURGICAL HISTORY: AICD. MEDICATIONS: Inlcude meropenem, fluconazole, Protonix, diphenhydramine, morphine, Ativan, Klonopin, MiraLAX, Zofran and Ambien. ALLERGIES: Penicillin, Cipro, aspirin, hydromorphone, Ketoralac, levofloxacin, Reglan . SOCIAL HISTORY: No smoking. No alcohol. No intravenous drug abuse. FAMILY HISTORY: Noncontributory. PHYSICAL EXAMINATION: GENERAL: Calm in bed, oriented x3, no acute distress. VITAL SIGNS: Temperature is 98 degrees, pulse 75, respirations 18, and blood pressure 154/82. CARDIOVASCULAR: No murmur. LUNGS: Distant and clear. ABDOMEN: Positive bowel sounds. Soft, nontender, and nondistended. EXTREMITIES: No cyanosis, clubbing, or edema. NEUROLOGIC: The patient moves all extremities, slightly weak. LABORATORY AND DIAGNOSTIC DATA: Hemoglobin 11.8, otherwise CBC is normal. CMP showed albumin 3.3. Triglycerides 245 and LDL is 129. TSH 3.8. Urinalysis, 4+ occult blood and 3+ leukocyte esterase. ASSESSMENT: 1. Complicated UTI. 2. Possible kidney stone. 3. Obesity. 4. Hypertension. 5. Anemia. 6. Flank pain. 7. Dysuria. PLAN: 1. Continue previous medications. 2. Blood pressure control. 3. Antibiotics per Infectious Disease. 4. Pain control. 5. Dietary followup. 6. CBC and BMP in the morning. 7. Dr. Arnold, Dr. Eubanks and Dr. Atkinson to consult. Jonh Jeronimo D.O. DR: ARCHIE JOB#: [id number] CC:
[2017-10-09] MEDS: clonazePAM 0.5mg tab ORAL PRN (23:24)
[2017-10-09] MEDS: Zolpidem 5mg tab ORAL PRN (23:24)
[2017-10-10] VITALS: BP 118/74
[2017-10-10] MEDS: Meropenem 1gm/NS 110ml IVPB SCH ×2 (05:17)
[2017-10-10] MEDS: Morphine Sulfate 4mg/ml Inj IVP PRN ×4 (05:20→23:34)
[2017-10-10 07:23] LABS: BASOPHILS % (AUTO) 0.5 % (0.0-2.0); EOSINOPHILS % (AUTO) 4.2 % (0.0-3.0); HEMOGLOBIN 11.4 G/DL (12.0-16.0); LYMPHOCYTES % (AUTO) 29.4 % (20.0-45.0); MEAN CORPUSCULAR VOLUME 88 FL (80-99); MONOCYTES % (AUTO) 6.5 % (1.0-10.0); NEUTROPHILS % (AUTO) 59.4 % (45.0-75.0); PLATELET COUNT 248 K/UL (150-450); RED BLOOD COUNT 4.08 M/UL (4.20-5.40); RED CELL DISTRIBUTION WIDTH 13.5 % (11.6-14.8); WHITE BLOOD COUNT 6.5 K/UL (4.8-10.8)
[2017-10-10 07:48] LABS: ANION GAP 11 mmol/L (5-15); BLOOD UREA NITROGEN 18 mg/dL (7-18); CALCIUM 8.8 MG/DL (8.5-10.1); CARBON DIOXIDE 26 MMOL/L (21-32); CHLORIDE 105 MMOL/L (98-107); CREATININE 1.1 MG/DL (0.55-1.30); POTASSIUM 3.7 MMOL/L (3.5-5.1); SODIUM 141 MMOL/L (136-145)
[2017-10-10 08:00] VITALS: BP 150/94
[2017-10-10] MEDS: cloNIDine 0.2mg Tab ORAL SCH ×2 (09:07→17:40)
--- NOTE | 2017-10-10 11:00 | Pulmonology Progress Note ---
Assessment/Plan Problems: (1) Pyelonephritis (2) Multiple allergies (3) Sepsis (4) ESBL (extended spectrum beta-lactamase) producing bacteria infection (5) Hx of cervical cancer (6) HTN (hypertension) Assessment/Plan continue abx improving check electrolytes Subjective ROS Limited/Unobtainable: No Constitutional: Reports: no symptoms HEENT: Repors: no symptoms Respiratory: Reports: no symptoms Cardiovascular: Reports: no symptoms Allergies: Coded Allergies: ASPIRIN (Verified Allergy, Severe, SHORTNESS OF BREATH, 01/02/12) CIPROFLOXACIN (Verified Allergy, Intermediate, FEET SWELLING, 01/02/12) CIPROFLOXACIN HCL (Verified Allergy, Intermediate, FEET SWELLING, 01/02/12 ) HYDROMORPHONE HCL (Verified Allergy, Intermediate, HALLUCINATION, 01/02/12 ) TETRACYCLINE (Verified Allergy, Intermediate, Rash, 01/02/12) LEVOFLOXACIN (Verified Allergy, Unknown, FEET SWELLING, 11/08/13) PENICILLINS (Unverified Allergy, Unknown, 10/06/15) METOCLOPRAMIDE (Verified Adverse Reaction, Severe, tachycardia, 06/27/16) SULFAMETHOXAZOLE (Verified Adverse Reaction, Intermediate, 10/28/15) TRIMETHOPRIM (Verified Adverse Reaction, Intermediate, 10/28/15) KETOROLAC (Verified Adverse Reaction, Unknown, tachycardia, 06/27/16) Uncoded Allergies: PENICILLIN (Allergy, Unknown, 10/06/15) Objective Last 24 Hour Vital Signs Date Time Temp Pulse Resp B/P (MAP) Pulse Ox O2 Delivery O2 Flow Rate FiO2 10/10/17 09:07 150/94 10/10/17 09:07 69 150/94 10/10/17 09:00 Room Air 10/10/17 08:00 97.5 69 18 150/94 (112) 96 97.5 10/10/17 08:00 74 10/10/17 04:00 59 10/10/17 00:00 61 10/10/17 00:00 98.4 63 17 118/74 (89) 100 98.4 10/09/17 21:30 82 164/95 10/09/17 21:29 164/95 10/09/17 21:00 Room Air 10/09/17 20:00 98.7 82 18 164/95 (118) 100 98.7 10/09/17 20:00 85 10/09/17 16:00 73 10/09/17 16:00 97.6 71 18 138/81 (100) 96 97.6 10/09/17 12:00 97.9 72 18 141/90 (107) 95 97.9 10/09/17 12:00 76 Intake and Output 10/09/17 10/10/17 19:00 07:00 Intake Total 360 ml 360 ml Balance 360 ml 360 ml Intake Oral 360 ml 360 ml # Voids 3 4 General Appearance: WD/WN HEENT: normocephalic, atraumatic Respiratory/Chest: chest wall non-tender, lungs clear Abdomen: normal bowel sounds, soft, non tender Genitourinary: normal external genitalia Extremities: no clubbing Skin: no lesions Microbiology Date/Time Source Procedure Growth Status 10/08/17 11:55 Blood Blood Culture - Preliminary NO GROWTH AFTER 24 HOURS Resulted 10/08/17 11:40 Blood Blood Culture - Preliminary NO GROWTH AFTER 24 HOURS Resulted 10/08/17 11:00 Urine,Clean Catch Urine Culture - Final Escherichia Coli - Esbl Complete Laboratory Tests 10/10/17 06:03: White Blood Count 6.5, Red Blood Count 4.08L, Hemoglobin 11.4L, Hematocrit 36.0L , Mean Corpuscular Volume 88, Mean Corpuscular Hemoglobin 28.0, Mean Corpuscular Hemoglobin Concent 31.8L, Red Cell Distribution Width 13.5, Platelet Count 248, Mean Platelet Volume 5.9L, Neutrophils (%) (Auto) 59.4, Lymphocytes (%) (Auto) 29.4, Monocytes (%) (Auto) 6.5, Eosinophils (%) (Auto) 4.2H, Basophils (%) (Auto) 0.5, Sodium Level 141, Potassium Level 3.7, Chloride Level 105, Carbon Dioxide Level 26, Anion Gap 11, Blood Urea Nitrogen 18, Creatinine 1.1, Estimat Glomerular Filtration Rate 50.0, Glucose Level 108H, Calcium Level 8.8 Current Medications Medications (Trade) Dose Ordered Sig/Bev Route PRN Reason Start Time Stop Time Status Last Admin Dose Admin Acetaminophen (Tylenol) 650 mg Q4H PRN ORAL fever 10/08/17 15:15 11/07/17 15:14 Al Hydroxide/Mg Hydroxide (Mylanta II) 30 ml Q6H PRN ORAL dyspepsia 10/08/17 15:15 8/21/18 15:14 Atenolol (Tenormin) 50 mg BID ORAL 10/09/17 21:15 11/08/17 21:14 10/10/17 09:07 Clonazepam (KlonoPIN) 0.5 mg Q8H PRN ORAL anxiety 10/08/17 15:15 10/15/17 15:14 10/09/17 23:24 Clonidine HCl (Catapres tab) 0.2 mg BID ORAL 10/09/17 21:15 11/08/17 21:14 10/10/17 09:07 Dextrose (Dextrose 50%) 25 ml STAT PRN IV Hypoglycemia 10/08/17 15:15 11/07/17 15:14 Dextrose (Dextrose 50%) 50 ml STAT PRN IV Hypoglycemia 10/08/17 15:45 11/07/17 15:44 Diphenhydramine HCl (Benadryl) 25 mg Q6H PRN IVP Itching 10/08/17 17:15 11/07/17 17:14 Fluconazole 50 ml @ 50 mls/hr DAILY IV 10/09/17 12:00 10/16/17 11:59 10/10/17 09:07 Lorazepam (Ativan 2mg/ml 1ml) 0.5 mg Q4H PRN IV For Anxiety 10/08/17 15:45 10/15/17 15:14 Meropenem 1 gm/ Sodium Chloride 110 ml @ 220 mls/hr Q8HR IVPB 10/09/17 14:00 10/10/17 23:59 10/10/17 05:17 Morphine Sulfate (Morphine Sulfate) 4 mg Q4H PRN IVP Severe Pain (Pain Scale 7-10) 10/08/17 17:15 10/15/17 17:14 10/10/17 05:20 Ondansetron HCl (Zofran) 4 mg Q6H PRN IVP Nausea & Vomiting 10/08/17 15:15 11/07/17 15:14 10/08/17 16:50 Pantoprazole (Protonix) 40 mg DAILY ORAL 10/09/17 09:00 11/08/17 08:59 10/10/17 09:07 Polyethylene Glycol (Miralax) 17 gm HSPRN PRN ORAL Constipation 7/22/18 15:15 11/07/17 15:14 Potassium Chloride (K-Dur) 10 meq DAILY ORAL 10/09/17 21:15 11/08/17 21:14 10/10/17 09:07 Zolpidem Tartrate (Ambien) 5 mg HSPRN PRN ORAL Insomnia 10/08/17 15:15 10/15/17 15:14 10/09/17 23:24 Zhao Arnold MD Oct 10, 2017 11:00
[2017-10-10 12:00] VITALS: BP 115/80
[2017-10-10] MEDS ORDERED: Miralax 17gm pkt ORAL PRN (15:00)
[2017-10-10] MEDS ORDERED: DiphenhydrAMINE 50mg/ml Inj IVP PRN (15:00)
[2017-10-10] MEDS ORDERED: LORazepam Inj 2mg/ml 1ml IV PRN (15:00)
[2017-10-10] MEDS ORDERED: Meropenem 1 GM in NS 110 ML IVPB SCH (15:00)
[2017-10-10] MEDS ORDERED: Mylanta II UD 30ml ORAL PRN (15:15)
--- NOTE | 2017-10-10 15:31 | General Progress Note ---
Assessment/Plan Problem List: (1) Acute UTI ICD Codes: N39.0 - Urinary tract infection, site not specified SNOMED: 904424035 (2) Kidney stone ICD Codes: N20.0 - Calculus of kidney SNOMED: 40461919 (3) HTN (hypertension) ICD Codes: I10 - Essential (primary) hypertension SNOMED: 50882402 (4) Anemia ICD Codes: D64.9 - Anemia, unspecified SNOMED: 357782017 Status: stable, progressing Assessment/Plan ot pt diet abx cbc bmp am Subjective Constitutional: Reports: weakness Allergies: Coded Allergies: ASPIRIN (Verified Allergy, Severe, SHORTNESS OF BREATH, 01/02/12) CIPROFLOXACIN (Verified Allergy, Intermediate, FEET SWELLING, 01/02/12) CIPROFLOXACIN HCL (Verified Allergy, Intermediate, FEET SWELLING, 01/02/12 ) HYDROMORPHONE HCL (Verified Allergy, Intermediate, HALLUCINATION, 01/02/12 ) TETRACYCLINE (Verified Allergy, Intermediate, Rash, 01/02/12) LEVOFLOXACIN (Verified Allergy, Unknown, FEET SWELLING, 11/08/13) PENICILLINS (Unverified Allergy, Unknown, 10/06/15) METOCLOPRAMIDE (Verified Adverse Reaction, Severe, tachycardia, 06/27/16) SULFAMETHOXAZOLE (Verified Adverse Reaction, Intermediate, 10/28/15) TRIMETHOPRIM (Verified Adverse Reaction, Intermediate, 10/28/15) KETOROLAC (Verified Adverse Reaction, Unknown, tachycardia, 06/27/16) Uncoded Allergies: PENICILLIN (Allergy, Unknown, 10/06/15) All Systems: reviewed and negative except above Subjective calm in bed Objective Last 24 Hour Vital Signs Date Time Temp Pulse Resp B/P (MAP) Pulse Ox O2 Delivery O2 Flow Rate FiO2 10/10/17 12:08 97.5 10/10/17 12:00 97.5 73 18 115/80 (92) 97 97.5 10/10/17 11:38 97.5 10/10/17 09:07 150/94 10/10/17 09:07 69 150/94 10/10/17 09:00 Room Air 10/10/17 08:00 97.5 69 18 150/94 (112) 96 97.5 10/10/17 08:00 74 10/10/17 04:00 59 10/10/17 00:00 61 10/10/17 00:00 98.4 63 17 118/74 (89) 100 98.4 10/09/17 21:30 82 164/95 10/09/17 21:29 164/95 10/09/17 21:00 Room Air 10/09/17 20:00 98.7 82 18 164/95 (118) 100 98.7 10/09/17 20:00 85 10/09/17 16:00 73 10/09/17 16:00 97.6 71 18 138/81 (100) 96 97.6 Intake and Output 10/09/17 10/10/17 19:00 07:00 Intake Total 360 ml 360 ml Balance 360 ml 360 ml Intake Oral 360 ml 360 ml # Voids 3 4 Laboratory Tests 10/10/17 06:03: White Blood Count 6.5, Red Blood Count 4.08L, Hemoglobin 11.4L, Hematocrit 36.0L , Mean Corpuscular Volume 88, Mean Corpuscular Hemoglobin 28.0, Mean Corpuscular Hemoglobin Concent 31.8L, Red Cell Distribution Width 13.5, Platelet Count 248, Mean Platelet Volume 5.9L, Neutrophils (%) (Auto) 59.4, Lymphocytes (%) (Auto) 29.4, Monocytes (%) (Auto) 6.5, Eosinophils (%) (Auto) 4.2H, Basophils (%) (Auto) 0.5, Sodium Level 141, Potassium Level 3.7, Chloride Level 105, Carbon Dioxide Level 26, Anion Gap 11, Blood Urea Nitrogen 18, Creatinine 1.1, Estimat Glomerular Filtration Rate 50.0, Glucose Level 108H, Calcium Level 8.8 Height (Feet): 5 Height (Inches): 1.00 Weight (Pounds): 212 General Appearance: lethargic EENT: normal ENT inspection Neck: normal alignment Cardiovascular: normal peripheral pulses, normal rate, regular rhythm Respiratory/Chest: chest wall non-tender, lungs clear, normal breath sounds Abdomen: normal bowel sounds, non tender, soft Extremities: normal inspection Edema: no edema noted Arm (L), no edema noted Arm (R), no edema noted Leg (L), no edema noted Leg (R), no edema noted Pedal (L), no edema noted Pedal (R), no edema noted Generalized Neurologic: motor weakness Skin: normal pigmentation, warm/dry Jeronimo,Jonh Chi-Kelly DO Oct 10, 2017 15:31
[2017-10-10 16:00] VITALS: BP 126/79
--- NOTE | 2017-10-10 18:50 | Infectious Diseases Prog Note ---
Assessment/Plan Assessment/Plan Abx: Fluconazole 10/09- Meropenem 10/08- Ertapenem x1 10/08 Assessment: UTI, possible L pyelo -multiple recent abx exposure (Bactrim, Amoxicillin,Keflex) -REnal US: Minimal fullness of the right renal collecting system. No evidence of hydronephrosis on the left. Renal parenchymal echogenicity within normal limits. Echogenic foci in the renal kristel possibly related to prominent sinus fat versus vascular calcifications. Possibility of tiny nonobstructing stones thought less likely. Bladder decompressed, precluding its evaluation. -u/a wbc 40-60, nit +,leuk +3; ucx >100k ESBL E.coli (S Ertapenem , Nitrofurantoin) Hx of R Kidney obstruction - s/p ventral hernia repair, reimplantation of ureter to bladder and resection of terminal ileum with anastomosis 06/2016 recurrent UTI nephro and uretero-lithiasis s/p multiple retrograde intrarenal surgeries and percut lithotripsies R ureteral stricture after a gynecological procedure s/p ureteral re- implantation MDROs -ESBL E.coli pyelonephritis 06/[address] [facility] defibrillator implantation. Hx of cervical cancer SP total abdominal hysterectomy Multiple ABX allergies / intolerances - tolerating aztreonam ( no Hx of Anaphylaxis to PCN ) Full Code Plan: -Switch Meropenem #/ to Ertapnenem for ESBL UTI/pyelo -07/05/16 SP IV Merrem d# 14 -06/21/16 SP Azactam d# 3 -f/u cx -Monitor CBC/CMP, temperatures -aspiration precautions Thank you for this consultation. Will continue to follow along with you. Discussed with RN. Subjective Allergies: Coded Allergies: ASPIRIN (Verified Allergy, Severe, SHORTNESS OF BREATH, 01/02/12) CIPROFLOXACIN (Verified Allergy, Intermediate, FEET SWELLING, 01/02/12) CIPROFLOXACIN HCL (Verified Allergy, Intermediate, FEET SWELLING, 01/02/12 ) HYDROMORPHONE HCL (Verified Allergy, Intermediate, HALLUCINATION, 01/02/12 ) TETRACYCLINE (Verified Allergy, Intermediate, Rash, 01/02/12) LEVOFLOXACIN (Verified Allergy, Unknown, FEET SWELLING, 11/08/13) PENICILLINS (Unverified Allergy, Unknown, 10/06/15) METOCLOPRAMIDE (Verified Adverse Reaction, Severe, tachycardia, 06/27/16) SULFAMETHOXAZOLE (Verified Adverse Reaction, Intermediate, 10/28/15) TRIMETHOPRIM (Verified Adverse Reaction, Intermediate, 10/28/15) KETOROLAC (Verified Adverse Reaction, Unknown, tachycardia, 06/27/16) Uncoded Allergies: PENICILLIN (Allergy, Unknown, 10/06/15) Objective Vital Signs Last 24 Hour Vital Signs Date Time Temp Pulse Resp B/P (MAP) Pulse Ox O2 Delivery O2 Flow Rate FiO2 10/10/17 18:07 98.0 10/10/17 17:40 129/85 10/10/17 17:39 67 129/85 10/10/17 17:37 98.0 10/10/17 16:00 98.0 65 18 126/79 (95) 97 98.0 10/10/17 12:08 97.5 10/10/17 12:00 97.5 73 18 115/80 (92) 97 97.5 10/10/17 11:38 97.5 10/10/17 09:07 150/94 10/10/17 09:07 69 150/94 10/10/17 09:00 Room Air 10/10/17 08:00 97.5 69 18 150/94 (112) 96 97.5 10/10/17 08:00 74 10/10/17 04:00 59 10/10/17 00:00 61 10/10/17 00:00 98.4 63 17 118/74 (89) 100 98.4 10/09/17 21:30 82 164/95 10/09/17 21:29 164/95 10/09/17 21:00 Room Air 10/09/17 20:00 98.7 82 18 164/95 (118) 100 98.7 10/09/17 20:00 85 Height (Feet): 5 Height (Inches): 1.00 Weight (Pounds): 212 Objective General Appearance: WD/WN Lines, tubes and drains: peripheral HEENT: normocephalic, atraumatic Neck: non-tender, normal alignment Respiratory/Chest: chest wall non-tender, lungs clear Cardiovascular/Chest: normal peripheral pulses, normal rate Abdomen: normal bowel sounds Extremities: normal range of motion Microbiology Date/Time Source Procedure Growth Status 10/08/17 11:55 Blood Blood Culture - Preliminary NO GROWTH AFTER 24 HOURS Resulted 10/08/17 11:40 Blood Blood Culture - Preliminary NO GROWTH AFTER 24 HOURS Resulted 10/08/17 11:00 Urine,Clean Catch Urine Culture - Final Escherichia Coli - Esbl Complete Laboratory Tests Test 10/10/17 06:03 White Blood Count 6.5 K/UL (4.8-10.8) Red Blood Count 4.08 M/UL (4.20-5.40) L Hemoglobin 11.4 G/DL (12.0-16.0) L Hematocrit 36.0 % (37.0-47.0) L Mean Corpuscular Volume 88 FL (80-99) Mean Corpuscular Hemoglobin 28.0 PG (27.0-31.0) Mean Corpuscular Hemoglobin Concent 31.8 G/DL (32.0-36.0) L Red Cell Distribution Width 13.5 % (11.6-14.8) Platelet Count 248 K/UL (150-450) Mean Platelet Volume 5.9 FL (6.5-10.1) L Neutrophils (%) (Auto) 59.4 % (45.0-75.0) Lymphocytes (%) (Auto) 29.4 % (20.0-45.0) Monocytes (%) (Auto) 6.5 % (1.0-10.0) Eosinophils (%) (Auto) 4.2 % (0.0-3.0) H Basophils (%) (Auto) 0.5 % (0.0-2.0) Sodium Level 141 MMOL/L (136-145) Potassium Level 3.7 MMOL/L (3.5-5.1) Chloride Level 105 MMOL/L (98-107) Carbon Dioxide Level 26 MMOL/L (21-32) Anion Gap 11 mmol/L (5-15) Blood Urea Nitrogen 18 mg/dL (7-18) Creatinine 1.1 MG/DL (0.55-1.30) Estimat Glomerular Filtration Rate 50.0 mL/min (>60) Glucose Level 108 MG/DL (74-106) H Calcium Level 8.8 MG/DL (8.5-10.1) Current Medications Medications (Trade) Dose Ordered Sig/Bev Route PRN Reason Start Time Stop Time Status Last Admin Dose Admin Acetaminophen (Tylenol) 650 mg Q4H PRN ORAL fever 10/10/17 15:15 8/21/18 15:14 Al Hydroxide/Mg Hydroxide (Mylanta II) 30 ml Q6H PRN ORAL dyspepsia 10/10/17 15:15 11/07/17 15:14 Atenolol (Tenormin) 50 mg BID ORAL 10/10/17 18:00 11/08/17 21:14 10/10/17 17:39 Clonazepam (KlonoPIN) 0.5 mg Q8H PRN ORAL anxiety 10/10/17 15:15 10/15/17 15:14 Clonidine HCl (Catapres tab) 0.2 mg BID ORAL 10/10/17 18:00 11/08/17 21:14 Dextrose (Dextrose 50%) 25 ml STAT PRN IV Hypoglycemia 10/10/17 15:00 11/07/17 14:59 Dextrose (Dextrose 50%) 50 ml STAT PRN IV Hypoglycemia 10/10/17 15:00 11/07/17 14:59 Diphenhydramine HCl (Benadryl) 25 mg Q6H PRN IVP Itching 10/10/17 15:00 11/07/17 14:59 Fluconazole 50 ml @ 50 mls/hr DAILY IV 10/11/17 09:00 10/16/17 11:59 Lorazepam (Ativan 2mg/ml 1ml) 0.5 mg Q4H PRN IV For Anxiety 10/10/17 15:00 10/15/17 14:59 Morphine Sulfate (Morphine Sulfate) 4 mg Q4H PRN IVP Severe Pain (Pain Scale 7-10) 10/10/17 15:38 10/15/17 15:37 10/10/17 17:37 Ondansetron HCl (Zofran) 4 mg Q6H PRN IVP Nausea & Vomiting 10/10/17 15:00 11/07/17 14:59 Pantoprazole (Protonix) 40 mg ACBREAKFAST ORAL 10/11/17 06:30 11/10/17 06:29 Polyethylene Glycol (Miralax) 17 gm HSPRN PRN ORAL Constipation 10/10/17 15:00 11/07/17 14:59 Potassium Chloride (K-Dur) 10 meq DAILY ORAL 10/11/17 09:00 11/08/17 21:14 Zolpidem Tartrate (Ambien) 5 mg HSPRN PRN ORAL Insomnia 10/10/17 15:00 10/15/17 14:59 Rebekah Collins M.D. Oct 10, 2017 18:50
[2017-10-10 20:00] VITALS: BP 118/77
[2017-10-10] MEDS: Ertapenem 1 GM in NS 55 ML IVPB SCH (21:03)
[2017-10-10] MEDS: clonazePAM 0.5mg tab ORAL PRN (21:06)
[2017-10-10] MEDS: Zolpidem 5mg tab ORAL PRN (21:06)
[2017-10-11] VITALS (8 sets, daily range): BP systolic 97–169; BP diastolic 62–97
[2017-10-11] MEDS: Morphine Sulfate 4mg/ml Inj IVP PRN ×3 (05:19→21:55)
[2017-10-11 07:26] LABS: BASOPHILS % (AUTO) 0.9 % (0.0-2.0); EOSINOPHILS % (AUTO) 4.8 % (0.0-3.0); HEMATOCRIT 37.7 % (37.0-47.0); HEMOGLOBIN 12.2 G/DL (12.0-16.0); LYMPHOCYTES % (AUTO) 33.6 % (20.0-45.0); MEAN CORPUSCULAR VOLUME 87 FL (80-99); MONOCYTES % (AUTO) 6.4 % (1.0-10.0); NEUTROPHILS % (AUTO) 54.4 % (45.0-75.0); PLATELET COUNT 278 K/UL (150-450); RED BLOOD COUNT 4.31 M/UL (4.20-5.40); RED CELL DISTRIBUTION WIDTH 13.3 % (11.6-14.8); WHITE BLOOD COUNT 6.7 K/UL (4.8-10.8)
[2017-10-11 07:58] LABS: ALANINE AMINOTRANSFERASE 23 U/L (12-78); ALBUMIN 3.5 G/DL (3.4-5.0); ALBUMIN/GLOBULIN RATIO 0.8 (1.0-2.7); ALKALINE PHOSPHATASE 102 U/L (46-116); ANION GAP 10 mmol/L (5-15); ASPARTATE AMINO TRANSFERASE 25 U/L (15-37); BILIRUBIN,TOTAL 0.3 MG/DL (0.2-1.0); BLOOD UREA NITROGEN 17 mg/dL (7-18); CALCIUM 9.2 MG/DL (8.5-10.1); CARBON DIOXIDE 26 MMOL/L (21-32); CHLORIDE 104 MMOL/L (98-107); CREATININE 0.9 MG/DL (0.55-1.30); PHOSPHORUS 3.3 MG/DL (2.5-4.9); POTASSIUM 3.9 MMOL/L (3.5-5.1); SODIUM 140 MMOL/L (136-145)
[2017-10-11] MEDS: Fluconazole 100mg tab ORAL SCH (08:47)
[2017-10-11] MEDS: cloNIDine 0.2mg Tab ORAL SCH ×2 (08:49→17:47)
[2017-10-11] MEDS ORDERED: Lidocaine 1% Plain 30 ml INJ SCH (10:00)
[2017-10-11] MEDS ORDERED: Heparin 2000 units/Ns 1000ml IV SCH (10:00)
--- NOTE | 2017-10-11 10:48 | Diagnostic Imaging Report ---
Indications: Needs long-term IV access Technique: Ultrasound confirms patent compressible right basilic vein. Total sterile technique, including sterile probe cover and sterile gel, hat, mask, sterile gown, large sterile drape, and preparation with 2% chlorhexidine utilized. Local anesthesia with 1% lidocaine. Under real-time ultrasound guidance, puncture basilic vein using 21-gauge needle, documented and archived, passage 0.018 guidewire under direct fluoroscopy, which was used to determine appropriate catheter length, exchange for 5 Armenian peel-away sheath. 5 Armenian Bard dual-lumen power PICC cut to 41 cm. It was inserted through the peel-away sheath. Peel-away sheath and guidewire removed. Catheter fixed to the skin. Both catheter ports aspirated and flushed. Patient tolerated procedure well, without immediate complication. Digital radiograph documents satisfactory catheter tip position, at the cavoatrial junction. Total fluoroscopy time 0.9 minutes. Total dose area product 57 dGycm2 Total number of images: 1 Impression: Successful placement of right arm PICC under sonographic and fluoroscopic guidance, as described above.
--- NOTE | 2017-10-11 13:11 | Pulmonology Progress Note ---
Assessment/Plan Problems: (1) Pyelonephritis (2) Multiple allergies (3) Sepsis (4) ESBL (extended spectrum beta-lactamase) producing bacteria infection (5) Hx of cervical cancer (6) HTN (hypertension) Assessment/Plan continue abx, Ertapenem started doing better improving check electrolytes Subjective ROS Limited/Unobtainable: No Constitutional: Reports: no symptoms HEENT: Repors: no symptoms Respiratory: Reports: no symptoms Allergies: Coded Allergies: ASPIRIN (Verified Allergy, Severe, SHORTNESS OF BREATH, 01/02/12) CIPROFLOXACIN (Verified Allergy, Intermediate, FEET SWELLING, 01/02/12) CIPROFLOXACIN HCL (Verified Allergy, Intermediate, FEET SWELLING, 01/02/12 ) HYDROMORPHONE HCL (Verified Allergy, Intermediate, HALLUCINATION, 01/02/12 ) TETRACYCLINE (Verified Allergy, Intermediate, Rash, 01/02/12) LEVOFLOXACIN (Verified Allergy, Unknown, FEET SWELLING, 11/08/13) PENICILLINS (Unverified Allergy, Unknown, 10/06/15) METOCLOPRAMIDE (Verified Adverse Reaction, Severe, tachycardia, 06/27/16) SULFAMETHOXAZOLE (Verified Adverse Reaction, Intermediate, 10/28/15) TRIMETHOPRIM (Verified Adverse Reaction, Intermediate, 10/28/15) KETOROLAC (Verified Adverse Reaction, Unknown, tachycardia, 06/27/16) Uncoded Allergies: PENICILLIN (Allergy, Unknown, 10/06/15) Objective Last 24 Hour Vital Signs Date Time Temp Pulse Resp B/P (MAP) Pulse Ox O2 Delivery O2 Flow Rate FiO2 10/11/17 12:00 97.6 59 20 169/97 (121) 95 97.6 10/11/17 10:58 97.1 10/11/17 10:28 97.1 10/11/17 09:00 Room Air 10/11/17 08:47 69 123/90 10/11/17 08:00 97.1 69 21 123/90 (101) 95 97.1 10/11/17 05:19 97.6 10/11/17 04:00 97.6 62 20 129/76 (93) 95 97.6 10/11/17 00:00 98.0 57 20 111/66 (81) 100 98.0 10/10/17 23:34 98.0 10/10/17 21:00 Room Air 10/10/17 20:00 98.0 53 20 118/77 (91) 95 98.0 10/10/17 17:40 129/85 10/10/17 17:39 67 129/85 10/10/17 17:37 98.0 10/10/17 16:00 98.0 65 18 126/79 (95) 97 98.0 Intake and Output 10/10/17 10/11/17 19:00 07:00 Intake Total 480 ml 55 ml Balance 480 ml 55 ml Intake Oral 480 ml IV Total 55 ml # Voids 5 4 # Bowel Movements 1 General Appearance: WD/WN HEENT: normocephalic Respiratory/Chest: chest wall non-tender, lungs clear Cardiovascular: normal peripheral pulses, normal rate Abdomen: normal bowel sounds, no organomegaly Extremities: no clubbing Skin: no rash Laboratory Tests 10/11/17 06:20: White Blood Count 6.7, Red Blood Count 4.31, Hemoglobin 12.2, Hematocrit 37.7, Mean Corpuscular Volume 87, Mean Corpuscular Hemoglobin 28.4, Mean Corpuscular Hemoglobin Concent 32.4, Red Cell Distribution Width 13.3, Platelet Count 278, Mean Platelet Volume 5.8L, Neutrophils (%) (Auto) 54.4, Lymphocytes (%) (Auto) 33.6, Monocytes (%) (Auto) 6.4, Eosinophils (%) (Auto) 4.8H, Basophils (%) (Auto ) 0.9, Sodium Level 140, Potassium Level 3.9, Chloride Level 104, Carbon Dioxide Level 26, Anion Gap 10, Blood Urea Nitrogen 17, Creatinine 0.9, Estimat Glomerular Filtration Rate > 60, Glucose Level 104, Calcium Level 9.2, Phosphorus Level 3.3, Magnesium Level 1.9, Total Bilirubin 0.3, Aspartate Amino Transf (AST/SGOT) 25, Alanine Aminotransferase (ALT/SGPT) 23, Alkaline Phosphatase 102, Total Protein 7.8, Albumin 3.5, Globulin 4.3, Albumin/Globulin Ratio 0.8L Current Medications Medications (Trade) Dose Ordered Sig/Bev Route PRN Reason Start Time Stop Time Status Last Admin Dose Admin Acetaminophen (Tylenol) 650 mg Q4H PRN ORAL fever 10/10/17 15:15 11/07/17 15:14 Al Hydroxide/Mg Hydroxide (Mylanta II) 30 ml Q6H PRN ORAL dyspepsia 10/10/17 15:15 11/07/17 15:14 Atenolol (Tenormin) 50 mg BID ORAL 10/10/17 18:00 11/08/17 21:14 10/11/17 08:47 Chlorhexidine Gluconate (Christel-Hex 2%) 1 applic DAILY@2000 TOPIC 10/11/17 20:00 11/10/17 19:59 Clonazepam (KlonoPIN) 0.5 mg Q8H PRN ORAL anxiety 10/10/17 15:15 10/15/17 15:14 10/10/17 21:06 Clonidine HCl (Catapres tab) 0.2 mg BID ORAL 10/10/17 18:00 11/08/17 21:14 Dextrose (Dextrose 50%) 25 ml STAT PRN IV Hypoglycemia 10/10/17 15:00 11/07/17 14:59 Dextrose (Dextrose 50%) 50 ml STAT PRN IV Hypoglycemia 10/10/17 15:00 11/07/17 14:59 Diphenhydramine HCl (Benadryl) 25 mg Q6H PRN IVP Itching 10/10/17 15:00 11/07/17 14:59 Ertapenem 1 gm/ Sodium Chloride 55 ml @ 110 mls/hr Q24H IVPB 10/10/17 22:00 10/15/17 21:59 10/10/17 21:03 Fluconazole (Diflucan) 100 mg DAILY ORAL 10/11/17 09:00 10/18/17 08:59 10/11/17 08:47 Lorazepam (Ativan 2mg/ml 1ml) 0.5 mg Q4H PRN IV For Anxiety 10/10/17 15:00 10/15/17 14:59 Morphine Sulfate (Morphine Sulfate) 4 mg Q4H PRN IVP Severe Pain (Pain Scale 7-10) 10/10/17 15:38 10/15/17 15:37 10/11/17 10:28 Ondansetron HCl (Zofran) 4 mg Q6H PRN IVP Nausea & Vomiting 10/10/17 15:00 11/07/17 14:59 10/11/17 12:48 Pantoprazole (Protonix) 40 mg ACBREAKFAST ORAL 10/11/17 06:30 11/10/17 06:29 7/25/18 06:23 Polyethylene Glycol (Miralax) 17 gm HSPRN PRN ORAL Constipation 10/10/17 15:00 11/07/17 14:59 Potassium Chloride (K-Dur) 10 meq DAILY ORAL 10/11/17 09:00 11/08/17 21:14 10/11/17 08:47 Zolpidem Tartrate (Ambien) 5 mg HSPRN PRN ORAL Insomnia 10/10/17 15:00 10/15/17 14:59 10/10/17 21:06 Zhao Arnold MD Oct 11, 2017 13:11
--- NOTE | 2017-10-11 13:58 | General Progress Note ---
Assessment/Plan Problem List: (1) Acute UTI ICD Codes: N39.0 - Urinary tract infection, site not specified SNOMED: 971471424 (2) Kidney stone ICD Codes: N20.0 - Calculus of kidney SNOMED: 64717175 (3) HTN (hypertension) ICD Codes: I10 - Essential (primary) hypertension SNOMED: 14375845 (4) Anemia ICD Codes: D64.9 - Anemia, unspecified SNOMED: 478239218 Status: stable, progressing Assessment/Plan ot pt diet abx dc if clear Subjective Constitutional: Reports: weakness Allergies: Coded Allergies: ASPIRIN (Verified Allergy, Severe, SHORTNESS OF BREATH, 01/02/12) CIPROFLOXACIN (Verified Allergy, Intermediate, FEET SWELLING, 01/02/12) CIPROFLOXACIN HCL (Verified Allergy, Intermediate, FEET SWELLING, 01/02/12 ) HYDROMORPHONE HCL (Verified Allergy, Intermediate, HALLUCINATION, 01/02/12 ) TETRACYCLINE (Verified Allergy, Intermediate, Rash, 01/02/12) LEVOFLOXACIN (Verified Allergy, Unknown, FEET SWELLING, 11/08/13) PENICILLINS (Unverified Allergy, Unknown, 10/06/15) METOCLOPRAMIDE (Verified Adverse Reaction, Severe, tachycardia, 06/27/16) SULFAMETHOXAZOLE (Verified Adverse Reaction, Intermediate, 10/28/15) TRIMETHOPRIM (Verified Adverse Reaction, Intermediate, 10/28/15) KETOROLAC (Verified Adverse Reaction, Unknown, tachycardia, 06/27/16) Uncoded Allergies: PENICILLIN (Allergy, Unknown, 10/06/15) Subjective calm in bed Objective Last 24 Hour Vital Signs Date Time Temp Pulse Resp B/P (MAP) Pulse Ox O2 Delivery O2 Flow Rate FiO2 10/11/17 12:00 97.6 59 20 169/97 (121) 95 97.6 10/11/17 10:58 97.1 10/11/17 10:28 97.1 10/11/17 09:00 Room Air 10/11/17 08:47 69 123/90 10/11/17 08:00 97.1 69 21 123/90 (101) 95 97.1 10/11/17 05:19 97.6 10/11/17 04:00 97.6 62 20 129/76 (93) 95 97.6 10/11/17 00:00 98.0 57 20 111/66 (81) 100 98.0 10/10/17 23:34 98.0 10/10/17 21:00 Room Air 10/10/17 20:00 98.0 53 20 118/77 (91) 95 98.0 10/10/17 17:40 129/85 10/10/17 17:39 67 129/85 10/10/17 17:37 98.0 10/10/17 16:00 98.0 65 18 126/79 (95) 97 98.0 Intake and Output 10/10/17 10/11/17 19:00 07:00 Intake Total 480 ml 55 ml Balance 480 ml 55 ml Intake Oral 480 ml IV Total 55 ml # Voids 5 4 # Bowel Movements 1 Laboratory Tests 10/11/17 06:20: White Blood Count 6.7, Red Blood Count 4.31, Hemoglobin 12.2, Hematocrit 37.7, Mean Corpuscular Volume 87, Mean Corpuscular Hemoglobin 28.4, Mean Corpuscular Hemoglobin Concent 32.4, Red Cell Distribution Width 13.3, Platelet Count 278, Mean Platelet Volume 5.8L, Neutrophils (%) (Auto) 54.4, Lymphocytes (%) (Auto) 33.6, Monocytes (%) (Auto) 6.4, Eosinophils (%) (Auto) 4.8H, Basophils (%) (Auto ) 0.9, Sodium Level 140, Potassium Level 3.9, Chloride Level 104, Carbon Dioxide Level 26, Anion Gap 10, Blood Urea Nitrogen 17, Creatinine 0.9, Estimat Glomerular Filtration Rate > 60, Glucose Level 104, Calcium Level 9.2, Phosphorus Level 3.3, Magnesium Level 1.9, Total Bilirubin 0.3, Aspartate Amino Transf (AST/SGOT) 25, Alanine Aminotransferase (ALT/SGPT) 23, Alkaline Phosphatase 102, Total Protein 7.8, Albumin 3.5, Globulin 4.3, Albumin/Globulin Ratio 0.8L Height (Feet): 5 Height (Inches): 1.00 Weight (Pounds): 227 General Appearance: alert EENT: normal ENT inspection Neck: normal alignment Cardiovascular: normal peripheral pulses, normal rate, regular rhythm Respiratory/Chest: chest wall non-tender, lungs clear, normal breath sounds Abdomen: normal bowel sounds, non tender, soft Extremities: normal inspection Edema: no edema noted Arm (L), no edema noted Arm (R), no edema noted Leg (L), no edema noted Leg (R), no edema noted Pedal (L), no edema noted Pedal (R), no edema noted Generalized Neurologic: responsive, motor weakness Skin: normal pigmentation, warm/dry Jonh Jeronimo DO Oct 11, 2017 13:58
--- NOTE | 2017-10-11 17:16 | Infectious Diseases Prog Note ---
Assessment/Plan Assessment/Plan Assessment: UTI, possible L pyelo -multiple recent abx exposure (Bactrim, Amoxicillin,Keflex) -REnal US: Minimal fullness of the right renal collecting system. No evidence of hydronephrosis on the left. Renal parenchymal echogenicity within normal limits. Echogenic foci in the renal kristel possibly related to prominent sinus fat versus vascular calcifications. Possibility of tiny nonobstructing stones thought less likely. Bladder decompressed, precluding its evaluation. -u/a wbc 40-60, nit +,leuk +3; ucx >100k ESBL E.coli (S Ertapenem , Nitrofurantoin) Hx of R Kidney obstruction - s/p ventral hernia repair, reimplantation of ureter to bladder and resection of terminal ileum with anastomosis 06/2016 Rosanne vaginitis recurrent UTI nephro and uretero-lithiasis s/p multiple retrograde intrarenal surgeries and percut lithotripsies R ureteral stricture after a gynecological procedure s/p ureteral re- implantation MDROs -ESBL E.coli pyelonephritis 06/[address] [employer] defibrillator implantation. Hx of cervical cancer SP total abdominal hysterectomy Multiple ABX allergies / intolerances - tolerating aztreonam ( no Hx of Anaphylaxis to PCN ) Full Code s/p PICC line 10/11 Plan: -Continue Ertapenem abx d#4/ for ESBL UTI/pyelo; ok to discharge on this regimen -weekly CBC, CMP -10/10 SP Meropenem #3 -07/05/16 SP IV Merrem d# 14 -06/21/16 SP Azactam d# 3 -Continue PO Fluconazole #3/5 for candidal vaginitis (continue as itchiness still present but improved) -f/u cx -Monitor CBC/CMP, temperatures -aspiration precautions Thank you for this consultation. Will continue to follow along with you. Discussed with RN. Subjective Allergies: Coded Allergies: ASPIRIN (Verified Allergy, Severe, SHORTNESS OF BREATH, 01/02/12) CIPROFLOXACIN (Verified Allergy, Intermediate, FEET SWELLING, 01/02/12) CIPROFLOXACIN HCL (Verified Allergy, Intermediate, FEET SWELLING, 01/02/12 ) HYDROMORPHONE HCL (Verified Allergy, Intermediate, HALLUCINATION, 01/02/12 ) TETRACYCLINE (Verified Allergy, Intermediate, Rash, 01/02/12) LEVOFLOXACIN (Verified Allergy, Unknown, FEET SWELLING, 11/08/13) PENICILLINS (Unverified Allergy, Unknown, 10/06/15) METOCLOPRAMIDE (Verified Adverse Reaction, Severe, tachycardia, 06/27/16) SULFAMETHOXAZOLE (Verified Adverse Reaction, Intermediate, 10/28/15) TRIMETHOPRIM (Verified Adverse Reaction, Intermediate, 10/28/15) KETOROLAC (Verified Adverse Reaction, Unknown, tachycardia, 06/27/16) Uncoded Allergies: PENICILLIN (Allergy, Unknown, 10/06/15) Subjective afebrile no [id number] Bcx NTD s/p PICC discharge planning Objective Vital Signs Last 24 Hour Vital Signs Date Time Temp Pulse Resp B/P (MAP) Pulse Ox O2 Delivery O2 Flow Rate FiO2 10/11/17 16:00 95.9 64 21 160/62 (94) 95 95.9 10/11/17 12:00 97.6 59 20 169/97 (121) 95 97.6 10/11/17 10:58 97.1 10/11/17 10:28 97.1 10/11/17 09:00 Room Air 10/11/17 08:47 69 123/90 10/11/17 08:00 97.1 69 21 123/90 (101) 95 97.1 10/11/17 05:19 97.6 10/11/17 04:00 97.6 62 20 129/76 (93) 95 97.6 10/11/17 00:00 98.0 57 20 111/66 (81) 100 98.0 10/10/17 23:34 98.0 10/10/17 21:00 Room Air 10/10/17 20:00 98.0 53 20 118/77 (91) 95 98.0 10/10/17 17:40 129/85 10/10/17 17:39 67 129/85 10/10/17 17:37 98.0 Height (Feet): 5 Height (Inches): 1.00 Weight (Pounds): 227 Objective General Appearance: WD/WN Lines, tubes and drains: peripheral HEENT: normocephalic, atraumatic Neck: non-tender, normal alignment Respiratory/Chest: chest wall non-tender, lungs clear Cardiovascular/Chest: normal peripheral pulses, normal rate Abdomen: normal bowel sounds Extremities: normal range of motion Laboratory Tests Test 10/11/17 06:20 White Blood Count 6.7 K/UL (4.8-10.8) Red Blood Count 4.31 M/UL (4.20-5.40) Hemoglobin 12.2 G/DL (12.0-16.0) Hematocrit 37.7 % (37.0-47.0) Mean Corpuscular Volume 87 FL (80-99) Mean Corpuscular Hemoglobin 28.4 PG (27.0-31.0) Mean Corpuscular Hemoglobin Concent 32.4 G/DL (32.0-36.0) Red Cell Distribution Width 13.3 % (11.6-14.8) Platelet Count 278 K/UL (150-450) Mean Platelet Volume 5.8 FL (6.5-10.1) L Neutrophils (%) (Auto) 54.4 % (45.0-75.0) Lymphocytes (%) (Auto) 33.6 % (20.0-45.0) Monocytes (%) (Auto) 6.4 % (1.0-10.0) Eosinophils (%) (Auto) 4.8 % (0.0-3.0) H Basophils (%) (Auto) 0.9 % (0.0-2.0) Sodium Level 140 MMOL/L (136-145) Potassium Level 3.9 MMOL/L (3.5-5.1) Chloride Level 104 MMOL/L (98-107) Carbon Dioxide Level 26 MMOL/L (21-32) Anion Gap 10 mmol/L (5-15) Blood Urea Nitrogen 17 mg/dL (7-18) Creatinine 0.9 MG/DL (0.55-1.30) Estimat Glomerular Filtration Rate > 60 mL/min (>60) Glucose Level 104 MG/DL (74-106) Calcium Level 9.2 MG/DL (8.5-10.1) Phosphorus Level 3.3 MG/DL (2.5-4.9) Magnesium Level 1.9 MG/DL (1.8-2.4) Total Bilirubin 0.3 MG/DL (0.2-1.0) Aspartate Amino Transf (AST/SGOT) 25 U/L (15-37) Alanine Aminotransferase (ALT/SGPT) 23 U/L (12-78) Alkaline Phosphatase 102 U/L (46-116) Total Protein 7.8 G/DL (6.4-8.2) Albumin 3.5 G/DL (3.4-5.0) Globulin 4.3 g/dL Albumin/Globulin Ratio 0.8 (1.0-2.7) L Current Medications Medications (Trade) Dose Ordered Sig/Bev Route PRN Reason Start Time Stop Time Status Last Admin Dose Admin Acetaminophen (Tylenol) 650 mg Q4H PRN ORAL fever 10/10/17 15:15 11/07/17 15:14 Al Hydroxide/Mg Hydroxide (Mylanta II) 30 ml Q6H PRN ORAL dyspepsia 10/10/17 15:15 11/07/17 15:14 Atenolol (Tenormin) 50 mg BID ORAL 10/10/17 18:00 11/08/17 21:14 10/11/17 08:47 Chlorhexidine Gluconate (Christel-Hex 2%) 1 applic DAILY@2000 TOPIC 10/11/17 20:00 11/10/17 19:59 Clonazepam (KlonoPIN) 0.5 mg Q8H PRN ORAL anxiety 10/10/17 15:15 10/15/17 15:14 10/10/17 21:06 Clonidine HCl (Catapres tab) 0.2 mg BID ORAL 10/10/17 18:00 11/08/17 21:14 Dextrose (Dextrose 50%) 25 ml STAT PRN IV Hypoglycemia 10/10/17 15:00 11/07/17 14:59 Dextrose (Dextrose 50%) 50 ml STAT PRN IV Hypoglycemia 10/10/17 15:00 11/07/17 14:59 Diphenhydramine HCl (Benadryl) 25 mg Q6H PRN IVP Itching 10/10/17 15:00 11/07/17 14:59 Ertapenem 1 gm/ Sodium Chloride 55 ml @ 110 mls/hr Q24H IVPB 10/10/17 22:00 10/15/17 21:59 10/10/17 21:03 Fluconazole (Diflucan) 100 mg DAILY ORAL 10/11/17 09:00 10/18/17 08:59 10/11/17 08:47 Lorazepam (Ativan 2mg/ml 1ml) 0.5 mg Q4H PRN IV For Anxiety 10/10/17 15:00 10/15/17 14:59 Morphine Sulfate (Morphine Sulfate) 4 mg Q4H PRN IVP Severe Pain (Pain Scale 7-10) 10/10/17 15:38 10/15/17 15:37 10/11/17 10:28 Ondansetron HCl (Zofran) 4 mg Q6H PRN IVP Nausea & Vomiting 10/10/17 15:00 11/07/17 14:59 10/11/17 12:48 Pantoprazole (Protonix) 40 mg ACBREAKFAST ORAL 10/11/17 06:30 11/10/17 06:29 10/11/17 06:23 Polyethylene Glycol (Miralax) 17 gm HSPRN PRN ORAL Constipation 10/10/17 15:00 11/07/17 14:59 Potassium Chloride (K-Dur) 10 meq DAILY ORAL 10/11/17 09:00 11/08/17 21:14 10/11/17 08:47 Zolpidem Tartrate (Ambien) 5 mg HSPRN PRN ORAL Insomnia 10/10/17 15:00 10/15/17 14:59 10/10/17 21:06 Rebekah Collins M.D. Oct 11, 2017 17:16
[2017-10-11] MEDS: Ertapenem 1 GM in NS 55 ML IVPB SCH (21:17)
[2017-10-11] MEDS: Dyna-Hex 2% Top Sol 2oz TOPIC SCH (21:17)
[2017-10-11] MEDS: clonazePAM 0.5mg tab ORAL PRN (22:59)
[2017-10-11] MEDS: Zolpidem 5mg tab ORAL PRN (22:59)
[2017-10-12 03:17] VITALS: BP 115/66
[2017-10-12 08:00] VITALS: BP 133/83
[2017-10-12] MEDS: cloNIDine 0.2mg Tab ORAL SCH ×2 (09:02→18:00)
[2017-10-12] MEDS: Fluconazole 100mg tab ORAL SCH (09:02)
[2017-10-12 12:00] VITALS: BP 108/76
--- NOTE | 2017-10-12 12:45 | Diagnostic Imaging Report ---
APPROVED REPORT CPT Code: 58418 Present Symptoms Lower Extremity Pain: Bilateral BILATERAL: Imaging reveals a patent deep venous system bilaterally. There is no evidence of thrombus within the femoral, popliteal or tibial segments. The greater saphenous veins are also within normal limits. Doppler indicates normal spontaneous flow within these segments.
--- NOTE | 2017-10-12 13:33 | General Progress Note ---
Assessment/Plan Problem List: (1) Acute UTI ICD Codes: N39.0 - Urinary tract infection, site not specified SNOMED: 687987220 (2) Kidney stone ICD Codes: N20.0 - Calculus of kidney SNOMED: 85041182 (3) HTN (hypertension) ICD Codes: I10 - Essential (primary) hypertension SNOMED: 16372323 (4) Anemia ICD Codes: D64.9 - Anemia, unspecified SNOMED: 820667887 Status: stable, progressing, tolerating diet Assessment/Plan ot pt diet abx cbc bmp am dc if clear Subjective Constitutional: Reports: weakness Allergies: Coded Allergies: ASPIRIN (Verified Allergy, Severe, SHORTNESS OF BREATH, 01/02/12) CIPROFLOXACIN (Verified Allergy, Intermediate, FEET SWELLING, 01/02/12) CIPROFLOXACIN HCL (Verified Allergy, Intermediate, FEET SWELLING, 01/02/12 ) HYDROMORPHONE HCL (Verified Allergy, Intermediate, HALLUCINATION, 01/02/12 ) TETRACYCLINE (Verified Allergy, Intermediate, Rash, 01/02/12) LEVOFLOXACIN (Verified Allergy, Unknown, FEET SWELLING, 11/08/13) PENICILLINS (Unverified Allergy, Unknown, 10/06/15) METOCLOPRAMIDE (Verified Adverse Reaction, Severe, tachycardia, 06/27/16) SULFAMETHOXAZOLE (Verified Adverse Reaction, Intermediate, 10/28/15) TRIMETHOPRIM (Verified Adverse Reaction, Intermediate, 10/28/15) KETOROLAC (Verified Adverse Reaction, Unknown, tachycardia, 06/27/16) Uncoded Allergies: PENICILLIN (Allergy, Unknown, 10/06/15) All Systems: reviewed and negative except above Subjective calm in bed Objective Last 24 Hour Vital Signs Date Time Temp Pulse Resp B/P (MAP) Pulse Ox O2 Delivery O2 Flow Rate FiO2 10/12/17 12:00 98.0 66 20 108/76 (87) 96 98.0 10/12/17 09:02 133/83 10/12/17 09:02 71 133/83 10/12/17 08:30 Room Air 10/12/17 08:00 98.0 71 20 133/83 (100) 96 98.0 10/12/17 03:17 98.1 60 18 115/66 (82) 96 98.1 10/11/17 23:04 98.0 62 18 97/66 (76) 98 98.0 10/11/17 22:25 98.1 10/11/17 21:55 98.1 10/11/17 20:35 Room Air 10/11/17 20:00 98.1 59 18 113/74 (87) 92 98.1 10/11/17 17:47 141/88 10/11/17 17:47 66 141/88 10/11/17 17:10 98.6 66 20 141/88 (105) 96 98.6 10/11/17 16:00 95.9 64 21 160/62 (94) 95 95.9 Intake and Output 10/11/17 10/12/17 19:00 07:00 Intake Total 600 ml 250 ml Balance 600 ml 250 ml Intake Oral 600 ml 250 ml # Voids 6 # Bowel Movements 2 Height (Feet): 5 Height (Inches): 1.00 Weight (Pounds): 227 General Appearance: lethargic EENT: normal ENT inspection Neck: normal alignment Cardiovascular: normal peripheral pulses, normal rate, regular rhythm Respiratory/Chest: chest wall non-tender, lungs clear, normal breath sounds Extremities: normal inspection Edema: no edema noted Arm (L), no edema noted Arm (R), no edema noted Leg (L), no edema noted Leg (R), no edema noted Pedal (L), no edema noted Pedal (R), no edema noted Generalized Neurologic: responsive, motor weakness Skin: normal pigmentation, warm/dry Jonh Jeronimo DO Oct 12, 2017 13:33
--- NOTE | 2017-10-12 13:55 | Pulmonology Progress Note ---
Assessment/Plan Problems: (1) Pyelonephritis (2) Multiple allergies (3) Sepsis (4) ESBL (extended spectrum beta-lactamase) producing bacteria infection (5) Hx of cervical cancer (6) HTN (hypertension) Assessment/Plan continue abx, Ertapenem started doing better improving check electrolytes Subjective ROS Limited/Unobtainable: No Constitutional: Reports: no symptoms HEENT: Repors: no symptoms Allergies: Coded Allergies: ASPIRIN (Verified Allergy, Severe, SHORTNESS OF BREATH, 01/02/12) CIPROFLOXACIN (Verified Allergy, Intermediate, FEET SWELLING, 01/02/12) CIPROFLOXACIN HCL (Verified Allergy, Intermediate, FEET SWELLING, 01/02/12 ) HYDROMORPHONE HCL (Verified Allergy, Intermediate, HALLUCINATION, 01/02/12 ) TETRACYCLINE (Verified Allergy, Intermediate, Rash, 01/02/12) LEVOFLOXACIN (Verified Allergy, Unknown, FEET SWELLING, 11/08/13) PENICILLINS (Unverified Allergy, Unknown, 10/06/15) METOCLOPRAMIDE (Verified Adverse Reaction, Severe, tachycardia, 06/27/16) SULFAMETHOXAZOLE (Verified Adverse Reaction, Intermediate, 10/28/15) TRIMETHOPRIM (Verified Adverse Reaction, Intermediate, 10/28/15) KETOROLAC (Verified Adverse Reaction, Unknown, tachycardia, 06/27/16) Uncoded Allergies: PENICILLIN (Allergy, Unknown, 10/06/15) Zhao Arnold MD Oct 12, 2017 13:55
[2017-10-12 16:00] VITALS: BP 111/80
[2017-10-12] MEDS ORDERED: INVANZ1 GM IVPB (17:20)
--- NOTE | 2017-10-12 17:54 | Infectious Diseases Prog Note ---
Assessment/Plan Assessment/Plan Assessment: UTI, possible L pyelo -multiple recent abx exposure (Bactrim, Amoxicillin,Keflex) -REnal US: Minimal fullness of the right renal collecting system. No evidence of hydronephrosis on the left. Renal parenchymal echogenicity within normal limits. Echogenic foci in the renal kristel possibly related to prominent sinus fat versus vascular calcifications. Possibility of tiny nonobstructing stones thought less likely. Bladder decompressed, precluding its evaluation. -u/a wbc 40-60, nit +,leuk +3; ucx >100k ESBL E.coli (S Ertapenem , Nitrofurantoin) -Bcx NTD Hx of R Kidney obstruction - s/p ventral hernia repair, reimplantation of ureter to bladder and resection of terminal ileum with anastomosis 06/2016 Rosanne vaginitis recurrent UTI nephro and uretero-lithiasis s/p multiple retrograde intrarenal surgeries and percut lithotripsies R ureteral stricture after a gynecological procedure s/p ureteral re- implantation MDROs -ESBL E.coli pyelonephritis 06/[address] [employer] defibrillator implantation. Hx of cervical cancer SP total abdominal hysterectomy Multiple ABX allergies / intolerances - tolerating aztreonam ( no Hx of Anaphylaxis to PCN ) Full Code s/p PICC line 10/11 Plan: -Continue Ertapenem abx d#5/ for ESBL UTI/pyelo; ok to discharge on this regimen -weekly CBC, CMP -10/10 SP Meropenem #3 -07/05/16 SP IV Merrem d# 14 -06/21/16 SP Azactam d# 3 -Continue PO Fluconazole #/5 for candidal vaginitis (continue as itchiness still present but improved) -f/u cx -Monitor CBC/CMP, temperatures -aspiration precautions Thank you for this consultation. Will continue to follow along with you. Discussed with RN. Subjective Allergies: Coded Allergies: ASPIRIN (Verified Allergy, Severe, SHORTNESS OF BREATH, 01/02/12) CIPROFLOXACIN (Verified Allergy, Intermediate, FEET SWELLING, 01/02/12) CIPROFLOXACIN HCL (Verified Allergy, Intermediate, FEET SWELLING, 01/02/12 ) HYDROMORPHONE HCL (Verified Allergy, Intermediate, HALLUCINATION, 01/02/12 ) TETRACYCLINE (Verified Allergy, Intermediate, Rash, 01/02/12) LEVOFLOXACIN (Verified Allergy, Unknown, FEET SWELLING, 11/08/13) PENICILLINS (Unverified Allergy, Unknown, 10/06/15) METOCLOPRAMIDE (Verified Adverse Reaction, Severe, tachycardia, 06/27/16) SULFAMETHOXAZOLE (Verified Adverse Reaction, Intermediate, 10/28/15) TRIMETHOPRIM (Verified Adverse Reaction, Intermediate, 10/28/15) KETOROLAC (Verified Adverse Reaction, Unknown, tachycardia, 06/27/16) Uncoded Allergies: PENICILLIN (Allergy, Unknown, 10/06/15) Subjective afebrile no leukocytosis Bcx NTD discharge planning Objective Vital Signs Last 24 Hour Vital Signs Date Time Temp Pulse Resp B/P (MAP) Pulse Ox O2 Delivery O2 Flow Rate FiO2 10/12/17 16:00 97.2 68 20 111/80 (90) 96 97.2 10/12/17 12:00 98.0 66 20 108/76 (87) 96 98.0 10/12/17 09:02 133/83 10/12/17 09:02 71 133/83 10/12/17 08:30 Room Air 10/12/17 08:00 98.0 71 20 133/83 (100) 96 98.0 10/12/17 03:17 98.1 60 18 115/66 (82) 96 98.1 10/11/17 23:04 98.0 62 18 97/66 (76) 98 98.0 10/11/17 22:25 98.1 10/11/17 21:55 98.1 10/11/17 20:35 Room Air 10/11/17 20:00 98.1 59 18 113/74 (87) 92 98.1 Height (Feet): 5 Height (Inches): 1.00 Weight (Pounds): 227 Objective General Appearance: WD/WN Lines, tubes and drains: peripheral HEENT: normocephalic, atraumatic Neck: non-tender, normal alignment Respiratory/Chest: chest wall non-tender, lungs clear Cardiovascular/Chest: normal peripheral pulses, normal rate Abdomen: normal bowel sounds Extremities: normal range of motion Current Medications Medications (Trade) Dose Ordered Sig/Bev Route PRN Reason Start Time Stop Time Status Last Admin Dose Admin Acetaminophen (Tylenol) 650 mg Q4H PRN ORAL fever 10/10/17 15:15 11/07/17 15:14 Al Hydroxide/Mg Hydroxide (Mylanta II) 30 ml Q6H PRN ORAL dyspepsia 10/10/17 15:15 11/07/17 15:14 Atenolol (Tenormin) 50 mg BID ORAL 10/10/17 18:00 11/08/17 21:14 10/12/17 09:02 Chlorhexidine Gluconate (Christel-Hex 2%) 1 applic DAILY@2000 TOPIC 10/11/17 20:00 11/10/17 19:59 10/11/17 21:17 Clonazepam (KlonoPIN) 0.5 mg Q8H PRN ORAL anxiety 10/10/17 15:15 10/15/17 15:14 10/11/17 22:59 Clonidine HCl (Catapres tab) 0.2 mg BID ORAL 10/10/17 18:00 11/08/17 21:14 10/12/17 09:02 Dextrose (Dextrose 50%) 25 ml STAT PRN IV Hypoglycemia 10/10/17 15:00 11/07/17 14:59 Dextrose (Dextrose 50%) 50 ml STAT PRN IV Hypoglycemia 10/10/17 15:00 11/07/17 14:59 Diphenhydramine HCl (Benadryl) 25 mg Q6H PRN IVP Itching 10/10/17 15:00 11/07/17 14:59 Ertapenem 1 gm/ Sodium Chloride 55 ml @ 110 mls/hr Q24H IVPB 10/10/17 22:00 10/15/17 21:59 10/11/17 21:17 Fluconazole (Diflucan) 100 mg DAILY ORAL 10/11/17 09:00 10/13/17 23:59 10/12/17 09:02 Lorazepam (Ativan 2mg/ml 1ml) 0.5 mg Q4H PRN IV For Anxiety 10/10/17 15:00 10/15/17 14:59 Morphine Sulfate (Morphine Sulfate) 4 mg Q4H PRN IVP Severe Pain (Pain Scale 7-10) 10/10/17 15:38 10/15/17 15:37 10/11/17 21:55 Ondansetron HCl (Zofran) 4 mg Q6H PRN IVP Nausea & Vomiting 10/10/17 15:00 11/07/17 14:59 10/12/17 06:39 Pantoprazole (Protonix) 40 mg ACBREAKFAST ORAL 10/11/17 06:30 11/10/17 06:29 10/12/17 06:39 Polyethylene Glycol (Miralax) 17 gm HSPRN PRN ORAL Constipation 10/10/17 15:00 11/07/17 14:59 Potassium Chloride (K-Dur) 10 meq DAILY ORAL 10/11/17 09:00 11/08/17 21:14 10/12/17 09:02 Zolpidem Tartrate (Ambien) 5 mg HSPRN PRN ORAL Insomnia 10/10/17 15:00 10/15/17 14:59 10/11/17 22:59 Rebekah Collins M.D. Oct 12, 2017 17:54
[2017-10-12] MEDS: Morphine Sulfate 4mg/ml Inj IVP PRN (18:20)
[2017-10-12 20:00] VITALS: BP 137/81
[2017-10-12] MEDS: Dyna-Hex 2% Top Sol 2oz TOPIC SCH (20:00)
[2017-10-12] MEDS: Ertapenem 1 GM in NS 55 ML IVPB SCH (20:32)
--- NOTE | 2017-10-13 10:58 | Discharge Summary ---
Discharge Summary Discharge Summary _ DATE OF ADMISSION: 10/08/2017 DATE OF DISCHARGE: 10/12/2017 CONSULTANTS: Dr. Rebekah Arnold BRIEF HOSPITAL COURSE: Patient is a 62-year-old female, who lives at home, presented to ED complaining of increased dysuria as well as left sided flank pain for 3 days. She has history of recurrent urinary infections as well as renal stones. She had a prior ventral hernia repair, with reimplantation of ureter to bladder and resection of terminal ileum with anastomosis in 2017. On evaluation at ED, she had normal white blood count. Urinalysis showed urine WBC 40-60, 5-10 RBC, 3+ leukocyte esterase, positive nitrite, many bacteria. Renal ultrasound showed minimal fullness on the right collecting system; with no evidence of hydronephrosis on the left; there was echogenic foci in the renal kristel. She has history of ESBL Escherichia coli. She was given meropenem and was admitted for further management. She was seen by infectious disease specialist. Urine culture showed growth of ESBL Escherichia coli. Antibiotic was switched to ertapenem. She complained of vaginal pruritus, possibly, Rosanne vaginitis. She was given po fluconazole. Patient will need to complete 2 weeks IV antibiotic treatment. PICC line was inserted to the right arm. Patient was eventually cleared for discharge home, to complete ertapenem 1 g IV daily for 9 more days. FINAL DIAGNOSES: ESBL Escherichia coli UTI, possible left pyelonephritis Rosanne vaginitis Recurrent urine infection Nephro and ureterolithiasis status post multiple retrograde intrarenal surgeries and percutaneous lithotripsis [employer] defibrillator implantation History of cervical CA status post total abdominal hysterectomy Multiple antibiotic allergies/intolerance Hypertension DISPOSITION: Patient was discharged home with home health. DISCHARGE MEDICATIONS: Refer to Discharge Medication List. DISCHARGE INSTRUCTIONS: Follow up within a week. I have been assigned to dictate discharge summary on this account, and I was not involved in the patient's management. Ruchi Sales NP Oct 13, 2017 10:58
== END 2017-10-12 22:00 | disposition home health service (06) | DRG 463 ==
LOC: EMR 11:12 → EDBEDREQ 14:18 → 2E 15:31 → 4E 10-10 14:18
PROC: 02HV33Z Insertion of Infusion Device into Superior Vena Cava, Percutaneous Approach (ICD-10-PCS; principal; 2017-10-11)
DX: N39.0 Urinary tract infection, site not specified (principal); B37.3 Candidiasis of vulva and vagina; B96.20 Unspecified Escherichia coli [E. coli] as the cause of diseases classified elsewhere; E66.9 Obesity, unspecified; D64.9 Anemia, unspecified; N13.2 Hydronephrosis with renal and ureteral calculous obstruction; Z16.12 Extended spectrum beta lactamase (ESBL) resistance; N12 Tubulo-interstitial nephritis, not specified as acute or chronic; Z87.442 Personal history of urinary calculi; Z95.810 Presence of automatic (implantable) cardiac defibrillator; Z85.41 Personal history of malignant neoplasm of cervix uteri; Z90.710 Acquired absence of both cervix and uterus; Z88.1 Allergy status to other antibiotic agents; I10 Essential (primary) hypertension; Z88.6 Allergy status to analgesic agent; Z88.0 Allergy status to penicillin; Z88.2 Allergy status to sulfonamides; Z88.8 Allergy status to other drugs, medicaments and biological substances
CPT/HCPCS: 36415; 36569; 76770; 76937; 80048; 80053; 80061; 81001; 83605; 83690; 83735; 84100; 84443; 84484; 85025; 85610; 85730; 87040; 87086; 87181; 93005; 93970; 97803; 99285; J2405